=== PATIENT | female | born 1935 | race Caucasian/White ===

== ENCOUNTER → 2017-09-22 14:58 | Outpatient (CLI) | payer MEDICARE, SELFPAY | PROVIDERS: Family Provider Family Medicine; PCP Family Medicine; Visit Provider Family Medicine | DX: R82.90 Unspecified abnormal findings in urine (principal) | CPT/HCPCS: 87086; 87088; 87186 ==

== ENCOUNTER → 2017-10-29 14:46 | Outpatient (CLI) | payer MEDICARE, SELFPAY ==
--- NOTE | 2017-10-29 14:48 | RAD_ITS ---
STUDY: X-RAY - LEFT SHOULDER REASON FOR EXAM: Chronic pain, no specific injury. TECHNIQUE: 3 view(s) of the shoulder. COMPARISON: None. FINDINGS: Normal glenohumeral articulation. Normal acromioclavicular joint. Normal acromion. Normal humeral head and visualized proximal humerus. The soft tissue structures are unremarkable. Normal visualized pulmonary apex. RAD/Shoulder min 2 Views IMPRESSION: Unremarkable x-ray examination of the left shoulder. Electronically Signed: Gabe Gao MD at 15:30 EDT Tel , Service support ,
== END ==
PROVIDERS: Family Provider Family Medicine; PCP Family Medicine; Visit Provider Orthopaedic Surgery
DX: M25.512 Pain in left shoulder (principal)
CPT/HCPCS: 73030

== ENCOUNTER 2017-12-09 16:30 | Outpatient (RCR) | payer MEDICARE, SELFPAY ==
--- NOTE | 2017-11-04 14:04 | HP.PTEVAL_ITS ---
Patient's Visit Information NINA SANDOVAL is a 82 year old F referred to Physical Therapy by Natalia Rodriguez DO with a diagnosis of L shoulder pain. Date of Evaluation: 11/04/17 Physical Therapist: Olivia Linares - Visit Plan Frequency: 2x /Week Duration: 4 Weeks Plan: 2 visits to get HEP and trial of US and see if pt wants to continue with HEP at that points for postural exercises and RC/bicep strength - Subjective Subjective: Pt reports that she has had L shoulder pain for sometime. She had it on the R and has had a few shots and it is ok. She has had a few shots in the L shoulder and knew that it was not going to work. Dr Salguero gave her the shots. Dr Salguero sent her to Dr Pichardo and Dr Pichardo said to do therapy and check back in 6 weeks. Pt is seeing Dr Salguero next Thursday and hoping to get a shot in her back. Her L shoudler pain can be a 9/10. She has some fingers that feel funny on the L hand once in awhile.... She feels no weakness in her L shoulder. She has had 2 injection in L shoulder. First one was good and the second one was not so good. She can not sleep on her back but she sleeps on her sides....it is comfortable laying on the L side for awhile. - Pain L shoulder pain Pain Intensity (Out of 10): 4 Pain Intensity Range: 9 - Objective R handed: L shld flex and abd 110 degrees AROM, L1 IR,. R shld flex 130 degrees and shld abd 119 degrees AROM, T12 IR. L shld MMT flexion 4-/5, abd 4/5, ER 4-/5, IR 3+/5, bicep 3+/5. R shld MMT flexion 4.5, abd 4/5, ER 4/5, IR 4/5, bicep 4/5. Painful at end range PROM L shld flexion and abd. Posture: sits with rounded shoulders and protracted shoulders. Palpation: tender over L bicep and under anterior acromion. - Goals Goal 1:: I HEP Goal Time Frame: 2-4 Weeks Goal 2:: Decrease L shoulder pain to 2/10 with ADL's Goal Time Frame: 4-6 Weeks Goal 3:: Increase L shoulder strength by 1/2 muscle grade (At time of evalMMT flexion 4-/5, abd 4/5, ER 4-/5, IR 3+/5, bicep 3+/5). Goal Time Frame: 4-6 Weeks - Rehabilitation Potential Rehabilitation Potential: Good - Anticipated Interventions Patient/Client Instruction: Educate patient on: Condition For the Purpose of:: To decrease pain, To decrease swelling/inflammation, To increase ROM, To improve nutrient delivery to tissue, To improve muscle performance and motor function, To improve ability to perform ADL's Therapeutic Exercise to Include: Strength training, Flexibilty training, Passive ROM, Active ROM, Scapular Strength/Stabilization For the Purpose of:: To decrease pain, To decrease swelling/inflammation, To increase ROM, To improve nutrient delivery to tissue, To improve ability to perform ADL's, To increase tolerance to activity/condition/position, To improve performance and independence with ADL's Manual Therapy Techniques to Include: Mobilization, Passive ROM For the Purpose of:: To decrease pain, To decrease swelling/inflammation, To increase ROM, To improve nutrient delivery to tissue Cryotherapy (ice pack, ice massage): Yes Ultrasound (thermal/non thermal): Yes For the Purpose of:: To decrease pain, To decrease swelling/inflammation, To increase ROM, To improve nutrient delivery to tissue Thank you for the opportunity to evaluate your patient. For Medicare and Medicare HMO plans, please review the plan of care and approve it. It will need to be FAXED BACK to us at [phone] for Medicare purposes. Please let me know if there are questions or concerns regarding this plan of care. Physician Signature: Date:
--- NOTE | 2018-05-19 17:45 | HP.PT.NRP ---
HP - Discharge Summary (1) - Patient Information NINA SANDOVAL was seen in my office for initial evaluation on 11/04/17. The following Plan of Care was established for this patient: Initial Frequency: 2x /Week Initial Duration: 4 Weeks - Anticipated Interventions Patient/Client Instruction: Educate patient on: Condition For the Purpose of:: To decrease pain, To decrease swelling/inflammation, To increase ROM, To improve nutrient delivery to tissue, To improve muscle performance and motor function, To improve ability to perform ADL's Therapeutic Exercise to Include: Strength training, Flexibilty training, Passive ROM, Active ROM, Scapular Strength/Stabilization For the Purpose of:: To decrease pain, To decrease swelling/inflammation, To increase ROM, To improve nutrient delivery to tissue, To improve ability to perform ADL's, To increase tolerance to activity/condition/position, To improve performance and independence with ADL's Manual Therapy Techniques to Include: Mobilization, Passive ROM For the Purpose of:: To decrease pain, To decrease swelling/inflammation, To increase ROM, To improve nutrient delivery to tissue Cryotherapy (ice pack, ice massage): Yes Ultrasound (thermal/non thermal): Yes For the Purpose of:: To decrease pain, To decrease swelling/inflammation, To increase ROM, To improve nutrient delivery to tissue This patient was last seen in our office 12/09/17. Pertinent comments regarding their Physical therapy will appear below: Pt called and cancelled her last appointment due to being ill. She did not reschedule. She will be discharged from our care at this time. At this point I will be discontinuing this patient from physical therapy. I would be happy to see this patient again in the future if found appropriate by the physician. Thank you! Olivia Linares, MPT
== END 2017-12-09 19:00 | disposition home or self-care (01) ==
LOC: PT 16:30
PROVIDERS: Family Provider Family Medicine; PCP Family Medicine; Visit Provider Orthopaedic Surgery
DX: M25.512 Pain in left shoulder (principal)
CPT/HCPCS: 97035; 97110; 97140; 97161

== ENCOUNTER → 2018-02-18 16:57 | Outpatient (CLI) | payer MEDICARE, SELFPAY ==
--- NOTE | 2018-02-18 17:14 | MRI_ITS ---
STUDY: MRI LUMBAR SPINE WITHOUT CONTRAST REASON FOR EXAM: Female, 82 years old. Chronic severe back pain for many years. TECHNIQUE: Standardized fat and water weighted pulse sequences were obtained in the sagittal and axial planes. Several images are limited by patient motion. COMPARISON: Radiographs of the lumbar spine dated January 22, 2017. FINDINGS: T12-L1: Normal endplates. Normal disc height, signal and morphology. Normal bilateral facet joints. Normal central canal and bilateral lateral recesses. Normal bilateral intervertebral neural foramina. There is an exaggerated lumbar lordosis. There is grade 1 spondylolisthesis at L4-5 and L5-S1. There is no substantial scoliosis. Normal conus medullaris that terminates at the L1-2 level. L1-2: There is narrowing of the disc. There is mild annular disk bulge and osteophyte complex. There is mild degenerative arthropathy of the facet joints. Bilateral neuroforamina are narrowed without MR evidence for nerve impingement. There is no significant acquired central canal stenosis. L2-3: There is narrowing of the disc. There is mild annular disk bulge and osteophyte complex. There is moderately severe degenerative arthropathy of the facet joints. Bilateral neuroforamina are narrowed, right greater than left, with MR evidence for right-sided L2 nerve impingement. There is mild acquired central canal stenosis. L3-4: There is narrowing of this disc. There may be an extruded disc fragment on the right measuring approximately 8.8 mm in greatest dimension. There is moderate degenerative arthropathy of facet joints. The neural foramina are bilaterally narrowed, greater on the right than the left, with probable impingement of the right L3 nerve root at the neuroforamen. L4-5: There is uncovering of the disc related to the anterolisthesis. There is diffuse irregularity of the endplates possibly related to small Schmorl's nodes are previous discitis. Neural foramina or severely narrowed with probable impingement of bilateral L4 nerve roots of the neural foramina. There is questionable spondylolysis of L4. There is moderate acquired canal stenosis. There is severe degenerative arthropathy of facet joints. L5-S1: There is uncovering of the disc related to spondylolisthesis. There is narrowing of the disc. There is irregularity endplates possibly related to small Schmorl's nodes. There are severe degenerative arthropathy of facet joints. There is moderately severe acquired canal stenosis. Neural foramina are severely narrowed with probable impingement of the L5 nerve roots at the neural foramina. Normal visualized sacral ala. There is mild paraspinal muscular atrophy. There is a left-sided renal cyst measuring approximately 1.6 cm in greatest dimension. There is a moderate old compression fracture of T11. There are large Schmorl's nodes of the superior endplate of T11 and inferior endplate of T9. MRI/Spine Lumbar (Routine) IMPRESSION: 1. Grade 1 spondylolisthesis at L4-5 and L5-S1. 2. Severe multilevel degenerative disc disease and degenerative arthropathy of the lumbar spine with acquired canal stenosis, neural foraminal narrowing and potential nerve root impingement, as described. 3. 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 Electronically Signed: Modesta Ag MD at 5:32 EDT , Service support ,
== END ==
PROVIDERS: Family Provider Family Medicine; PCP Family Medicine; Referring Provider Anesthesiology Pain Medicine; Visit Provider Anesthesiology Pain Medicine
DX: M43.17 Spondylolisthesis, lumbosacral region (principal); M51.36 Other intervertebral disc degeneration, lumbar region; M48.061 Spinal stenosis, lumbar region without neurogenic claudication; M79.605 Pain in left leg
CPT/HCPCS: 72148

== ENCOUNTER → 2018-03-10 09:30 | Outpatient (CLI) | payer MEDICARE, SELFPAY ==
[2018-03-10 12:02] LABS: Absolute Lymphocyte Count 1.86 X10^3/ul (0.83-4.51); Absolute Neutrophil Count 6.2 X10^3/uL (2.0-7.7); Basophil# 0.01 X10^3/uL; Basophil% 0.1 % (0-1); Eosinophil# 0.11 X10^3/uL; Eosinophils% 1.2 % (0-5); Hematocrit 40.9 % (37-47); Hemoglobin 12.9 g/dl (12.0-15.0); Lymphocyte # 1.86 X10^3/ul (4.0); Lymphocyte % 20.6 % (19-41); Mean Corp Hgb Conc 31.5 g/gl (32-36); Mean Corpuscular Volume 98.3 fL (81-99); Mean Platelet Vol. 9.4 fl (6.2-12.0); Monocyte# 0.84 X10^3/uL; Monocyte% 9.3 % (0-10); Neutrophil % 68.7 % (47-70); Platelet Count 325 K/mm3 (150-450); RBC Distribution Width CV 13.5 % (11.6-14.6); RBC Distribution Width SD 48.4 fl (35.1-43.9); Red Blood Count 4.16 M/mm3 (4.2-5.4)
[2018-03-10 12:03] LABS: POSITIVE COUNT NO; POSITIVE DIFFERENTIAL NO; POSITIVE MORPHOLOGY NO
[2018-03-10 12:46] LABS: Vitamin D,25 Hydroxy 20.4 ng/mL (29.95-100.01)
[2018-03-10 12:52] LABS: ALB/GLOB Ratio 0.9 RATIO (0.9-2.4); AST(SGOT) 12 U/L (15-37); Alanine Aminotransfer ALT/SGPT 12 U/L (13-56); Albumin, Serum 3.3 g/dL (3.2-5.0); Alkaline Phosphatase 83 U/L (45-117); Anion Gap 11 (5-15); BUN 17 mg/dL (7-18); BUN/Creat Ratio 22.2 RATIO (10-20); Calcium,Total 8.9 mg/dL (8.5-10.1); Chloride 103 mmol/L (98-107); Cholesterol 175 mg/dL (200); Creatinine, Serum 0.76 mg/dL (0.55-1.02); EST Glomerular Filtration Rate 77 mL/min (>60); Est Glom Filt Rate - Afr Amer 93 mL/min (>60); Globulin 3.5 g/dL (2.2-4.2); Glucose 97 mg/dL (74-106); High Density Lipoprotein 48 mg/dL; Potassium 3.1 mmol/L (3.5-5.1); Protein, Total 6.8 g/dL (6.4-8.2); Sodium Level 143 mmol/L (136-145); Triglycerides 211 mg/dL
[2018-03-10 12:53] LABS: Ferritin 16 ng/mL (8-252); Iron 49 ug/dL (50-170); Thyroid Stim Hormone (TSH) 1.39 uIU/mL (0.358-3.74); Very Low Density Lipoprotein 42 mg/dL (5-40)
== END ==
PROVIDERS: Family Provider Family Medicine; PCP Family Medicine; Referring Provider Family Medicine; Visit Provider Family Medicine
DX: E78.00 Pure hypercholesterolemia, unspecified (principal); E03.9 Hypothyroidism, unspecified; E55.9 Vitamin D deficiency, unspecified; D50.9 Iron deficiency anemia, unspecified
CPT/HCPCS: 36415; 80053; 80061; 82306; 82728; 83540; 84443; 85025

== ENCOUNTER 2018-06-22 13:18 | Emergency (ER) | payer MEDICARE, SELFPAY ==
[2018-06-22 13:19] VITALS: BP 142/79; PULSE 70; RESP 18; TEMP 36.4; O2SAT 97; BMI 23.0
--- NOTE | 2018-06-22 13:57 | RAD_ITS ---
STUDY: X-RAY - LEFT KNEE REASON FOR EXAM: Female, 82 years old. Pain following a twisting injury. TECHNIQUE: 4 view(s) of the knee. COMPARISON: None. FINDINGS: Normal visualized distal femur. Normal visualized proximal tibia and fibula. Normal proximal tibiofibular articulation. Normal medial femorotibial compartment. Normal lateral femorotibial compartment. Normal patellofemoral articulation. The soft tissue structures are unremarkable. RAD/Knee 4 or More Views IMPRESSION: Normal x-ray examination of the knee. Electronically Signed: Caio Spangler MD at 14:36 EST , Service support ,
--- NOTE | 2018-06-22 15:21 | ED.DCSUM_ITS ---
- ER Visit Summary Date of Service: 06/22/18 Chief Complaint: Patient twisted her left knee about a week ago she has been ambulating on it her pain has not completely gone away most of her pain is lateral knee region. No other injury. No paresthesias. Physical Examination: Otherwise normal exam, no hip pain no pain with logrolling, no laxity on anterior posterior medial lateral stressors, she does have some lateral meniscal tenderness. She has normal extensor mechanism. Emergency Department Course and Treatment: X-rays unremarkable, she may have a meniscal injury, because of her age and the potential meniscal injury I will refer to orthopedics. Disposition: Discharge stable condition Impression: Left knee strain This note was generated with [employer] dictation software. It may contain incorrect words, spelling, and punctuation that were not noted in review of the chart prior to signing ED Disposition - Plan for ED Patient: Disposition: Home or Assisted Living Instructions: ED Sprain Knee Referrals: Dio Clemens DO [STAFF PHYSICIAN] - 3-5 Days
[2018-06-22 15:34] VITALS: BP 132/74; PULSE 71; RESP 16; O2SAT 99
== END 2018-06-22 15:35 | disposition home or self-care (01) ==
PROVIDERS: Emergency Provider Emergency Medicine; Family Provider Family Medicine; PCP Family Medicine
DX: S83.92XA Sprain of unspecified site of left knee, initial encounter (principal); X50.1XXA Overexertion from prolonged static or awkward postures, initial encounter; Y93.9 Activity, unspecified; Y92.9 Unspecified place or not applicable; Z79.899 Other long term (current) drug therapy
CPT/HCPCS: 73564; 99282

== ENCOUNTER → 2018-09-13 10:06 | Outpatient (CLI) | payer MEDICARE, SELFPAY ==
[2018-09-13 12:11] LABS: Absolute Lymphocyte Count 2.05 X10^3/ul (0.83-4.51); Absolute Neutrophil Count 6.4 X10^3/uL (2.0-7.7); Basophil# 0.01 X10^3/uL; Basophil% 0.1 % (0-1); Eosinophil# 0.03 X10^3/uL; Eosinophils% 0.3 % (0-5); Hematocrit 42.9 % (37-47); Hemoglobin 13.8 g/dl (12.0-15.0); Lymphocyte # 2.05 X10^3/ul (4.0); Lymphocyte % 21.9 % (19-41); Mean Corp Hgb Conc 32.2 g/gl (32-36); Mean Corpuscular Hgb 30.5 pg (27.0-32.0); Mean Corpuscular Volume 94.7 fL (81-99); Mean Platelet Vol. 10.3 fl (6.2-12.0); Monocyte# 0.78 X10^3/uL; Monocyte% 8.4 % (0-10); Neutrophil # 6.44 X10^3/uL (2.7-7.7); Platelet Count 275 K/mm3 (150-450); RBC Distribution Width CV 13.8 % (11.6-14.6); RBC Distribution Width SD 46.2 fl (35.1-43.9); Red Blood Count 4.53 M/mm3 (4.2-5.4); White Blood Count 9.3 K/mm3 (4.4-11.0)
[2018-09-13 12:14] LABS: POSITIVE COUNT NO; POSITIVE DIFFERENTIAL NO; POSITIVE MORPHOLOGY NO
[2018-09-13 12:22] LABS: ALB/GLOB Ratio 1.2 RATIO (0.9-2.4); AST(SGOT) 16 U/L (15-37); Alanine Aminotransfer ALT/SGPT 14 U/L (13-56); Albumin, Serum 3.8 g/dL (3.2-5.0); Alkaline Phosphatase 66 U/L (45-117); Anion Gap 8 (5-15); BUN 16 mg/dL (7-18); BUN/Creat Ratio 22.3 RATIO (10-20); Calcium,Total 8.8 mg/dL (8.5-10.1); Chloride 105 mmol/L (98-107); Cholesterol 203 mg/dL (200); Creatinine, Serum 0.72 mg/dL (0.55-1.02); EST Glomerular Filtration Rate 82 mL/min (>60); Est Glom Filt Rate - Afr Amer 100 mL/min (>60); Ferritin 15 ng/mL (8-252); Globulin 3.3 g/dL (2.2-4.2); Glucose 78 mg/dL (74-106); High Density Lipoprotein 54 mg/dL; Iron 57 ug/dL (50-170); Potassium 3.8 mmol/L (3.5-5.1); Protein, Total 7.1 g/dL (6.4-8.2); Sodium Level 141 mmol/L (136-145); Triglycerides 313 mg/dL; Very Low Density Lipoprotein 63 mg/dL (5-40)
[2018-09-13 12:25] LABS: Vitamin D,25 Hydroxy 13.4 ng/mL (29.95-100.01)
== END ==
PROVIDERS: Family Provider Family Medicine; PCP Family Medicine; Referring Provider Family Medicine; Visit Provider Family Medicine
DX: E55.9 Vitamin D deficiency, unspecified (principal); E78.00 Pure hypercholesterolemia, unspecified; D50.9 Iron deficiency anemia, unspecified; E87.6 Hypokalemia
CPT/HCPCS: 36415; 80053; 80061; 82306; 82728; 83540; 85025

== ENCOUNTER 2018-10-21 19:12 | Observation (INO) | payer MEDICARE, SELFPAY ==
[2018-10-21 19:13] VITALS: BP 135/63; PULSE 86; RESP 14; TEMP 36.5; O2SAT 97; BMI 22.1
[2018-10-21 19:17] VITALS: O2SAT 97
--- NOTE | 2018-10-21 19:22 | ED.RN ---
CONTUSION TO LEFT ANKLE NOTED.
--- NOTE | 2018-10-21 19:50 | RAD_ITS ---
STUDY: X-RAY - LEFT SHOULDER REASON FOR EXAM: Female, 83 years old. Fall TECHNIQUE: 2 view(s) of the shoulder. COMPARISON: 10/29/2017 FINDINGS: There is a comminuted fracture of the left humeral neck with anterior displacement of the major distal fragment. The remainder of the visualized osseous structures are intact. There are no radiodense foreign bodies. RAD/Shoulder min 2 Views IMPRESSION: Comminuted fracture of the left humeral neck with anterior displacement of the major distal fragment. Electronically Signed: Phoenix Broderick, at 20:11 EDT Tel , Service support ,
--- NOTE | 2018-10-21 20:12 | CT_ITS ---
STUDY: CT CERVICAL SPINE WITHOUT CONTRAST REASON FOR EXAM: Female, 83 years old. Fall RADIATION DOSAGE (If Supplied By Facility): CTDIvol = ( 19.60 ) mGy, DLP = ( 341.41 ) mGycm TECHNIQUE: High resolution transaxial imaging was performed without contrast material. Sagittal and coronal images were reconstructed. Individualized dose optimization techniques were used for this CT. COMPARISON: 04/11/2015 FINDINGS: There is no evidence of fracture or dislocation in the cervical spine. The dens is intact. Alignment is normal. The vertebral body heights are well-maintained. There are stable mild degenerative changes. The visualized paraspinal soft tissues are within normal limits. CT/Spine Cervical without Contras IMPRESSION: No fracture or dislocation in the cervical spine. Stable mild degenerative change. Electronically Signed: Phoenix Broderick, at 21:11 EDT Tel , Service support ,
--- NOTE | 2018-10-21 20:12 | CT_ITS ---
STUDY: CT BRAIN WITHOUT CONTRAST REASON FOR EXAM: Female, 83 years old. Fall. RADIATION DOSAGE (If Supplied By Facility): CTDIvol = ( 44.99 ) mGy, DLP = ( 796.11 ) mGycm TECHNIQUE: Transaxial CT imaging of the brain was performed without administration of intravenous contrast material. Individualized dose optimization techniques were used for this CT. COMPARISON: 04/11/2015 FINDINGS: There is no acute bleed or infarct. There are stable chronic ischemic and atrophic changes. The ventricles are normal in configuration. There is no hydrocephalus. The visualized paranasal sinuses are clear. The mastoid air cells are well aerated. There is no skull fracture. CT/Brain/Head without Contrast IMPRESSION: Stable chronic ischemic and atrophic changes. No acute intracranial abnormality. Electronically Signed: Phoenix Broderick, at 21:06 EDT Tel , Service support ,
[2018-10-21] MEDS: Ondansetron 4 MG/2 ML Vial IV (20:18)
[2018-10-21] MEDS: Morphine 4 MG/ML Syringe IV (20:18)
--- NOTE | 2018-10-21 20:37 | ED.DCSUM_ITS ---
- ER Visit Summary Date of Service: 10/21/18 Chief Complaint: Fall History of Present Illness: The patient is a 83 F presenting after fall. Patient states she was carrying laundry upstairs. She states she lost her footing and fell onto her left side. She did hit her head but did not lose consciousness. She is not on anticoagulants. EMS was called. They were able to help her up. She was able to ambulate when she stood up. She complains of left shoulder pain. Physical Examination: Vitals are stable. Patient is afebrile. Alert no acute distress. HEENT exam 2 cm laceration posterior scalp Neck is nontender Lungs are clear and equal bilaterally. Heart is regular rate and rhythm. Abdomen is soft nontender nondistended. Extremities left proximal humerus tenderness and swelling, normal distal pulse Skin is warm and dry. No focal neurologic deficit. Remainder of exam is unremarkable. Emergency Department Course and Treatment: Patient given morphine, Zofran IV. Left shoulder x-ray shows comminuted fracture of the left humeral neck with anterior displacement of the major distal fragment. Patient was given Adacel IM. CT head and neck show no acute process. Laceration was irrigated. Anesthetized with lidocaine. 4 jimi were placed. Family is not comfortable with discharge home because they do not feel she can care for herself and she lives alone. Discussed with the hospitalist and orthopedics. Disposition: Observation Impression: Left proximal humerus fracture, mechanical fall, scalp laceration, laceration repair This note was generated with [employer] dictation software. It may contain incorrect words, spelling, and punctuation that were not noted in review of the chart prior to signing ED Disposition - Plan for ED Patient: Referrals: Claudio Steele DO [Primary Care Provider] -
[2018-10-21 21:14] VITALS: RESP 16
[2018-10-21] MEDS: Diphth,Pertuss(Acell),Tet Vac 0.5 ML Vial IM (21:20)
--- NOTE | 2018-10-21 21:51 | HP.PCM_ITS ---
Problem List (1) Fall Status: Acute (2) Comminuted left humeral fracture Status: Acute (3) Scalp laceration Status: Acute History of Present Illness Date of Admission: 10/21/18 Chief Complaint: Fall The patient is a 83 year old F with a significant history of chronic back pain; and ulcerative colitis who presented to the emergency department because of a fall. Patient was carrying clothes on hangers and she slipped and fell landing on her left side. She denies any dizziness or seizure activities with the fall. She denies any nausea or vomiting associated with her fall. The emergency department patient was noted to have laceration of her parieto- occipital area for which jimi were placed.. Patient complains of pain in her left arm. She rated pain as 8 out of 10. The pain is sharp. The intensity of the pain improved with morphine that was given at the emergency department. X-ray of the shoulder showed left humeral neck fracture. Past Medical History Past Medical History (Chronic Problems): Chronic Problems History of peptic ulcer (Chronic) Ulcerative colitis (Chronic) Hyperlipidemia (Chronic) Hypothyroidism (Chronic) GERD (gastroesophageal reflux disease) (Chronic) HTN (hypertension) (Chronic) Allergies No Known Allergies Allergy (Verified 10/21/18 19:12) Home Medications: Ambulatory Orders Medication Instructions Recorded Duloxetine Hcl [Cymbalta] 60 mg PO DAILY 08/16/13 Oxycodone HCl/Acetaminophen 0.5 tablet PO Q6H PRN PRN 08/16/13 [Percocet 5-325] Pravastatin [Pravachol] 40 mg PO QHS 08/16/13 Furosemide [Lasix] 20 mg PO DAILY PRN 02/15/17 Budesonide [Entocort EC] 3 mg PO DAILY 10/21/18 Loperamide [Imodium] 2 mg PO Q2H PRN PRN 10/21/18 Omeprazole 40 mg PO DAILY 10/21/18 Potassium Chloride [K-Dur] 20 meq PO DAILY 10/21/18 Surgical History: noncontributory Psychiatric History: No pertinent psych hx 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 Denies: Chest Pain, Palpitations Respiratory: Denies: Cough, Shortness of breath at rest, Sputum production Gastrointestinal: Denies: Abdominal Pain, Nausea, Vomiting Genitourinary: Denies: Dysuria Musculoskeletal: Reports: Arm Pain. Denies: Joint Pain, Joint Tenderness Skin: Denies: Rash, Wounds Neurological: Denies: Numbness, Tingling, Focal weakness Psychiatric: Denies: Anxiety, Depression, Homicidal Ideations, Suicidal Ideations Hematologic/ Lymphatic: Denies: Easy Bruising, Easy Bleeding VTE Information - Inpt Only VTE Present on Admission: No VTE Mechan Device Prophylaxis: SCD's VTE Pharm Prophylaxis ordered?: No Patient Problems: Active and Suspected Problems Fall (Acute) Comminuted left humeral fracture (Acute) Scalp laceration (Acute) - Physical Exam General: Alert, Oriented x3, Cooperative HEENT: PERRLA, EOMI, Normocephalic, - - Well approximated parietal occipital laceration with scalp. Neck: Supple, No JVD, Negative Carotid Bruits Lungs: Clear to auscultation, Normal air movement Cardiovascular: Regular rate, No murmurs Abdomen: Bowel Sounds Present, Soft, Non Tender Extremities: Capillary Refill Less than 3 Seconds, Edema - Left worse than right., - - Left upper extremity in sling. Skin: No rashes, No breakdown Musculoskeletal: No Tenderness to Palpation of Joints or Extremities Neurological: Cranial nerves II-XII grossly intact Psych/Mental Status: Normal Affect, Appropriate Vital Signs Temp Pulse Resp BP Pulse Ox 97.7 F L 86 16 135/63 H 97 10/21/18 19:13 10/21/18 19:13 10/21/18 21:14 10/21/18 19:13 10/21/18 19:17 Oxygen Delivery Method Room Air Weight: 51.6 kg Body Mass Index (BMI) 22.1 Assessment/Plan All Active Problems Fall (Acute) Comminuted left humeral fracture (Acute) Scalp laceration (Acute) Anemia due to blood loss, acute (Acute) UGIB (upper gastrointestinal bleed) (Acute) The patient is a 83 year old F with a significant history of chronic back pain; and ulcerative colitis who presented to the emergency department because of a fall and found to have laceration of a parietal occipital area; and radiographic evidence of comminuted fracture of the left humeral neck with anterior displacement of the major distal fragment. Left humeral neck with anterior displacement of the major distal fragment. A sling was placed at the emergency department. Discussed emergency department doctor to discuss case with orthopedic doctor. Per emergency department doctor orthopedic will follow patient in a.m. Orthopedic consult. Morphine IV as needed We will continue home Percocet the patient is for chronic back pain. PRN Zofran ordered. Senokot as PRN ordered. Tdap administered at emergency department. CBC and PT/INR ordered. Laceration of scalp Staple placed in the emergency department. Fall Likely mechanical. No further intervention at this time. Bilateral lower extremity edema Her left leg looks very swollen. Her family thinks that it may be more swollen and thought that she might have injured it with her fall. X-ray of left was discussed with patient but she refused. She reports that occasionally it gets that much swollen. Lasix continued. DVT prophylaxis SCD. Code Visit OBSV E&M: 98567 Initial observation care L3
[2018-10-21 22:35] VITALS: O2SAT 90
[2018-10-21 22:40] VITALS: BP 101/54; PULSE 100; RESP 16; TEMP 36.9; O2SAT 96; BMI 23.4
[2018-10-21 23:03] VITALS: BMI 23.4
[2018-10-21 23:18] LABS: Hematocrit 36.9 % (37-47); Hemoglobin 11.9 g/dl (12.0-15.0); Mean Corp Hgb Conc 32.2 g/gl (32-36); Mean Corpuscular Hgb 30.9 pg (27.0-32.0); Mean Corpuscular Volume 95.8 fL (81-99); Mean Platelet Vol. 9.5 fl (6.2-12.0); Platelet Count 248 K/mm3 (150-450); RBC Distribution Width CV 13.7 % (11.6-14.6); RBC Distribution Width SD 47.8 fl (35.1-43.9); Red Blood Count 3.85 M/mm3 (4.2-5.4); White Blood Count 9.2 K/mm3 (4.4-11.0)
[2018-10-21 23:20] LABS: Scan Indicated on CBC? Y/N NO
[2018-10-21] MEDS: Morphine 2 MG/ML Syringe IV (23:20)
[2018-10-21] MEDS: MELATONIN 3 MG TABLET PO (23:21)
[2018-10-21 23:24] LABS: Prothrombin Time (Protime)PT. 12.6 SECONDS (11.7-14.9)
[2018-10-21 23:50] VITALS: PULSE 100; RESP 16; O2SAT 96
[2018-10-22] VITALS (8 sets, daily range): BP systolic 105–128; BP diastolic 39–55; PULSE 67–86; RESP 16; TEMP 36.4–36.9; O2SAT 91–100
[2018-10-22] MEDS: 0.9% NaCl Peripheral Flush Adult/Peds IV ×4 (01:47→17:06)
[2018-10-22 01:51] LABS: Bedside Glucose 124 mg/dL (70-110)
[2018-10-22] MEDS: Morphine 2 MG/ML Syringe IV ×4 (02:44→19:49)
[2018-10-22] MEDS: DULoxetine Hcl 60 MG Capsule PO (08:06)
[2018-10-22] MEDS: Pantoprazole Sodium 40 MG Tablet PO (08:06)
--- NOTE | 2018-10-22 09:36 | CON.PCM_ITS ---
Reason for Consult Date of Consultation: 10/22/18 Reason for Consultation: Left shoulder pain History of Present Illness: The patient is a 83 year old F []who lives at home alone without assistance. She fell suffering a significantly displaced left proximal; humerus fracture. She was admitted by the hospitalist and reports pain only about the left shoulder. She denies N/T or P. Past Medical History Past Medical History (Chronic Problems): Chronic Problems History of peptic ulcer (Chronic) Ulcerative colitis (Chronic) Hyperlipidemia (Chronic) Hypothyroidism (Chronic) GERD (gastroesophageal reflux disease) (Chronic) HTN (hypertension) (Chronic) Allergies No Known Allergies Allergy (Verified 10/21/18 19:12) Home Medications: Ambulatory Orders Medication Instructions Recorded Duloxetine Hcl [Cymbalta] 60 mg PO DAILY 08/16/13 Oxycodone HCl/Acetaminophen 0.5 tablet PO Q6H PRN PRN 08/16/13 [Percocet 5-325] Pravastatin [Pravachol] 40 mg PO QHS 08/16/13 Furosemide [Lasix] 20 mg PO DAILY PRN 02/15/17 Budesonide [Entocort EC] 3 mg PO DAILY 10/21/18 Loperamide [Imodium] 2 mg PO Q2H PRN PRN 10/21/18 Omeprazole 40 mg PO DAILY 10/21/18 Potassium Chloride [K-Dur] 20 meq PO DAILY 10/21/18 Surgical History: noncontributory Psychiatric History: No 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 - Physical Exam General: Alert, Oriented x3, Cooperative, No apparent distress Extremities: No clubbing, No cyanosis, No edema, Capillary Refill Less than 3 Seconds, Peripheral Pulses Normal, Tenderness - With ecchymosis about the left shoulder Skin: No breakdown Neurological: Neuro grossly intact Comment: X-ray reviewed: Comminuted, anteriorly displaced left prox humerus fx Vital Signs Temp Pulse Resp BP Pulse Ox 98.0 F 70 16 107/39 L 97 10/22/18 07:56 10/22/18 07:56 10/22/18 07:56 10/22/18 07:56 10/22/18 07:56 Oxygen Flow Rate (L/min) 2 Oxygen Delivery Method Room Air Weight: 119 lb 14.903 oz Body Mass Index (BMI) 23.4 Intake and Output for Last 24 Hours 10/20/18 10/21/18 10/22/18 23:59 23:59 23:59 Intake Total 320 / 320 Balance 320 / 320 Laboratory Tests Past 24 Hrs 10/21/18 10/21/18 22:55 22:55 WBC 9.2 RBC 3.85 L Hgb 11.9 L Hct 36.9 L MCV 95.8 MCH 30.9 MCHC 32.2 RDW 13.7 RDW Differential 47.8 H Plt Count 248 MPV 9.5 PT 12.6 INR 1.0 POC Glucose 10/22/18 01:43 POC Glucose 124 H Assessment/Plan All Active Problems Fall (Acute) Comminuted left humeral fracture (Acute) Scalp laceration (Acute) Anemia due to blood loss, acute (Acute) UGIB (upper gastrointestinal bleed) (Acute) Left proximal humerus fx I reviewed the xrays with my partner, Dr. Suarez. We will try to treat this fracture non-operatively. Depending upon follow up x-rays, she may need an ORIF in the future. Continue sling. Will ambulate with PT. No weight on left arm. Follow up in office next week for xrays and future planning.
--- NOTE | 2018-10-22 10:30 | CASEMGMT ---
DORITA OG Face to Face with patient for initial transition planning/care coordination assessment. DORITA OG introduced self and role at [facility]. Patient lying in bed, alert and oriented. Patient willing to participate in assessment and is able to answer all questions appropriately. Care providers, pharmacy, and demographics verified. Patient wishes to discharge home with possible HHC or may consider SNF depending on how she does with therapy. Patient states she has no further needs or concerns at this time. CM to follow for discharge planning needs that may arise. PCP: Cedric Specialists: wojciech Salguero Preferred Pharmacy: [facility] Insurance: [employer] Prescription Benefit: yes Living Will/HPOA: none LNOK: 2 sons and daughter Living Arrangements: Patient lives alone in tri-level house with level on ground floor for bed and bath. Patient was independent prior to admission. Transportation: self/family DME/HHC: Patient states she has raised toilet seat, denies further equipment. No previous HHC Therapy followed up with CM and WENDI regarding patient. Therapy recommending patient would benefit from SNF. DORITA OG in to discuss recommendations. Patient is agreeable to SNF with preference for [facility]. WENDI Friedman updated regarding request for SNF. Disposition Plan: [facility] pending precert. Majo HENDERSON, RN, CM
[2018-10-22] MEDS: Furosemide 20 MG Tablet PO (10:32)
[2018-10-22] MEDS: oxyCODONE 5 MG Tablet PO ×2 (10:32→22:26)
--- NOTE | 2018-10-22 13:02 | CASEMGMT ---
Addendum entered by Majo Friedman 10/22/18 13:30: WENDI received call from Fallon at [facility] stating W is able to accept pt and she submitted pre-cert. WENDI informed Fallon that this worker is leaving around 3:00pm today and if she receives to call [facility] main floor number. Fallon states understanding, states she has [facility] main number. WENDI updated pt on acceptance to [facility] pending pre-cert. WENDI informed pt that if pre-cert is not obtained today then pt will be at [facility] over the weekend. Pt states understanding. WENDI completed PAS/RR in [facility]. Original on pt's chart. WENDI placed green sheet on pt's chart in the event pre-cert is obtained. Plan: [facility] pending pre-cert SUSAN Corona Original Note: Social Work Note RN EARLE Rincon updated this worker that pt is agreeable to [facility]. WENDI placed a call to Fallon at [facility] and updated her on referral. WENDI faxed referral. WENDI informed Fallon that if [facility] is able to accept to submit for pre-cert. WENDI waiting for call back. Plan: [facility] pending acceptance and pre-cert SUSAN Corona
--- NOTE | 2018-10-22 16:09 | CHAPLAIN ---
Type of Pastoral Visit _x__ Initial Visit ___ Follow-up Visit ___ On-call Visit ___ General Patient Visit ___ Spiritual Assessment ___ Family Conference ___ Bereavement ___ Rapid Response ___ Code Blue ___ Other (describe below) Pastoral Care Referral From _x__ Patient ___ Family ___ Nurse ___ Physician ___ Textile Pin Worker ___ Telecommunications Field Engineer ___ Other (describe below) Sacrament/Intervention _x__ Active listening ___ Anointing ___ Jainism ___ Bereavement ___ Communion _x__ Lisa exploration ___ _x__ Life review _x__ Prayer ___ Reconciliation ___ Sacrament of Sick _x__ Supportive presence ___ Wedding ___ Other (describe below) Pastoral Comments patient expresses disappointment that she has to go to [facility] and not home or to be with her children; pt talks about her life and does repeat her stories somewhat
--- NOTE | 2018-10-22 18:31 | PCM.PROGNOTE ---
Patient Problems: Active and Suspected Problems Fall (Acute) Comminuted left humeral fracture (Acute) Scalp laceration (Acute) Subjective: Patient was seen and examined today, patient was unstable walking with physical therapy and it was recommended that the patient go for inpatient skilled therapy in an extended care facility. Patient has agreed to placement at this time. Orthopedic surgery does not feel the patient needs surgery on her left arm - Physical Exam General: Alert, Oriented x3, Cooperative, No apparent distress HEENT: Atraumatic, PERRLA, EOMI, Normocephalic Oral: Moist Mucosa Neck: Supple, No JVD, Trachea Midline, Thyroid Normal Size and Texture Lungs: Clear to auscultation, Normal air movement Cardiovascular: Regular rate, Regular Rhythm, Normal S1, Normal S2, No murmurs, No Ectopic Activity Abdomen: Bowel Sounds Present, Soft, Non Tender, Non-Distended, No hernias noted Extremities: No clubbing, No cyanosis, No edema, Capillary Refill Less than 3 Seconds, Tenderness - There is tenderness noted to be present over the patient's proximal humeral head on the left Skin: No rashes, Ulcer/ Wound - There is an approximately 2 cm laceration to the posterior scalp noted- approximated with jimi Musculoskeletal: No Tenderness to Palpation of Joints or Extremities Neurological: Cranial nerves II-XII grossly intact, Neuro grossly intact, Sensory exam intact to light touch and pain Psych/Mental Status: Normal Affect, Appropriate, Alert and oriented to time, place, person, mood and affect Vital Signs Temp Pulse Resp BP Pulse Ox 98.4 F 86 16 128/49 H 95 10/22/18 13:46 10/22/18 13:46 10/22/18 13:46 10/22/18 13:46 10/22/18 13:46 Oxygen Flow Rate (L/min) 2 Oxygen Delivery Method Room Air Weight: 54.4 kg Body Mass Index (BMI) 23.4 Intake and Output for Last 24 Hours 10/20/18 10/21/18 10/22/18 23:59 23:59 23:59 Intake Total 320 / 320 Balance 320 / 320 Laboratory Tests Past 24 Hrs 10/21/18 10/21/18 22:55 22:55 WBC 9.2 RBC 3.85 L Hgb 11.9 L Hct 36.9 L MCV 95.8 MCH 30.9 MCHC 32.2 RDW 13.7 RDW Differential 47.8 H Plt Count 248 MPV 9.5 PT 12.6 INR 1.0 POC Glucose 10/22/18 01:43 POC Glucose 124 H Medical Necessity - Tobacco Use Smoking Status: Never smoker Assessment/Plan All Active Problems Fall (Acute) Comminuted left humeral fracture (Acute) Scalp laceration (Acute) Anemia due to blood loss, acute (Acute) UGIB (upper gastrointestinal bleed) (Acute) #1 left humeral neck fracture-patient will continue with PT and OT, we will go forward with placement in a senior care facility, it is likely we will not get approval for this until early next week. #2 hyperlipidemia #3 hypothyroidism #4 hypertension-continue present medications #5 laceration to the left posterior scalp Code Visit OBSV E&M: 27564 Subsequent observation care L3
[2018-10-22 21:08] LABS: Anion Gap 2 (5-15); BUN 19 mg/dL (7-18); BUN/Creat Ratio 25.6 RATIO (10-20); Calcium,Total 8.5 mg/dL (8.5-10.1); Chloride 105 mmol/L (98-107); Creatinine, Serum 0.74 mg/dL (0.55-1.02); EST Glomerular Filtration Rate 79 mL/min (>60); Est Glom Filt Rate - Afr Amer 96 mL/min (>60); Estimated Creatinine Clearance 30.62 ml/min; Glucose 130 mg/dL (74-106); Potassium 4.4 mmol/L (3.5-5.1); Sodium Level 134 mmol/L (136-145)
[2018-10-22] MEDS: Acetaminophen 500 MG Tablet PO (22:22)
[2018-10-22] MEDS: Pravastatin 40 MG Tablet PO (22:22)
[2018-10-23 02:00] VITALS: BP 110/55; PULSE 67; RESP 16; TEMP 36.7; O2SAT 99
[2018-10-23] MEDS: Acetaminophen 500 MG Tablet PO ×4 (06:29→23:13)
[2018-10-23 06:48] VITALS: O2SAT 94
[2018-10-23 08:50] VITALS: BP 91/54; PULSE 63; RESP 16; TEMP 37.1; O2SAT 98
[2018-10-23 10:10] VITALS: PULSE 76
[2018-10-23] MEDS: DULoxetine Hcl 60 MG Capsule PO (10:17)
[2018-10-23] MEDS: Pantoprazole Sodium 40 MG Tablet PO (10:17)
[2018-10-23] MEDS: Furosemide 20 MG Tablet PO (10:17)
--- NOTE | 2018-10-23 13:33 | PCM.PROGNOTE ---
Patient Problems: Active and Suspected Problems Fall (Acute) Comminuted left humeral fracture (Acute) Scalp laceration (Acute) Subjective: Patient was seen and examined today, she continues to complain of left arm pain from her fracture, she does not complain of any shortness of breath or chest pain. - Physical Exam General: Alert, Oriented x3, Cooperative, No apparent distress, Well developed, Well nourished HEENT: Atraumatic, PERRLA, EOMI, Normocephalic Oral: Moist Mucosa Neck: Supple, No JVD, No Nuchal Rigidity, Trachea Midline, Thyroid Normal Size and Texture Lungs: Clear to auscultation, Normal air movement, No rhonchi, No wheeze, No rales Cardiovascular: Regular rate, Regular Rhythm, Normal S1, Normal S2, No murmurs, No Ectopic Activity, PMI Normal, No rub noted, No Gallop Abdomen: Bowel Sounds Present, Soft, Non Tender, Non-Distended, No hernias noted Extremities: No clubbing, No cyanosis, No edema, Capillary Refill Less than 3 Seconds, - - Left arm is in a sling at this time Skin: No rashes, No breakdown Musculoskeletal: No Tenderness to Palpation of Joints or Extremities Neurological: Cranial nerves II-XII grossly intact, Neuro grossly intact, Sensory exam intact to light touch and pain, Coordination normal Psych/Mental Status: Normal Affect, Appropriate, Alert and oriented to time, place, person, mood and affect Vital Signs Temp Pulse Resp BP Pulse Ox 98.7 F 76 16 91/54 L 98 10/23/18 08:50 10/23/18 10:10 10/23/18 08:50 10/23/18 08:50 10/23/18 08:50 Oxygen Flow Rate (L/min) 1 Oxygen Delivery Method Room Air Weight: 54.4 kg Body Mass Index (BMI) 23.4 Intake and Output for Last 24 Hours 10/21/18 10/22/18 10/23/18 23:59 23:59 23:59 Intake Total 320 / 320 320 / 320 Output Total 400 / 400 Balance 320 / 320 -80 / -80 Laboratory Tests Past 24 Hrs 10/22/18 20:50 Sodium 134 L Potassium 4.4 Chloride 105 Carbon Dioxide 27.0 Anion Gap 2 L BUN 19 H Creatinine 0.74 Estim Creat Clear Calc 30.62 Est GFR (MDRD) Af Amer 96 Est GFR (MDRD) Non-Af 79 BUN/Creatinine Ratio 25.6 H Glucose 130 H Calcium 8.5 Medical Necessity - Tobacco Use Smoking Status: Never smoker Assessment/Plan All Active Problems Fall (Acute) Comminuted left humeral fracture (Acute) Scalp laceration (Acute) Anemia due to blood loss, acute (Resolved) UGIB (upper gastrointestinal bleed) (Resolved) #1 left humeral neck fracture-patient will continue with PT and OT, we will go forward with placement in a assisted facility, it is likely we will not get approval for this until early next week. No change in care at this time, continue to use sling on left arm #2 hyperlipidemia #3 hypothyroidism #4 hypertension-continue present medications #5 laceration to the left posterior scalp Code Visit Inpatient E&M: 10628 Subs Hosp L2
[2018-10-23 15:02] VITALS: BP 115/60; PULSE 82; RESP 18; TEMP 36.6; O2SAT 97
[2018-10-23 21:34] VITALS: BP 108/54; PULSE 71; RESP 18; TEMP 36.6; O2SAT 94
[2018-10-23] MEDS: oxyCODONE 5 MG Tablet PO (21:44)
[2018-10-23] MEDS: Pravastatin 40 MG Tablet PO (21:44)
[2018-10-23] MEDS: Loperamide 2 MG Capsule PO (23:13)
[2018-10-23] MEDS: MELATONIN 3 MG TABLET PO (23:13)
[2018-10-24 03:38] VITALS: BP 110/51; PULSE 66; RESP 18; TEMP 36.4; O2SAT 94
[2018-10-24] MEDS: oxyCODONE 5 MG Tablet PO ×3 (03:45→22:23)
[2018-10-24] MEDS: Loperamide 2 MG Capsule PO ×2 (03:45→22:24)
[2018-10-24] MEDS: Acetaminophen 500 MG Tablet PO ×4 (05:58→23:55)
[2018-10-24 07:09] VITALS: O2SAT 94
[2018-10-24 08:16] VITALS: BP 106/43; PULSE 62; RESP 16; TEMP 36.4; O2SAT 94
[2018-10-24 08:20] VITALS: PULSE 64
[2018-10-24] MEDS: Furosemide 20 MG Tablet PO (10:30)
[2018-10-24] MEDS: DULoxetine Hcl 60 MG Capsule PO (10:30)
[2018-10-24] MEDS: Pantoprazole Sodium 40 MG Tablet PO (10:30)
[2018-10-24 14:34] VITALS: BP 110/51; PULSE 70; RESP 16; TEMP 36.2; O2SAT 94
--- NOTE | 2018-10-24 17:46 | PN_ITS ---
Patient Problems: Active and Suspected Problems Fall (Acute) Comminuted left humeral fracture (Acute) Scalp laceration (Acute) Subjective: Patient was seen and examined today, she is continued to experience some left arm pain from her fracture but otherwise has no specific complaints. She states is worse when she tries to move. - Physical Exam General: Alert, Oriented x3, Cooperative, No apparent distress, Well developed, Well nourished HEENT: Atraumatic, PERRLA, EOMI, Normocephalic Oral: Moist Mucosa Neck: Supple, Trachea Midline, Thyroid Normal Size and Texture Lungs: Clear to auscultation, Normal air movement, No rhonchi, No wheeze, No rales Cardiovascular: Regular rate, Regular Rhythm, Normal S1, Normal S2, No murmurs, No Ectopic Activity Abdomen: Bowel Sounds Present, Soft, Non Tender, Non-Distended, No hernias noted Extremities: No clubbing, No cyanosis, No edema, Capillary Refill Less than 3 Seconds Skin: No rashes, No breakdown Neurological: Cranial nerves II-XII grossly intact, Neuro grossly intact, Sensory exam intact to light touch and pain, Coordination normal Psych/Mental Status: Normal Affect, Appropriate, Alert and oriented to time, place, person, mood and affect Vital Signs Temp Pulse Resp BP Pulse Ox 97.1 F L 70 16 110/51 L 94 10/24/18 14:34 10/24/18 14:34 10/24/18 14:34 10/24/18 14:34 10/24/18 14:34 Oxygen Flow Rate (L/min) 1 Oxygen Delivery Method Room Air Weight: 54.4 kg Body Mass Index (BMI) 23.4 Intake and Output for Last 24 Hours 10/22/18 10/23/18 10/24/18 23:59 23:59 23:59 Intake Total 320 / 320 710 / 710 910 / 910 Output Total 400 / 400 1200 / 1200 Balance 320 / 320 310 / 310 -290 / -290 Medical Necessity - Tobacco Use Smoking Status: Never smoker Assessment/Plan All Active Problems Fall (Acute) Comminuted left humeral fracture (Acute) Scalp laceration (Acute) Anemia due to blood loss, acute (Resolved) UGIB (upper gastrointestinal bleed) (Resolved) #1 left humeral neck fracture-patient will continue with PT and OT, we will go forward with placement in a [place] [facility] facility, it is likely we will not get approval for this until early this week. No change in care at this time, continue to use sling on left arm #2 hyperlipidemia #3 hypothyroidism #4 hypertension-continue present medications #5 laceration to the left posterior scalp Code Visit OBSV E&M: 93916 Subsequent observation care L3
[2018-10-24 21:10] VITALS: BP 125/60; PULSE 68; RESP 16; TEMP 36.9; O2SAT 97
[2018-10-24] MEDS: Pravastatin 40 MG Tablet PO (21:14)
[2018-10-25 02:24] VITALS: BP 121/53; PULSE 76; RESP 14; TEMP 36.3; O2SAT 95
[2018-10-25] MEDS: Acetaminophen 500 MG Tablet PO ×2 (05:42→12:30)
[2018-10-25 06:45] VITALS: O2SAT 94
[2018-10-25] MEDS: oxyCODONE 5 MG Tablet PO (07:11)
[2018-10-25 07:33] VITALS: PULSE 80
[2018-10-25 07:47] VITALS: BP 129/65; PULSE 70; RESP 16; TEMP 36.4; O2SAT 95
[2018-10-25] MEDS: Furosemide 20 MG Tablet PO (08:40)
[2018-10-25] MEDS: Pantoprazole Sodium 40 MG Tablet PO (08:40)
[2018-10-25] MEDS: DULoxetine Hcl 60 MG Capsule PO (08:40)
--- NOTE | 2018-10-25 11:46 | PCM.TXEXTCAR ---
- Diet 10/22/18 00:38 Diet: Regular Diet Is pt able to select menu?: Yes - Routine Orders/Code Status Code Status: DNRCC - Wound(s) L posterior scalp Wound Type: Laceration R lateral calf Wound Type: Abrasion R lateral lower calf Wound Type: Laceration - Therapies Weight Bearing: Full weight bearing Physical Therapy: Eval and Treat Occupational Therapy: Eval and Treat - Problem/Diagnosis (1) Comminuted left humeral fracture Status: Acute Current Visit: Yes (2) Scalp laceration Status: Acute Current Visit: Yes (3) Ulcerative colitis Status: Chronic Current Visit: No (4) Hyperlipidemia Status: Chronic Current Visit: No (5) Hypothyroidism Status: Chronic Current Visit: No (6) HTN (hypertension) Status: Chronic Current Visit: No - Allergies/Procedures Done in Hospital Allergies/Adverse Reactions: Allergies No Known Allergies Allergy (Verified 10/21/18 19:12) Procedures: None - Type of Care/Length of Stay Estimated LOS: Convalescent Care Less Than 30 days Type of Care Needed: Skilled Rehab Potential: Good Prognosis: Good - Additional Orders/Day of Discharge Additional Orders: remove scalp jimi in 5 days. no weight on left arm, see Dr. Clemens in one week in his office-call for appointment H&P will serve as current which was dated: 10/21/18 Day of Discharge: 10/25/18 - Dietary and Speech Recommendations Dietitian Recommendations/Changes: Rec continue liberal Regular diet w/ ONS medpass - Follow Up Care Primary Care Physician: Claudio Steele DO [Primary Care Provider] -
--- NOTE | 2018-10-25 13:05 | CASEMGMT ---
Social Work Call received from [facility] and precert has been given by insurance. Physician notified and will d/c pt today. SW met with pt and pt agreeable to d/c. Transportation arranged with daughter in law Silvina to take to [facility]. SW notified pt dgt of d/c plans and she is agreeable. Orders and PassRR faxed to Fallon at [facility]. Nursing notified of d/c. SUSAN Rice
[2018-10-25 13:42] VITALS: BP 114/65; PULSE 96; RESP 18; TEMP 36.9; O2SAT 96
--- NOTE | 2018-10-25 14:00 | NURSING ---
Report called to Kizzy BLACKWOOD at [facility].
--- NOTE | 2018-10-25 19:13 | PCM.DC.SUM ---
Discharge Date and Diagnosis Date of Admission: 10/21/18 Date of Discharge: 10/25/18 - Primary Discharge Diagnosis #1 left humeral neck fracture secondary to mechanical fall #2 hyperlipidemia #3 hypothyroidism #4 hypertension #5 laceration to the left posterior scalp secondary to mechanical fall - Secondary Discharge Diagnosis Chronic Problems History of peptic ulcer (Chronic) Ulcerative colitis (Chronic) Hyperlipidemia (Chronic) Hypothyroidism (Chronic) GERD (gastroesophageal reflux disease) (Chronic) HTN (hypertension) (Chronic) Hospital Course and Treatment Operations: None Procedures: None Summary of Care Provided: The patient is a 83 year old F was seen in the emergency room at [facility] after sustaining a fall at home-patient stated that she tripped while carrying laundry and fell down approximately 4 stairs. Patient struck her left arm and complained of left arm pain. Work-up in the emergency room included x-rays of the left humerus which showed a left humeral neck fracture. Patient was placed in observation status on [facility] 3, she was seen by PT and OT and she was felt to be unsteady and ambulating and it was recommended that she go to a senior care facility for short-term inpatient rehab. Patient agreed. There were no significant complications during the patient's hospitalization. On 10/25/2018, patient was seen and examined: On examination she appeared in good health and spirits. Vital signs as documented. Skin warm and dry and without overt rashes. Neck without JVD. Lungs clear. Heart exam notable for regular rhythm, normal sounds and absence of murmurs, rubs or gallops. Abdomen unremarkable and without evidence of organomegaly, masses, or abdominal aortic enlargement. Extremities-left arm is in a sling. Neuro: Cranial nerves II through XII are grossly intact, no focal motor deficits were noted, sensation to light touch and pinprick is intact. Psych: Patient is alert and oriented x3, she does not appear anxious or depressed On 10/25/2018, patient was discharged to a senior care facility in stable condition. - Physical Exam Vital Signs Temp Pulse Resp BP Pulse Ox 98.5 F 96 18 114/65 96 10/25/18 13:42 10/25/18 13:42 10/25/18 13:42 10/25/18 13:42 10/25/18 13:42 Oxygen Flow Rate (L/min) 1 Oxygen Delivery Method Room Air Weight: 54.4 kg Body Mass Index (BMI) 23.4 Intake and Output for Last 24 Hours 10/23/18 10/24/18 10/25/18 23:59 23:59 23:59 Intake Total 710 / 710 1210 / 1210 200 / 200 Output Total 400 / 400 1200 / 1200 300 / 300 Balance 310 / 310 10 -100 / -100 Home Medications: Medications to take at Discharge Duloxetine Hcl [Cymbalta] 60 mg PO DAILY 08/16/13 Pravastatin [Pravachol] 40 mg PO QHS 08/16/13 Furosemide [Lasix] 20 mg PO DAILY PRN 02/15/17 Budesonide [Entocort EC] 3 mg PO DAILY 10/21/18 Loperamide [Imodium Liquid] 2 mg PO Q2H PRN PRN 10/21/18 Omeprazole 40 mg PO DAILY 10/21/18 Potassium Chloride [K-Dur] 20 meq PO DAILY 10/21/18 Ensure Enlive 120 ml PO 4X/DAY liquid 10/25/18 Oxycodone [Oxyir] 5 mg PO Q6H PRN PRN 7 Days #20 tab 10/25/18 Following Prescrptions Were Given to Patient: Oxycodone [Oxyir] 5 mg PO Q6H PRN PRN 7 Days #20 tab PRN Reason: Pain Primary Care Physician: Claudio Steele DO [Primary Care Provider] - Disposition: Group Home facility Minutes spent on discharge:: 30 Patient Condition:: Stable Medical Necessity - Tobacco Use Smoking Status: Never smoker Meaningful Use Info Meaningful Use Diagnoses (Choose all that apply): None applicable Code Visit OBSV E&M: 11219 Observation care discharge
--- NOTE | 2018-10-25 19:16 | DS.PCM_ITS ---
Discharge Date and Diagnosis Date of Admission: 10/21/18 Date of Discharge: 10/25/18 - Primary Discharge Diagnosis #1 left humeral neck fracture secondary to mechanical fall #2 hyperlipidemia #3 hypothyroidism #4 hypertension #5 laceration to the left posterior scalp secondary to mechanical fall - Secondary Discharge Diagnosis Chronic Problems History of peptic ulcer (Chronic) Ulcerative colitis (Chronic) Hyperlipidemia (Chronic) Hypothyroidism (Chronic) GERD (gastroesophageal reflux disease) (Chronic) HTN (hypertension) (Chronic) Hospital Course and Treatment Operations: None Procedures: None Summary of Care Provided: The patient is a 83 year old F was seen in the emergency room at [facility] after sustaining a fall at home-patient stated that she tripped while carrying laundry and fell down approximately 4 stairs. Patient struck her left arm and complained of left arm pain. Work-up in the emergency room included x-rays of the left humerus which showed a left humeral neck fracture. Patient was placed in observation status on [facility] 3, she was seen by PT and OT and she was felt to be unsteady and ambulating and it was recommended that she go to a [facility] facility for short-term inpatient rehab. Patient agreed. There were no significant complications during the patient's hospitalization. On 10/25/2018, patient was seen and examined: On examination she appeared in good health and spirits. Vital signs as documented. Skin warm and dry and without overt rashes. Neck without JVD. Lungs clear. Heart exam notable for regular rhythm, normal sounds and absence of murmurs, rubs or gallops. Abdomen unremarkable and without evidence of organomegaly, masses, or abdominal aortic enlargement. Extremities-left arm is in a sling. Neuro: Cranial nerves II through XII are grossly intact, no focal motor deficits were noted, sensation to light touch and pinprick is intact. Psych: Patient is alert and oriented x3, she does not appear anxious or depressed On 10/25/2018, patient was discharged to a [facility] facility in stable condition. - Physical Exam Vital Signs Temp Pulse Resp BP Pulse Ox 98.5 F 96 18 114/65 96 10/25/18 13:42 10/25/18 13:42 10/25/18 13:42 10/25/18 13:42 10/25/18 13:42 Oxygen Flow Rate (L/min) 1 Oxygen Delivery Method Room Air Weight: 54.4 kg Body Mass Index (BMI) 23.4 Intake and Output for Last 24 Hours 10/23/18 10/24/18 10/25/18 23:59 23:59 23:59 Intake Total 710 / 710 1210 / 1210 200 / 200 Output Total 400 / 400 1200 / 1200 300 / 300 Balance 310 / 310 10 -100 / -100 Home Medications: Medications to take at Discharge Duloxetine Hcl [Cymbalta] 60 mg PO DAILY 08/16/13 Pravastatin [Pravachol] 40 mg PO QHS 08/16/13 Furosemide [Lasix] 20 mg PO DAILY PRN 02/15/17 Budesonide [Entocort EC] 3 mg PO DAILY 10/21/18 Loperamide [Imodium Liquid] 2 mg PO Q2H PRN PRN 10/21/18 Omeprazole 40 mg PO DAILY 10/21/18 Potassium Chloride [K-Dur] 20 meq PO DAILY 10/21/18 Ensure Enlive 120 ml PO 4X/DAY liquid 10/25/18 Oxycodone [Oxyir] 5 mg PO Q6H PRN PRN 7 Days #20 tab 10/25/18 Following Prescrptions Were Given to Patient: Oxycodone [Oxyir] 5 mg PO Q6H PRN PRN 7 Days #20 tab PRN Reason: Pain Primary Care Physician: Clauido Steele DO [Primary Care Provider] - Disposition: Detention facility Minutes spent on discharge:: 30 Patient Condition:: Stable Medical Necessity - Tobacco Use Smoking Status: Never smoker Meaningful Use Info Meaningful Use Diagnoses (Choose all that apply): None applicable Code Visit OBSV E&M: 08627 Observation care discharge
== END 2018-10-25 14:00 | disposition skilled nursing facility (03) ==
LOC: ED 19:46 → MS3 22:31
PROVIDERS: Admitting Provider Hospitalist; Emergency Provider Emergency Medicine; Family Provider Family Medicine; PCP Family Medicine; Visit Provider Internal Medicine
DX: S42.292A Other displaced fracture of upper end of left humerus, initial encounter for closed fracture (principal); W01.0XXA Fall on same level from slipping, tripping and stumbling without subsequent striking against object, initial encounter; Y93.E2 Activity, laundry; Y92.9 Unspecified place or not applicable; S01.01XA Laceration without foreign body of scalp, initial encounter; E78.5 Hyperlipidemia, unspecified; E03.9 Hypothyroidism, unspecified; I10 Essential (primary) hypertension; Z79.899 Other long term (current) drug therapy; Z23 Encounter for immunization; G89.29 Other chronic pain; K51.90 Ulcerative colitis, unspecified, without complications; Z87.11 Personal history of peptic ulcer disease; K21.9 Gastro-esophageal reflux disease without esophagitis; D62 Acute posthemorrhagic anemia; R60.0 Localized edema
CPT/HCPCS: 12001; 36415; 70450; 72125; 73030; 80048; 82962; 85027; 85610; 90471; 90715; 96374; 96375; 96376; 97116; 97162; 97166; 97530; 97535; 97802; 99218; 99285; A4216; G0378; J2405

== ENCOUNTER → 2018-11-05 16:40 | Outpatient (CLI) | payer MEDICARE, SELFPAY ==
[2018-10-21 22:40] VITALS: BMI 23.4
--- NOTE | 2018-11-05 16:47 | CT_ITS ---
HISTORY:DIP. FX, SURG NECK LEFT HUMERUS DIP. FX, SURG NECK LEFT HUMERUS EXAMINATION: CT Upper Extremity W/O Contrast TECHNIQUE: Routine bone CT protocol was performed of the . Left shoulder... 2-D reformats were performed by the technologist. A radiation dose optimization technique was used for this scan. IV Contrast dosage and agent: None. COMPARISON: Radiographs of the left shoulder obtained on October 21, 2018 FINDINGS: BONES/JOINTS: There is a comminuted fracture involving the proximal left humeral diaphysis. The fracture line does extend through the greater tuberosity medially. This fragment is not displaced however. This is seen best on sagittal image 35 series 602 the distal fracture fragment of the humerus is displaced medially and anteriorly. There is also valgus angulation. Overlapping of the fracture fragments of approximately 3 cm The glenohumeral articulation is preserved There is a type II acromion. The acromiohumeral distance is at the lower limits of normal The acromioclavicular joint is not widened and the coracoclavicular joint is not widened SOFT TISSUES: There is a joint effusion. This probably represents a hemarthrosis Increased density is seen at the inferomedial aspect of the fracture site compatible with hematoma and hemorrhage. No radiopaque foreign bodies The axillary neurovascular bundle appears intact CT/Extremity Upper without Contra IMPRESSION: Comminuted proximal humeral fracture that involves the surgical neck but does extend to the anatomic neck. This also extends through the greater tuberosity however the fragment is not displaced. The largest fracture fragment is displaced anteriorly and medially with valgus angulation of the distal fracture fragment Minimal superior subluxation of the humerus in relation to the glenoid however the glenohumeral distance is preserved Probable hemarthrosis and hematoma as discussed Individualized dose optimization techniques were used for this CT. at 1900 Reported and signed by: Jovanna Conley DO Electronically Signed: Jovanna Conley DO at 18:58 EDT Tel , Service support ,
== END ==
PROVIDERS: Family Provider Family Medicine; PCP Family Medicine; Referring Provider Physician Assistant; Visit Provider Physician Assistant
DX: S42.212D Unspecified displaced fracture of surgical neck of left humerus, subsequent encounter for fracture with routine healing (principal)
CPT/HCPCS: 73200

== ENCOUNTER 2018-11-10 09:27 | Day surgery (SDC) | payer MEDICARE, SELFPAY ==
[2018-11-10] VITALS (10 sets, daily range): BP systolic 100–127; BP diastolic 37–60; PULSE 68–88; RESP 16–18; TEMP 36.1–36.9; O2SAT 94–100; BMI 23.8
--- NOTE | 2018-11-10 09:31 | EKG12_ITS ---
Test Reason : PRE OP Blood Pressure : / mmHG Vent. Rate : 076 BPM Atrial Rate : 076 BPM P-R Int : 126 ms QRS Dur : 078 ms QT Int : 374 ms P-R-T Axes : 065 -26 043 degrees QTc Int : 420 ms Normal sinus rhythm Normal ECG Confirmed by NADIA TSANG, GINNA ([id number]), film and video editor MICHELLE KATE ([id number]) on 11/15/2018 2:10:41 PM Referred By: Phoenix Suarez Confirmed By:GINNA ZUNIGA MD
[2018-11-10] MEDS: Cefazolin 2 GM in 0.9% Normal Saline 100 ML IV (10:59)
--- NOTE | 2018-11-10 11:15 | RAD_ITS ---
STUDY: X-RAY - LEFT HUMERUS REASON FOR EXAM: Female, 83 years old. Fracture. TECHNIQUE: 6 intraoperative view(s) of the humerus. COMPARISON: Left shoulder, October 21, 2018. CT of the left shoulder, November 05, 2018. FINDINGS: Evidence of a plate and screws along the lateral aspect of the proximal femur with multiple transfixing screws. There is slightly improved alignment of the humeral head and shaft when compared to the CT. The glenohumeral joint is preserved. There is a small fragment off the medial aspect of the shaft which extends towards the axilla is unchanged from prior exam. Please refer to the operative report for further details. RAD/Humerus min 2 Views IMPRESSION: Internal fixation of left humeral fracture in the OR. Electronically Signed: Héctor Rosales DO at 17:01 EDT Tel [phone], Service support ,
--- NOTE | 2018-11-10 13:27 | RAD_ITS ---
STUDY: X-RAY - LEFT SHOULDER REASON FOR EXAM: Female, 83 years old. Postop. TECHNIQUE: 1 view(s) of the shoulder. COMPARISON: Intraoperative images, November 10, 2018. CT of the left shoulder, November 05, 2018. FINDINGS: There is a metallic plate and screws along the lateral aspect of the humeral head and shaft. There is maintenance of the glenohumeral joint. Normal acromioclavicular joint. Normal acromion. The soft tissue structures are unremarkable. Normal visualized pulmonary apex. RAD/Shoulder One View IMPRESSION: Status post internal fixation of the left humeral neck fracture. Electronically Signed: Héctor Rosales DO at 17:01 EDT Tel [phone], Service support ,
--- NOTE | 2018-11-10 13:38 | PCM.OPRPT ---
Report of Operation Date of Procedure: 11/10/18 Pre-Operative Diagnosis: Left 2 part proximal humerus fracture comminuted anatomic neck Post-Operative Diagnosis: Left 2 part proximal humerus fracture comminuted anatomic neck Surgery/Procedure Performed:: open reduction internal fixation left proximal humerus fracture Description of Surgical Findings:: Stable reduction. At completion of case shoulder was taken through range of motion no crepitus was noted however 2 screws did look long. These were removed in place with appropriate length screws. anatomy and physiology instructor: Felipe Byrnes Type of Anesthesia:: General Anesthesiologist: Slim Braswell Special Medications: 2 g Ancef Estimated Blood Loss (mL): 150 Fluids Replaced: 1000 mL Description of Procedure: Patient was taken back to the operating room with her transfer the table in supine position. Anesthesia assumed control of the C-spine airway and remained controlled throughout the remainder of the procedure. All bony prominences were identified well-padded. Patient was brought to the left side of the table and properly secured the table with a left arm hanging over the edge. There was then placed in the beachchair position. Live x-ray was used to verify that we can get appropriate x-rays intraoperatively. Once were happy with our positioning left upper extremity was prepped in a sterile fashion. Surgeon scrubbed. Upon entering the room left upper extremity was draped in a standard orthopedic fashion incision was marked out and timeout was called. When agreed upon the side, the site, the procedure to be performed, patient identity And antibiotics given. Incision was taken down through skin just off the anterolateral border of the acromion. We are able to identify the raphae between the anterior and middle heads of the deltoid. This was split. We are careful not to go beyond 5 cm below the lateral edge of the acromion working with a 5 to 9 cm window. We are able to palpate the tissue were verified. A Valles was placed in the humeral shaft. Humerus was initially anteriorly. We used a Valles and a bone hook to reduce the fracture. Once the fracture was adequately reduced on the AP and lateral planes we allowed to shorten and affect impaling the humeral head onto the shaft fragment. Once this was done the 4-hole plate was slid laterally over the humerus. It was fixed proximally and distally provisionally. After we provisionally fixed we then used cortical screws to draw the distal humeral shaft to the plate. Once we are able to do this effectively and we are happy with the alignment overall in the AP and lateral planes additional locking screws were placed in the shaft. As well as locking screws replacing the previous cortical screws due to patient's osteopenic bone. We also placed locking screws proximally. 6 screws were used to fill up the proximal locking holes. Once we are adequately fixed the fracture we took the shoulder through range of motion under live fluoroscopy and noted the 2 screws were proud in the humeral head. The screws were removed and 2 appropriately length screws were placed. We also noticed that screws in the shaft were long probably due to the plate initially being proud from the bone. The screws were adequately removed and appropriate length screws were placed. Final x-rays were taken. Wound scope seated on normal saline. Wounds are closed using #1 Vicryl for the fascia. 2-0 Vicryl for subcuticular skin layer and final skin layer was done with nylon sutures. Sterile dressings were placed. Patient was placed in a sling and awakened by anesthesia. There was then transferred to the PACU in stable condition. Postop plan for this patient patient will be 6 weeks nonweightbearing at a minimum weightbearing we will proceed as x-rays indicate. We will start passive range of motion at the 2-week visit when we take x-rays begin active range of motion with progressive strengthening at 6 weeks if appropriate. During the course of the procedure the physician tutoring assistant played a vital role. His intimate knowledge of my steps in the procedure aided in safe and expedient completion of the procedure. The PA played a vital rolls in positioning particularly in obtaining the appropriate beach chair position and securing the patient's body and head to the table. The PA was also vital in the retraction of soft tissues during the exposure and helping to obtain and maintain the reduction throughout the procedure. He also played a vital role in closure with my direct supervision. The PA was also important during reduction and dislocation of the joint and trials intraoperatively. Grafts/Implants Used: Synthes 4 hole percutaneous lateral proximal humerus plate - Complications none - Admit VTE Documentation VTE Present on Admission: No VTE Mechan Device Prophylaxis: SCD's VTE Pharm Prophylaxis ordered?: No Reason prophylaxis not ordered:: Treatment Not Indicated
== END 2018-11-10 16:49 | disposition skilled nursing facility (03) ==
LOC: SDC 09:28 → AC 09:29
PROVIDERS: Family Provider Family Medicine; PCP Family Medicine; Referring Provider Specialist; Visit Provider Specialist
PROC: (CPT 23615; principal; 2018-11-10 10:55)
DX: S42.222A 2-part displaced fracture of surgical neck of left humerus, initial encounter for closed fracture (principal); W10.9XXA Fall (on) (from) unspecified stairs and steps, initial encounter; I10 Essential (primary) hypertension; M79.7 Fibromyalgia; E78.00 Pure hypercholesterolemia, unspecified; M19.90 Unspecified osteoarthritis, unspecified site; K21.9 Gastro-esophageal reflux disease without esophagitis; F32.9 Major depressive disorder, single episode, unspecified; F41.9 Anxiety disorder, unspecified; M48.00 Spinal stenosis, site unspecified; K52.9 Noninfective gastroenteritis and colitis, unspecified; Z79.899 Other long term (current) drug therapy
CPT/HCPCS: 23615; 64415; 73020; 73060; 76000; 93005; C1713; J7120; J2405

== ENCOUNTER 2019-03-23 10:39 | Observation (INO) | payer MEDICARE, SELFPAY ==
[2018-11-10 09:56] VITALS: BMI 23.8
[2019-03-23 10:40] VITALS: BP 175/75; PULSE 70; PULSE 72; RESP 16; RESP 18; TEMP 36.6; O2SAT 100; O2SAT 99; BMI 27.1
--- NOTE | 2019-03-23 11:10 | CT_ITS ---
STUDY: CT BRAIN WITHOUT CONTRAST REASON FOR EXAM: Female, 83 years old. History of fall. RADIATION DOSAGE (If Supplied By Facility): CTDIvol = ( 44.99 ) mGy, DLP = ( 796.11 ) mGycm TECHNIQUE: Transaxial CT imaging of the brain was performed without administration of intravenous contrast material. Individualized dose optimization techniques were used for this CT. COMPARISON: Comparison is made with prior study dated October 21, 2018. FINDINGS: Normal soft tissue structures. Normal calvarium. There is mild cerebral atrophy with widening of the extra-axial spaces and ventricular dilatation. There are areas of decreased attenuation within the white matter tracts of the supratentorial brain, consistent with microvascular disease changes. Normal basal ganglia and thalami. Normal brainstem. There is mild cerebellar atrophy. There is no intracranial hemorrhage. There are no findings of an acute ischemic infarction. Atherosclerotic calcification of the cavernous portions of the internal carotid arteries bilaterally. Normal visualized paranasal sinuses. CT/Brain/Head without Contrast IMPRESSION: Chronic involutional changes of the brain. Electronically Signed: Caio Spangler, at 12:34 EST , Service support ,
--- NOTE | 2019-03-23 11:10 | RAD_ITS ---
STUDY: X-RAY - RIGHT ELBOW REASON FOR EXAM: Female, 83 years old. Pain following a fall. TECHNIQUE: 3 view(s) of the elbow. COMPARISON: None. FINDINGS: There is an avulsion type fracture involving the olecranon process of the proximal ulna with a cephalic migration. Normal radiocapitellar and ulnotrochlear articulations. Joint effusion and diffuse soft tissue swelling. RAD/Elbow min 3 Views IMPRESSION: Superiorly displaced avulsion fracture of the olecranon process of the proximal ulna with the diffuse soft tissue swelling and joint effusion. Electronically Signed: Caio Spangler, at 12:37 EST , Service support ,
--- NOTE | 2019-03-23 11:12 | ED.DCSUM_ITS ---
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 Negative for: Parasthesias, Weakness, Loss of function, Loss of consciousness, Amnesia Narrative: Patient had no prodromal symptoms, just simply lost her footing and fell to her head, right knee, right elbow. No nausea or vomiting. She does have a mild headache. Takes no anticoagulants. Tetanus Immunization: <5 years - 10/2018 - Past Medical History (1) GERD (gastroesophageal reflux disease) Status: Chronic (2) HTN (hypertension) Status: Chronic (3) History of peptic ulcer Status: Chronic (4) Hyperlipidemia Status: Chronic (5) Hypothyroidism Status: Chronic (6) Ulcerative colitis Status: Chronic Past Medical History - Allergies and Home Meds Allergies/Adverse Reactions: Allergies No Known Allergies Allergy (Verified 03/23/19 10:40) Primary Care Physician: Claudio Steele DO [Primary Care Provider] - Surgical History: noncontributory Lives: Alone Smoking Status: Never smoker - Family History Maternal Family History: Family History (Last Updated 10/21/18 @ 23:34 by Galdino Kasper MD) Mother Temporal arteritis Other Arthritis Emphysema of lung Family History: Reports: No pertinent history Review of Systems General: Denies: Chills, Fever, Sweats Eyes: Denies: Visual changes - bilaterally, Diplopia ENT: Denies: Rhinorrhea, Sore throat Cardiovascular: Denies: Chest pain, Palpitations Respiratory: Denies: Dyspnea, Cough, Dyspnea on exertion Gastrointestinal: Denies: Abdominal pain, Nausea, Vomiting, Diarrhea, Melena, Hematochezia Genitourinary: Denies: Dysuria, Hematuria, Frequency Musculoskeletal: Reports: Back pain - chronic, no worse; actually better since steroid injections yesterday at pain management, Extremity Pain. Denies: Neck pain Skin: Reports: Abrasions, Wounds. Denies: Rash Neurological: Reports: Headache. Denies: Weakness, Numbness Physical Exam Vital Signs/Narrative: Vital Signs Temp Pulse Resp BP Pulse Ox 03/23/19 10:40 97.9 F 70 16 175/75 H 100 Inital Vital Signs reviewed: Yes General: Well nourished, Well developed Head: Normocephalic, Trauma - mid-frontal scalp superficial abrasion within hair line; no crepitance/depression Eyes: Perrl, EOMI ENT: TM's clear, No hemotympanum or drainage, No trauma - midface stable, nontender. Negative for: Otorrhea, Nasal trauma Neck: Nontender, Full ROM Cardiovascular: Regular rate, Regular rhythm, No murmurs Respiratory: No distress, CTA bilaterally, Chest nontender Abdomen: Soft, Nontender, Nondistended, Normal bowel sounds Back: Nontender Extremeties: Left lower and left upper extremity is atraumatic. Multiple superficial skin tears/abrasions anterior right knee, and overlying olecranon of right elbow. Right elbow is swollen with hematoma and tender more at the lateral epicondyles and radial head area but has painless full range of motion. No bony knee tenderness or effusion. Extensor mechanism intact. All ligaments intact and stable without any pain on stressing. Skin: Normal color, No rash Neurological: Alert, Oriented x3, Cranial nerves II-XII grossly intact, Normal Strength, Normal Sensation Psychological: Normal affect, Normal Mood Diagnostic/Tx/Re-eval Clinical Impression(s) from Imaging Studies Brain CT 03/23/19 11:10 IMPRESSION: Chronic involutional changes of the brain. Electronically Signed: Caio Spangler, at 12:34 EST , Service support , Elbow X-Ray 03/23/19 11:10 IMPRESSION: Superiorly displaced avulsion fracture of the olecranon process of the proximal ulna with the diffuse soft tissue swelling and joint effusion. Electronically Signed: Caio Spangler, at 12:37 EST , Service support , Laboratory Tests 03/23/19 03/23/19 Range/Units 13:25 13:25 WBC 10.4 (4.4-11.0) K/mm3 RBC 3.95 L (4.2-5.4) M/mm3 Hgb 11.5 L (12.0-15.0) g/dL Hct 36.7 L (37-47) % MCV 92.9 (81-99) fL MCH 29.1 (27.0-32.0) pg MCHC 31.3 L (32-36) g/dL RDW Std Deviation 55.1 H (35.1-43.9) fl RDW Coeff of Neisha 15.9 H (11.6-14.6) % Plt Count 257 (150-450) K/mm3 MPV 9.5 (6.2-12.0) fl Immature Gran % (Auto) 0.400 (0.0-0.9) % Neut % (Auto) 82.6 H (47-70) % Lymph % (Auto) 10.3 L (19-41) % Hitchcock % (Auto) 6.6 (0-10) % Eos % (Auto) 0.0 (0-5) % Baso % (Auto) 0.1 (0-1) % Absolute Neuts (auto) 8.6 H (2.0-7.7) X10^3/uL Absolute Lymphs (auto) 1.07 (0.83-4.51) X10^3/uL Nucleated RBC % 0 (0-5) % Differential Comment Not Reportable Sodium 141 (136-145) mmol/L Potassium 3.9 (3.5-5.1) mmol/L Chloride 106 (98-107) mmol/L Carbon Dioxide 27.0 (21.0-32.0) mmol/L Anion Gap 8 (5-15) BUN 13 (7-18) mg/dL Creatinine 0.64 (0.55-1.02) mg/dL Estim Creat Clear Calc 30.62 ml/min Est GFR (MDRD) Af Amer 113 (>60) mL/min Est GFR (MDRD) Non-Af 93 (>60) mL/min BUN/Creatinine Ratio 20.2 H (10-20) RATIO Glucose 108 H (74-106) mg/dL Calcium 8.6 (8.5-10.1) mg/dL - Medical Decision Making Patient medically is stable with no significant abnormalities on labs. Her CT of the head shows no acute abnormality, she had a lot of dried blood in her hair which were cleaned up and discovered a very small superficial abrasion in her scalp that was bleeding, there is no repair indicated and no deep lacerations. Her right elbow x-ray shows a displaced olecranon fracture that will need surgical repaired. I discussed with Dr. Rodriguez who evaluated the patient in the emergency department, and while she and clinical lab assistant were there, they debrided some of the superficial skin tears, and splintered her right upper extremity as well. Discussed with hospitalist for admission, surgical repair planned 2 days from now. ED Disposition - Plan for ED Patient: Disposition: Acute Care Hospital [facility] Diagnosis: Fall from slip, trip, or stumble, Closed fracture of right olecranon process, Scalp laceration, Closed head injury without loss of consciousness Referrals: Claudio Steele DO [Primary Care Provider] -
--- NOTE | 2019-03-23 11:58 | CM.ED ---
SOCIAL WORK INFORMANT: DR. SANTA REASON FOR REFERRAL: RESOURCES LIVING ARRANGEMENTS: PATIENT LIVES HOME ALONE IN A TRI LEVEL HOME. DME: WALKER, LIFE ALERT PRIOR LEVEL OF FUNCTIONING: INDEPENDENT, DID NOT USE ASSISTIVE DEVICE PCP: DR. CARLOS MENTAL HEALTH HISTORY/TREATMENT: PATIENT DENIES ANY MENTAL HEALTH HISTORY. SUBSTANCE ABUSE HISTORY: NONE PER PATIENT ASSESSMENT: MET WITH PATIENT AND [id number] IN ROOM. INTRODUCED ROLE AND REASON FOR REFERRAL. PATIENT AND [id number] DISCUSSED HOME SET UP AND CONCERNS WITH PATIENT WALKING STEEP DRIVEWAY TO GET MAIL AND NEWSPAPER ( PATIENT FELL TODAY WHILE GETTING NEWSPAPER). [employer]RA[employer]OR[employer] OTHER OPTIONS, FAMILY GETTING MAIL FOR PATIENT EVERY OTHER DAY AND PATIENT GETTING NEWSPAPER ONLINE. [id number] REPORTS FAMILY HAS DISCUSSED PATIENT MOVING TO A SINGLE STORY HOME. PATIENT STATING NOT READY FOR MOVE JUST YET, I ASKED THEM TO GIVE ME A YEAR. SUPPORT AND EDUCATION PROVIDED. PATIENT STATES WAS IN [facility] SUMMER D/T SHOULDER AND JUST FINISHED UP OUTPATIENT THERAPY. DR. SANTA COMPLETING WORK UP AT THIS TIME. RESOURCES PROVIDED TO PATIENT AND [id number]. DR. SANTA UPDATED ON THIS WORKER'S ASSESSMENT. PLAN: DEVORA MARTINS MSW, BACK HOE OPERATOR.
[2019-03-23 13:36] LABS: Absolute Lymphocyte Count 1.07 X10^3/uL (0.83-4.51); Absolute Neutrophil Count 8.6 X10^3/uL (2.0-7.7); Basophil# 0.01 X10^3/uL; Basophil% 0.1 % (0-1); Hematocrit 36.7 % (37-47); Hemoglobin 11.5 g/dL (12.0-15.0); Lymphocyte # 1.07 X10^3/ul (4.0); Lymphocyte % 10.3 % (19-41); Mean Corp Hgb Conc 31.3 g/dL (32-36); Mean Corpuscular Hgb 29.1 pg (27.0-32.0); Mean Corpuscular Volume 92.9 fL (81-99); Mean Platelet Vol. 9.5 fl (6.2-12.0); Monocyte# 0.68 X10^3/uL; Monocyte% 6.6 % (0-10); NRBC Flagged by Analyzer 0 % (0-5); Neutrophil # 8.56 X10^3/uL (2.7-7.7); Neutrophil % 82.6 % (47-70); Platelet Count 257 K/mm3 (150-450); RBC Distribution Width CV 15.9 % (11.6-14.6); RBC Distribution Width SD 55.1 fl (35.1-43.9); Red Blood Count 3.95 M/mm3 (4.2-5.4); White Blood Count 10.4 K/mm3 (4.4-11.0)
[2019-03-23 13:47] LABS: Anion Gap 8 (5-15); BUN 13 mg/dL (7-18); BUN/Creat Ratio 20.2 RATIO (10-20); Calcium,Total 8.6 mg/dL (8.5-10.1); Chloride 106 mmol/L (98-107); Creatinine, Serum 0.64 mg/dL (0.55-1.02); EST Glomerular Filtration Rate 93 mL/min (>60); Est Glom Filt Rate - Afr Amer 113 mL/min (>60); Estimated Creatinine Clearance 30.62 ml/min; Glucose 108 mg/dL (74-106); Potassium 3.9 mmol/L (3.5-5.1); Sodium Level 141 mmol/L (136-145)
[2019-03-23] MEDS: Morphine 4 MG/ML Syringe IV ×2 (13:52→20:30)
[2019-03-23 13:56] VITALS: BP 161/65
--- NOTE | 2019-03-23 14:11 | NURSING ---
MED SURG OBS JAYNA RT ELBOW FX, CLOSED HEAD INJURY
[2019-03-23 15:25] VITALS: BMI 24.9; BMI 27.1
--- NOTE | 2019-03-23 16:08 | PCM.HP.STD ---
Problem List (1) Fall from slip, trip, or stumble Status: Acute (2) Closed fracture of right olecranon process Status: Acute (3) Closed head injury without loss of consciousness Status: Acute (4) Comminuted left humeral fracture Status: Acute (5) Scalp laceration Status: Acute (6) History of peptic ulcer Status: Chronic (7) Ulcerative colitis Status: Chronic (8) Hyperlipidemia Status: Chronic (9) Hypothyroidism Status: Chronic (10) GERD (gastroesophageal reflux disease) Status: Chronic (11) HTN (hypertension) Status: Chronic (12) UGIB (upper gastrointestinal bleed) Status: Resolved History of Present Illness Date of Admission: 03/23/19 Chief Complaint: Fall with right elbow pain. The patient is a 83 year old F who presents to the emergency room due to mechanical fall while getting her mail earlier today. Patient reports she is not sure if she tripped over something or lost her footing. She fell forward onto her right side hitting the right side of her scalp and also scraping her right knee. Her neighbors found her very quickly after fall and assisted her to get medical attention. Patient denies syncope or loss of consciousness. Currently complaining of significant right elbow pain which is currently splintered. She has a past medical history of hypertension, hyperlipidemia, ulcerative colitis, history of peptic ulcer, GERD. Patient reports she had a left shoulder surgery with Dr. Suarez in November and completed therapy 2 weeks ago. Past Medical History Past Medical History (Chronic Problems): Chronic Problems History of peptic ulcer (Chronic) Ulcerative colitis (Chronic) Hyperlipidemia (Chronic) Hypothyroidism (Chronic) GERD (gastroesophageal reflux disease) (Chronic) HTN (hypertension) (Chronic) Allergies No Known Allergies Allergy (Verified 03/23/19 10:40) Home Medications: Ambulatory Orders Medication Instructions Recorded Duloxetine Hcl [Cymbalta] 60 mg PO DAILY 08/16/13 Pravastatin [Pravachol] 40 mg PO QHS 08/16/13 Furosemide [Lasix] 20 mg PO DAILY 02/15/17 Budesonide [Entocort EC] 3 mg PO DAILY 10/21/18 Loperamide [Imodium Liquid] 2 mg PO Q2H PRN PRN 10/21/18 Omeprazole 40 mg PO DAILY 10/21/18 Potassium Chloride [K-Dur] 20 meq PO DAILY 10/21/18 Ensure Enlive 120 ml PO 4X/DAY liquid 10/25/18 Acetaminophen [Tylenol Extra 1,000 mg PO Q8H PRN PRN 11/10/18 Strength] Oxycodone HCl/Acetaminophen 1 tab PO Q4H PRN PRN 11/10/18 [Oxycodone-Acetaminophen 5-325] Surgical History: appendectomy, cholecystectomy, hysterectomy, - - Left shoulder surgery Psychiatric History: No pertinent psych hx 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 Review of Systems Constitutional: Denies: Chills, Fever, Weight Change HEENT: Denies: Head Aches, Sinus Congestion, Sinus Drainage Cardiovascular: Denies: Chest Pain, Palpitations Respiratory: Denies: Cough, Shortness of breath at rest, Sputum production Gastrointestinal: Denies: Abdominal Pain, Nausea, Vomiting Genitourinary: Denies: Dysuria Musculoskeletal: Reports: - - Right elbow pain. Skin: Reports: - - Right sided frontal scalp laceration, right knee abrasion.. Denies: Rash, Wounds Neurological: Denies: Numbness, Tingling, Focal weakness Psychiatric: Denies: Anxiety, Depression, Homicidal Ideations, Suicidal Ideations Hematologic/ Lymphatic: Denies: Easy Bruising, Easy Bleeding VTE Information - Inpt Only VTE Present on Admission: No VTE Mechan Device Prophylaxis: None VTE Pharm Prophylaxis ordered?: Yes Patient Problems: Active and Suspected Problems Fall from slip, trip, or stumble (Acute) Closed fracture of right olecranon process (Acute) Closed head injury without loss of consciousness (Acute) Scalp laceration (Acute) - Physical Exam Vitals/I&O's: Vital Signs Temp Pulse Resp BP Pulse Ox 97.9 F 72 18 161/65 H 100 03/23/19 10:40 03/23/19 10:40 03/23/19 10:40 03/23/19 13:56 03/23/19 10:40 Oxygen Delivery Method Room Air Weight: 138 lb 14.259 oz Body Mass Index (BMI) 27.1 General: Alert, Oriented x3, Cooperative HEENT: Atraumatic, PERRLA, EOMI, Normocephalic Neck: Supple, No JVD, Negative Carotid Bruits Lungs: Clear to auscultation, Normal air movement Cardiovascular: Regular rate, Regular Rhythm, Normal S1, Normal S2, No murmurs Abdomen: Bowel Sounds Present, Soft, Non Tender, Non-Distended Extremities: No clubbing, No cyanosis, No edema, Capillary Refill Less than 3 Seconds Skin: - - Right knee abrasion, covered with dressing. Right scalp laceration. Musculoskeletal: Tenderness - Right elbow Neurological: Cranial nerves II-XII grossly intact, Neuro grossly intact Psych/Mental Status: Normal Affect, Appropriate Laboratory Results 03/23/19 13:25: WBC 10.4, RBC 3.95 L, Hgb 11.5 L, Hct 36.7 L, MCV 92.9, MCH 29.1, MCHC 31.3 L, RDW Std Deviation 55.1 H, RDW Coeff of Neisha 15.9 H, Plt Count 257, MPV 9.5, Immature Gran % (Auto) 0.400, Neut % (Auto) 82.6 H, Lymph % (Auto) 10.3 L, [place] % (Auto) 6.6, Eos % (Auto) 0.0, Baso % (Auto) 0.1, Absolute Neuts (auto) 8.6 H, Absolute Lymphs (auto) 1.07, Nucleated RBC % 0, Differential Comment Not Reportable 03/23/19 13:25: Sodium 141, Potassium 3.9, Chloride 106, Carbon Dioxide 27.0, Anion Gap 8, BUN 13, Creatinine 0.64, Estim Creat Clear Calc 30.62, Est GFR (MDRD) Af Amer 113, Est GFR (MDRD) Non-Af 93, BUN/Creatinine Ratio 20.2 H, Glucose 108 H, Calcium 8.6 Current Medications Enoxaparin Sodium (Lovenox) 40 mg SC DAILY@1000 MACRINA Morphine Sulfate () 2 - 4 mg IV Q3H PRN PRN PRN Reason: Pain Score 6-10/10 Ondansetron HCl (Zofran) 4 mg IV Q8H PRN PRN PRN Reason: NAUSEA/VOMITING Oxycodone HCl (Oxyir) 10 mg PO Q4H PRN PRN PRN Reason: Pain Score 6-10/10 Assessment/Plan All Active Problems Fall from slip, trip, or stumble (Acute) Closed fracture of right olecranon process (Acute) Closed head injury without loss of consciousness (Acute) Comminuted left humeral fracture (Acute) Scalp laceration (Acute) UGIB (upper gastrointestinal bleed) (Resolved) 1. Mechanical fall prior to admission resulting in comminuted left humeral fracture, scalp laceration and right knee abrasion- ortho consulted from ER. Plan for OR for right elbow Thursday. PT/OT. PRN pain regimen. Keep right knee abrasion covered with dry dressing. Right frontal scalp laceration intact, did not require sutures. 2. Hypertension-stable, continue home Lasix regimen. 3. Hyperlipidemia-continue statin. 4. History of ulcerative colitis-on budesonide. 5. GERD-continue omeprazole regimen. 6. Hypothyroidism-not on regimen. 7. Chronic normocytic anemia-stable, trend CBC. DVT prophylaxis- Lovenox This patient was seen by CHARLIE Parks under the supervision of Dr. Molina.
[2019-03-23] MEDS: oxyCODONE 5 MG Tablet 10 MG PO ×2 (17:20→21:58)
[2019-03-23 20:19] VITALS: BP 148/85; PULSE 68; RESP 16; TEMP 36.8; O2SAT 99
[2019-03-23] MEDS: 0.9% Saline Lock 10 ML Syringe IV ×2 (20:29→21:58)
[2019-03-23] MEDS: Ondansetron 4 MG/2 ML Vial IV (21:58)
[2019-03-24] MEDS: Acetaminophen 325 MG Tablet 650 MG PO ×3 (01:19→20:25)
[2019-03-24 01:32] VITALS: BP 110/45; PULSE 74; RESP 18; TEMP 36.7; O2SAT 95
[2019-03-24 07:36] VITALS: BP 143/65; PULSE 66; RESP 18; TEMP 36.5; O2SAT 97
[2019-03-24 08:45] VITALS: PULSE 68
--- NOTE | 2019-03-24 09:40 | PCM.PN.HOSP ---
Patient Problems: Active and Suspected Problems Fall from slip, trip, or stumble (Acute) Closed fracture of right olecranon process (Acute) Closed head injury without loss of consciousness (Acute) Scalp laceration (Acute) Subjective: Presents after mechanical fall with left elbow pain. Found to have a left elbow fracture. Plan for OR tomorrow. Doing well, no issues overnight. Vitals/I&O's: Vital Signs Temp Pulse Resp BP Pulse Ox 97.7 F L 66 18 143/65 H 97 03/24/19 07:36 03/24/19 07:36 03/24/19 07:36 03/24/19 07:36 03/24/19 07:36 Oxygen Delivery Method Room Air Weight: 127 lb 10.362 oz Body Mass Index (BMI) 24.9 General: Alert, Oriented x3, Cooperative, No apparent distress HEENT: PERRLA, EOMI, Normocephalic, - - Healed laceration over her forehead Oral: Moist Mucosa Neck: Supple, No JVD Lungs: Clear to auscultation, Normal air movement, No rhonchi, No wheeze, No rales Cardiovascular: Regular rate, Regular Rhythm, Normal S1, Normal S2, No murmurs Abdomen: Soft, Non Tender, Non-Distended, No Hepato-splenomegaly Extremities: No edema, Capillary Refill Less than 3 Seconds Skin: No breakdown, - - Right knee abrasion, elbow was wrapped Neurological: Neuro grossly intact, Sensory exam intact to light touch and pain Psych/Mental Status: Normal Affect, Appropriate Laboratory Results 03/23/19 13:25: WBC 10.4, RBC 3.95 L, Hgb 11.5 L, Hct 36.7 L, MCV 92.9, MCH 29.1, MCHC 31.3 L, RDW Std Deviation 55.1 H, RDW Coeff of Neisha 15.9 H, Plt Count 257, MPV 9.5, Immature Gran % (Auto) 0.400, Neut % (Auto) 82.6 H, Lymph % (Auto) 10.3 L, [place] % (Auto) 6.6, Eos % (Auto) 0.0, Baso % (Auto) 0.1, Absolute Neuts (auto) 8.6 H, Absolute Lymphs (auto) 1.07, Nucleated RBC % 0, Differential Comment Not Reportable 03/23/19 13:25: Sodium 141, Potassium 3.9, Chloride 106, Carbon Dioxide 27.0, Anion Gap 8, BUN 13, Creatinine 0.64, Estim Creat Clear Calc 30.62, Est GFR (MDRD) Af Amer 113, Est GFR (MDRD) Non-Af 93, BUN/Creatinine Ratio 20.2 H, Glucose 108 H, Calcium 8.6 Current Medications Acetaminophen (Tylenol) 650 mg PO Q4H PRN PRN PRN Reason: HEADACHE () Last Admin: 03/24/19 07:35 Dose: 650 mg Documented by: Enoxaparin Sodium (Lovenox) 40 mg SC DAILY@1000 MACRINA Sodium Chloride () 250 mls @ 15 mls/hr IV .[id number] PRN PRN Reason: Saline Flush Morphine Sulfate () 2 - 4 mg IV Q3H PRN PRN PRN Reason: Pain Score 6-02/17 Last Admin: 03/23/19 20:30 Dose: 2 mg Documented by: Ondansetron HCl (Zofran) 4 mg IV Q8H PRN PRN PRN Reason: NAUSEA/VOMITING Last Admin: 03/23/19 21:58 Dose: 4 mg Documented by: Oxycodone HCl (Oxyir) 10 mg PO Q4H PRN PRN PRN Reason: Pain Score 6-02/17 Last Admin: 03/23/19 21:58 Dose: 10 mg Documented by: Sodium Chloride () 10 - 40 ml IV UD PRN PRN Reason: SALINE FLUSH Last Admin: 03/23/19 21:58 Dose: 10 ml Documented by: STROKE Vital Signs/Narrative: Vital Signs Temp Pulse Resp BP Pulse Ox 03/24/19 07:36 97.7 F L 66 18 143/65 H 97 Medical Necessity - Tobacco Use Smoking Status: Never smoker Assessment/Plan All Active Problems Fall from slip, trip, or stumble (Acute) Closed fracture of right olecranon process (Acute) Closed head injury without loss of consciousness (Acute) Comminuted left humeral fracture (Acute) Scalp laceration (Acute) UGIB (upper gastrointestinal bleed) (Resolved) 1. Right elbow fracture status post mechanical fall -Fracture is currently stabilized, plan for OR tomorrow -PT/OT -Pain meds as needed 2. HTN/HLD -Blood pressures have been stable -Continue with home medications 3. GERD/history of ulcerative colitis -Stable -Continue with PPI and budesonide DVT: Lovenox Code Visit OBSV E&M: 31509 Subsequent observation care L2
[2019-03-24] MEDS: Enoxaparin 40 MG/0.4 ML Syringe SC (10:25)
--- NOTE | 2019-03-24 10:58 | CASEMGMT ---
Addendum entered by Majo Friedman 03/24/19 11:02: SW did provide pt with list of SNF that accept pt's insurances. Original Note: Social Work Note SW met with pt to discuss SNF options as pt is wanting to go to [facility] at discharge. SW met with pt and introduced self and role at [facility]. Pt is alert and orientated x3. Pt confirms that she wishes to go to [facility] at discharge. SW informed pt that going to SNF depends on how pt's surgery goes and pt is functioning after surgery. Pt states that she was previously independent at home, ambulating without a device. SW informed pt that if after her surgery pt does well with PT/OT and PT/OT state pt can go home then pt will get denied to go to SNF. Pt states understanding. SW informed pt that this worker professional tutor CM will follow up with pt after surgery to determine discharge plans. Pt states understanding. Plan: TBD. SNF vs. Home Majo Friedman HYDROMETER TESTER, CHANNEL PROGRAM MANAGER
--- NOTE | 2019-03-24 10:59 | CASEMGMT ---
DORITA OG MOTOR AND CONTROLS TESTER CM to room to meet with patient for initial transition planning/care coordination assessment. DORITA OG introduced self and role at [facility]. Pt voices understanding and consents to assessment at this time. Pt resting in bed in no distress at this time. Pt is A/O at this time and answers all questions appropriately. Care providers, pharmacy, and demographics verified/updated at this time. PCP: Cedric Specialists: [place]--for colitis, Basali--pain mgmt Preferred Pharmacy: [facility] Insurance: Effective Measure Prescription Benefit: Yes Living Will/HPOA: does not have LW or HCPOA . Interested in more information but does not want to talk with SW at this time to complete paperwork. Provided information on advanced directives and given Social Service rac card with number to call if chooses in the future to utilize [facility] social work for advanced directive completion. LNOK: 2 sons (Isaias and Gabe) 1 daughter (Lupe) Living Arrangements: Live alone in [facility]. was independent with all ADL's and home mgmt tasks prior to fall/fx. Grandson did yardwork/mowing. Transportation: Pt drove prior to fall/fx. Has family members that can drive. Denies transportation concerns. DME: has the following DME: shower chair, rails/grab bars, hand held shower, medical alert button. Also has a walker available but does not use. Pt states no need for further DME at this time. HHC/SNF: Hx [facility] in November 2018 after left shoulder surgery. Also had [facility] after returning home but does not remember name of agency. She states she also went for OP therapy @ [facility] and just completed therapy about 3 weeks ago for her left shoulder. Pt states she prefers to go to [facility] SNF @ discharge. Discussed other options, in case insurance does not approve pt to go to SNF. Pt states she may be able to stay with her son and DIL or possibly her daughter's home. Encouraged pt to discuss options with her family and she stated she would do this. Pt stated if she does go home with family, that she would be interested in doing OP therapy @ [facility] again. Majo ADAME, made aware pt wishes to go to SNF @ discharge. WENDI/EARLE to follow for further discharge planning/needs. Pt voices no further concerns/needs at this time. Advised pt to ask for SW/CM if any further questions/concerns/needs arise. Voices understanding. Pt goal: SNF. 1st choice is [facility]. Plan: SNF vs Home w/family and OP therapy, if insurance does not approve SNF Hansel HENDERSON RN CM
--- NOTE | 2019-03-24 11:38 | CASEMGMT ---
RN CM NOTE: Reveiwed SMITH form with pt. Denies having any questions at this time. SMITH form signed by pt, copy made and placed on chart, and original given to pt. Pt instructed to ask for CM if questions arise. Pt voices understanding. Hansel ARRINGTONN RN CM
--- NOTE | 2019-03-24 12:05 | PCM.CONS.GEN ---
Reason for Consult Date of Consultation: 03/23/19 History of Present Illness: The patient is a 83 year old F who lost footing and fell while getting mail. hit her head and right elbow/knee with abrasions to all three. denies loc, headache, n/v or other constitutional symptoms. seen in er with DIL at bedside. had recent injury to left shoulder operated on by dr sesay in november. denies pain in other jts, painful right elbow with swelling/superficial abrasions to right elbow/right knee. [] Past Medical History Past Medical History (Chronic Problems): Chronic Problems History of peptic ulcer (Chronic) Ulcerative colitis (Chronic) Hyperlipidemia (Chronic) Hypothyroidism (Chronic) GERD (gastroesophageal reflux disease) (Chronic) HTN (hypertension) (Chronic) Allergies No Known Allergies Allergy (Verified 03/23/19 10:40) Home Medications: Ambulatory Orders Medication Instructions Recorded Duloxetine Hcl [Cymbalta] 60 mg PO DAILY 08/16/13 Pravastatin [Pravachol] 40 mg PO QHS 08/16/13 Furosemide [Lasix] 20 mg PO DAILY 02/15/17 Budesonide [Entocort EC] 3 mg PO DAILY 10/21/18 Loperamide [Imodium Liquid] 2 mg PO Q2H PRN PRN 10/21/18 Omeprazole 40 mg PO DAILY 10/21/18 Potassium Chloride [K-Dur] 20 meq PO DAILY 10/21/18 Ensure Enlive 120 ml PO 4X/DAY liquid 10/25/18 Acetaminophen [Tylenol Extra 1,000 mg PO Q8H PRN PRN 11/10/18 Strength] Oxycodone HCl/Acetaminophen 1 tab PO Q4H PRN PRN 11/10/18 [Oxycodone-Acetaminophen 5-325] Surgical History: appendectomy, cholecystectomy, hysterectomy, - - Left shoulder surgery Psychiatric History: 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 Review of Systems Constitutional: Denies: Chills, Fever, Weight Change HEENT: Denies: Head Aches, Sinus Congestion, Sinus Drainage Cardiovascular: Denies: Chest Pain, Palpitations Respiratory: Denies: Cough, Shortness of breath at rest, Sputum production Gastrointestinal: Denies: Abdominal Pain, Nausea, Vomiting Genitourinary: Denies: Dysuria Musculoskeletal: Reports: Joint Pain, Joint Tenderness Skin: Denies: Rash, Wounds Neurological: Denies: Numbness, Tingling, Focal weakness Psychiatric: Denies: Anxiety, Depression, Homicidal Ideations, Suicidal Ideations Hematologic/ Lymphatic: Denies: Easy Bruising, Easy Bleeding Patient Problems: Active and Suspected Problems Fall from slip, trip, or stumble (Acute) Closed fracture of right olecranon process (Acute) Closed head injury without loss of consciousness (Acute) Scalp laceration (Acute) - Physical Exam Vitals/I&O's: Vital Signs Temp Pulse Resp BP Pulse Ox 97.7 F L 68 18 143/65 H 97 03/24/19 07:36 03/24/19 08:45 03/24/19 07:36 03/24/19 07:36 03/24/19 07:36 Oxygen Delivery Method Room Air Weight: 127 lb 10.362 oz Body Mass Index (BMI) 24.9 General: Alert, Oriented x3, Cooperative HEENT: Atraumatic, PERRLA, EOMI, Normocephalic Neck: Supple, No JVD, Negative Carotid Bruits Lungs: Clear to auscultation, Normal air movement Cardiovascular: Regular rate, No murmurs Abdomen: Bowel Sounds Present, Soft, Non Tender Extremities: No edema, Capillary Refill Less than 3 Seconds Skin: No rashes, No breakdown Musculoskeletal: Tenderness - right elbow, arom/rpom intact with pain and crepitus, abrasion over elbow- no signs of infection; right knee abrasion- no crepitus or pain with rom of knee intraarticular, ankle prom/arom intact, secondary survey negative other than abrasion to scalp Neurological: Cranial nerves II-XII grossly intact Psych/Mental Status: Normal Affect, Appropriate Laboratory Results 03/23/19 13:25: WBC 10.4, RBC 3.95 L, Hgb 11.5 L, Hct 36.7 L, MCV 92.9, MCH 29.1, MCHC 31.3 L, RDW Std Deviation 55.1 H, RDW Coeff of Neisha 15.9 H, Plt Count 257, MPV 9.5, Immature Gran % (Auto) 0.400, Neut % (Auto) 82.6 H, Lymph % (Auto) 10.3 L, [place] % (Auto) 6.6, Eos % (Auto) 0.0, Baso % (Auto) 0.1, Absolute Neuts (auto) 8.6 H, Absolute Lymphs (auto) 1.07, Nucleated RBC % 0, Differential Comment Not Reportable 03/23/19 13:25: Sodium 141, Potassium 3.9, Chloride 106, Carbon Dioxide 27.0, Anion Gap 8, BUN 13, Creatinine 0.64, Estim Creat Clear Calc 30.62, Est GFR (MDRD) Af Amer 113, Est GFR (MDRD) Non-Af 93, BUN/Creatinine Ratio 20.2 H, Glucose 108 H, Calcium 8.6 Current Medications Acetaminophen (Tylenol) 650 mg PO Q4H PRN PRN PRN Reason: HEADACHE (-02/17) Last Admin: 03/24/19 07:35 Dose: 650 mg Documented by: Enoxaparin Sodium (Lovenox) 40 mg SC DAILY@1000 MACRINA Last Admin: 03/24/19 10:25 Dose: 40 mg Documented by: Sodium Chloride () 250 mls @ 15 mls/hr IV .[id number] PRN PRN Reason: Saline Flush Morphine Sulfate () 2 - 4 mg IV Q3H PRN PRN PRN Reason: Pain Score 6-1010 Last Admin: 03/23/19 20:30 Dose: 2 mg Documented by: Ondansetron HCl (Zofran) 4 mg IV Q8H PRN PRN PRN Reason: NAUSEA/VOMITING Last Admin: 03/23/19 21:58 Dose: 4 mg Documented by: Oxycodone HCl (Oxyir) 10 mg PO Q4H PRN PRN PRN Reason: Pain Score 6-10/10 Last Admin: 03/23/19 21:58 Dose: 10 mg Documented by: Sodium Chloride () 10 - 40 ml IV UD PRN PRN Reason: SALINE FLUSH Last Admin: 03/23/19 21:58 Dose: 10 ml Documented by: Assessment/Plan All Active Problems Fall from slip, trip, or stumble (Acute) Closed fracture of right olecranon process (Acute) Closed head injury without loss of consciousness (Acute) Comminuted left humeral fracture (Acute) Scalp laceration (Acute) UGIB (upper gastrointestinal bleed) (Resolved) xrays- displaced right olecranon fracture ct brain negative to OR thursday am med clearance ancef 2g octor splint placed on right upper extremity right knee abrasion cleaned/ rebandaged- after verbal consent at bedside, right elbow and right knee were irrigated/debrided with right elbow splint and right knee nonadherent antibiotic dressing placed, Location and characteristic of lesion- elbow two 2x3 cm superficial abrasions, right knee 3 2x3 superficial abrasion nonviable tissue removed with scalpel, patient given morphine to assist pain during procedure, nonadherent dressing with antibiotic ointment placed on wounds.Patient tolerated procedure well. Reviewed the pre-operative plans with the patient. Risks and benefits of the procedure were fully explained, including but not limited to infection, neurovascular injury, continued pain, arthritis, stiffness, need for further surgery, re-injury, DVT, PE, general risks of anesthesia, stiffness, and loss of limb or life. The patient understands all the risks and does wish to proceed with written consent.
[2019-03-24 14:05] VITALS: BP 128/55; PULSE 72; RESP 16; TEMP 36.2; O2SAT 98
[2019-03-24] MEDS: oxyCODONE 5 MG Tablet 10 MG PO ×2 (14:10→20:25)
[2019-03-24] MEDS: 0.9% Saline Lock 10 ML Syringe IV (17:26)
[2019-03-24] MEDS: Ondansetron 4 MG/2 ML Vial IV (17:26)
[2019-03-24 20:05] VITALS: BP 145/55; PULSE 78; RESP 16; TEMP 36.8; O2SAT 99
[2019-03-24] MEDS: Budesonide 3 MG CAPSULE.EC PO (22:06)
[2019-03-24] MEDS: Pravastatin 40 MG Tablet PO (22:06)
[2019-03-25 01:15] VITALS: RESP 16
[2019-03-25 02:15] VITALS: BP 115/41; PULSE 80; RESP 16; TEMP 37; O2SAT 97
[2019-03-25 02:40] VITALS: BP 123/61; PULSE 81; RESP 16; TEMP 36.9; O2SAT 94
--- NOTE | 2019-03-25 06:00 | EKG12_ITS ---
Test Reason : PRE-OP Blood Pressure : / mmHG Vent. Rate : 074 BPM Atrial Rate : 074 BPM P-R Int : 138 ms QRS Dur : 074 ms QT Int : 384 ms P-R-T Axes : 055 -27 056 degrees QTc Int : 426 ms Normal sinus rhythm Normal ECG Confirmed by NADIA TSANG, GINNA ([id number]), supervising film or videotape editor MARLENE BYNUM ([id number] on 03/29/2019 1:52:32 PM Referred By: Claudio Molina Confirmed By:GINNA ZUNIGA MD
[2019-03-25 07:30] VITALS: BMI 24.9
[2019-03-25 07:40] VITALS: BP 145/59; PULSE 71; RESP 16; TEMP 36.8; O2SAT 90
[2019-03-25] MEDS: Lactated Ringers 1,000 ML 100 ML IV (08:25)
[2019-03-25] MEDS: 0.9% Saline Lock 10 ML Syringe IV (08:32)
[2019-03-25] MEDS: Acetaminophen 325 MG Tablet 650 MG PO (10:19)
[2019-03-25] MEDS: Enoxaparin 40 MG/0.4 ML Syringe SC (10:20)
[2019-03-25] MEDS: DULoxetine Hcl 60 MG Capsule PO (10:20)
[2019-03-25] MEDS: Budesonide 3 MG CAPSULE.EC PO (10:20)
--- NOTE | 2019-03-25 12:00 | CASEMGMT ---
DORITA OG and WENDI in to discuss discharge needs with patient and family. Therapy notes reviewed and patient ambulating 200ft SBA, 1 assist with dressing, bathing, and food prep. Family concerned with patient discharging home. Patient adament she wants to go home. Family agreeable to assisting patient at home and inquired regarding HHC and aide services. Preferred HHC is [facility] whom she has had in the past. Patient and family both agreeable to discharge home with HHC for SN and aide. Patient concerned with pain medication and patient taking more than prescribed. Patient admits to taking extra half pill of oxycodone when she has extra pain. DORITA OG educated patient on inportance of not taking more medication that prescribed and encourage patient and family to discuss with Dr. Salguero, pain specialist. SW to give information regarding Directions home for additional support in the home. DIL returned to nurses stating and cancelled request for HHC, they have and retired RN friend that will assist with patient at home. Disposition Plan: Patient to discharge home with family support and follow-up plans in place.
--- NOTE | 2019-03-25 12:00 | CASEMGMT ---
Social Work Note WENDI reviewed notes, pt walked 200ft stand by. PT/OT states pt did find on stairs and is ambulating well to return home but pt will need assistance with dressing, bathing, and food prep. WENDI and DORITA OG met with pt and pt's family. Pt's son BRITANY Esparza and daughter Lupe present in room. WENDI and DORITA OG introduced self and roles at [facility]. SW asked for family to elaborate on their concerns with pt returning home at this time. Pt's family states pt has stairs at home and is unsteady when walking and pt has falling twice in the last 5 months. Family also states pt is prescribed oxycodone but will take too many pills and run out of her prescription. WENDI updated pt and pt's family that at this time pt would get denied for SNF and updated pt's family on what pt will need assistance with per PT/OT and that PT/OT did work with pt on stairs and pt did well enough to return home. WENDI and DORITA OG discussed returning home at this time and asked if family would be able to assist in the home. Pt states that she prefers to return home and doesn't want to go to her family members home yet. Pt states that she has been thinking about selling her home and getting a smaller one, one that is one story, but hasn't decided to do so. Pt also does admit that she will sometimes take a half a pill more of her Oxycodone when she is in pain. Pt educated on the importance of not taking more that prescribed medications. Pt and pt's family educated on HHC, private duty aides, [facility] and paying privately for SNF. Pt's family asked if pt will qualify for SNF after pt's surgery and this worker informed pt's family that it just depends on how pt does with surgery and how she is functioning after. Pt states that she would like to return home at this time and is open to HHC or private duty aides. WENDI informed pt and pt's family that this worker can also make [facility] referral. WENDI then updated by pt's BRITANY that they have a friend who is retired RN who will go to pt's home in the morning and then family will check on pt in the afternoon/evening. Pt's DIL states that at this time they don't need HHC or Private Duty aides. BRITANY still agreeable to SW making [facility] Referral. RN CM updated. SW faxed referral to [facility]. Physician updated. Plan: Home with family support Majo Friedman MSW, [employer]
--- NOTE | 2019-03-25 12:48 | DCINST_ITS ---
- Discharge Diagnoses Current Active Problems: Current Active and Chronic Problems Fall from slip, trip, or stumble (Acute) Closed fracture of right olecranon process (Acute) Closed head injury without loss of consciousness (Acute) Scalp laceration (Acute) You will use the following diet at home:: Regular Your food should be the consistency of: Regular Your liquids should be the consistency of: Regular/Thin Discharge Activity: May not drive while taking narcotic pain medications. Call your doctor if you observe: Fever of 101 or Higher, Shortness of breath, Dizziness, Fainting spells, Swelling in the ankles, Chest pain, Increased palpitations (irregular heartbeat) Allergies/Adverse Reactions: Allergies No Known Allergies Allergy (Verified 03/23/19 10:40) Medications to take at Discharge Duloxetine Hcl [Cymbalta] 60 mg PO DAILY 08/16/13 Pravastatin [Pravachol] 40 mg PO QHS 08/16/13 Furosemide [Lasix] 20 mg PO DAILY 02/15/17 Budesonide [Entocort EC] 3 mg PO BID 10/21/18 Loperamide [Imodium Liquid] 2 mg PO Q2H PRN PRN 10/21/18 Omeprazole 40 mg PO DAILY 10/21/18 Potassium Chloride [K-Dur] 20 meq PO DAILY 10/21/18 Ensure Enlive 120 ml PO 4X/DAY liquid 10/25/18 Acetaminophen [Tylenol Extra Strength] 1,000 mg PO Q8H PRN PRN 11/10/18 Oxycodone HCl/Acetaminophen [Oxycodone-Acetaminophen 5-325] 1 tab PO Q4H PRN PRN 11/10/18 Primary Care Physician: Claudio Steele DO [Primary Care Provider] - Please follow up with your Primary Care Physician in: 3-5 days Test Results: Test results from this visit will be discussed in further detail at your follow- up appointment, if applicable. Please Follow Up With: Natalia Rodriguez DO When: 03/30/2019 For right elbow repair
--- NOTE | 2019-03-25 12:53 | PCM.DC.SUM ---
Discharge Date and Diagnosis - Problem List Patient Problems: Active and Suspected Problems Fall from slip, trip, or stumble (Acute) Closed fracture of right olecranon process (Acute) Closed head injury without loss of consciousness (Acute) Scalp laceration (Acute) Date of Admission: 03/23/19 Date of Discharge: 03/25/19 - Primary Discharge Diagnosis Active and Suspected Problems Fall from slip, trip, or stumble (Acute) Closed fracture of right olecranon process (Acute) Closed head injury without loss of consciousness (Acute) Scalp laceration (Acute) - Secondary Discharge Diagnosis Chronic Problems History of peptic ulcer (Chronic) Ulcerative colitis (Chronic) Hyperlipidemia (Chronic) Hypothyroidism (Chronic) GERD (gastroesophageal reflux disease) (Chronic) HTN (hypertension) (Chronic) Hospital Course and Treatment Imaging Results: CT Brain: IMPRESSION: Chronic involutional changes of the brain. XR R elbow: IMPRESSION: Superiorly displaced avulsion fracture of the olecranon process of the proximal ulna with the diffuse soft tissue swelling and joint effusion. Consults: Ortho Operations: None Procedures: None Summary of Care Provided: Per HPI: The patient is a 83 year old F who presents to the emergency room due to mechanical fall while getting her mail earlier today. Patient reports she is not sure if she tripped over something or lost her footing. She fell forward onto her right side hitting the right side of her scalp and also scraping her right knee. Her neighbors found her very quickly after fall and assisted her to get medical attention. Patient denies syncope or loss of consciousness. Currently complaining of significant right elbow pain which is currently splintered. She has a past medical history of hypertension, hyperlipidemia, ulcerative colitis, history of peptic ulcer, GERD. Patient reports she had a left shoulder surgery with Dr. Suarez in November and completed therapy 2 weeks ago. Hospital Course: 1. Right elbow fracture status post mechanical [id number] female who fell while trying to get her mail. She went in her right side and broke her right elbow. She is in a soft cast and she was to go for surgery today however she ate crackers this morning and therefore surgery was canceled. Unfortunately the next hours time slot is on Thursday. She had 2 visits by PT today and both times they felt that she was stable to go home, she walked 200 feet with standby assist. She only needed to help with getting dressed and potentially eating. Therefore the plan is for her to go home with family supervision. She will need to follow-up with orthopedic surgery next Thursday for outpatient repair of her right elbow. I discussed the plan with her and she is ready to go home, family is a little bit hesitant but unfortunately unless they want to be self-pay is going to be very difficult getting her if impossible to go to a [place] [facility] facility based on her physical therapy needs. 2. Her other medical diagnoses were evaluated and her home medications were continued where appropriate Patient Problems: Active and Suspected Problems Fall from slip, trip, or stumble (Acute) Closed fracture of right olecranon process (Acute) Closed head injury without loss of consciousness (Acute) Scalp laceration (Acute) - Physical Exam Vitals/I&O's: Vital Signs Temp Pulse Resp BP Pulse Ox 98.2 F 71 16 145/59 H 90 03/25/19 07:40 03/25/19 07:40 03/25/19 07:40 03/25/19 07:40 03/25/19 07:40 Oxygen Delivery Method Room Air Weight: 127 lb 10.362 oz Body Mass Index (BMI) 24.9 Intake and Output for Last 24 Hours 03/23/19 03/24/19 03/25/19 23:59 23:59 23:59 Intake Total 830 / 830 503.33 / 503.33 Output Total 400 / 400 200 / 200 Balance 430 / 430 303.33 / 303.33 General: Alert, Oriented x3, Cooperative, No apparent distress HEENT: PERRLA, EOMI, Normocephalic, - - Healed laceration over her forehead Oral: Moist Mucosa Neck: Supple, No JVD Lungs: Clear to auscultation, Normal air movement, No rhonchi, No wheeze, No rales Cardiovascular: Regular rate, Regular Rhythm, Normal S1, Normal S2, No murmurs Abdomen: Soft, Non Tender, Non-Distended, No Hepato-splenomegaly Extremities: No edema, Capillary Refill Less than 3 Seconds Skin: No breakdown, - - Right knee abrasion, elbow was wrapped Neurological: Neuro grossly intact, Sensory exam intact to light touch and pain Psych/Mental Status: Normal Affect, Appropriate Current Medications Acetaminophen (Tylenol) 650 mg PO Q4H PRN PRN PRN Reason: HEADACHE (-02/17) Last Admin: 03/25/19 10:19 Dose: 650 mg Documented by: Budesonide (Budesonide Ec) 3 mg PO BID [facility] Last Admin: 03/25/19 10:20 Dose: 3 mg Documented by: Duloxetine HCl (Cymbalta) 60 mg PO DAILY [facility] Last Admin: 03/25/19 10:20 Dose: 60 mg Documented by: Enoxaparin Sodium (Lovenox) 40 mg SC DAILY@1000 [facility] Last Admin: 03/25/19 10:20 Dose: 40 mg Documented by: Sodium Chloride () 250 mls @ 15 mls/hr IV .[id number] PRN PRN Reason: Saline Flush Morphine Sulfate () 2 - 4 mg IV Q3H PRN PRN PRN Reason: Pain Score 6-02/17 Last Admin: 03/23/19 20:30 Dose: 2 mg Documented by: Nutritional Formula (Lactose Free) (Ensure Enlive) 120 ml PO 4X/DAY [facility] Last Admin: 03/25/19 10:19 Dose: 120 ml Documented by: Ondansetron HCl (Zofran) 4 mg IV Q8H PRN PRN PRN Reason: NAUSEA/VOMITING Last Admin: 03/24/19 17:26 Dose: 4 mg Documented by: Oxycodone HCl (Oxyir) 10 mg PO Q4H PRN PRN PRN Reason: Pain Score 6-1010 Last Admin: 03/24/19 20:25 Dose: 10 mg Documented by: Pravastatin Sodium (Pravachol) 40 mg PO QHS [facility] Last Admin: 03/24/19 22:06 Dose: 40 mg Documented by: Sodium Chloride () 10 - 40 ml IV UD PRN PRN Reason: SALINE FLUSH Last Admin: 03/25/19 08:32 Dose: 10 ml Documented by: Discharge Activity: May not drive while taking narcotic pain medications. Call your doctor if you observe: Fever of 101 or Higher, Shortness of breath, Dizziness, Fainting spells, Swelling in the ankles, Chest pain, Increased palpitations (irregular heartbeat) Home Medications: Medications to take at Discharge Duloxetine Hcl [Cymbalta] 60 mg PO DAILY 08/16/13 Pravastatin [Pravachol] 40 mg PO QHS 08/16/13 Furosemide [Lasix] 20 mg PO DAILY 10/08/17 Budesonide [Entocort EC] 3 mg PO BID 10/21/18 Loperamide [Imodium Liquid] 2 mg PO Q2H PRN PRN 10/21/18 Omeprazole 40 mg PO DAILY 10/21/18 Potassium Chloride [K-Dur] 20 meq PO DAILY 10/21/18 Ensure Enlive 120 ml PO 4X/DAY liquid 10/25/18 Acetaminophen [Tylenol Extra Strength] 1,000 mg PO Q8H PRN PRN 11/10/18 Oxycodone HCl/Acetaminophen [Oxycodone-Acetaminophen 5-325] 1 tab PO Q4H PRN PRN 11/10/18 Primary Care Physician: Claudio Steele DO [Primary Care Provider] - Please follow up with your Primary Care Physician in: 3-5 days Please Follow Up With: Natalia Rodriguez DO When: 03/30/2019 For right elbow repair Disposition: Home Minutes spent on discharge:: 35 Patient Condition:: Stable Medical Necessity - Tobacco Use Smoking Status: Never smoker Meaningful Use Info Meaningful Use Diagnoses (Choose all that apply): None applicable Code Visit OBSV E&M: 31803 Observation care discharge
[2019-03-25 15:06] VITALS: O2SAT 97
--- NOTE | 2019-03-25 15:08 | CHAPLAIN ---
Type of Pastoral Visit _x__ Initial Visit ___ Follow-up Visit ___ On-call Visit ___ General Patient Visit ___ Spiritual Assessment ___ Family Conference ___ Bereavement ___ Rapid Response ___ Code Blue ___ Other (describe below) Pastoral Care Referral From _x__ Patient ___ Family ___ Nurse ___ Physician ___ [employer] ___ Patient Manager ___ Other (describe below) Sacrament/Intervention _x__ Active listening ___ Anointing ___ Caodaism ___ Bereavement ___ Communion ___ Lisa exploration ___ ___ Life review _x__ Prayer ___ Reconciliation ___ Sacrament of Sick _x__ Supportive presence ___ Wedding ___ Other (describe below) Pastoral Comments
== END 2019-03-25 17:15 | disposition home or self-care (01) ==
LOC: ED 13:53 → MS3 15:20
PROVIDERS: Admitting Provider Internal Medicine; Emergency Provider Emergency Medicine; Family Provider Family Medicine; PCP Family Medicine; Referring Provider Internal Medicine; Visit Provider Family Medicine
DX: S52.021A Displaced fracture of olecranon process without intraarticular extension of right ulna, initial encounter for closed fracture (principal); S01.01XA Laceration without foreign body of scalp, initial encounter; S80.211A Abrasion, right knee, initial encounter; W01.0XXA Fall on same level from slipping, tripping and stumbling without subsequent striking against object, initial encounter; Y93.89 Activity, other specified; Y92.488 Other paved roadways as the place of occurrence of the external cause; J21.9 Acute bronchiolitis, unspecified; I10 Essential (primary) hypertension; D64.9 Anemia, unspecified; K21.9 Gastro-esophageal reflux disease without esophagitis; K51.90 Ulcerative colitis, unspecified, without complications; E78.5 Hyperlipidemia, unspecified; E03.9 Hypothyroidism, unspecified; Z79.899 Other long term (current) drug therapy; Z87.11 Personal history of peptic ulcer disease
CPT/HCPCS: 29105; 70450; 73080; 80048; 85025; 93005; 96361; 96372; 96374; 96375; 96376; 97116; 97161; 97166; 97530; 97535; 99218; 99285; J7120; A4216; G0378; J2405

== ENCOUNTER 2019-03-30 19:14 | Inpatient (IN) | payer MEDICARE, SELFPAY ==
[2019-03-29 10:53] VITALS: BMI 23.4
--- NOTE | 2019-03-29 12:36 | HP_ITS ---
I have re-examined the patient. There are no clinical changes since date of exam. Intake Vital Signs 03/29/19 Height 5 ft 03/29/19 Weight: 120 lb 03/29/19 Body Mass Index (BMI) 23.4 Intake Visit Reasons: Elbow pain Chief Complaint: fall Accompanied by: Daughter Is patient in pain?: Yes Pain scale (1-10): 7 Allergies No Known Allergies Allergy (Verified 03/23/19 10:40) Medications Duloxetine Hcl [Cymbalta] 60 mg PO DAILY 08/16/13 [History Confirmed 03/29/19] Pravastatin [Pravachol] 40 mg PO QHS 08/16/13 [History Confirmed 03/29/19] Furosemide [Lasix] 20 mg PO DAILY 02/15/17 [History Confirmed 03/29/19] Budesonide [Entocort EC] 3 mg PO BID 10/21/18 [History Confirmed 03/29/19] Loperamide [Imodium Liquid] 2 mg PO Q2H PRN PRN 10/21/18 [History Confirmed 03/29/19] Omeprazole 40 mg PO DAILY 10/21/18 [History Confirmed 03/29/19] Potassium Chloride [K-Dur] 20 meq PO DAILY 10/21/18 [History Confirmed 03/29/19] Acetaminophen [Tylenol Extra Strength] 1,000 mg PO Q8H PRN PRN 11/10/18 [History Confirmed 03/29/19] Oxycodone HCl/Acetaminophen [Oxycodone-Acetaminophen 5-325] 1 tab PO Q4H PRN PRN 11/10/18 [History Confirmed 03/29/19] PFSH Medical History (Updated 03/29/19 @ 11:31 by Margret Alvarez) H/O ht shoulder arthroscopy (Acute) Family History (Updated 10/21/18 @ 23:34 by Galdino Kasper MD) Mother Temporal arteritis Other Arthritis Emphysema of lung Social History (Updated 03/29/19 @ 12:36 by Natalia Rodriguez DO) Smoking Status: Never smoker HPI Elbow pain: Surgical H&P: Yes Details: Parts of this documentation were recorded by a scribe, this documentation accurately reflects the service provided and the decisions made by , Natalia Rodriguez DO 03/29/19 1052. NINA SANDOVAL is a 83 year old F NEW patient here today for F/U from the ER. Patient had a fall while she was getting the mail on 03/23/19. Patient was seen in the ER for a consult and was scheduled for surgery last thursday but the patient ate some crackers and had to be rescheduled. Splint taken down today and her wound was checked. Patient has 2 abrasions to her elbow. Patients pain in under control. Denies numbness, tingling or other associated symptoms. Patient arm from about 2 inches above the elbow down is purplish in color d/t bruising. Is able to move all fingers. ROS Musc Reports joint pain, Reports joint swelling, Denies numbness, Reports radiating pain into limb, Reports stiffness, Denies tingling Skin/Breast Denies redness, Denies lesions, Denies itching, Denies rash, Denies skin swelling Neuro No numbness, No tingling Ortho Exam Right Elbow Skin/Wound: Yes eccymosis, Yes erythema ROM: Yes TTP Fracture Site ELBOW: able to move hand No rales rhonchi wheezing, no abdominal pain, no audible bruits, Assessment & Plan 1. Right elbow pain M25.521 Plan Spoke with the patient about the surgery procedure and recovery. She will be in a splint for 2 weeks and then put into a hinged elbow brace. Spoke with her about post op pain management. Reviewed the pre-operative plans with the patient. Risks and benefits of the procedure were fully explained, including but not limited to infection, neurovascular injury, continued pain, arthritis, stiffness, need for further surgery, re-injury, DVT, PE, general risks of anesthesia, and loss of limb or life. The patient understands all the risks and does wish to proceed with written consent. Follow up in 2 week post op or sooner if pain, swelling, numbness or associated symptoms, or concerns develop. All questions answered. Patient in agreement of plan. 2. Closed fracture of right olecranon process, initial encounter S52.021A Coding Level of Care Code Off vis,est,level 4 Diagnoses Right elbow pain M25.521 ??Laterality: right Closed fracture of right olecranon process, initial encounter S52.021A ??Encounter type: initial encounter 03/29/19 1237 <Electronically signed by Ellie Ch icorelli DO> Date _ Natalia Rodriguez DO
[2019-03-30] VITALS (17 sets, daily range): BP systolic 93–146; BP diastolic 39–63; PULSE 52–98; RESP 16–20; TEMP 36.6–37; O2SAT 87–100; BMI 24.1; BMI 25.0
[2019-03-30] MEDS: Lactated Ringers 1,000 ML 100 ML IV ×2 (10:55→15:15)
--- NOTE | 2019-03-30 12:02 | DCINST_ITS ---
Discharge Diet: No Restrictions - leave splint intact, follow up in 2 weeks for splint removal/xrays, call with concerns Discharge Activity: May Not Drive May shower in (days): 1 Ice area for (Minutes): 20 - Every hour while awake. Weight Bearing Status: Weight bearing as tolerated Keep extremity elevated above heart level: Operative Extremity Call your doctor if your incision/area has: Continuous Slow Oozing, Sudden Increased Bleeding, Increased Pain/ Swelling, Increased Redness, Foul Smelling Discharge Call your doctor if you observe: Fever of 101 or Higher, Coldness, Increased Pain, Numbness or Tingling, Change in Color, Calf discomfort Allergies/Adverse Reactions: Allergies No Known Allergies Allergy (Verified 03/30/19 10:08) Medications to take at Discharge Duloxetine Hcl [Cymbalta] 60 mg PO DAILY 08/16/13 Pravastatin [Pravachol] 40 mg PO QHS 08/16/13 Furosemide [Lasix] 20 mg PO DAILY 02/15/17 Budesonide [Entocort EC] 3 mg PO BID 10/21/18 Loperamide [Imodium Liquid] 2 mg PO Q2H PRN PRN 10/21/18 Omeprazole 40 mg PO DAILY 10/21/18 Potassium Chloride [K-Dur] 20 meq PO DAILY 10/21/18 Acetaminophen [Tylenol Extra Strength] 1,000 mg PO Q8H PRN PRN 11/10/18 Oxycodone HCl/Acetaminophen [Oxycodone-Acetaminophen 5-325] 1 tab PO Q4H PRN PRN 11/10/18 Oxycodone HCl/Acetaminophen [Percocet 5/325] 1 - 2 tablet PO Q6H PRN PRN 5 Days #28 tablet 03/30/19 The following prescriptions were given: Oxycodone HCl/Acetaminophen [Percocet 5/325] 1 - 2 tablet PO Q6H PRN PRN 5 Days #28 tablet PRN Reason: Pain Transmission Status: Sent to [facility] Primary Care Physician: Claudio Steele DO [Primary Care Provider] - Test Results: Test results from this visit will be discussed in further detail at your follow- up appointment, if applicable. Please Follow Up With: Natalia Rodriguez DO - [phone]
--- NOTE | 2019-03-30 12:03 | OP.PCM_ITS ---
Report of Operation Date of Procedure: 03/30/19 Pre-Operative Diagnosis: Displaced and comminuted right olecranon fracture Post-Operative Diagnosis: same Surgery/Procedure Performed:: orif right olecranon with synthes prox olecranon plate civil engineer land development: Yan Le Type of Anesthesia:: General Anesthesiologist: Mickey Brown Estimated Blood Loss (mL): min Fluids Replaced: 1000ml lr Description of Procedure: Preop note Patient is an 83-year-old female fell at home off of a curb was seen in the emergency room initially admitted CT of brain negative x-ray of right elbow shows a displaced olecranon fracture secondary survey was negative patient was supposed be done last Thursday however she ate and so she was discharged home and was done as an outpatient. Risk benefits and alternatives surgery discussed with patient. Risks including but not limited limited to blood loss, blood clot, infection, neurovascular injury, failure procedure, loss of life and loss of limb. Patient is aware would like proceed with right olecranon open reduction internal fixation. Operative note Next Patient seen and examined in preop holding area. Right arm was marked. Patient brought to the operating room and placed supine on the operating table. Signed, anesthesia, antibiotics were oracle soa consultant. Patient was placed on her left side with an axilla axillary roll under her left axilla and difficulty placing her left arm to get the fact that she had a surgery on the left arm was on her left humerus quite some time ago and she is quite stiff. We then prepped and draped the right arm in usual sterile technique. Timeout was performed. We then marked out our incision right on top of the olecranon going lateral over the ole cranon tip. The arm was elevated exsanguinated and tourniquet was raised to pressure of 250 torr. Timeout was performed. We then use a 15 blade to cut through the skin dissect down with tenotomies the level of the olecranon the olecranon was then though periosteally elevator to remove some of the soft tissue attachments in order to place our plate. We then were able to debride the fracture site at the olecranon. She had a quite comminution at the fracture site and was quite osteoporotic bone. We irrigated the fracture site with copious amounts of sterile saline. We used a Synthes proximal olecranon plate and placed it over top as a time we did attempt to use a point of reduction forceps or K wires her bone quality was poor and was difficult to maintain reduction without possibility of worsening her comminution. After placing her plate we did place K wires and were able to reduce the fracture through the plate using K wires in multiple planes. We then place appropriately measured and initially 2 cortical screws with one proximal and one distal and noted to seat the plate down to bone. We then placed locking screws and one distally and 2 proximally and one with a rafting technique at the olecranon articular surface. We placed two 3.5 cortical screws distally and 2.7 locking screw proximally as as well we ranged the elbow in flexion extension pronation to supination to ensure that we had no impingement of any screws that were too long which we did not have we took multiple images and fluoroscopy in multiple planes to ensure this is what there was no an intra-articular component and that the long screws not long and impeding on the radius which there was not as well and that the fracture did not displace with ROM of elbow which it did not. The incision was irrigated with copious muscle sterile saline. We did close the soft soft tissue over top of the plate periosteum. We closed the skin with 3-0 Vicryl and jimi sterile dressings were applied the splint was posterior splint was applied to the right upper extremity. Patient tied procedure well no comp occasions [facility] recovery room in stable condition. Postoperative note Pharmacy has prescriptions Call with increased pain numbness tingling or issues arise next Follow-up in 2 weeks x-rays and removal of splint initiation of physical therapy and a hinged brace Discussed at length the risk of stiffness due to the fact of the the intra- articular comminution Family aware Patient family told to call if there is increased pain numbness tingling or further issues arise Dragon disclaimer this note was generated with Quick2LAUNCH dictation software. It may contain incorrect words, spelling, and punctuation that were not noted in checking the note before signing.
[2019-03-30] MEDS: Cefazolin 2 GM in 0.9% Normal Saline 100 ML IV (12:38)
--- NOTE | 2019-03-30 13:25 | RAD_ITS ---
STUDY: X-RAY - RIGHT ELBOW REASON FOR EXAM: Female, 83 years old. ORIF RIGHT ELBOW TECHNIQUE: 8 fluoroscopic intraoperative view(s) of the elbow. COMPARISON: Right elbow x-ray dated March 23, 2019 FINDINGS: The provided images shows a newly placed posterior cortical plate-screw construct through the olecranon process fracture fragment reduced into the [place] bone with anatomic alignment. RAD/Elbow min 3 Views IMPRESSION: Intraoperative visualization of the right elbow Electronically Signed: Franki Aiken MD at 15:38 EST , Service support ,
[2019-03-30] MEDS: HYDROcodone Bitartrate/Apap 5/325 Tablet PO (17:10)
--- NOTE | 2019-03-30 17:10 | SUR.PHASEII ---
MEDICATED PATIENT WITH 2 TABS NORCO FOR SEVERE PAIN. SON AND DAUGHTER ASKING IF PATIENT CAN STAY THE NIGHT SINCE SHE LIVES ALONE, REPEATEDLY INDICATING SOMEONE MIGHT NOT BE ABLE TO STAY THE NIGHT. PATIENT CONTINUES TO C/O SEVERE PAIN DESPITE JUST MEDICATING, COMFORT AND REASSURANCE OFFERED. WILL NOTIFY DR MILES OF FAMILY CONCERNS.
--- NOTE | 2019-03-30 17:59 | SUR.PHASEII ---
PATIENT CONTINUES TO C/O VERY SEVERE RIGHT ARM PAIN 45 MINUTES AFTER NORCO ADMIN, STATES NO IMPROVEMENT. DR BEARD, ANESTHESIA, NOTIFIED, ORDERS TO RETURN PATIENT TO PACU FOR MONITORING AND FENTANYL ADMINISTRATION. SEE PACU MEDICATION ORDER SHEET. PATIENT AND FAMILY UPDATED.
--- NOTE | 2019-03-30 18:13 | SUR.PHASEI ---
PT BROUGHT BACK TO PACU FOR OXYGEN MONITORING FOR IV FENTANYL TO BE GIVEN. UPON RETURN TO PACU, PT O2 87% ON ROOM AIR. 3L NC PLACED AND PAIN MEDICATION GIVEN. RATING PAIN 9/10.
--- NOTE | 2019-03-30 18:40 | SUR.PHASEI ---
DR RILEY AND CHRISTIE MATHEW, LEAF TINNER, ADMINISTERING RIGHT SUPRACLAVICULAR NERVE BLOCK TO PATIENT IN PACU PATIENT STATES HER PAIN IS STILL 8-9/10.
[2019-03-30] MEDS: 0.9% Normal Saline 1,000 ML 15 ML IV (22:07)
[2019-03-30] MEDS: Ondansetron 4 MG/2 ML Vial IV (22:07)
[2019-03-30] MEDS: Budesonide 3 MG CAPSULE.EC PO (22:21)
[2019-03-30] MEDS: Pravastatin 40 MG Tablet PO (22:21)
[2019-03-30] MEDS: oxyCODONE 5 MG Tablet PO (22:33)
[2019-03-31 02:07] VITALS: BP 125/49; PULSE 72; RESP 18; TEMP 36.7; O2SAT 92
[2019-03-31] MEDS: oxyCODONE 5 MG Tablet PO ×3 (02:15→18:01)
[2019-03-31] MEDS: Acetaminophen 325 MG Tablet PO ×2 (04:48→21:50)
[2019-03-31] MEDS: Ondansetron 4 MG/2 ML Vial IV ×2 (09:05→18:59)
[2019-03-31] MEDS: Budesonide 3 MG CAPSULE.EC PO ×2 (09:07→21:50)
[2019-03-31] MEDS: DULoxetine Hcl 60 MG Capsule PO (09:08)
[2019-03-31 09:26] VITALS: BP 138/69; PULSE 82; RESP 18; TEMP 36.9; O2SAT 94
--- NOTE | 2019-03-31 10:51 | CASEMGMT ---
Addendum entered by Hayes Perales 03/31/19 12:54: DORITA OG met with Physical Therapy, Occupational Therapy, pt's daughter and patient. Recommendation is for pt to have short term skilled stay prior to dc as pt lives alone in tri-level home and will have very limited assistance on discharge. SW consult placed re: possible fdc placement on discharge. Nuzhat AGUILAR Original Note: DORITA OG Assessment Presentation: ORIF R olecranon Intro role of CM and purpose of RN CM assessment to patient in room. Pt is awake, alert and able to participate in assessment. Demographics, PCP and Pharmacy verified. Pt has been managing independently at home since fall and elbow fx. Family was bringing meals to her to microwave. DORITA OG discussed PT/OT to see pt and recommendation that pt have more assist at home as likely will have more pain in arm and more limited ROM initially after surgery. Pt states family can assist, and she has a woman who will come in and help me when I get home. PCP: Dr. Claudio Steele Specialists: Dr. Rodriguez Preferred Pharmacy: [facility] Retail Insurance: [employer] Prescription Benefit: yes LNOK: son and daughter Living Arrangements: Lives in tri level home. Pt has family room, bathroom on main area where she stays, and just goes upstairs to Bedroom. Pt was not using ambulatory DME, had sling on arm. States she was able to dress, bathe and microwave meals independently. DORITA OG discussed that now, post surgery- pt will likely need more assistance initially. Transportation: family will assist. DME: walker, cane, sling for arm HHC: declines need for HHC. Patient DC goals: home with assistance from family and friend DC PLAN: anticipate home. PT/OT evaluations are pending.Nuzhat AGUILAR
[2019-03-31 12:45] VITALS: O2SAT 90
[2019-03-31] MEDS: HYDROcodone Bitartrate/Apap 5/325 Tablet PO (13:00)
--- NOTE | 2019-03-31 13:01 | CASEMGMT ---
As per PT/OT, pt would benefit from care home facility placement. Daughter here and also in agreement with this, as is pt. They informed CM they would like a referral sent to [facility]. SW called [facility], message left, initial referral faxed. PT/OT evaluations pending in system. SW left a message for Dr. Rodriguez in the office that we are working on chcf placement for pt. SNF papers on chart if needed. SW spoke w/pt and daughter in room, let them know initial referral was sent and will see what [facility] says, and if they can take pt then we will need a precert from insurance. Pt and daughter state understanding. Pt's insurance did approve her in the summer to go to SNF after a shoulder injury, so pt and daughter hopeful they will approve her this time as well. SW will continue to follow, will fax PT/OT once completed. FABIANA Bobby
--- NOTE | 2019-03-31 13:48 | CASEMGMT ---
SW spoke w/Fallon at [facility], they can take pt, SW explained PT/OT just entered, SW faxed PT/OT evaluations and Fallon will start the precert. SW let pt and daughter know that Fallon at [facility] said they can take pt as long as they get a precert. Pt and daughter state understanding. Daughter states can take pt to [facility] once pt is discharged. SW will continue to follow, plan is for [facility] pending precert. FABIANA Bobby
[2019-03-31 14:56] VITALS: BP 143/50; PULSE 79; RESP 18; TEMP 37; O2SAT 94
--- NOTE | 2019-03-31 15:47 | CHAPLAIN ---
Type of Pastoral Visit _x__ Initial Visit ___ Follow-up Visit ___ On-call Visit ___ General Patient Visit ___ Spiritual Assessment ___ Family Conference ___ Bereavement ___ Rapid Response ___ Code Blue ___ Other (describe below) Pastoral Care Referral From _x__ Patient ___ Family ___ Nurse ___ Physician ___ Rate Reviewer ___ Molder Operator ___ Other (describe below) Sacrament/Intervention _x__ Active listening ___ Anointing ___ Hinduism ___ Bereavement ___ Communion _x__ Lsia exploration ___ ___ Life review _x__ Prayer ___ Reconciliation ___ Sacrament of Sick _x__ Supportive presence ___ Wedding ___ Other (describe below) Pastoral Comments
--- NOTE | 2019-03-31 18:18 | NURSING ---
isabella wraps removed and batting pulled back to approx 2 inches proximal to wrist. strong radial pulses noted. cap refill >3. hand and fingers remain cold but blood refill and edema appear to be improving. edema is not tight but like fluid filled. will continue to monitor. medicated for pain, and arm remains elevated on several pillows.
[2019-03-31] MEDS: 0.9% Saline Lock 10 ML Syringe IV (18:59)
[2019-03-31 19:36] VITALS: BP 151/48; PULSE 76; RESP 18; TEMP 37; O2SAT 92
[2019-03-31] MEDS: Pravastatin 40 MG Tablet PO (21:50)
[2019-04-01 02:20] VITALS: O2SAT 82
[2019-04-01 02:23] VITALS: BP 126/44; PULSE 76; RESP 18; TEMP 37; O2SAT 95
[2019-04-01] MEDS: 0.9% Saline Lock 10 ML Syringe IV (06:24)
[2019-04-01] MEDS: Acetaminophen 325 MG Tablet PO (06:24)
[2019-04-01 08:47] VITALS: BP 136/48; PULSE 65; RESP 14; TEMP 37.1; O2SAT 98
--- NOTE | 2019-04-01 09:36 | CASEMGMT ---
Addendum entered by Nettie Wilks 04/01/19 14:04: All discharge instructions completed. SW faxed these along w/hospital exemption form completed in [place] over to [facility]. Daughter is going to take pt over. Also, daughter had picked up pt's pain meds already as they had been prescribed to the retail pharmacy when the plan was initially for pt to go home. WENDI let Fallon at [facility] know that daughter will be bringing pt over and that she has pt's pain medication due to the above reason. Fallon is not certain if they can use the pain meds or not, if they cannot they will figure out another solution since the doctor is not going to do a new script for the chcf. SW let daughter know to bring over the pain meds for pt she picked up at the retail pharmacy but they may or may not be able to use them, and that the chcf will figure out another solution if they cannot use the meds. Daughter states understanding. No further needs, pt to [facility] today. FABIANA Bobby Addendum entered by Nettie Wilks 04/01/19 11:19: SW spoke w/daughter in room, let her know pt was approved and will likely be able to go W today. Daughter is still able to take pt as pt is off of O2 now. SW will continue to follow for discharge to [facility] once order and paperwork is completed. FABIANA Bobby Original Note: Pt has been approved to go to [facility] today by insurance. WENDI let pt know, pt agreeable. SW will continue to follow. Pt is on oxygen, if this is needed we may need to send pt via transportation rather than by daughter as pt is not normally on oxygen at home. FABIANA Bobby
[2019-04-01] MEDS: DULoxetine Hcl 60 MG Capsule PO (10:19)
[2019-04-01] MEDS: Furosemide 20 MG Tablet PO (10:19)
[2019-04-01] MEDS: Budesonide 3 MG CAPSULE.EC PO (10:19)
[2019-04-01] MEDS: oxyCODONE 5 MG Tablet PO (10:23)
[2019-04-01 10:33] VITALS: O2SAT 90
[2019-04-01 10:34] VITALS: O2SAT 94
--- NOTE | 2019-04-01 11:04 | PCM.DC.SUM ---
Discharge Date and Diagnosis Date of Admission: 03/23/19 - Secondary Discharge Diagnosis Chronic Problems (Last Updated 03/29/19 @ 11:16 by Lillie Hoang) History of peptic ulcer (Chronic) Ulcerative colitis (Chronic) Hyperlipidemia (Chronic) Hypothyroidism (Chronic) GERD (gastroesophageal reflux disease) (Chronic) HTN (hypertension) (Chronic) Hospital Course and Treatment Operations: None Summary of Care Provided: The patient is a 83 year old F [] - Physical Exam Vitals/I&O's: Vital Signs Temp Pulse Resp BP Pulse Ox 98.7 F 65 14 136/48 H 94 04/01/19 08:47 04/01/19 08:47 04/01/19 08:47 04/01/19 08:47 04/01/19 10:34 Oxygen Flow Rate (L/min) 2 Oxygen Delivery Method Room Air Weight: 128 lb 4.944 oz Body Mass Index (BMI) 25.0 Intake and Output for Last 24 Hours 03/30/19 03/31/19 04/01/19 23:59 23:59 23:59 Intake Total 2009 1302 / 1302 150 / 150 Output Total 190 / 1900 300 / 300 Balance 2009 -598 / -598 -150 / -150 Current Medications Acetaminophen (Tylenol) 325 - 650 mg PO Q6H PRN PRN PRN Reason: Pain Score 1-02/17 Last Admin: 04/01/19 06:24 Dose: 650 mg Documented by: Hydrocodone Bitart/Acetaminophen (Dennison 5mg-325mg) 1 - 2 tablet PO Q6H PRN PRN PRN Reason: Pain Score 1-5/10 Last Admin: 03/31/19 13:00 Dose: 2 tablet Documented by: Budesonide (Budesonide Ec) 3 mg PO BID [facility] Last Admin: 04/01/19 10:19 Dose: 3 mg Documented by: Duloxetine HCl (Cymbalta) 60 mg PO DAILY [facility] Last Admin: 04/01/19 10:19 Dose: 60 mg Documented by: Furosemide (Lasix) 20 mg PO DAILY [facility] Last Admin: 04/01/19 10:19 Dose: 20 mg Documented by: Sodium Chloride () 1,000 mls @ 15 mls/hr IV .Q48H [facility] Last Infusion: 04/01/19 10:12 Dose: Infused Documented by: Loperamide HCl (Imodium) 2 mg PO Q2H PRN PRN Reason: DIARRHEA/LOOSE STOOLS Ondansetron HCl (Zofran) 4 mg IV Q8H PRN PRN PRN Reason: Nausea Last Admin: 03/31/19 18:59 Dose: 4 mg Documented by: Oxycodone HCl (Oxyir) 5 - 10 mg PO Q6H PRN PRN PRN Reason: Pain Score 6-10/10 Last Admin: 04/01/19 10:23 Dose: 5 mg Documented by: [facility] Last Admin: 04/01/19 10:20 Dose: 20 meq Documented by: Pravastatin Sodium (Pravachol) 40 mg PO QHS [facility] Last Admin: 03/31/19 21:50 Dose: 40 mg Documented by: Sodium Chloride () 10 - 40 ml IV UD PRN PRN Reason: SALINE FLUSH Last Admin: 04/01/19 06:24 Dose: 10 ml Documented by: Discharge Diet: No Restrictions - leave splint intact, follow up in 2 weeks for splint removal/xrays, call with concerns Discharge Activity: May Not Drive May shower in (days): 1 Ice area for (Minutes): 20 - Every hour while awake. Weight Bearing Status: Weight bearing as tolerated Keep extremity elevated above heart level: Operative Extremity Call your doctor if your incision/area has: Continuous Slow Oozing, Sudden Increased Bleeding, Increased Pain/ Swelling, Increased Redness, Foul Smelling Discharge Call your doctor if you observe: Fever of 101 or Higher, Coldness, Increased Pain, Numbness or Tingling, Change in Color, Calf discomfort Home Medications: Medications to take at Discharge Duloxetine Hcl [Cymbalta] 60 mg PO DAILY 08/16/13 Pravastatin [Pravachol] 40 mg PO QHS 08/16/13 Furosemide [Lasix] 20 mg PO DAILY 02/15/17 Budesonide [Entocort EC] 3 mg PO BID 10/21/18 Loperamide [Imodium Liquid] 2 mg PO Q2H PRN PRN 10/21/18 Omeprazole 40 mg PO DAILY 10/21/18 Potassium Chloride [K-Dur] 20 meq PO DAILY 10/21/18 Acetaminophen [Tylenol Extra Strength] 1,000 mg PO Q8H PRN PRN 11/10/18 Oxycodone HCl/Acetaminophen [Oxycodone-Acetaminophen 5-325] 1 tab PO Q4H PRN PRN 11/10/18 Oxycodone HCl/Acetaminophen [Percocet 5/325] 1 - 2 tab PO Q6H PRN PRN 5 Days #28 tab 03/30/19 Following Prescrptions Were Given to Patient: Oxycodone HCl/Acetaminophen [Percocet 5/325] 1 - 2 tab PO Q6H PRN PRN 5 Days #28 tab PRN Reason: Pain Transmission Status: Received by [facility] Primary Care Physician: Claudio Steele DO [Primary Care Provider] - Please Follow Up With: Natalia Rodriguez DO - [phone] Medical Necessity - Tobacco Use Smoking Status: Never smoker Tobacco Use: Non-smoker
--- NOTE | 2019-04-01 11:12 | NURSING ---
spoke w/dr ramirez who was unaware pt had not been dc'd home on 03/31 until this am when she spoke to judy montano because she had a missed call from the [facility]. updated her on pt status and she will be over to reevaluate pt and dc to [facility].
--- NOTE | 2019-04-01 12:55 | DS.PCM_ITS ---
Discharge Date and Diagnosis Date of Admission: 03/23/19 Date of Discharge: 04/01/19 - Secondary Discharge Diagnosis Chronic Problems (Last Updated 03/29/19 @ 11:16 by Lillie Hoang) History of peptic ulcer (Chronic) Ulcerative colitis (Chronic) Hyperlipidemia (Chronic) Hypothyroidism (Chronic) GERD (gastroesophageal reflux disease) (Chronic) HTN (hypertension) (Chronic) Hospital Course and Treatment Summary of Care Provided: The patient is a 83 year old F Who presented to the emergency dept following a fall resulting in a fracture of her right elbow as well as some minor wounds and lacerations. Ortho was consulted regarding fracture. Patient was placed in a splint with intent to proceed with surgery two days later Monday March 25, 2019. On the day of surgery patient had eaten some crackers and therefore surgery was cancelled and rescheduled for Saturday March 30, 2019. Patient underwent open reduction internal fixation of an olecranon fracture (olecranon plate and screws) on that same date. Patients surgery was completed without any complications or problems. Patient had some moderate pain post-operatively and family members did not feel comfortable taking her home that day and thus patient was kept for 24 hour observation. Patient was alert and awake during her time on the floor. Her pains were much better controlled while on the floor (not completely resolved but improved). Patient and family at that time decided that patient would be better served to be in a transitional care / assisted living facility to help her in her recovery. Patient to be discharged today to that facility. - Physical Exam Vitals/I&O's: Vital Signs Temp Pulse Resp BP Pulse Ox 98.7 F 65 14 136/48 H 94 04/01/19 08:47 04/01/19 08:47 04/01/19 08:47 04/01/19 08:47 04/01/19 10:34 Oxygen Flow Rate (L/min) 2 Oxygen Delivery Method Room Air Weight: 128 lb 4.944 oz Body Mass Index (BMI) 25.0 Intake and Output for Last 24 Hours 03/30/19 03/31/19 04/01/19 23:59 23:59 23:59 Intake Total 2009 1302 / 1302 150 / 150 Output Total 190 / 1900 300 / 300 Balance 2009 -598 / -598 -150 / -150 General: Alert, Oriented x3, Cooperative Extremities: No clubbing, Edema, Peripheral Pulses Normal, Tenderness Skin: No rashes, No breakdown Current Medications Acetaminophen (Tylenol) 325 - 650 mg PO Q6H PRN PRN PRN Reason: Pain Score 1-10/10 Last Admin: 04/01/19 06:24 Dose: 650 mg Documented by: Hydrocodone Bitart/Acetaminophen (Mccleary 5mg-325mg) 1 - 2 tablet PO Q6H PRN PRN PRN Reason: Pain Score 1-5/10 Last Admin: 03/31/19 13:00 Dose: 2 tablet Documented by: Budesonide (Budesonide Ec) 3 mg PO BID [facility] Last Admin: 04/01/19 10:19 Dose: 3 mg Documented by: Duloxetine HCl (Cymbalta) 60 mg PO DAILY [facility] Last Admin: 04/01/19 10:19 Dose: 60 mg Documented by: Furosemide (Lasix) 20 mg PO DAILY [facility] Last Admin: 04/01/19 10:19 Dose: 20 mg Documented by: Sodium Chloride () 1,000 mls @ 15 mls/hr IV .Q48H [facility] Last Infusion: 04/01/19 10:12 Dose: Infused Documented by: Loperamide HCl (Imodium) 2 mg PO Q2H PRN PRN Reason: DIARRHEA/LOOSE STOOLS Ondansetron HCl (Zofran) 4 mg IV Q8H PRN PRN PRN Reason: Nausea Last Admin: 03/31/19 18:59 Dose: 4 mg Documented by: Oxycodone HCl (Oxyir) 5 - 10 mg PO Q6H PRN PRN PRN Reason: Pain Score 6-10/10 Last Admin: 04/01/19 10:23 Dose: 5 mg Documented by: [facility] Ch[facility] ([facility]) [facility] Last Admin: 04/01/19 10:20 Dose: 20 meq Documented by: Pravastatin Sodium (Pravachol) 40 mg PO QHS [facility] Last Admin: 03/31/19 21:50 Dose: 40 mg Documented by: Sodium Chloride () 10 - 40 ml IV UD PRN PRN Reason: SALINE FLUSH Last Admin: 04/01/19 06:24 Dose: 10 ml Documented by: Discharge Diet: No Restrictions - leave splint intact, follow up in 2 weeks for splint removal/xrays, call with concerns Discharge Activity: May Not Drive May shower in (days): 1 Ice area for (Minutes): 20 - Every hour while awake. Weight Bearing Status: Weight bearing as tolerated Keep extremity elevated above heart level: Operative Extremity Call your doctor if your incision/area has: Continuous Slow Oozing, Sudden Increased Bleeding, Increased Pain/ Swelling, Increased Redness, Foul Smelling Discharge Call your doctor if you observe: Fever of 101 or Higher, Coldness, Increased Pain, Numbness or Tingling, Change in Color, Calf discomfort Remove Dressing in (days):: 3 Cleanse incision/area with: Soap & Water Additional Dressing/Incision Instructions:: Remove dressing on day 3 and can cleanse gently with soap and water. Can then can change dressing daily. Use non- adherent dressing prior to wrapping back up. Should then re-apply splint appropriately as well Home Medications: Medications to take at Discharge Duloxetine Hcl [Cymbalta] 60 mg PO DAILY 08/16/13 Pravastatin [Pravachol] 40 mg PO QHS 08/16/13 Furosemide [Lasix] 20 mg PO DAILY 02/15/17 Budesonide [Entocort EC] 3 mg PO BID 10/21/18 Loperamide [Imodium Liquid] 2 mg PO Q2H PRN PRN 10/21/18 Omeprazole 40 mg PO DAILY 10/21/18 Potassium Chloride [K-Dur] 20 meq PO DAILY 10/21/18 Primary Care Physician: Claudio Steele DO [Primary Care Provider] - Please Follow Up With: Natalia Rodriguez DO - [phone] Disposition: Executive Marketing Assistant Acute Care Patient Condition:: Good Medical Necessity - Tobacco Use Smoking Status: Never smoker Tobacco Use: Non-smoker Meaningful Use Info Meaningful Use Diagnoses (Choose all that apply): None applicable
[2019-04-01 13:26] VITALS: BP 135/50; PULSE 67; RESP 14; TEMP 36.9; O2SAT 91
--- NOTE | 2019-04-01 14:00 | NURSING ---
report called to angelito at [facility]. pt being transported by her daughter. daughter is aware that she will need to take the pain meds that were prescribed into [facility].
--- NOTE | 2019-04-01 14:02 | NURSING ---
isabella wrap applied from fingers to wrist
== END 2019-04-01 13:45 | disposition skilled nursing facility (03) | DRG 511 ==
LOC: MS2 19:37 → SDC 03-31 00:04 → MS2 03-31 00:17
PROVIDERS: Admitting Provider Orthopaedic Surgery; Family Provider Family Medicine; PCP Family Medicine; Referring Provider Orthopaedic Surgery; Visit Provider Orthopaedic Surgery
DX: S52.021A Displaced fracture of olecranon process without intraarticular extension of right ulna, initial encounter for closed fracture (principal); K51.90 Ulcerative colitis, unspecified, without complications; W19.XXXA Unspecified fall, initial encounter; Y92.9 Unspecified place or not applicable; K21.9 Gastro-esophageal reflux disease without esophagitis; I10 Essential (primary) hypertension; E78.5 Hyperlipidemia, unspecified; E03.9 Hypothyroidism, unspecified; Z87.11 Personal history of peptic ulcer disease
CPT/HCPCS: 73080; 76000; 97162; 97166; 97530; C1713; J7030; J7040; J7120; A4216; J2405

== ENCOUNTER → 2019-04-15 12:38 | Outpatient (CLI) | payer MEDICARE, SELFPAY ==
[2019-04-15 12:36] VITALS: BMI 25.0
--- NOTE | 2019-04-15 12:40 | RAD_ITS ---
STUDY: X-RAY - RIGHT ELBOW REASON FOR EXAM: Female, 83 years old. Fracture TECHNIQUE: Frontal, lateral, and oblique view(s) of the elbow. COMPARISON: March 23, 2019. FINDINGS: There is demineralization of the visualized humerus, radius and ulna. There is proximal ulna fracture of the olecranon status post ORIF with fixation plate and screws. There is diastases of 0.4 cm. Normal radiocapitellar and ulnotrochlear articulations. The soft tissue structures are unremarkable. RAD/Elbow min 3 Views IMPRESSION: Status post ORIF proximal ulna fracture. Electronically Signed: Cody Gastelum MD at 20:59 EST , Service support ,
== END ==
PROVIDERS: Family Provider Family Medicine; PCP Family Medicine; Referring Provider Orthopaedic Surgery; Visit Provider Orthopaedic Surgery
DX: Z47.89 Encounter for other orthopedic aftercare (principal)
CPT/HCPCS: 73080

== ENCOUNTER 2019-04-20 15:00 | Observation (INO) | payer MEDICARE, SELFPAY ==
--- NOTE | 2019-03-29 12:36 | HP_ITS ---
I have re-examined the patient. There are no clinical changes since date of exam. Intake Vital Signs 03/29/19 Height 5 ft 03/29/19 Weight: 120 lb 03/29/19 Body Mass Index (BMI) 23.4 Intake Visit Reasons: Elbow pain Chief Complaint: fall Accompanied by: Daughter Is patient in pain?: Yes Pain scale (1-10): 7 Allergies No Known Allergies Allergy (Verified 03/23/19 10:40) Medications Duloxetine Hcl [Cymbalta] 60 mg PO DAILY 08/16/13 [History Confirmed 03/29/19] Pravastatin [Pravachol] 40 mg PO QHS 08/16/13 [History Confirmed 03/29/19] Furosemide [Lasix] 20 mg PO DAILY 02/15/17 [History Confirmed 03/29/19] Budesonide [Entocort EC] 3 mg PO BID 10/21/18 [History Confirmed 03/29/19] Loperamide [Imodium Liquid] 2 mg PO Q2H PRN PRN 10/21/18 [History Confirmed 03/29/19] Omeprazole 40 mg PO DAILY 10/21/18 [History Confirmed 03/29/19] Potassium Chloride [K-Dur] 20 meq PO DAILY 10/21/18 [History Confirmed 03/29/19] Acetaminophen [Tylenol Extra Strength] 1,000 mg PO Q8H PRN PRN 11/10/18 [History Confirmed 03/29/19] Oxycodone HCl/Acetaminophen [Oxycodone-Acetaminophen 5-325] 1 tab PO Q4H PRN PRN 11/10/18 [History Confirmed 03/29/19] PFSH Medical History (Updated 03/29/19 @ 11:31 by Margret Alvarez) H/O ht shoulder arthroscopy (Acute) Family History (Updated 10/21/18 @ 23:34 by Galdino Kasper MD) Mother Temporal arteritis Other Arthritis Emphysema of lung Social History (Updated 03/29/19 @ 12:36 by Natalia Rodriguez DO) Smoking Status: Never smoker HPI Elbow pain: Surgical H&P: Yes Details: Parts of this documentation were recorded by a scribe, this documentation accurately reflects the service provided and the decisions made by , Natalia Rodriguez DO 03/29/19 1052. NINA SANDOVAL is a 83 year old F NEW patient here today for F/U from the ER. Patient had a fall while she was getting the mail on 03/23/19. Patient was seen in the ER for a consult and was scheduled for surgery last thursday but the patient ate some crackers and had to be rescheduled. Splint taken down today and her wound was checked. Patient has 2 abrasions to her elbow. Patients pain in under control. Denies numbness, tingling or other associated symptoms. Patient arm from about 2 inches above the elbow down is purplish in color d/t bruising. Is able to move all fingers. ROS Musc Reports joint pain, Reports joint swelling, Denies numbness, Reports radiating pain into limb, Reports stiffness, Denies tingling Skin/Breast Denies redness, Denies lesions, Denies itching, Denies rash, Denies skin swelling Neuro No numbness, No tingling Ortho Exam Right Elbow Skin/Wound: Yes eccymosis, Yes erythema ROM: Yes TTP Fracture Site ELBOW: able to move hand Assessment & Plan 1. Right elbow pain M25.521 Plan Spoke with the patient about the surgery procedure and recovery. She will be in a splint for 2 weeks and then put into a hinged elbow brace. Spoke with her about post op pain management. Reviewed the pre-operative plans with the patient. Risks and benefits of the procedure were fully explained, including but not limited to infection, neurovascular injury, continued pain, arthritis, stiffness, need for further surgery, re-injury, DVT, PE, general risks of anesthesia, and loss of limb or life. The patient understands all the risks and does wish to proceed with written consent. Follow up in 2 week post op or sooner if pain, swelling, numbness or associated symptoms, or concerns develop. All questions answered. Patient in agreement of plan. 2. Closed fracture of right olecranon process, initial encounter S52.021A Coding Level of Care Code Off vis,est,level 4 Diagnoses Right elbow pain M25.521 ??Laterality: right Closed fracture of right olecranon process, initial encounter S52.021A ??Encounter type: initial encounter 03/29/19 1237 <Electronically signed by Natalia parker DO> Date _ Natalia Rodriguez DO
--- NOTE | 2019-04-15 01:55 | HP_ITS ---
I have re-examined the patient. There are no clinical changes since date of exam. Intake Vital Signs 04/15/19 Body Mass Index (BMI) 25.0 Intake Visit Reasons: right elbow Chief Complaint: fall Allergies No Known Allergies Allergy (Verified 04/12/19 13:49) Medications Duloxetine Hcl [Cymbalta] 60 mg PO DAILY 08/16/13 [History Confirmed 04/15/19] Pravastatin [Pravachol] 40 mg PO QHS 08/16/13 [History Confirmed 04/15/19] Furosemide [Lasix] 20 mg PO DAILY 02/15/17 [History Confirmed 04/15/19] Budesonide [Entocort EC] 3 mg PO BID 10/21/18 [History Confirmed 04/15/19] Loperamide [Imodium Liquid] 2 mg PO Q2H PRN PRN 10/21/18 [History Confirmed 04/15/19] Omeprazole 40 mg PO DAILY 10/21/18 [History Confirmed 04/15/19] Potassium Chloride [K-Dur] 20 meq PO DAILY 10/21/18 [History Confirmed 04/15/19] PFSH Medical History (Updated 03/30/19 @ 12:03 by Natalia Rodriguez DO) H/O ht shoulder arthroscopy (Acute) Family History (Updated 10/21/18 @ 23:34 by Galdino Kasper MD) Mother Temporal arteritis Other Arthritis Emphysema of lung Social History (Updated 04/15/19 @ 13:55 by Natalia Rodriguez DO) Smoking Status: Never smoker HPI right elbow: Surgical H&P: Yes Details: Parts of this documentation were recorded by a scribe, this documentation accurately reflects the service provided and the decisions made by me, Natalia Rodriguez DO 04/15/19 1232. NINA SANDOVAL is a 83 year old F here today for 2 week and 2 day post op check of sutures. Patients sutures were not ready to be removed at her 2 week post op. X-rays taken today. per daughter, patient has been noncompliant, moving arm and has history of noncompliance and sees dr garcia for pain management which the family is concerned about patient's reliance on pain medications as well. ROS Musc Reports joint pain, Reports joint swelling, Denies numbness, Reports radiating pain into limb, Reports stiffness, Denies tingling Skin/Breast Denies redness, Denies lesions, Denies itching, Denies rash, Denies skin swelling Neuro No numbness, No tingling No rales rhonchi wheezing no abdominal pain, no audible bruits Median radial ulnar nerves intact limited flexion extension of the elbow Assessment & Plan Problems 1. Orthopedic aftercare Z47.89 2. Displaced fracture of left ulna S52. Plan Explained that she has displaced the fracture, will need revision surgery martin to prevent stiffness and provide for healing. Reviewed the risk of decreased rom and function if she does not have the revision. Reviewed the pre-operative plans with the patient. Risks and benefits of the procedure were fully explained, including but not limited to infection, neurovascular injury, continued pain, arthritis, stiffness, need for further surgery, re-injury, DVT, PE, general risks of anesthesia, and loss of limb or life. The patient understands all the risks and does wish to proceed with written consent. Follow up a week post op or sooner if pain, swelling, numbness or associated symptoms, or concerns develop. All questions answered. Patient in agreement of plan. Orders Orders: Elbow min 3 Views Today Z47.89 Coding Level of Care Code Global Post Op Diagnoses Orthopedic aftercare Z47.89 Displaced fracture of left ulna S52.A ??Encounter type: subsequent encounter ??Fracture healing: with routine healing ??Fracture type: closed 04/15/19 1355 <Electronically signed by Natalia parker DO> Date _ Natalia Rodriguez DO
[2019-04-15 12:36] VITALS: BMI 25.0
--- NOTE | 2019-04-18 14:04 | NURSING ---
DR MILES OFFICE NOTIFIED OF HGB 10.1 FROM 04/06. DR BURTON NOTIFIED OF ABOVE WELL. PER DR BURTON, NO REPEAT NEEDED.
[2019-04-20] VITALS (12 sets, daily range): BP systolic 92–159; BP diastolic 46–72; PULSE 71–83; RESP 14–18; TEMP 36.5–37.1; O2SAT 91–100; BMI 23.5
[2019-04-20] MEDS: Lactated Ringers 1,000 ML 100 ML IV ×2 (09:03→16:52)
[2019-04-20] MEDS: Cefazolin 2 GM in 0.9% Normal Saline 100 ML IV (12:20)
--- NOTE | 2019-04-20 12:35 | RAD_ITS ---
STUDY: X-RAY - RIGHT ELBOW REASON FOR EXAM: Female, 83 years old. Intraoperative digital documentation images. TECHNIQUE: A single lateral digital documentation view(s) of the elbow. COMPARISON: April 15, 2019 FINDINGS: A single lateral digital view of the elbow shows plate and screw fixation of the olecranon. The soft tissue structures are unremarkable. RAD/Elbow min 3 Views IMPRESSION: Single lateral documentation view showing plate and screw fixation of the olecranon in anatomic alignment with no complications noted on the single view. Electronically Signed: Parish Li MD at 17:04 EST , Service support ,
[2019-04-20] MEDS: Mupirocin Ointment 22gm Tube 1 APPLIC (14:31)
--- NOTE | 2019-04-20 15:07 | DCINST_ITS ---
Discharge Diet: No Restrictions - follow up in one week with repeat xrays and initiation of OT/PT, call with concerns Discharge Activity: May Not Drive May shower in (days): 1 Ice area for (Minutes): 20 - Every hour while awake. Weight Bearing Status: Weight bearing as tolerated Keep extremity elevated above heart level: Operative Extremity Call your doctor if your incision/area has: Continuous Slow Oozing, Sudden Increased Bleeding, Increased Pain/ Swelling, Increased Redness, Foul Smelling Discharge Call your doctor if you observe: Fever of 101 or Higher, Coldness, Increased Leon n, Numbness or Tingling, Change in Color, Calf discomfort Allergies/Adverse Reactions: Allergies No Known Allergies Allergy (Verified 04/12/19 13:49) Medications to take at Discharge Duloxetine Hcl [Cymbalta] 60 mg PO DAILY 08/16/13 Pravastatin [Pravachol] 40 mg PO QHS 08/16/13 Furosemide [Lasix] 20 mg PO DAILY 02/15/17 Budesonide [Entocort EC] 3 mg PO BID 10/21/18 Loperamide [Imodium Liquid] 2 mg PO Q2H PRN PRN 10/21/18 Omeprazole 40 mg PO DAILY 10/21/18 Potassium Chloride [K-Dur] 20 meq PO DAILY 10/21/18 Oxycodone HCl/Acetaminophen [Percocet 5/325] 1 - 2 tablet PO Q6H PRN PRN 5 Days #28 tablet 04/20/19 The following prescriptions were given: Oxycodone HCl/Acetaminophen [Percocet 5/325] 1 - 2 tablet PO Q6H PRN PRN 5 Days #28 tablet PRN Reason: Pain Transmission Status: Sent to [facility] Primary Care Physician: Claudio Steele DO [Primary Care Provider] - Test Results: Test results from this visit will be discussed in further detail at your follow- up appointment, if applicable. Please Follow Up With: Natalia Rodriguez DO - [phone]
--- NOTE | 2019-04-20 15:07 | PCM.OPRPT ---
Report of Operation Date of Procedure: 04/20/19 Pre-Operative Diagnosis: right displaced orif olecranon Post-Operative Diagnosis: same Surgery/Procedure Performed:: revision orif right olecranon veterans' counselor: Leobardo Thompson Type of Anesthesia:: General Anesthesiologist: Slim Braswell Specimen's removed: swab culture x2 Estimated Blood Loss (mL): min Fluids Replaced: 500cc Description of Procedure: Preop note Is an 83-year-old female well-known to me. Patient ORIF approximately 3 weeks ago of her right olecranon. Patient came to the office for HER-2 week postop and noted that it had displaced more than I would like at the articular surface discussed treatment options. Risk benefits and alternatives surgery discussed with patient and family. Risk including but not limited to blood loss, blood clot, infection, neurovascular, failure procedure, loss of life and loss of limb. Family is aware and like to proceed with ORIF of the right olecranon revision as tolerated as indicated. Operative note Patient seen and examined preoperative holding area. Right arm was marked. Patient brought to the operating placed supine on the operating table. Sign, anesthesia, antibiotics were administered. Right arm was prepped and draped in usual sterile fashion with a tourniquet around her upper arm. Patient is placed on the lateral aspect on the on her lateral side with an axillary roll all bony problems well-padded SCDs placed on her chronic bilateral lower extremities. We then prepped and draped the the right arm in usual standard technique. We marked out our previous incision. The right arm was then elevated segmented and tourniquet was raised to a pressure of 250 torr. We then use we then performed a timeout. Then use a 15 blade to cut through the previous incision dissect down tenotomies the level of the plate. We dissected the plate and the screws were all fixed there were no backing out of any screws per se however 1 of the screws was loose 1 of the shaft raft screws was loose and there appeared to be a split that was on the medial aspect next to the plate as well as laterally that was new and did not have any callus around it appeared to be an even either a new injury or to the fact of motion at the fracture site.We remove the plate and did take cultures. We debrided back any callus with accommodation of a rongeur and rasp and [place]. We then reapproximated the fracture site. We placed our proximal olecranon Synthes plate and first fixated with a oblong hole distally and then reduced our fracture site and then placed locking screws in different configurations in order to get the best fixation of the fracture site. We then ranged the elbow flexion extension pronation supination there was no crepitus there and it did not appear that any of the screws were intra-articular we had no displacement of the fracture with any of these maneuvers. We then irrigated the knee the elbow with copious amounts of sterile saline. Please see chart for exact screw lengths. 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 Again the incision was irrigated with copious muscle sterile saline. The skin was closed that we closed the periosteum over the soft tissue over the plate skin was closed with 3-0 Vicryl and the skin was closed with jimi sterile dressings and a posterior splint was applied to the right upper extremity. Trach was applied for total working time of 90 minutes. Patient taught procedure well no complication transferred recovery room stable condition Postoperative Nonweightbearing right upper extremity Follow-up in 1 week for repeat x-rays May use hand and wrist as tolerated Patient had difficulty with maintaining her sats last time so she will be 23-hour observation admit with she will get antibiotics have social work does make sure she is safe to go home and be seen by physical therapy occupational therapy Patient is a full admit discussed with family to make sure that I am notified Dragon disclaimer this note was generated with [employer] dictation software. It may contain incorrect words, spelling, and punctuation that were not noted in checking the note before signing.
--- NOTE | 2019-04-20 15:51 | SUR.PHASEI ---
PATIENT STATES RIGHT ARM/ELBOW PAIN IS IMPROVING AND TOLERABLE, SLEEPING UNTIL AWAKENED, NO S/S DISTRESS. WHEN ASKED TO RATE PAIN ON 0-10 SCALE, THEN STATES PAIN IS 7/10. EDUCATION PROVIDED. PATIENT STATES BP IS WIDELY VARIABLE AT HOME. DR RILEY STATES OKAY TO TRANSFER PATIENT TO MED-SURG FLOOR.
[2019-04-20] MEDS: Aspirin 81 MG TAB.CHEW PO (16:52)
[2019-04-20] MEDS: HYDROcodone Bitartrate/Apap 5/325 Tablet PO (18:41)
[2019-04-20] MEDS: Cefazolin 1 GM/50 ML BAG IV (20:51)
[2019-04-20] MEDS: Pravastatin 40 MG Tablet PO (21:04)
[2019-04-20] MEDS: Pantoprazole Sodium 40 MG Tablet PO (21:04)
[2019-04-20] MEDS: Ondansetron 4 MG/2 ML Vial IV (21:16)
[2019-04-21 03:31] VITALS: BP 103/46; PULSE 63; RESP 18; TEMP 37.2; O2SAT 96
[2019-04-21] MEDS: HYDROcodone Bitartrate/Apap 5/325 Tablet PO ×2 (03:36→09:39)
[2019-04-21] MEDS: Cefazolin 1 GM/50 ML BAG IV (03:38)
[2019-04-21] MEDS: 0.9% Saline Lock 10 ML Syringe IV ×2 (04:46→08:23)
[2019-04-21 07:51] VITALS: BP 142/57; PULSE 74; RESP 16; TEMP 36.4; O2SAT 96
[2019-04-21 08:10] VITALS: PULSE 68
[2019-04-21] MEDS: Aspirin 81 MG TAB.CHEW PO (08:24)
[2019-04-21] MEDS: Ondansetron 4 MG/2 ML Vial IV (08:24)
[2019-04-21] MEDS: Pantoprazole Sodium 40 MG Tablet PO (09:39)
[2019-04-21] MEDS: Furosemide 20 MG Tablet PO (09:39)
--- NOTE | 2019-04-21 12:01 | CASEMGMT ---
RN CM Note: Intro role of CM to patient and her daughter in law Shyann Miller. Pt was living independently at home with family coming in to assist, and home health through [facility]. Physician documented to f/u in one week with repeat xrays and initiation of PT/OT. Call to [facility] to put home health on hold until pt sees surgeon and therapy is ordered. Daughter in law states family will assist with this, and prefer home therapy as pt has difficult time getting in and out of car and is home bound. Pt has cane, sling for her arm. Offered information for Meals on Wheels to assist with meals. Daughter in law states they do grocery shopping and assist with meals, but pt does not generally eat much. Pt states she microwaves meals at home and is not concerned re: nutrition. -DIL and patient updated that Home Health including aide will currently be on hold until pt sees Dr. Rodriguez for f/u. Pt may need assist with bathing during this time. DC PLAN: Home with family support. Nuzhat HENDERSON RN ACM
[2019-04-21 13:36] VITALS: BP 132/53; PULSE 87; RESP 16; TEMP 36.9; O2SAT 97
== END 2019-04-21 14:29 | disposition home or self-care (01) ==
LOC: SDC 17:24 → MS3 04-21 09:02
PROVIDERS: Admitting Provider Orthopaedic Surgery; Family Provider Family Medicine; PCP Family Medicine; Referring Provider Orthopaedic Surgery; Visit Provider Orthopaedic Surgery
PROC: (CPT 24685; principal; 2019-04-20 09:30)
DX: S52.021A Displaced fracture of olecranon process without intraarticular extension of right ulna, initial encounter for closed fracture (principal); W19.XXXA Unspecified fall, initial encounter; Y93.89 Activity, other specified; Y92.89 Other specified places as the place of occurrence of the external cause; Z79.899 Other long term (current) drug therapy; S50.319A Abrasion of unspecified elbow, initial encounter; Z86.718 Personal history of other venous thrombosis and embolism; E78.00 Pure hypercholesterolemia, unspecified; K21.9 Gastro-esophageal reflux disease without esophagitis; K52.9 Noninfective gastroenteritis and colitis, unspecified; I10 Essential (primary) hypertension
CPT/HCPCS: 24685; 73080; 76000; 87070; 87075; 87077; 87186; 87205; 96361; 96365; 96366; 96375; 96376; 97162; 97166; 99218; 99251; C1713; J7120; A4216; G0378; G0379; G0463; J2405

== ENCOUNTER → 2019-04-26 12:39 | Outpatient (CLI) | payer MEDICARE, SELFPAY ==
[2019-04-20 08:39] VITALS: BMI 23.5
--- NOTE | 2019-04-26 12:39 | RAD_ITS ---
STUDY: X-RAY - RIGHT ELBOW REASON FOR EXAM: Female, 83 years old. ORIF of elbow fracture. TECHNIQUE: 3 view(s) of the elbow through casting material. COMPARISON: April 20, 2019 and April 15, 2019 FINDINGS: Plate and screw fixation of the olecranon. Olecranon fragment proximally now displaced and is posterior to the distal humerus. Normal radiocapitellar and ulnotrochlear articulations. The soft tissue structures are unremarkable. RAD/Elbow min 3 Views IMPRESSION: Plate and screw fixation with proximal olecranon fragment displaced proximally, as outlined above. Electronically Signed: Parish Li MD at 10:35 EST , Service support ,
== END ==
PROVIDERS: Family Provider Family Medicine; PCP Family Medicine; Referring Provider Orthopaedic Surgery; Visit Provider Orthopaedic Surgery
DX: S52.202A Unspecified fracture of shaft of left ulna, initial encounter for closed fracture (principal); Z47.89 Encounter for other orthopedic aftercare
CPT/HCPCS: 73080

== ENCOUNTER → 2019-05-13 14:06 | Outpatient (CLI) | payer MEDICARE, SELFPAY ==
[2019-04-26 12:42] VITALS: BMI 23.5
[2019-05-16 14:36] LABS: H.Pylori Breath Test Negative (Negative)
== END ==
PROVIDERS: Family Provider Family Medicine; PCP Family Medicine; Visit Provider Family Medicine
DX: K27.9 Peptic ulcer, site unspecified, unspecified as acute or chronic, without hemorrhage or perforation (principal)
CPT/HCPCS: 83013

== ENCOUNTER → 2019-07-28 08:53 | Outpatient (CLI) | payer MEDICARE, SELFPAY ==
[2019-04-26 12:42] VITALS: BMI 23.5
--- NOTE | 2019-07-28 08:56 | VDLE_ITS ---
Reason For Study: edema RIGHT LEFT CFV is compressible, spontaneous, phasic, CFV is compressible, spontaneous, phasic, competent and demonstrates normal competent, and demonstrates normal augmentation. augmentation. Procedure FV is compressible, spontaneous, phasic, Exam performed in department. competent and demonstrates normal The exam was diagnostic. augmentation. A preliminary report was called and/or faxed POP V is compressible, spontaneous, phasic, to Dr. Steele. competent and demonstrates normal augmentation. T/P Trunk is compressible. PTV is compressible. LT PerV is compressible. Hypoechoic area behind the knee measuring 2.06 x 1.44 x 4.08 cm. Area appears to be nonvascular. SFJ is competent and measures .16 x .24 cm. GSV proximal thigh measures .1 x .15 cm. GSV at knee measures .1 x .11 cm. GSV is competent throughout. SSV proximal calf is competent and measures .18 x .22 cm. Interpretation Summary Deep veins of the left lower extremity are patent and compressible segmentally. There is no evidence of left lower extremity deep vein thrombosis. Valvular competence appears intact within the proximal deep venous system on the left . The left great saphenous vein appears patent and compressible segmentally. The left sapheno-femoral junction is competent . The left great saphenous vein appears segmentally competent. The left small saphenous vein is patent and competent. A non-vascular, hypoechoic structure is noted in the left popliteal space, measuring 2.06 cm x 1.44 cm x 4.08 cm. This probably represents a popliteal cyst. Clinical correlation is advised. Ordering Physician: Claudio Steele Performed By: Raghav Phillips RVT
== END ==
PROVIDERS: PCP Family Medicine; Referring Provider Family Medicine; Visit Provider Family Medicine
DX: I87.2 Venous insufficiency (chronic) (peripheral) (principal); M79.605 Pain in left leg
CPT/HCPCS: 93971

== ENCOUNTER 2019-11-22 11:43 | Observation (INO) | payer MEDICARE, SELFPAY ==
[2019-04-26 12:42] VITALS: BMI 23.5
[2019-11-22] VITALS (10 sets, daily range): BP systolic 108–161; BP diastolic 42–68; PULSE 71–82; RESP 16–18; TEMP 36.5–36.9; O2SAT 98–99; BMI 22.7; BMI 22.5
--- NOTE | 2019-11-22 13:10 | CT_ITS ---
STUDY: CT BRAIN WITHOUT CONTRAST REASON FOR EXAM: Female, 84 years old. MULTIPLE FALLS, FELL OUT OF BED THIS AM RADIATION DOSAGE (If Supplied By Facility): CTDIvol = ( 44.99 ) mGy, DLP = ( 779.24 ) mGycm TECHNIQUE: Transaxial CT imaging of the brain was performed without administration of intravenous contrast material. Individualized dose optimization techniques were used for this CT. COMPARISON: Comparison is made with prior examination dated March 23, 2019. FINDINGS: Normal soft tissue structures. Normal calvarium. There is mild cerebral atrophy with widening of the extra-axial spaces and ventricular dilatation. There are areas of decreased attenuation within the white matter tracts of the supratentorial brain, consistent with microvascular disease changes. Normal basal ganglia and thalami. Normal brainstem. There is mild cerebellar atrophy. There is no intracranial hemorrhage. There are no findings of an acute ischemic infarction. Atherosclerotic calcification of the cavernous portions of the internal carotid arteries bilaterally. Normal visualized paranasal sinuses. CT/Brain/Head without Contrast IMPRESSION: Chronic involutional changes of the brain. Electronically Signed: Caio Spangler, at 13:45 EDT , Service support ,
--- NOTE | 2019-11-22 13:10 | EKG12_ITS ---
Test Reason : FALL Blood Pressure : / mmHG Vent. Rate : 065 BPM Atrial Rate : 065 BPM P-R Int : 142 ms QRS Dur : 078 ms QT Int : 444 ms P-R-T Axes : 055 -29 075 degrees QTc Int : 461 ms Normal sinus rhythm ST & T wave abnormality, consider lateral ischemia Abnormal ECG Confirmed by SUNDEEP TSANG, LISE ([id number]), medical editor MICHELLE KATE ([id number]) on 11/24/2019 9:39:38 AM Referred By: DC Confirmed By:LISE URBANO MD
--- NOTE | 2019-11-22 13:11 | CT_ITS ---
STUDY: CT CERVICAL SPINE WITHOUT CONTRAST REASON FOR EXAM: Female, 84 years old. MULTIPLE FALLS, FELL OUT OF BED THIS AM RADIATION DOSAGE (If Supplied By Facility): CTDIvol = ( 14.48 ) mGy, DLP = ( 268.48 ) mGycm TECHNIQUE: High resolution transaxial imaging was performed without contrast material. Sagittal and coronal images were reconstructed. Individualized dose optimization techniques were used for this CT. COMPARISON: Comparison is made with prior study dated October 21, 2018. FINDINGS: Normal craniovertebral junction. There are degenerative changes of the anterior atlantoaxial articulation. Normal odontoid process. Normal cervical lordosis. Normal vertebral bodies and posterior osseous elements. C2-3: Normal endplates. Normal disc height and morphology. Normal central canal and intervertebral neuroforamina. C3-4: Facet joint osteoarthritis and hypertrophy on the right side. No significant stenosis is seen. C4-5: Mild degree of disc space narrowing. Mild degree of facet joint osteoarthritis and hypertrophy. C5-6: Marked degree of disc space narrowing. Minimal anterior listhesis of C5 on C6 most likely secondary to the facet joint osteoarthritis and hypertrophy. C6-7: Minimal anterior listhesis of C6 on C7 due to facet joint osteoarthritis and hypertrophy. C7-T1: Normal endplates. Normal disc height and morphology. Normal central canal and intervertebral neuroforamina. Normal visualized soft tissue structures. CT/Spine Cervical without Contras IMPRESSION: Multilevel degenerative changes, as described above. Electronically Signed: Caio Spangler, at 13:52 EDT , Service support ,
--- NOTE | 2019-11-22 13:13 | ED.VIS.GEN ---
History of Present Illness Chief Complaint: Fall Informant: Patient, Family Narrative: Patient is an 84-year-old female with a past medical history of hypertension, hyperlipidemia, ulcerative colitis who presents to the emerge department after a fall last night. She states that she started to have diarrhea. She felt like she was having an acute flareup of her UC. Whenever she got up she became very weak in her legs bilaterally. She ended up falling to the ground. She denies hitting her head or losing consciousness. She tried to get herself up but fell again. She has multiple skin tears to her bilateral upper extremities. She has some right wrist pain. This occurred around 2:30 AM last night. She ended up just falling asleep on the floor. In the morning she pushed her life alert button and EMS came to get her. She was not able to ambulate for them. She denies any chest pain, shortness of breath or palpitations through any of this. She denies any headache or vision changes. No abdominal pain. She did have one episode of vomiting here in the emergency department. Denying any nausea. She had multiple episodes of black diarrhea. She denies being on anticoagulation. She denies any other extremity, back pain or neck pain. Past Medical History - Allergies and Home Meds Allergies/Adverse Reactions: Allergies No Known Allergies Allergy (Verified 11/22/19 12:07) Prior records reviewed: Yes Past Medical History: - - Ulcerative colitis, hypertension, hyperlipidemia Surgical History: appendectomy, cholecystectomy, hysterectomy, - - Left shoulder surgery Lives: Alone Smoking Status: Never smoker Alcohol: None Drugs: None - Family History Maternal Family History: Family History (Last Updated 10/21/18 @ 23:[address] Galdino Kasper MD) Mother Temporal arteritis Other Arthritis Emphysema of lung Family History: Reports: Heart Disease Paternal Family History: Family History (Last Updated 10/21/18 @ 23:[address] Galdino Kasper MD) Mother Temporal arteritis Other Arthritis Emphysema of lung Family History: Reports: Heart Disease, - - from heart attack in his late 70s. Review of Systems All systems negative except as indicated General: Denies: Chills, Fever, Sweats Eyes: Denies: Visual changes - bilaterally, Diplopia ENT: Denies: Rhinorrhea, Sore throat Cardiovascular: Denies: Chest pain, Palpitations Respiratory: Denies: Dyspnea, Cough, Dyspnea on exertion Gastrointestinal: Reports: Vomiting, Diarrhea, Melena. Denies: Abdominal pain, Nausea, Hematochezia Genitourinary: Denies: Dysuria, Hematuria, Frequency Musculoskeletal: Reports: Extremity Pain - Right wrist. Denies: Back pain Skin: Denies: Rash, Wounds Neurological: Reports: Weakness - Generalized. Denies: Headache, Numbness Hematologic: Reports: Easy bruising Physical Exam Vital Signs/Narrative: Vital Signs Temp Pulse Resp BP Pulse Ox 11/22/19 13:07 75 17 11/22/19 12:03 97.7 F L 76 18 161/68 H 99 Inital Vital Signs reviewed: Yes General: Well nourished, Well developed, No Acute Distress Head: Normocephalic, Atraumatic Eyes: Perrl, EOMI ENT: Moist mucous membranes, No rhinorrhea Neck: Supple, Nontender Cardiovascular: Regular rate, Regular rhythm, No murmurs Respiratory: No distress, CTA bilaterally, Chest nontender Abdomen: Soft, Nontender, Nondistended, Normal bowel sounds Back: Nontender, Normal Inspection. Negative for: CVA tenderness, Spinal tenderness Extremities: No edema, Tenderness - Right wrist. Negative for: Edema, Calf Tenderness Skin: Normal color, No rash, Trauma - Multiple skin tears over upper extremities. No active bleeding present. Neurological: Alert, Oriented x3, Cranial nerves II-XII grossly intact, Normal Strength, Normal Sensation Psychological: Normal affect, Normal Mood Diagnostic/Tx/Re-eval - Medical Decision Making Patient presents to the emergency department after a fall due to generalized weakness last night. He has multiple skin tears. Complaining of right wrist pain. Will do a cardiac work-up due to her generalized weakness. Able to ambulate at all for the EMS crew. She states she had some black bowel movements as well. Patient CT imaging did not show any acute fracture. There was some chronic changes present. X-ray of the wrist did show a distal radial fracture that is nondisplaced. This is placed in Ortho-Glass and splinted. Patient's skin abrasions were dressed with antibiotic ointment and covered with nonadherent gauze and wrapped with Kerlix. Chest x-ray negative for evidence of pneumonia. Her white blood cell count was very elevated. She denies any recent antibiotics and has never had a C. difficile infection before. The stool was tested for blood and was positive. She is not anemic. She does have some electrolyte abnormalities with low sodium, potassium, chloride. The potassium was replaced orally and by IV. Magnesium within normal limits. Urine is currently pending. Hospitalist following up on results. CK level within normal limits. Troponin normal. Otherwise patient stable throughout ED stay. Is agreeable to staying in the hospital at this time given her weakness, ultra abnormalities and wrist fracture. Procedures - Upper Extremity Splints Upper Extremity Splint: Orthoglass - Patient placed in sugar tong splint. She is neurovascular intact prior and post splint placement. Tolerated procedure well without any complication. Splint Fabrication: Fabricated Location: Right ED Disposition - Plan for ED Patient: Disposition: Acute Care Hospital [facility] Diagnosis: Generalized weakness, Distal radius fracture, Hypokalemia, Urinary tract infection, Skin tear
--- NOTE | 2019-11-22 13:16 | RAD_ITS ---
STUDY: X-RAY - RIGHT WRIST REASON FOR EXAM: Female, 84 years old. PATIENT FELL TODAY. PAIN IN RIGHT WRIST WITH SWELLING AND DISCOLORATION. TECHNIQUE: 3 view(s) of the wrist were obtained. COMPARISON: None. FINDINGS: Nondisplaced transverse fracture of the distal radial metaphysis. Normal radiocarpal articulation. Normal distal radioulnar articulation. Normal carpal bones. Normal carpal articulations. Normal carpometacarpal articulation of the thumb. Normal second through fifth carpometacarpal articulations. Normal visualized metacarpal bones. Soft tissue swelling. RAD/Wrist min 3 Views IMPRESSION: Nondisplaced transverse fracture of the distal radial metaphysis. Overlying soft tissue swelling. Electronically Signed: Caio Spangler, at 14:01 EDT , Service support ,
[2019-11-22 13:32] LABS: Absolute Lymphocyte Count 1.18 X10^3/uL (0.83-4.51); Absolute Neutrophil Count 18.4 X10^3/uL (2.0-7.7); Basophil# 0.03 X10^3/uL; Basophil% 0.1 % (0-1); Hematocrit 44.1 % (37-47); Lymphocyte # 1.18 X10^3/ul (4.0); Lymphocyte % 5.5 % (19-41); Mean Corp Hgb Conc 31.7 g/dL (32-36); Mean Corpuscular Hgb 28.7 pg (27.0-32.0); Mean Corpuscular Volume 90.4 fL (81-99); Monocyte# 1.55 X10^3/uL; Monocyte% 7.3 % (0-10); NRBC Flagged by Analyzer 0 % (0-5); Neutrophil # 18.44 X10^3/uL (2.7-7.7); Neutrophil % 86.4 % (47-70); POSITIVE DIFFERENTIAL YES; Platelet Count 427 K/mm3 (150-450); RBC Distribution Width CV 13.7 % (11.6-14.6); RBC Distribution Width SD 45.5 fl (35.1-43.9); Red Blood Count 4.88 M/mm3 (4.2-5.4); White Blood Count 21.4 K/mm3 (4.4-11.0)
[2019-11-22 13:33] LABS: Differential Indicated SCAN CRITERIA MET
--- NOTE | 2019-11-22 13:33 | RAD_ITS ---
STUDY: X-RAY CHEST REASON FOR EXAM: Female, 84 years old. PATIENT FELL TODAY. WEAKNESS TECHNIQUE: Single AP portable view of the chest. COMPARISON: Comparison is made with prior study dated February 15, 2017. FINDINGS: EKG electrodes are seen. The lungs are clear and expanded. There is no demonstrated pleural abnormality. There is mild cardiac enlargement. Normal mediastinum and sacha. Normal visualized pulmonary arteries. There is atherosclerotic calcification of the aortic arch with tortuosity. Normal visualized thoracic spine. ORIF of the proximal left humerus. Surgical clips are seen in the right upper quadrant. RAD/Chest 1 View (Portable) IMPRESSION: Borderline cardiomegaly. The lungs are clear. Electronically Signed: Caio Spangler, at 14:03 EDT , Service support ,
[2019-11-22 13:46] LABS: ALB/GLOB Ratio 1.1 RATIO (0.9-2.4); AST(SGOT) 16 U/L (15-37); Alanine Aminotransfer ALT/SGPT 24 U/L (13-56); Albumin, Serum 4.2 g/dL (3.2-5.0); Alkaline Phosphatase 114 U/L (45-117); Anion Gap 10 (5-15); BUN 33 mg/dL (7-18); BUN/Creat Ratio 33.2 RATIO (10-20); CPK Total, Creatine Kinase 69 U/L (26-192); Calcium,Total 9.6 mg/dL (8.5-10.1); Chloride 92 mmol/L (98-107); EST Glomerular Filtration Rate 56 mL/min (>60); Est Glom Filt Rate - Afr Amer 68 mL/min (>60); Estimated Creatinine Clearance 30.08 ml/min; Globulin 3.8 g/dL (2.2-4.2); Glucose 129 mg/dL (74-106); Magnesium 2.4 mg/dL (1.6-2.6); Potassium 2.9 mmol/L (3.5-5.1); Sodium Level 135 mmol/L (136-145)
[2019-11-22 13:55] LABS: Differential Comment SCANNED
--- NOTE | 2019-11-22 15:03 | HP.PCM_ITS ---
History of Present Illness Date of Admission: 11/22/19 Chief Complaint: mechanical fall, diarrhea The patient is a 84 year old F with a past medical history as outlined which includes ulcerative colitis. She was admitted through the ED on 11/22/2019 with a complaint of mechanical fall. Patient states that she was recently put on metolazone and furosemide by her primary care doctor because of swelling in her left lower extremity. This was after she had a duplex of the left lower extremity which was negative for DVT. Swelling has subsequently resolved though she is still been taking the Lasix and metolazone. Patient states she noticed that she was getting weaker and yesterday she got up to go the bathroom during the night and as she was trying to get up, she fell. She does not think she passed out but does admit to feeling dizzy and lightheaded before falling. She was unable to get up on her own and says she was found on the floor this morning. She had also had a bowel movement whilst on the floor. She says she is had 2 episodes of diarrhea since yesterday and thinks she may have also had diarrhea while she was on the floor as she was found to be in a big mess. She denied any abdominal pain no any fever or chills and denied any headache or blurred vision. She does not think she passed out while she was on the floor. Patient states this is her third fall over the last 13 months. She lives alone. She also thinks she broke her wrist when she fell this time she is having wrist pain. In the ED, vitals show temperature of 97.7 Fahrenheit with blood pressure of 131/46, pulse rate of 71 and respiratory rate of 18. She was saturating at 98% on room air. Chemistry showed sodium of 135 with potassium of 2.9 and bicarb of 33. Creatinine was 1. Initial troponin was negative. CBC showed WBC of 21.4 with hemoglobin of 14 and platelets of 427. CT of the brain showed only chronic involutional changes, CT of the cervical spine showed multilevel degenerative changes and x-ray of the right wrist showed nondisplaced transverse fracture of the distal radial metaphysis with overlying soft tissue swelling. This x-ray showed borderline cardiomegaly with no acute cardiopulmonary process. He has been admitted to be managed for hypokalemia, dehydration and mechanical fall likely due to dehydration from overdiuresis. Past Medical History Past Medical History (Chronic Problems): Chronic Problems (Last Updated 03/29/19 @ 11:16 by Lillie Hoang) History of peptic ulcer (Chronic) Ulcerative colitis (Chronic) Hyperlipidemia (Chronic) Hypothyroidism (Chronic) GERD (gastroesophageal reflux disease) (Chronic) HTN (hypertension) (Chronic) Medical History: Medical History (Last Updated 03/29/19 @ 11:16 by Lillie Hoang) H/O ht shoulder arthroscopy Allergies No Known Allergies Allergy (Verified 11/22/19 12:07) Home Medications: Ambulatory Orders Medication Instructions Recorded Duloxetine Hcl [Cymbalta] 60 mg PO DAILY 08/16/13 Pravastatin [Pravachol] 40 mg PO QHS 08/16/13 Furosemide [Lasix] 20 mg PO DAILY 02/15/17 Budesonide [Entocort EC] 3 mg PO BID 10/21/18 Omeprazole 40 mg PO DAILY 10/21/18 Potassium Chloride [K-Dur] 20 meq PO DAILY 10/21/18 Furosemide [Lasix] 40 mg PO DAILY 11/22/19 Loperamide HCl [Anti-Diarrheal] 1 mg PO DAILY PRN PRN 11/22/19 Metolazone 2.5 mg PO DAILY 11/22/19 Surgical History: appendectomy, cholecystectomy, hysterectomy, - - Left shoulder surgery Psychiatric History: 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 Galdino Kasper MD) Mother Temporal arteritis Other Arthritis Emphysema of lung History Items: Heart Disease Paternal Family History: Family History (Last Updated 10/21/18 @ 23:[address] Galdino Kasper MD) Mother Temporal arteritis Other Arthritis Emphysema of lung History Items: Heart Disease, - - from heart attack in his late 70s. Review of Systems Constitutional: Reports: Malaise, Weakness, Fatigue. Denies: Chills, Fever, Weight Change Eyes: Denies: Blurred vision HEENT: Denies: Head Aches, Sinus Congestion, Sinus Drainage Cardiovascular: Reports: Light Headedness. Denies: Chest Pain, Chest Pressure, Edema, Orthopnea, Palpitations, Paroxysmal Noc. Dyspnea, Syncope Respiratory: Denies: Cough, Shortness of Breath, Shortness of breath at rest, Shortness of breath upon exertion, Sputum production Gastrointestinal: Reports: Diarrhea. Denies: Abdominal Pain, Nausea, Vomiting Genitourinary: Denies: Dysuria Musculoskeletal: Reports: Joint Pain - right wrist pain. Denies: Joint Tenderness Skin: Denies: Rash, Wounds Neurological: Denies: Numbness, Tingling, Focal weakness Psychiatric: Denies: Anxiety, Depression, Homicidal Ideations, Suicidal Ideations Hematologic/ Lymphatic: Denies: Easy Bruising, Easy Bleeding VTE Information - Inpt Only VTE Present on Admission: No VTE Pharm Prophylaxis ordered?: Yes Patient Problems: Active and Suspected Problems (Last Updated 03/29/19 @ 11:16 by Lillie Hoang) Generalized weakness (Acute) Distal radius fracture (Acute) Hypokalemia (Acute) Urinary tract infection (Acute) Skin tear (Acute) - Physical Exam Vitals/I&O's: Vital Signs Temp Pulse Resp BP Pulse Ox 97.7 F L 75 17 161/68 H 99 11/22/19 12:03 11/22/19 13:07 11/22/19 13:07 11/22/19 12:03 11/22/19 12:03 Oxygen Delivery Method Room Air Weight: 116 lb 9.992 oz Body Mass Index (BMI) 22.7 General: Alert, Oriented x3, Cooperative, No apparent distress HEENT: Atraumatic, PERRLA, EOMI, Normocephalic Oral: Dry Mucosa Neck: Supple, No JVD, Negative Carotid Bruits Lungs: Clear to auscultation, Normal air movement, No rhonchi, No wheeze, No rales Cardiovascular: Regular rate, Regular Rhythm, Normal S1, Normal S2, No murmurs Abdomen: Bowel Sounds Present, Soft, Non Tender, Non-Distended, No Hepato- splenomegaly Extremities: No clubbing, No cyanosis, No edema, Capillary Refill Less than 3 Seconds Skin: No rashes, No breakdown Musculoskeletal: - - right arm in brace, due to right wrist fracture Lymphatic: No Cervical, Supraclavicular, or Inguinal Adenopathy Neurological: Cranial nerves II-XII grossly intact, Neuro grossly intact Psych/Mental Status: Normal Affect, Appropriate, Alert and oriented to time, place, person, mood and affect Laboratory Results 11/22/19 12:50: WBC 21.4 H, RBC 4.88, Hgb 14.0, Hct 44.1, MCV 90.4, MCH 28.7, MCHC 31.7 L, RDW Std Deviation 45.5 H, RDW Coeff of Neisha 13.7, Plt Count 427, MPV 10.0, Immature Gran % (Auto) 0.700, Neut % (Auto) 86.4 H, Lymph % (Auto) 5.5 L, [place] % (Auto) 7.3, Eos % (Auto) 0.0, Baso % (Auto) 0.1, Absolute Neuts (auto) 18.4 H, Absolute Lymphs (auto) 1.18, Nucleated RBC % 0, Differential Comment SCANNED, Diff Path Review September11/22/19 12:50: Sodium 135 L, Potassium 2.9 L, Chloride 92 L, Carbon Dioxide 33.0 H, Anion Gap 10, BUN 33 H, Creatinine 1.00, Estim Creat Clear Calc 30.08, Est GFR (MDRD) Af Amer 68, Est GFR (MDRD) Non-Af 56 L, BUN/Creatinine Ratio 33.2 H, Glucose 129 H, Calcium 9.6, Magnesium 2.4, Total Bilirubin 0.70, AST 16, ALT 24, Alkaline Phosphatase 114, Total Creatine Kinase 69, Troponin I < 0.015, Total Protein 8.0, Albumin 4.2, Globulin 3.8, Albumin/Globulin Ratio 1.[address] 11/22/19 13:10 IMPRESSION: Chronic involutional changes of the brain. Electronically Signed: Caio Spangler, at 13:45 EDT , Service support , Cervical Spine CT 11/22/19 13:11 IMPRESSION: Multilevel degenerative changes, as described above. Electronically Signed: Caio Spangler, at 13:52 EDT , Service support , Wrist X-Ray 11/22/19 13:16 IMPRESSION: Nondisplaced transverse fracture of the distal radial metaphysis. Overlying soft tissue swelling. Electronically Signed: Caio Spangler, at 14:01 EDT , Service support , Chest X-Ray 11/22/19 13:33 IMPRESSION: Borderline cardiomegaly. The lungs are clear. Electronically Signed: Caio Spangler, at 14:03 EDT , Service support , Current Medications Potassium Chloride () 10 meq in 100 mls @ 100 mls/hr IV BOLUS Q1H MACRINA Stop: 11/22/19 15:29 Assessment/Plan All Active Problems (Last Updated 03/29/19 @ 11:16 by Lillie Hoang) Generalized weakness (Acute) Distal radius fracture (Acute) Hypokalemia (Acute) Urinary tract infection (Acute) Skin tear (Acute) Fall from slip, trip, or stumble (Acute) Closed fracture of right olecranon process (Acute) Closed head injury without loss of consciousness (Acute) Comminuted left humeral fracture (Acute) Scalp laceration (Acute) UGIB (upper gastrointestinal bleed) (Resolved) 84 y/o admitted with a complaint of mecahnical fall 1. Mechanical fall due to dehydration and diarrhea * patient had been taking metolazone and lasix for LE edema, and this likely led to her being dehydrated * admit to PCU with telemetry * hydarte gently with iVF NS * fall precautions * PT/OT consult * counseled she wld likely need placement o/a of her history of mechanical falls, as well as debility due to right wrist fracture. * check orthostatics * 2. Debility due to mechanical fall: As under 1 3. Hypokalemia: potassium is 2.9; likely due to overdiuresis. Will hold lasix and metolazone as edema has resolved. Replace potassium per protocol and trend 4. Right wrist fracture due to mechanical fall * Right wrist x-ray showed nondisplaced transverse fracture of the distal radial metaphysis with normal radiocarpal articulation and overlying soft tissue swelling. * Right wrist placed in a brace in the ED. * PT OT consulted. Consult orthopedic surgery. * fall precautions * tylenol adn oxycodone prn for pain * 5. UTI: UA indicative of UTI. also has elevated wbc. Will start on IV ceftriaxone. urine cultures pending. 6. Ulcerative colitis * Patient did have a couple of episodes of diarrhea but she has no abdominal pain whatsoever. I do not therefore think that this is an acute flareup of her ulcerative colitis. * Will continue hydration with normal saline and continue budesonide. If diarrhea worsens, will consider IV steroids to treat for flareup of ulcerative colitis. * 7. GERD: On omeprazole 8. Hype Per lipidemia: On pravastatin. DVT prophylaxis: Lovenox CODE STATUS: Full code * Patient and daughter in law counseled extensively about different types of CODE STATUS including full code, DNR CCA and DNR CCA. Patient elects to be full code. * Total [id number] time 16 minutes. Inpatient E&M: 61305 Init Hosp L3 Procedures: 49798 Advncd Care Plan 30 Min
[2019-11-22] MEDS: Potassium Chloride 10mEq/100mL 10 MEQ/100 ML IV.SOLN. 100 MEQ IV BOLUS ×3 (15:22→23:26)
--- NOTE | 2019-11-22 15:49 | NURSING ---
PCU HYPOKALEMIA, DIARRHEA, WEAKNESS KORAM
[2019-11-22 16:02] LABS: Mucous, Urine 0 SEEN /hpf (<or=2+); Red Blood Cells-Urine 0 SEEN /hpf (0-5)
[2019-11-22 16:18] LABS: Color, Urine Yellow (Yellow); Glucose, Dipstick Normal (Normal); Ketone-Dipstick 5 mg/dl (Negative); Leukocyte Esterase-Dipstick 25 /ul (Negative); Nitrite-Dipstick Positive (Negative); Occult Blood-Urine 25 /ul (Negative); Protein-Dipstick 15 mg/dl (Negative); Urine Bilirubin Dipstick Negative (Negative); Urine Clarity Sl. Cloudy (Clear); Urine Urobilinogen Normal (Normal)
[2019-11-22 16:25] LABS: Bacteria 2+ /hpf (None Seen)
[2019-11-22 16:26] LABS: Squamous Epithelial Cells - UA 0-5 SEEN /hpf (5-10); White Blood Cells 0-5 SEEN /hpf (0-5)
--- NOTE | 2019-11-22 17:19 | PCM.CONS.GEN ---
Reason for Consult Date of Consultation: 11/22/19 History of Present Illness: The patient is a 84 year old pleasant [id number] female, who has had unsteadiness as of lately with multiple falls she has had a right elbow fracture that required 3 surgeries this past March. She denies any infections from the surgeries and states she has fair elbow range of motion. At this point she denies any shoulder or elbow complaints no numbness or tingling pain is controlled at the wrist Past Medical History Past Medical History (Chronic Problems): Chronic Problems (Last Updated 03/29/19 @ 11:16 by Lillie Hoang) History of peptic ulcer (Chronic) Ulcerative colitis (Chronic) Hyperlipidemia (Chronic) Hypothyroidism (Chronic) GERD (gastroesophageal reflux disease) (Chronic) HTN (hypertension) (Chronic) Medical History: Medical History (Last Updated 03/29/19 @ 11:16 by Lillie Hoang) H/O ht shoulder arthroscopy Allergies No Known Allergies Allergy (Verified 11/22/19 12:07) Home Medications: Ambulatory Orders Medication Instructions Recorded Duloxetine Hcl [Cymbalta] 60 mg PO DAILY 08/16/13 Pravastatin [Pravachol] 40 mg PO QHS 08/16/13 Furosemide [Lasix] 20 mg PO DAILY 02/15/17 Budesonide [Entocort EC] 3 mg PO BID 10/21/18 Omeprazole 40 mg PO DAILY 10/21/18 Potassium Chloride [K-Dur] 20 meq PO DAILY 10/21/18 Furosemide [Lasix] 40 mg PO DAILY 11/22/19 Loperamide HCl [Anti-Diarrheal] 1 mg PO DAILY PRN PRN 11/22/19 Metolazone 2.5 mg PO DAILY 11/22/19 Surgical History: appendectomy, cholecystectomy, hysterectomy, - - Left shoulder surgery Psychiatric History: 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 Galdino Kasper MD) Mother Temporal arteritis Other Arthritis Emphysema of lung History Items: Heart Disease Paternal Family History: Family History (Last Updated 10/21/18 @ 23:[address] Galdino Kasper MD) Mother Temporal arteritis Other Arthritis Emphysema of lung History Items: Heart Disease, - - from heart attack in his late 70s. Patient Problems: Active and Suspected Problems (Last Updated 03/29/19 @ 11:16 by Lillie Hoang) Generalized weakness (Acute) Distal radius fracture (Acute) Hypokalemia (Acute) Urinary tract infection (Acute) Skin tear (Acute) - Physical Exam Vitals/I&O's: Vital Signs Temp Pulse Resp BP Pulse Ox 97.7 F L 72 16 133/68 H 99 11/22/19 17:01 11/22/19 17:01 11/22/19 17:01 11/22/19 17:01 11/22/19 17:01 Oxygen Delivery Method Room Air Weight: 115 lb 4.828 oz Body Mass Index (BMI) 22.5 General: Alert, Oriented x3, Cooperative, No apparent distress Extremities: - - Mild swelling intact sensation to light touch throughout all digits brisk capillary refill nontender over shoulder, able to AB and adductor digits Microbiology Past 72 Hours 11/22/19 15:40 Stool Stool Occult Blood (GAVIN) - Final Occult Blood Positive Laboratory Results 11/22/19 12:50: WBC 21.4 H, RBC 4.88, Hgb 14.0, Hct 44.1, MCV 90.4, MCH 28.7, MCHC 31.7 L, RDW Std Deviation 45.5 H, RDW Coeff of Neisha 13.7, Plt Count 427, MPV 10.0, Immature Gran % (Auto) 0.700, Neut % (Auto) 86.4 H, Lymph % (Auto) 5.5 L, [place] % (Auto) 7.3, Eos % (Auto) 0.0, Baso % (Auto) 0.1, Absolute Neuts (auto) 18.4 H, Absolute Lymphs (auto) 1.18, Nucleated RBC % 0, Differential Comment SCANNED, Diff Path Review September11/22/19 12:50: Sodium 135 L, Potassium 2.9 L, Chloride 92 L, Carbon Dioxide 33.0 H, Anion Gap 10, BUN 33 H, Creatinine 1.00, Estim Creat Clear Calc 30.08, Est GFR (MDRD) Af Amer 68, Est GFR (MDRD) Non-Af 56 L, BUN/Creatinine Ratio 33.2 H, Glucose 129 H, Calcium 9.6, Magnesium 2.4, Total Bilirubin 0.70, AST 16, ALT 24, Alkaline Phosphatase 114, Total Creatine Kinase 69, Troponin I < 0.015, Total Protein 8.0, Albumin 4.2, Globulin 3.8, Albumin/Globulin Ratio 1.1 11/22/19 15:40: Urine Color Yellow, Urine Clarity Sl. Cloudy, Urine pH 5.0, Ur Specific [place] 1.020, Urine Protein 15 H, Urine Glucose (UA) Normal, Urine Ketones 5 H, Urine Occult Blood 25 H, Urine Nitrite Positive H, Urine Bilirubin Negative, Urine Urobilinogen Normal, Ur Leukocyte Esterase 25 H, Urine RBC 0 SEEN, Urine WBC 0-5 SEEN, Ur Squamous Epith Cells 0-5 SEEN, Urine Bacteria 2+, Urine Mucus 0 SEEN Current Medications Acetaminophen (Tylenol) 650 mg PO Q6H PRN PRN PRN Reason: Pain Score 1-10/Temp > 100.7 F Budesonide (Budesonide Ec) 3 mg PO BID [facility] Dextrose (D50w Syringe) 0 gm IV X1 PRN; Protocol PRN Reason: Hypoglycemia Duloxetine HCl (Cymbalta) 60 mg PO DAILY [facility] Enoxaparin Sodium (Lovenox) 40 mg SC DAILY [facility] Glucagon () 1 mg IM .X1 PRN PRN Reason: Hypoglycemia Sodium Chloride () 1,000 mls @ 125 mls/hr IV .Q8H [facility] Stop: 11/23/19 08:19 Sodium Chloride () 250 mls @ 15 mls/hr IV .[id number] PRN PRN Reason: Saline Flush Sodium Chloride () 250 mls @ 15 mls/hr IV .[id number] PRN PRN Reason: Additional IVPB Infusion Morphine Sulfate () 2 mg IV Q3H PRN PRN PRN Reason: Pain Score 6-10/10 Non-Formulary Medication (Loperamide Hcl [Anti-Diarrheal]) 1 mg PO DAILY PRN PRN PRN Reason: COLITIS Ondansetron HCl (Zofran) 4 mg IV Q8H PRN PRN PRN Reason: NAUSEA/VOMITING Oxycodone HCl (Oxyir) 5 mg PO Q4H PRN PRN PRN Reason: Pain Score 4-5/10 Pantoprazole Sodium (Protonix) 40 mg PO DAILY [facility] Potassium Chloride (K-Dur) 20 meq PO DAILY MACRINA Pravastatin Sodium (Pravachol) 40 mg PO QHS MACRINA Sodium Chloride () 10 - 40 ml IV UD PRN PRN Reason: SALINE FLUSH Assessment/Plan All Active Problems (Last Updated 03/29/19 @ 11:16 by Lillie Hoang) Generalized weakness (Acute) Distal radius fracture (Acute) Hypokalemia (Acute) Urinary tract infection (Acute) Skin tear (Acute) Fall from slip, trip, or stumble (Acute) Closed fracture of right olecranon process (Acute) Closed head injury without loss of consciousness (Acute) Comminuted left humeral fracture (Acute) Scalp laceration (Acute) UGIB (upper gastrointestinal bleed) (Resolved) Right distal radius fracture nondisplaced Patient has been splinted from the emergency room department Discussed fracture pattern and expected course Patient will need to follow-up with me next Thursday for repeat x-rays and if fracture were to angulate or displaced this would necessitate surgical discussion however if it remains nondisplaced we will continue with immobilization all the patient's questions were answered she may remove the sling as she pleases ice and elevation to the right upper extremity encourage finger range of motion no weightbearing to right wrist hand. If any further questions please feel free to contact me.
[2019-11-22] MEDS: 0.9% Normal Saline 1,000 ML 125 ML IV (17:26)
[2019-11-22 17:50] LABS: Magnesium 2.2 mg/dL (1.6-2.6)
[2019-11-22] MEDS: MELATONIN 3 MG TABLET PO (21:40)
[2019-11-22] MEDS: Budesonide 3 MG CAPSULE.EC PO (21:40)
[2019-11-22] MEDS: Pravastatin 40 MG Tablet PO (21:41)
[2019-11-22] MEDS: Ceftriaxone 1 GM/50 ML BAG IV (22:27)
[2019-11-23] VITALS (9 sets, daily range): BP systolic 120–136; BP diastolic 37–69; PULSE 60–101; RESP 16–18; TEMP 36.7–37; O2SAT 90–98
[2019-11-23] MEDS: Potassium Chloride 10mEq/100mL 10 MEQ/100 ML IV.SOLN. 100 MEQ IV BOLUS ×2 (00:28→01:38)
[2019-11-23] MEDS: 0.9% Normal Saline 1,000 ML 125 ML IV (01:21)
[2019-11-23] MEDS: 0.9% Saline Lock 10 ML Syringe IV (01:38)
[2019-11-23 06:18] LABS: Absolute Lymphocyte Count 1.29 X10^3/uL (0.83-4.51); Absolute Neutrophil Count 11.8 X10^3/uL (2.0-7.7); Basophil# 0.01 X10^3/uL; Basophil% 0.1 % (0-1); Eosinophil# 0.03 X10^3/uL; Eosinophils% 0.2 % (0-5); Hematocrit 36.1 % (37-47); Hemoglobin 11.3 g/dL (12.0-15.0); Lymphocyte # 1.29 X10^3/ul (4.0); Lymphocyte % 8.9 % (19-41); Mean Corp Hgb Conc 31.3 g/dL (32-36); Mean Corpuscular Hgb 28.8 pg (27.0-32.0); Mean Corpuscular Volume 92.1 fL (81-99); Mean Platelet Vol. 9.8 fl (6.2-12.0); Monocyte# 1.26 X10^3/uL; Monocyte% 8.7 % (0-10); NRBC Flagged by Analyzer 0 % (0-5); Neutrophil # 11.83 X10^3/uL (2.7-7.7); Neutrophil % 81.4 % (47-70); Platelet Count 262 K/mm3 (150-450); RBC Distribution Width CV 14.2 % (11.6-14.6); RBC Distribution Width SD 47.8 fl (35.1-43.9); Red Blood Count 3.92 M/mm3 (4.2-5.4); White Blood Count 14.5 K/mm3 (4.4-11.0)
[2019-11-23 07:08] LABS: Anion Gap 5 (5-15); BUN 24 mg/dL (7-18); BUN/Creat Ratio 36.3 RATIO (10-20); Calcium,Total 8.3 mg/dL (8.5-10.1); Chloride 104 mmol/L (98-107); Creatinine, Serum 0.66 mg/dL (0.55-1.02); EST Glomerular Filtration Rate 90 mL/min (>60); Est Glom Filt Rate - Afr Amer 109 mL/min (>60); Estimated Creatinine Clearance 30.08 ml/min; Glucose 99 mg/dL (74-106); Potassium 4.5 mmol/L (3.5-5.1); Sodium Level 137 mmol/L (136-145)
[2019-11-23] MEDS: Budesonide 3 MG CAPSULE.EC PO (10:36)
[2019-11-23] MEDS: Pantoprazole Sodium 40 MG Tablet PO (10:37)
[2019-11-23] MEDS: DULoxetine Hcl 60 MG Capsule PO (10:37)
[2019-11-23] MEDS: Acetaminophen 325 MG Tablet 650 MG PO (10:47)
--- NOTE | 2019-11-23 11:49 | PCM.DC ---
- Discharge Diagnoses Current Active Problems: Current Active and Chronic Problems (Last Updated 03/29/19 @ 11:16 by Lillie Hoang) Generalized weakness (Acute) Distal radius fracture (Acute) Hypokalemia (Acute) Urinary tract infection (Acute) Skin tear (Acute) You will use the following diet at home:: Cardiac Your food should be the consistency of: Regular Your liquids should be the consistency of: Regular/Thin Discharge Activity: Return to Normal Activity Allergies/Adverse Reactions: Allergies No Known Allergies Allergy (Verified 11/22/19 12:07) Medications to take at Discharge Duloxetine Hcl [Cymbalta] 60 mg PO DAILY 08/16/13 Pravastatin [Pravachol] 40 mg PO QHS 08/16/13 Budesonide [Entocort EC] 3 mg PO BID 10/21/18 Omeprazole 40 mg PO DAILY 10/21/18 Potassium Chloride [K-Dur] 20 meq PO DAILY 10/21/18 Furosemide [Lasix] 40 mg PO DAILY 11/22/19 Loperamide HCl [Anti-Diarrheal] 1 mg PO DAILY PRN PRN 11/22/19 Ciprofloxacin [Cipro] 500 mg PO BID #8 tab 11/23/19 Oxycodone [Oxyir] 5 mg PO Q4H PRN PRN 3 Days #18 tablet 11/23/19 The following prescriptions were given: Ciprofloxacin [Cipro] 500 mg PO BID #8 tab Transmission Status: Pending to [facility] Oxycodone [Oxyir] 5 mg PO Q4H PRN PRN 3 Days #18 tablet PRN Reason: Pain Score 6-10/10 Transmission Status: Sent to [facility] Primary Care Physician: Claudio Steele DO [Primary Care Provider] - Please follow up with your Primary Care Physician in: 1 week Test Results: Test results from this visit will be discussed in further detail at your follow-up appointment, if applicable. Please Follow Up With: Galdino Rey DO When: 11/28/19 Proposed Discharge Date: 11/23/19
--- NOTE | 2019-11-23 12:07 | CASEMGMT ---
This RN CM to room at this time to discuss discharge plan and pt is A/Ox4 at this time. Pt states no concerns with going home at time of discharge. Pt declines any therapy(HHC or OP) at this time and states 'There are people who need that more than me.' Pt voices no further questions/concerns/needs at this time. Advised pt if she feels the need for therapy once home, then she should let ortho know at her f/u, voices understanding. Pt does c/o some wrist pain at this time and pt's nurse notified. SStaten DORITA OG
[2019-11-23] MEDS: oxyCODONE 5 MG Tablet PO (12:08)
--- NOTE | 2019-11-23 12:55 | PHA.DC.MC ---
Pharmacy Service has performed discharge medication reconciliation and counseling for this patient. 1. CIPROFLOXACIN 500MG PO BID 2. OXYCODONE 5MG PO Q4H PRN PAIN 6-02/17 The patient's discharge medication list was reviewed for discrepancies and discrepancies were resolved. Home Medications Duloxetine Hcl [Cymbalta] 60 mg PO DAILY 08/16/13 Pravastatin [Pravachol] 40 mg PO QHS 08/16/13 Budesonide [Entocort EC] 3 mg PO BID 10/21/18 Omeprazole 40 mg PO DAILY 10/21/18 Potassium Chloride [K-Dur] 20 meq PO DAILY 10/21/18 Furosemide [Lasix] 40 mg PO DAILY 11/22/19 Loperamide HCl [Anti-Diarrheal] 1 mg PO DAILY PRN PRN 11/22/19 Ciprofloxacin [Cipro] 500 mg PO BID #8 tab 11/23/19 Oxycodone [Oxyir] 5 mg PO Q4H PRN PRN 3 Days #18 tab 11/23/19 The patient was counseled on the following discharge medications and changes in medications for homegoing were reviewed. The Reason for Use, instructions for use, and potential side effects were reviewed for all new medications. The patient's questions regarding all of their medications were answered. The patient was able to verbally demonstrate an understanding of their discharge medications. Patient counseled by pharmacy coordinator, Joao
[2019-11-23 14:03] LABS: Pathologist Review Reviewed
--- NOTE | 2019-11-23 14:16 | DS.PCM_ITS ---
<Suraj Pelaez - Last Filed: 11/23/19 14:16> Discharge Date and Diagnosis - Problem List Patient Problems: Active and Suspected Problems (Last Updated 03/29/19 @ 11:16 by Lillie Hoang) Generalized weakness (Acute) Distal radius fracture (Acute) Hypokalemia (Acute) Urinary tract infection (Acute) Skin tear (Acute) Date of Admission: 11/22/19 Date of Discharge: 11/23/19 - Primary Discharge Diagnosis Acute Problems: Active Problems (Last Updated 03/29/19 @ 11:16 by Lillie Hoang) Syncope 2/2 diuretics, dehydration, diarrhea Acute cystitis Acute distal radial fracture due to fall - Secondary Discharge Diagnosis Chronic Problems: Chronic Problems (Last Updated 03/29/19 @ 11:16 by Lillie Hoang) History of peptic ulcer (Chronic) Ulcerative colitis (Chronic) Hyperlipidemia (Chronic) Hypothyroidism (Chronic) GERD (gastroesophageal reflux disease) (Chronic) HTN (hypertension) (Chronic) Hospital Course and Treatment Imaging Results: CT/Brain/Head without Contrast IMPRESSION: Chronic involutional changes of the brain. CT/Spine Cervical without Contras IMPRESSION: Multilevel degenerative changes, as described above. RAD/Wrist min 3 Views IMPRESSION: Nondisplaced transverse fracture of the distal radial metaphysis. Overlying soft tissue swelling. RAD/Chest 1 View (Portable) IMPRESSION: Borderline cardiomegaly. The lungs are clear. Consults: [facility] - ortho Operations: None Procedures: None Summary of Care Provided: Hospital course: The patient is a 84 year old F with pmhx of chronic diarrhea due to UC, recently placed on an increased dose of lasix and xaroxalyn for LE edema with negative duplex, who presented to the ER with syncope. The patient had been having diarrhea and increased urination. Her LE edema had resolved. She stood up, became LH, and passed out. She struck her right arm fracturing the distal radius. In the ER she appeared dehydration with elevated BUN. She had a high WBC count and a UA suggestive of UTI. Her arm was placed in a brace. She was admitted to the PCU and diuretics stopped. She was given rocephin for UTI. She was seen by ortho who recommended outpatient follow up. She was asymptomatic the following day. She was discharged home in stable condition. Lasix was reduced and xaroxalyn stopped. 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 Follow up with PCP in 1 week and ortho as directed. This patient was seen by Suraj Pelaez PA-C under the supervision of Doctor Melissa. [] Patient Problems: Active and Suspected Problems (Last Updated 03/29/19 @ 11:16 by Lillie Hoang) Generalized weakness (Acute) Distal radius fracture (Acute) Hypokalemia (Acute) Urinary tract infection (Acute) Skin tear (Acute) - Physical Exam Vitals/I&O's: Vital Signs Temp Pulse Resp BP Pulse Ox 98.6 F 73 16 123/41 H 98 11/23/19 13:55 11/23/19 13:55 11/23/19 13:55 11/23/19 13:55 11/23/19 13:55 Oxygen Delivery Method Room Air Weight: 115 lb 4.828 oz Body Mass Index (BMI) 22.5 Orthostatic Vital Signs Start: 11/22/19 19:30 Freq: q24h Status: Active Protocol: Activity Type Activity Date Activity User E-Sign Co-Sign Detail Recorded Client Recorded Date Recorded By Document 11/23/19 06:00 [facility] [id number] 11/23/19 06:05 [facility] 11/23/19 06:00 Orthostatic Vitals Standing -Blood Pressure (90/60-120/80) 131/69 H -Extremity Use Left Arm -Pulse Rate (60-100) 101 H Sitting -Blood Pressure (90/60-120/80) 123/50 H -Extremity Use Left Arm -Pulse Rate (60-100) 67 Lying -Blood Pressure (90/60-120/80) 120/37 L -Extremity Use Left Arm -Pulse Rate (60-100) 60 Intake and Output for Last 24 Hours 11/21/19 11/22/19 11/23/19 23:59 23:59 23:59 Intake Total 1235.41 / 1235.41 2079 Balance 1235.41 / 1235.41 2079 General: Alert, Oriented x3, Cooperative HEENT: Atraumatic, PERRLA, EOMI, Normocephalic Neck: Supple, No JVD, Negative Carotid Bruits Lungs: Clear to auscultation, Normal air movement Cardiovascular: Regular rate, No murmurs Abdomen: Bowel Sounds Present, Soft, Non Tender Extremities: No edema, Capillary Refill Less than 3 Seconds Skin: No rashes, No breakdown Musculoskeletal: No Tenderness to Palpation of Joints or Extremities Neurological: Cranial nerves II-XII grossly intact Psych/Mental Status: Normal Affect, Appropriate, Alert and oriented to time, place, person, mood and affect Microbiology Past 72 Hours 11/22/19 15:40 Urine, Clean Catch Urine Culture - 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 Cloudy, Urine pH 5.0, Ur Specific Sheldon 1.020, Urine Protein 15 H, Urine Glucose (UA) Normal, Urine Ketones 5 H, Urine Occult Blood 25 H, Urine Nitrite Positive H, Urine Bilirubin Negative, Urine Urobilinogen Normal, Ur Leukocyte Esterase 25 H, Urine RBC 0 SEEN, Urine WBC 0-5 SEEN, Ur Squamous Epith Cells 0-5 SEEN, Urine Bacteria 2+, Urine Mucus 0 SEEN 11/22/19 17:22: Magnesium 2.2 11/22/19 17:22: Troponin I < 0.015 11/22/19 19:40: Troponin I < 0.015 11/23/19 05:50: WBC 14.5 H, RBC 3.92 L, Hgb 11.3 L, Hct 36.1 L, MCV 92.1, MCH 28.8, MCHC 31.3 L, RDW Std Deviation 47.8 H, RDW Coeff of Neisha 14.2, Plt Count 262, MPV 9.8, Immature Gran % (Auto) 0.700, Neut % (Auto) 81.4 H, Lymph % (Auto) 8.9 L, [place] % (Auto) 8.7, Eos % (Auto) 0.2, Baso % (Auto) 0.1, Absolute Neuts (auto) 11.8 H, Absolute Lymphs (auto) 1.29, Nucleated RBC % 0 11/23/19 05:50: Sodium 137, Potassium 4.5, Chloride 104, Carbon Dioxide 28.0, Anion Gap 5, BUN 24 H, Creatinine 0.66, Estim Creat Clear Calc 30.08, Est GFR (MDRD) Af Amer 109, Est GFR (MDRD) Non-Af 90, BUN/Creatinine Ratio 36.3 H, Glucose 99, Calcium 8.3 L, Magnesium 2.0 Current Medications Acetaminophen (Tylenol) 650 mg PO Q6H PRN PRN PRN Reason: Pain Score 1-10/Temp > 100.7 F Last Admin: 11/23/19 10:47 Dose: 650 mg Documented by: Budesonide (Budesonide Ec) 3 mg PO BID [facility] Last Admin: 11/23/19 10:36 Dose: 3 mg Documented by: Dextrose (D50w Syringe) 0 gm IV X1 PRN; Protocol PRN Reason: Hypoglycemia Duloxetine HCl (Cymbalta) 60 mg PO DAILY [facility] Last Admin: 11/23/19 10:37 Dose: 60 mg Documented by: Enoxaparin Sodium (Lovenox) 40 mg SC DAILY [facility] Last Admin: 11/23/19 10:37 Dose: Not Given Documented by: Glucagon () 1 mg IM .X1 PRN PRN Reason: Hypoglycemia Sodium Chloride () 250 mls @ 15 mls/hr IV .[id number] PRN PRN Reason: Saline Flush Sodium Chloride () 250 mls @ 15 mls/hr IV .[id number] PRN PRN Reason: Additional IVPB Infusion Ceftriaxone Sodium (Rocephin) 1 gm in 50 mls @ 100 mls/hr IV Q24@2200 [facility] Last Infusion: 11/22/19 22:57 Dose: Infused Documented by: Loperamide HCl (Imodium Liquid) 1 mg PO DAILY PRN PRN PRN Reason: COLITIS Melatonin (Melatonin) 3 mg PO QHS [facility] Last Admin: 11/22/19 21:40 Dose: 3 mg Documented by: Morphine Sulfate () 2 mg IV Q3H PRN PRN PRN Reason: Pain Score 6-10/10 Nutritional Formula (Lactose Free) (Ensure Enlive) 120 ml PO 4X/DAY [facility] Last Admin: 11/23/19 10:37 Dose: 120 ml Documented by: Ondansetron HCl (Zofran) 4 mg IV Q8H PRN PRN PRN Reason: NAUSEA/VOMITING Oxycodone HCl (Oxyir) 5 mg PO Q4H PRN PRN PRN Reason: Pain Score 4-5/10 Last Admin: 11/23/19 12:08 Dose: 5 mg Documented by: Pantoprazole Sodium (Protonix) 40 mg PO DAILY [facility] Last Admin: 11/23/19 10:37 Dose: 40 mg Documented by: Potassium Chloride (K-Dur) 20 meq PO DAILY [facility] Last Admin: 11/23/19 10:37 Dose: 20 meq Documented by: Pravastatin Sodium (Pravachol) 40 mg PO QHS [facility] Last Admin: 11/22/19 21:41 Dose: 40 mg Documented by: Sodium Chloride () 10 - 40 ml IV UD PRN PRN Reason: SALINE FLUSH Last Admin: 11/23/19 01:38 Dose: 10 ml Documented by: Discharge Diet: Low fat/ Low Cholesterol, 2000 mg Sodium Diet Discharge Activity: Return to Normal Activity Home Medications: Medications to take at Discharge Duloxetine Hcl [Cymbalta] 60 mg PO DAILY 08/16/13 Pravastatin [Pravachol] 40 mg PO QHS 08/16/13 Budesonide [Entocort EC] 3 mg PO BID 10/21/18 Omeprazole 40 mg PO DAILY 10/21/18 Potassium Chloride [K-Dur] 20 meq PO DAILY 10/21/18 Furosemide [Lasix] 40 mg PO DAILY 11/22/19 Loperamide HCl [Anti-Diarrheal] 1 mg PO DAILY PRN PRN 11/22/19 Ciprofloxacin [Cipro] 500 mg PO BID #8 tab 11/23/19 Oxycodone [Oxyir] 5 mg PO Q4H PRN PRN 3 Days #18 tab 11/23/19 Following Prescrptions Were Given to Patient: Ciprofloxacin [Cipro] 500 mg PO BID #8 tab Transmission Status: Received by [facility] Oxycodone [Oxyir] 5 mg PO Q4H PRN PRN 3 Days #18 tab PRN Reason: Pain Score 6-10/10 Transmission Status: Received by [facility] Primary Care Physician: Claudio Steele DO [Primary Care Provider] - Please follow up with your Primary Care Physician in: 1 week Please Follow Up With: Galdino Rey DO When: 11/28/19 Please Follow Up With: Claudio Steele DO Disposition: Home Minutes spent on discharge:: 35 Medical Necessity - Tobacco Use Smoking Status: Never smoker Meaningful Use Info Meaningful Use Diagnoses (Choose all that apply): None applicable <Huber Torres - Last Filed: 11/23/19 14:42> Discharge Date and Diagnosis - Primary Discharge Diagnosis Acute Problems: Active Problems (Last Updated 03/29/19 @ 11:16 by Lillie Hoang) Generalized weakness (Acute) Distal radius fracture (Acute) Hypokalemia (Acute) Urinary tract infection (Acute) Skin tear (Acute) - Secondary Discharge Diagnosis Chronic Problems: Chronic Problems (Last Updated 03/29/19 @ 11:16 by Lillie Hoang) History of peptic ulcer (Chronic) Ulcerative colitis (Chronic) Hyperlipidemia (Chronic) Hypothyroidism (Chronic) GERD (gastroesophageal reflux disease) (Chronic) HTN (hypertension) (Chronic) Hospital Course and Treatment Summary of Care Provided: This patient was seen in conjunction with Suraj Pelaez PA-C . I have independently interviewed and examined the patient and reviewed pertinent historical, laboratory, and other data. Please refer to Suraj Pelaez PA-C note for details of this patient's presentation, findings, and recommendations. I have reviewed Suraj Pelaez PA-C note and concur with documented findings. In brief, patient is an 84-year-old female who presented with diarrhea and acute mechanical fall with hypokalemia. Imaging studies obtained on admission demonstrated x-ray of the right wrist showed nondisplaced transverse fracture of the distal radial metaphysis with overlying soft tissue swelling. Admitted to monitored bed with consultation placed to orthopedic surgery Hospital course: As documented above - Physical Exam Vitals/I&O's: Vital Signs Temp Pulse Resp BP Pulse Ox 98.6 F 73 16 123/41 H 98 11/23/19 13:55 11/23/19 13:55 11/23/19 13:55 11/23/19 13:55 11/23/19 13:55 Oxygen Delivery Method Room Air Weight: 52.3 kg Body Mass Index (BMI) 22.5 Orthostatic Vital Signs Start: 11/22/19 19:30 Freq: q24h Status: Active Protocol: Activity Type Activity Date Activity User E-Sign Co-Sign Detail Recorded Client Recorded Date Recorded By Document 11/23/19 06:00 [facility] [id number] 11/23/19 06:05 MEP 11/23/19 06:00 Orthostatic Vitals Standing -Blood Pressure (90/60-120/80) 131/69 H -Extremity Use Left Arm -Pulse Rate (60-100) 101 H Sitting -Blood Pressure (90/60-120/80) 123/50 H -Extremity Use Left Arm -Pulse Rate (60-100) 67 Lying -Blood Pressure (90/60-120/80) 120/37 L -Extremity Use Left Arm -Pulse Rate (60-100) 60 Intake and Output for Last 24 Hours 11/21/19 11/22/19 11/23/19 23:59 23:59 23:59 Intake Total 1235.41 / 1235.41 2079 Balance 1235.41 / 1235.41 2079 Microbiology Past 72 Hours 11/22/19 15:40 Urine, Clean Catch Urine Culture - 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 Cloudy, Urine pH 5.0, Ur S pecific Sheldon 1.020, Urine Protein 15 H, Urine Glucose (UA) Normal, Urine Ketones 5 H, Urine Occult Blood 25 H, Urine Nitrite Positive H, Urine Bilirubin Negative, Urine Urobilinogen Normal, Ur Leukocyte Esterase 25 H, Urine RBC 0 SEEN, Urine WBC 0-5 SEEN, Ur Squamous Epith Cells 0-5 SEEN, Urine Bacteria 2+, Urine Mucus 0 SEEN 11/22/19 17:22: Magnesium 2.2 11/22/19 17:22: Troponin I < 0.015 11/22/19 19:40: Troponin I < 0.015 11/23/19 05:50: WBC 14.5 H, RBC 3.92 L, Hgb 11.3 L, Hct 36.1 L, MCV 92.1, MCH 28.8, MCHC 31.3 L, RDW Std Deviation 47.8 H, RDW Coeff of Neisha 14.2, Plt Count 262, MPV 9.8, Immature Gran % (Auto) 0.700, Neut % (Auto) 81.4 H, Lymph % (Auto) 8.9 L, [place] % (Auto) 8.7, Eos % (Auto) 0.2, Baso % (Auto) 0.1, Absolute Neuts (auto) 11.8 H, Absolute Lymphs (auto) 1.29, Nucleated RBC % 0 11/23/19 05:50: Sodium 137, Potassium 4.5, Chloride 104, Carbon Dioxide 28.0, Anion Gap 5, BUN 24 H, Creatinine 0.66, Estim Creat Clear Calc 30.08, Est GFR (MDRD) Af Amer 109, Est GFR (MDRD) Non-Af 90, BUN/Creatinine Ratio 36.3 H, Glucose 99, Calcium 8.3 L, Magnesium 2.0 Current Medications Acetaminophen (Tylenol) 650 mg PO Q6H PRN PRN PRN Reason: Pain Score 1-10/Temp > 100.7 F Last Admin: 11/23/19 10:47 Dose: 650 mg Documented by: Budesonide (Budesonide Ec) 3 mg PO BID [facility] Last Admin: 11/23/19 10:36 Dose: 3 mg Documented by: Dextrose (D50w Syringe) 0 gm IV X1 PRN; Protocol PRN Reason: Hypoglycemia Duloxetine HCl (Cymbalta) 60 mg PO DAILY [facility] Last Admin: 11/23/19 10:37 Dose: 60 mg Documented by: Enoxaparin Sodium (Lovenox) 40 mg SC DAILY [facility] Last Admin: 11/23/19 10:37 Dose: Not Given Documented by: Glucagon () 1 mg IM .X1 PRN PRN Reason: Hypoglycemia Sodium Chloride () 250 mls @ 15 mls/hr IV .[id number] PRN PRN Reason: Saline Flush Sodium Chloride () 250 mls @ 15 mls/hr IV .[id number] PRN PRN Reason: Additional IVPB Infusion Ceftriaxone Sodium (Rocephin) 1 gm in 50 mls @ 100 mls/hr IV Q24@2200 [facility] Last Infusion: 11/22/19 22:57 Dose: Infused Documented by: Loperamide HCl (Imodium Liquid) 1 mg PO DAILY PRN PRN PRN Reason: COLITIS Melatonin (Melatonin) 3 mg PO QHS [facility] Last Admin: 11/22/19 21:40 Dose: 3 mg Documented by: Morphine Sulfate () 2 mg IV Q3H PRN PRN PRN Reason: Pain Score 6-10/10 Nutritional Formula (Lactose Free) (Ensure Enlive) 120 ml PO 4X/DAY [facility] Last Admin: 11/23/19 10:37 Dose: 120 ml Documented by: Ondansetron HCl (Zofran) 4 mg IV Q8H PRN PRN PRN Reason: NAUSEA/VOMITING Oxycodone HCl (Oxyir) 5 mg PO Q4H PRN PRN PRN Reason: Pain Score 4-5/10 Last Admin: 11/23/19 12:08 Dose: 5 mg Documented by: Pantoprazole Sodium (Protonix) 40 mg PO DAILY [facility] Last Admin: 11/23/19 10:37 Dose: 40 mg Documented by: Potassium Chloride (K-Dur) 20 meq PO DAILY [facility] Last Admin: 11/23/19 10:37 Dose: 20 meq Documented by: Pravastatin Sodium (Pravachol) 40 mg PO QHS [facility] Last Admin: 11/22/19 21:41 Dose: 40 mg Documented by: Sodium Chloride () 10 - 40 ml IV UD PRN PRN Reason: SALINE FLUSH Last Admin: 11/23/19 01:38 Dose: 10 ml Documented by: Inpatient E&M: [id number] Disch Hosp
== END 2019-11-23 11:50 | disposition home or self-care (01) ==
LOC: ED 13:20 → PCU 15:53
PROVIDERS: Admitting Provider Student in an Organized Health Care Education/Training Program; Emergency Provider Emergency Medicine; PCP Family Medicine; Visit Provider Internal Medicine
DX: R55 Syncope and collapse (principal); S52.591A Other fractures of lower end of right radius, initial encounter for closed fracture; N30.00 Acute cystitis without hematuria; S41.112A Laceration without foreign body of left upper arm, initial encounter; S41.111A Laceration without foreign body of right upper arm, initial encounter; W01.0XXA Fall on same level from slipping, tripping and stumbling without subsequent striking against object, initial encounter; Y93.9 Activity, unspecified; Y92.9 Unspecified place or not applicable; I10 Essential (primary) hypertension; K51.90 Ulcerative colitis, unspecified, without complications; E78.5 Hyperlipidemia, unspecified; E86.0 Dehydration; E87.6 Hypokalemia; K21.9 Gastro-esophageal reflux disease without esophagitis; Z79.899 Other long term (current) drug therapy
CPT/HCPCS: 29125; 36415; 70450; 71045; 72125; 73110; 80048; 80053; 81001; 82274; 82550; 83735; 84484; 85025; 87077; 87086; 87088; 87186; 93005; 96361; 96365; 97162; 97166; 97802; 99218; 99285; J7030; J7040; A4216; G0378

== ENCOUNTER 2019-11-28 13:54 | Emergency (ER) | payer MEDICARE, SELFPAY ==
[2019-11-22 16:28] VITALS: BMI 22.5
[2019-11-28 13:56] VITALS: BP 143/77; PULSE 98; RESP 19; TEMP 36.8; O2SAT 99; BMI 25.5
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
[2019-11-28] MEDS: HYDROcodone Bitartrate/Apap 5/325 Tablet PO (14:15)
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
[2019-11-28 16:32] VITALS: BP 162/79; PULSE 82; RESP 19; O2SAT 98
== END 2019-11-28 16:58 | disposition home or self-care (01) ==
PROVIDERS: Emergency Provider Emergency Medicine; PCP Family Medicine
DX: S20.219A Contusion of unspecified front wall of thorax, initial encounter (principal); S62.512A Displaced fracture of proximal phalanx of left thumb, initial encounter for closed fracture; S13.9XXA Sprain of joints and ligaments of unspecified parts of neck, initial encounter; V49.50XA Passenger injured in collision with unspecified motor vehicles in traffic accident, initial encounter
CPT/HCPCS: 29125; 70450; 71045; 71120; 72125; 73130; 99284

== ENCOUNTER → 2019-12-05 12:09 | Outpatient (CLI) | payer MEDICARE, SELFPAY ==
[2019-12-05 11:59] VITALS: BMI 25.5
--- NOTE | 2019-12-05 12:09 | RAD_ITS ---
STUDY: X-RAY - LEFT HAND, ATTENTION FIRST FINGER REASON FOR EXAM: Female, 84 years old. Fracture FOLLOW UP. XRAY #1 DONE IN SPLINT TECHNIQUE: 3 view(s) of the finger were obtained. COMPARISON: Radiographs of earlier the same day. FINDINGS: Splint obscures bone detail. Stable appearance of nondisplaced angulated fracture of the first proximal phalanx and continued displaced fracture of the dorsal corner of the distal phalanx. Electronically Signed: Manoj Fabian MD at 20:39 EDT , Service support , RAD/Finger(s) Min 2 Views
--- NOTE | 2019-12-05 12:09 | RAD_ITS ---
STUDY: X-RAY - RIGHT WRIST REASON FOR EXAM: Female, 84 years old. FX FOLLOW UP TECHNIQUE: 3 view(s) of the wrist were obtained. COMPARISON: 11-22-19. FINDINGS: Cast obscures bone detail. The patient''s known fracture through the distal radial metaphysis shows no definite interval healing. No displacement or distraction. Mild impaction. Stable lateral angulation of the articular surface. Diffuse demineralization and no other definite abnormalities. RAD/Wrist min 3 Views IMPRESSION: Stable appearance of previously seen fractures. No definite interval healing seen. Electronically Signed: Manoj Fabian MD at 16:09 EDT , Service support ,
--- NOTE | 2019-12-05 12:37 | RAD_ITS ---
STUDY: X-RAY - LEFT HAND, ATTENTION FIRST FINGER REASON FOR EXAM: Female, 84 years old. X-RAYS'' #2. REPEATED OUT OF SPLINT. TECHNIQUE: 3 view(s) of the finger were obtained. COMPARISON: 11-28-19. FINDINGS: Mildly angulated nondisplaced fracture through the mid body of the first proximal phalanx is seen. Distracted corner fracture of the dorsal corner of the distal phalanx. The proximal fracture fragment distracted approximately 6 mm cephalad. Mild subluxation of the metacarpophalangeal joint. Diffuse demineralization. RAD/Finger(s) Min 2 Views IMPRESSION: Fractures of the mid body of the first proximal phalanx. Distracted corner fracture of the dorsal base of the distal phalanx. Electronically Signed: Manoj Fabian MD at 15:57 EDT , Service support ,
== END ==
PROVIDERS: PCP Family Medicine; Referring Provider Orthopaedic Surgery; Visit Provider Orthopaedic Surgery
DX: M79.645 Pain in left finger(s) (principal); M25.531 Pain in right wrist; S69.92XA Unspecified injury of left wrist, hand and finger(s), initial encounter
CPT/HCPCS: 73110; 73140

== ENCOUNTER 2019-12-08 10:48 | Observation (INO) | payer MEDICARE, SELFPAY ==
[2019-12-05 11:59] VITALS: BMI 25.5
[2019-12-06 19:51] LABS: Probe Check PASS; Specimen Processing Control PASS
[2019-12-08] VITALS (13 sets, daily range): BP systolic 134–190; BP diastolic 45–85; PULSE 61–90; RESP 15–18; TEMP 36.2–37.1; O2SAT 92–100; BMI 23.6
[2019-12-08] MEDS: Lactated Ringers 1,000 ML 100 ML IV ×3 (07:34→23:51)
[2019-12-08] MEDS: Famotidine 20 MG Tablet 40 MG PO (08:11)
--- NOTE | 2019-12-08 08:30 | RAD_ITS ---
STUDY: X-RAY - RIGHT WRIST REASON FOR EXAM: Female, 84 years old. ORIF WRIST TECHNIQUE: 3 view(s) of the wrist were obtained. COMPARISON: Comparison is made with prior examination dated 12/05/2019. FINDINGS: Intraoperative imaging was provided for ORIF of the distal radial fracture. RAD/Wrist min 3 Views IMPRESSION: Intraoperative imaging provided for ORIF of the distal radial fracture. Electronically Signed: Caio Spangler, at 15:11 EDT , Service support ,
--- NOTE | 2019-12-08 08:30 | RAD_ITS ---
STUDY: X-RAY - LEFT HAND, ATTENTION left thumb. REASON FOR EXAM: Female, 84 years old. TENDON REPAIR TECHNIQUE: 3 view(s) of the finger were obtained. COMPARISON: None. FINDINGS: 3 intraoperative views were obtained. There is evidence of pinning of the fracture at the midportion of the proximal phalanx of the thumb. RAD/Finger(s) Min 2 Views IMPRESSION: Intraoperative imaging provided for fixation of the fracture in the body of the proximal phalanx of the thumb. Electronically Signed: Caio Spangler, at 15:11 EDT , Service support ,
[2019-12-08] MEDS: Cefazolin 2 GM in 0.9% Normal Saline 100 ML IV (08:34)
[2019-12-08] MEDS: Bupiv/Epi 0.5% Mpf 30 ML Vial (09:55)
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
[2019-12-08] MEDS: Ondansetron 4 MG/2 ML Vial IV (12:51)
[2019-12-08] MEDS: HYDROcodone Bitartrate/Apap 5/325 Tablet PO ×3 (12:51→19:57)
--- NOTE | 2019-12-08 14:41 | CASEMGMT ---
Addendum entered by Majo Friedman 12/08/19 15:52: PT/OT evaluations are completed. SW in to speak with pt. SW introduced self and role at [facility]. Pt is alert and orientated x3, confirms her plan is to discharge to [facility]. SW explained referral process and that pre-cert will need to be obtained. Pt states understanding. WENDI placed a call to Kandi at [facility] and updated her on referral. SW faxed referral. SW wrote on fax coversheet to submit for pre-cert if able to accept. Transfer to extended care facility on pt's chart. Plan: [facility] pending acceptance and pre-cert Original Note: Social Work Note Physician updated this worker that pt needs SNF at discharge and that family prefers [facility]. SW updated by RN that pt's daughter called in and also requests [facility] at discharge and that pt's son will be transporting pt at discharge. WENDI placed a call to [facility] and left message for admissions regarding referral. WENDI placed a call to physician's office and asked if PT/OT can be ordered, PT/OT can be ordered. SW ordered PT/OT. WENDI then placed a call to PT/OT asked for pt to be evaluated today. SW to fax referral once PT/OT evaluates pt. Majo Friedman COLOR CARD MAKER, SECRETARY OF POLICE
--- NOTE | 2019-12-08 16:34 | PCA ---
[facility] CALLED TO CHECK ON STATUS OF NINA AND TO PUT HER HOME CARE ON HOLD
[2019-12-08] MEDS: Cefazolin 1 GM/50 ML BAG IV ×2 (16:38→23:51)
[2019-12-08] MEDS: Pravastatin 40 MG Tablet PO (21:12)
[2019-12-08] MEDS: Budesonide 3 MG CAPSULE.EC PO (21:12)
[2019-12-09] MEDS: HYDROcodone Bitartrate/Apap 5/325 Tablet PO ×2 (04:03→12:56)
[2019-12-09 04:13] VITALS: BP 125/80; PULSE 75; RESP 18; TEMP 36.1; O2SAT 94
[2019-12-09 08:25] VITALS: BP 118/37; PULSE 75; RESP 16; TEMP 36.6; O2SAT 97
[2019-12-09] MEDS: Budesonide 3 MG CAPSULE.EC PO (09:09)
[2019-12-09] MEDS: Pantoprazole Sodium 40 MG Tablet PO (09:09)
[2019-12-09] MEDS: DULoxetine Hcl 60 MG Capsule PO (09:09)
--- NOTE | 2019-12-09 11:55 | CASEMGMT ---
Social Work Social Work spoke with Kandi at [facility] and they are able to accept pt. Precert has been started with insurance and are awaiting determination. PASSRR completed in [employer] system and Covid screen completed. [facility] does not allow family to transport pt to facility from hospital and pt will need Van transport. SW met with pt and informed of the above. With pt permission phone call to son and VM left with above information. If insurance auth does not come by end of business today, pt will need to stay over the weekend. Plan: [facility], pending insurance SUSAN Wheeler
--- NOTE | 2019-12-09 12:33 | PN.ORTHO_ITS ---
Subjective: doing ok. pain contrlled. We will denied fevers chills shortness of breath chest pain nausea. - Physical Exam Vitals/I&O's: Vital Signs Temp Pulse Resp BP Pulse Ox 97.8 F 75 16 118/37 L 97 12/09/19 08:25 12/09/19 08:25 12/09/19 08:25 12/09/19 08:25 12/09/19 08:25 Oxygen Flow Rate (L/min) 2 Oxygen Delivery Method Room Air Weight: 117 lb 1.047 oz Body Mass Index (BMI) 23.6 Intake and Output for Last 24 Hours 12/07/19 12/08/19 12/09/19 23:59 23:59 23:59 Intake Total 2293.33 / 2293.33 943.33 / 943.33 Output Total 200 / 200 200 / 200 Balance 2093.33 / 2093.33 743.33 / 743.33 General: Alert, Oriented x3, Cooperative, No apparent distress Extremities: - - Patient has significant swelling beyond splints bilateral hands into fingers intact sensation to light touch brisk capillary refill moving fingers without significant pain. Current Medications Hydrocodone Bitart/Acetaminophen ([place] 5mg-325mg) 1 - 2 tablet PO Q6H PRN PRN PRN Reason: Pain Score 1-5/10 Last Admin: 12/09/19 04:03 Dose: 2 tablet Documented by: Budesonide (Budesonide Ec) 3 mg PO BID [facility] Last Admin: 12/09/19 09:09 Dose: 3 mg Documented by: Duloxetine HCl (Cymbalta) 60 mg PO DAILY [facility] Last Admin: 12/09/19 09:09 Dose: 60 mg Documented by: Sodium Chloride () 250 mls @ 15 mls/hr IV .[id number] PRN PRN Reason: Saline Flush Sodium Chloride () 250 mls @ 15 mls/hr IV .[id number] PRN PRN Reason: Additional IVPB Infusion Nutritional Formula (Lactose Free) (Ensure Enlive) 120 ml PO 4X/DAY [facility] Last Admin: 12/09/19 09:09 Dose: 120 ml Documented by: Ondansetron HCl (Zofran) 4 mg IV Q8H PRN PRN PRN Reason: Nausea Last Admin: 12/08/19 12:51 Dose: 4 mg Documented by: Pantoprazole Sodium (Protonix) 40 mg PO DAILY [facility] Last Admin: 12/09/19 09:09 Dose: 40 mg Documented by: Pravastatin Sodium (Pravachol) 40 mg PO QHS [facility] Last Admin: 12/08/19 21:12 Dose: 40 mg Documented by: Sodium Chloride () 10 - 40 ml IV UD PRN PRN Reason: SALINE FLUSH Medical Necessity - Tobacco Use Smoking Status: Never smoker Tobacco Use: Non-smoker Assessment/Plan All Active Problems (Last Updated 03/29/19 @ 11:16 by Lillie Hoang) Generalized weakness (Acute) Distal radius fracture (Acute) Hypokalemia (Acute) Urinary tract infection (Acute) Skin tear (Acute) Fall from slip, trip, or stumble (Acute) Closed fracture of right olecranon process (Acute) Closed head injury without loss of consciousness (Acute) Comminuted left humeral fracture (Acute) Scalp laceration (Acute) UGIB (upper gastrointestinal bleed) (Resolved) To have strict elevation of bilateral upper extremities above the heart encourage finger range of motion keep cool and ice fresh. She is to be nonweightbearing through bilateral upper extremities. To nursing facility [facility] when bed available. Follow-up 2 weeks. keep dressing and splints on clean and dry.
--- NOTE | 2019-12-09 12:36 | DCINST_ITS ---
Discharge Diet: No Restrictions Additional Instructions: keep bilatera upper extremities with strict elevatin and ice until swelling in figers has resolved. encourage finger range of motion. keep splints clean and dry, do not remove. do not put any weight through bilateral upper extremities at the level of hand or wrist. follow up in 2 weeks in my office. Allergies/Adverse Reactions: Allergies No Known Allergies Allergy (Verified 12/08/19 07:09) Medications to take at Discharge Duloxetine Hcl [Cymbalta] 60 mg PO DAILY 08/16/13 Pravastatin [Pravachol] 40 mg PO DAILY 08/16/13 Budesonide [Entocort EC] 3 mg PO BID 10/21/18 Omeprazole 40 mg PO DAILY 10/21/18 Primary Care Physician: Claudio Steele DO [Primary Care Provider] - Test Results: Test results from this visit will be discussed in further detail at your follow- up appointment, if applicable. Please Follow Up With: Galdino Rey DO - 2week post op
[2019-12-09 13:09] VITALS: BP 145/43; PULSE 74; RESP 16; TEMP 36.6; O2SAT 94
--- NOTE | 2019-12-09 13:40 | CASEMGMT ---
RN CM in to explain SMITH form to patient. SMITH for explained and patient voiced understanding. Patient is unable to sign paper as she has had surgery on both wrist. Charge nurse witness verbal consent. Original form filed in chart and copy provided to patient. Patient had no further questions or concerns at this time.
--- NOTE | 2019-12-09 15:37 | CASEMGMT ---
Social Work Received call from [facility] that insurance precert has been obtained. Pt ready for discharge today. Transportation arranged with [facility] for 5:00 vegetable picker by wheelchair van. Orders faxed to [facility]. Pt, pt son and dgt and RN notified of time of d/c. SUSAN Rice
--- NOTE | 2019-12-09 15:49 | NURSING ---
called report to koby
== END 2019-12-09 17:35 | disposition skilled nursing facility (03) ==
LOC: SDC 11:17 → MS3 13:35
PROVIDERS: Anesthesiology; Admitting Provider Orthopaedic Surgery; PCP Family Medicine; Referring Provider Orthopaedic Surgery; Visit Provider Orthopaedic Surgery
PROC: (CPT 25607; principal; 2019-12-08 08:15)
PROC: (CPT 25607; 2019-12-08 08:15)
DX: S52.551A Other extraarticular fracture of lower end of right radius, initial encounter for closed fracture (principal); S62.512A Displaced fracture of proximal phalanx of left thumb, initial encounter for closed fracture; W06.XXXA Fall from bed, initial encounter; Y93.9 Activity, unspecified; Y92.9 Unspecified place or not applicable; Z11.59 Encounter for screening for other viral diseases; S66.292A Other specified injury of extensor muscle, fascia and tendon of left thumb at wrist and hand level, initial encounter; M20.012 Mallet finger of left finger(s); Z86.718 Personal history of other venous thrombosis and embolism; E78.00 Pure hypercholesterolemia, unspecified; K21.9 Gastro-esophageal reflux disease without esophagitis; F41.9 Anxiety disorder, unspecified; F32.9 Major depressive disorder, single episode, unspecified; Z79.899 Other long term (current) drug therapy
CPT/HCPCS: 25607; 26410; 26725; 73110; 73140; 76000; 87635; 96361; 96365; 96366; 96375; 97110; 97162; 97166; 97802; 99218; 99251; C1713; J7120; G0378; G0379; G0463; J2405; U0003

== ENCOUNTER → 2019-12-23 10:14 | Outpatient (CLI) | payer MEDICARE, SELFPAY ==
[2019-12-23 07:47] VITALS: BMI 23.6
--- NOTE | 2019-12-23 10:15 | RAD_ITS ---
STUDY: X-RAY - LEFT HAND, ATTENTION FIRST FINGER REASON FOR EXAM: Female, 84 years old. Split removal. TECHNIQUE: 2 view(s) of the finger were obtained. COMPARISON: 12/05/2019. FINDINGS: Generalized osteopenia Normal metacarpal head. 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 Again seen is a fracture through the base of the proximal phalanx. There appears to be slightly increased angulation when compared to prior study. There is no evidence of marked callus formation suggest healing although minimal calcification is seen along the palmar aspect. There is a suture anchor at the base of the distal phalanx were able as fracture is noted in the prior study. This is thought to be re-insertion of the tendon. Normal interphalangeal joint. There is soft tissue swelling about the base of the thumb. RAD/Finger(s) Min 2 Views IMPRESSION: 1. Fracture off the proximal phalanx with slightly increased angulation. There is no evidence of callus formation. 2. Suture anchor in the dorsal base of the distal phalanx thought to be secondary to reinsertion of the tendon. 3. Soft tissue swelling about the base of the thumb. Electronically Signed: Héctor Rosales DO at 17:06 EDT Tel [phone], Service support ,
--- NOTE | 2019-12-23 10:15 | RAD_ITS ---
STUDY: X-RAY - RIGHT WRIST REASON FOR EXAM: Female, 84 years old. Splint removal. TECHNIQUE: 2 view(s) of the wrist were obtained. COMPARISON: 12/05/2019. FINDINGS: There is generalized osteopenia visualized bony structures. There is a metallic plate and screws along the polar aspect of the distal radius. The distal radius in normal alignment. There is evidence of interval healing of the distal radial fracture.. The ulna is unchanged. There is degenerative arthrosis of the radiocarpal articulation. Normal distal radioulnar articulation. Normal carpal bones. There is degenerative arthrosis of the carpal articulations. There is degenerative arthrosis of the carpometacarpal articulation of the thumb. Normal second through fifth carpometacarpal articulations. Normal visualized metacarpal bones. The soft tissue structures are unremarkable. RAD/Wrist 2 Views IMPRESSION: 1. Healing/healed fracture of the distal radius with evidence of internal fixation. 2. Generalized osteopenia. 3. Stable degenerative changes of the wrist and hand. Electronically Signed: Héctor Rosales DO at 17:35 EDT Tel [phone], Service support ,
== END ==
PROVIDERS: PCP Family Medicine; Referring Provider Orthopaedic Surgery; Visit Provider Orthopaedic Surgery
DX: M20.012 Mallet finger of left finger(s) (principal); S62.513A Displaced fracture of proximal phalanx of unspecified thumb, initial encounter for closed fracture; S52.501A Unspecified fracture of the lower end of right radius, initial encounter for closed fracture
CPT/HCPCS: 73100; 73140

== ENCOUNTER → 2020-02-21 14:30 | Outpatient (CLI) | payer MEDICARE, SELFPAY ==
[2020-02-20 07:58] VITALS: BMI 23.6
[2020-02-21 17:28] LABS: Anion Gap 7 (5-15); BUN 13 mg/dL (7-18); Calcium,Total 9.3 mg/dL (8.5-10.1); Chloride 101 mmol/L (98-107); Creatinine, Serum 0.65 mg/dL (0.55-1.02); EST Glomerular Filtration Rate 92 mL/min (>60); Est Glom Filt Rate - Afr Amer 112 mL/min (>60); Glucose 95 mg/dL (74-106); Potassium 3.7 mmol/L (3.5-5.1); Sodium Level 138 mmol/L (136-145)
== END ==
PROVIDERS: PCP Family Medicine; Visit Provider Family Medicine
DX: Z51.81 Encounter for therapeutic drug level monitoring (principal)
CPT/HCPCS: 36415; 80048

== ENCOUNTER 2020-11-26 11:25 | Emergency (ER) | payer MEDICARE, SELFPAY ==
[2020-02-20 07:58] VITALS: BMI 23.6
[2020-11-26 11:27] VITALS: BP 152/74; PULSE 83; RESP 14; TEMP 36.3; O2SAT 97; BMI 21.5
--- NOTE | 2020-11-26 11:51 | EDS_ITS ---
HPI History of Present Illness Chief Complaint: Lower Extremity Injury Narrative Narrative: Patient presenting for evaluation for wound check of the right leg. Patient states that about a week and a half ago she struck her leg on a surface causing a wound. Patient has been doing normal wound care and dressing changes at home she did not seek care for suture repair for this. Patient was concerned because she developed a slightly larger hematoma in that area and some modestly increased pain. She denies that there was any sort of constitutional symptoms such as fever associated with this. Patient is not on anticoagulation, but does report very easy bruising and bleeding. She also reports that she has rather thin skin. [facility] Medical History H/O ht shoulder arthroscopy Home Medications duloxetine 60 mg PO DAILY 08/16/13 [History Last Taken 11/28/19] pravastatin 40 mg PO DAILY 08/16/13 [History Last Taken 11/27/19] budesonide 3 mg PO BID 10/21/18 [History Last Taken 11/28/19] omeprazole 40 mg PO DAILY 10/21/18 [History Last Taken 11/28/19] cephalexin 500 mg PO Q6 #40 capsule 11/26/20 [Rx Last Taken Unknown] Allergy/AdvReac Type Severity Reaction Status Date / Time No Known Allergies Allergy Verified 11/26/20 11:27 Family History Mother Temporal arteritis Other Arthritis Emphysema of lung Social History Smoking Status: Never smoker ROS ROS ED Constitutional Constitutional ED: Denies fever(s) Respiratory/Chest Respiratory/Chest: Denies cough or dyspnea Gastrointestinal Gastrointestinal: Denies nausea or vomiting Musculoskeletal Musculoskeletal: Denies myalgias Integumentary Reports other Details: Wounds of the lower extremities Hematologic/Lymphatic Hematologic/Lymphatic: Reports easy bleeding and easy bruising EXAM Physical Exam Const Vital Signs: 11/26/20 11:27 11/26/20 12:21 Temperature 97.3 F L Temperature Source Temporal Pulse Rate 83 Respiratory Rate 14 15 Blood Pressure 152/74 H Blood Pressure Mean 100 Pulse Ox 97 Oxygen Delivery Method Room Air Positive well nourished and well developed General Appearance ED: well developed HEENT normocephalic and atraumatic Neck full ROM Resp normal respiratory effort and clear to auscultation bilaterally Cardio regular rate and regular rhythm Cardio Narrative: 2 out of 6 systolic murmur GI non-tender Palpation: soft Extremity Extremity Narrative: Examination of the patient's extremities show multiple areas of bruising, and multiple healing wounds. Right lower extremity in particular shows the healing wound in question. There is a semicircular healing wound measuring about 3 cm in total length with an associated hematoma, but the patient has a small hematoma just medial to that which she states is new. There is very mild surrounding erythema there is tenderness palpation no lymphangitic streaking noted. MDM MDM MDM Narrative Medical decision making narrative: Patient presented secondary to a wound check. Patient has a very slight hematoma and potential early cellulitis. No constitutional signs or symptoms no indication for work-up patient will be placed on a course of Keflex she was recommended on dressing changes. Discharge Plan Triage Chief Complaint: Lower Extremity Injury ED Provider: Dio Anders Dx/Rx/DC Orders Clinical Impression: Injury of right swanson, Hematoma of ankle Instructions: ED Wound Care Prescriptions: New cephalexin 500 mg capsule 500 mg PO Q6 Qty: 40 RF: 0 No Action pravastatin 40 MG tablet 40 mg PO DAILY RF: 0 duloxetine 60 MG capsule 60 mg PO DAILY RF: 0 budesonide 3 MG capsule,delayed,extend.release 3 mg PO BID RF: 0 omeprazole 40 MG capsule,delayed release(DR/EC) 40 mg PO DAILY RF: 0 Primary Care Provider: Claudio Steele Referrals: Claudio Steele DO [Primary Care Provider] - 3-5 Days Disposition Disposition: Home, Self Care Discharge Date/Time: 11/26/20 12:23
[2020-11-26 12:21] VITALS: RESP 15
== END 2020-11-26 12:23 | disposition home or self-care (01) ==
LOC: ED 12:03
PROVIDERS: Emergency Provider Emergency Medicine; PCP Family Medicine
DX: S89.91XA Unspecified injury of right lower leg, initial encounter (principal); X58.XXXA Exposure to other specified factors, initial encounter
CPT/HCPCS: 99283

== ENCOUNTER → 2020-12-04 11:58 | Outpatient (CLI) | payer MEDICARE, SELFPAY ==
[2020-11-26 11:27] VITALS: BMI 21.5
[2020-12-04 15:07] LABS: Absolute Lymphocyte Count 1.94 X10^3/uL (0.83-4.51); Absolute Neutrophil Count 5.1 X10^3/uL (2.0-7.7); Basophil# 0.01 X10^3/uL; Basophil% 0.1 % (0-1); Eosinophil# 0.02 X10^3/uL; Eosinophils% 0.3 % (0-5); Hematocrit 38.4 % (37-47); Hemoglobin 11.9 g/dL (12.0-15.0); Lymphocyte # 1.94 X10^3/ul (0.83-4.51); Lymphocyte % 24.7 % (19-41); Mean Corpuscular Volume 93.4 fL (81-99); Mean Platelet Vol. 9.9 fl (6.2-12.0); Monocyte# 0.72 X10^3/uL; Monocyte% 9.2 % (0-10); NRBC Flagged by Analyzer 0 % (0-5); Neutrophil # 5.14 X10^3/uL (2.7-7.7); Neutrophil % 65.4 % (47-70); Platelet Count 279 K/mm3 (150-450); RBC Distribution Width CV 14.9 % (11.6-14.6); RBC Distribution Width SD 51.4 fl (35.1-43.9); Red Blood Count 4.11 M/mm3 (4.2-5.4); White Blood Count 7.9 K/mm3 (4.4-11.0)
[2020-12-04 15:33] LABS: Anion Gap 7 (5-15); BUN 15 mg/dL (7-18); BUN/Creat Ratio 21.3 RATIO (10-20); Calcium,Total 8.9 mg/dL (8.5-10.1); Chloride 105 mmol/L (98-107); EST Glomerular Filtration Rate 84 mL/min (>60); Est Glom Filt Rate - Afr Amer 101 mL/min (>60); Ferritin 18 ng/mL (8-252); Glucose 83 mg/dL (74-106); Iron 93 ug/dL (50-170); Potassium 3.1 mmol/L (3.5-5.1); Sodium Level 141 mmol/L (136-145)
== END ==
PROVIDERS: PCP Family Medicine; Referring Provider Family Medicine; Visit Provider Family Medicine
DX: D50.9 Iron deficiency anemia, unspecified (principal); Z51.81 Encounter for therapeutic drug level monitoring
CPT/HCPCS: 36415; 80048; 82728; 83540; 85025

== ENCOUNTER → 2021-02-15 10:08 | Outpatient (CLI) | payer MEDICARE, SELFPAY ==
--- NOTE | 2021-02-15 10:11 | VDLE_ITS ---
Reason For Study: Edema RIGHT LEFT CFV is compressible, spontaneous, phasic, CFV is compressible, spontaneous, phasic, competent and demonstrates normal competent, and demonstrates normal augmentation. augmentation. Procedure FV is compressible, spontaneous, phasic, This is a venous duplex using B-mode, color competent and demonstrates normal flow and spectral Doppler. augmentation. Exam performed in department. POP V is compressible, spontaneous, phasic, A preliminary report was called and/or faxed competent and demonstrates normal to [place]. augmentation. T/P Trunk is compressible. PTV is compressible. LT PerV is compressible. SFJ is competent and measures 0.40 x 0.41 cm. GSV proximal thigh measures 0.27 x 0.27 cm. GSV at knee measures 0.17 x 0.17 cm. GSV is competent throughout. SSV at junction is competent and measures 0.47 x 0.49 cm. Acute deep vein thrombosis is noted in the left soleus vein. VL/Venous Duplex US, Unilateral Interpretation Summary Acute deep vein thrombosis is noted in the left soleus vein. The remainder of t he left lower extremity deep venous system is patent and compressible. Valvular competence ap pears intact within the proximal deep venous system on the left . The left great saphenous vein sha ears patent and compressible segmentally. The left sapheno-femoral junction is competent . The left great saphenous vein appears segmentally competent. The left small saphenous vein is patent and competent. Ordering Physician: Claudio Steele Referring Physician: Claudio Steele Performed By: Majo Crisostomo RVT
== END ==
PROVIDERS: PCP Family Medicine; Referring Provider Family Medicine; Visit Provider Family Medicine
DX: R60.0 Localized edema (principal)
CPT/HCPCS: 93971

== ENCOUNTER 2021-05-07 15:08 | Emergency (ER) | payer MEDICARE, SELFPAY ==
[2021-05-07 15:09] VITALS: BP 158/78; PULSE 94; RESP 18; TEMP 35.8; O2SAT 98; BMI 21.4
[2021-05-07 16:10] LABS: Absolute Lymphocyte Count 1.54 X10^3/uL (0.83-4.51); Absolute Neutrophil Count 6.9 X10^3/uL (2.0-7.7); Basophil# 0.03 X10^3/uL; Basophil% 0.3 % (0-1); Eosinophil# 0.01 X10^3/uL; Eosinophils% 0.1 % (0-5); Hematocrit 44.9 % (37-47); Hemoglobin 14.5 g/dL (12.0-15.0); Lymphocyte # 1.54 X10^3/ul (0.83-4.51); Lymphocyte % 16.8 % (19-41); Mean Corp Hgb Conc 32.3 g/dL (32-36); Mean Corpuscular Hgb 31.2 pg (27.0-32.0); Mean Corpuscular Volume 96.6 fL (81-99); Mean Platelet Vol. 9.6 fl (6.2-12.0); Monocyte# 0.66 X10^3/uL; Monocyte% 7.2 % (0-10); NRBC Flagged by Analyzer 0 % (0-5); Neutrophil # 6.89 X10^3/uL (2.7-7.7); Neutrophil % 75.3 % (47-70); Platelet Count 310 K/mm3 (150-450); RBC Distribution Width CV 13.8 % (11.6-14.6); Red Blood Count 4.65 M/mm3 (4.2-5.4); White Blood Count 9.2 K/mm3 (4.4-11.0)
--- NOTE | 2021-05-07 16:19 | EKG12_ITS ---
Test Reason : DIAHRIA Blood Pressure : / mmHG Vent. Rate : 122 BPM Atrial Rate : 129 BPM P-R Int : 160 ms QRS Dur : 074 ms QT Int : 332 ms P-R-T Axes : 063 -38 064 degrees QTc Int : 473 ms Sinus tachycardia Left axis deviation Abnormal ECG Confirmed by SUNDEEP TSANG, LISE ([id number]), tape editor ZULEMA CHRISTIANSEN ([id number]) on 05/09/2021 8:49:04 AM Referred By: DOROTHY Confirmed By:LISE URBANO MD
--- NOTE | 2021-05-07 16:21 | ED.VIS.GI ---
HPI HPI - GI History of Present Illness Chief Complaint: Abd Pain Detail of Chief Complaint: Not feeling well and diarrhea and weak Informant: patient and family Narrative Narrative: Patient presents to the emergency department complaint of not feeling well for the last 2-3 weeks. Patient complains of nausea and increase in diarrhea over the last week. She is having about 2-3 watery to loose stools per day. She does have history of colitis and takes budesonide. Patient also currently being treated for a DVT and is on Xarelto. She denies any fever or cough. She denies urinary symptoms. She denies significant abdominal pain. Patient sounds concerned about the DVT and concern about possible cancer because patient's brother had a DVT and then was later found to have cancer of the colon. Patient has had her Covid vaccine. Prior similar symptoms: No PFSH PFSH Medical History H/O ht shoulder arthroscopy Home Medications duloxetine 60 mg PO DAILY 08/16/13 [History Last Taken 11/28/19] pravastatin 40 mg PO DAILY 08/16/13 [History Last Taken 11/27/19] budesonide 3 mg PO BID 10/21/18 [History Last Taken 11/28/19] omeprazole 40 mg PO DAILY 10/21/18 [History Last Taken 11/28/19] apixaban [Eliquis] 5 mg BID 05/07/21 [History Last Taken Unknown] furosemide 40 mg DAILY 05/07/21 [History Last Taken Unknown] ondansetron 4 mg PO Q8H PRN PRN #10 tab 05/07/21 [Rx Last Taken Unknown] Allergy/AdvReac Type Severity Reaction Status Date / Time No Known Allergies Allergy Verified 05/07/21 15:11 Family History Mother Temporal arteritis Other Arthritis Emphysema of lung Social History Smoking Status: Never smoker ROS ROS ED Constitutional Constitutional ED: Reports systems reviewed and no addt'l complaints, except as documented; Denies body ache(s), change in weight or chills Eyes Eyes: Denies acute decrease in peripheral vision, change in vision, double vision or loss of vision ENT ENT ED: Reports none; Denies ear pain, lip swelling, loss taste/smell, neck pain, otalgia or sore throat Cardiovascular Cardiovascular: Reports none; Denies abdominal pain, chest pain with activity, leg edema, lightheadedness, palpitations, rapid heart rate or syncope Respiratory/Chest Respiratory/Chest: Reports none; Denies change in mental status, dry cough, dyspnea, hemoptysis, shortness of breath at rest or shortness of breath with exertion Gastrointestinal Gastrointestinal: Reports none, diarrhea and nausea; Denies abdominal pain, change in stool character, hematemesis, hematochezia, melena, rectal bleeding or vomiting Genitourinary Genitourinary ED: Reports none; Denies abdominal discomfort, anuria, dysuria, genital pain or polyuria Musculoskeletal Musculoskeletal: Reports none; Denies arthralgias, back pain, difficulty walking, extremity pain, muscle weakness or myalgias Integumentary Reports none; Denies abscess or rash Neurologic Neurologic: Reports none and weakness; Denies abnormal gait, confusion, focal weakness, frequent falls, headache(s), loss of vision, numbness, paresthesias, radicular pain or vertigo Psychiatric Psychiatric: Reports systems reviewed and no addt'l complaints, except as documented and none; Denies behavioral changes, confusion, difficulty concentrating, hallucinations, suicidal ideation, tactile hallucinations or visual hallucinations Endocrine Endocrinology: Denies none, cold intolerance, excessive sweating, fatigue or heat intolerance Hematologic/Lymphatic Hematologic/Lymphatic: Reports none; Denies anemia, easy bleeding or easy bruising Allergic/Immunologic Allergic/Immunologic ED: Denies as per HPI, none, lip swelling, mouth swelling, throat swelling, tongue swelling or hives EXAM Physical Exam Const Vital Signs: 05/07/21 15:09 05/07/21 17:08 05/07/21 18:00 Temperature 96.5 F L Temperature Source Temporal Pulse Rate 94 79 85 Respiratory Rate 18 18 18 Blood Pressure 158/78 H 139/60 H 186/66 H Blood Pressure Mean 104 86 106 Pulse Ox 98 95 95 Oxygen Delivery Method Room Air Room Air Room Air 05/07/21 19:20 05/07/21 20:21 Temperature 97.6 F L Temperature Source Oral Pulse Rate 65 Respiratory Rate 17 18 Blood Pressure 166/82 H Blood Pressure Mean 110 Pulse Ox 93 Oxygen Delivery Method Room Air Positive well nourished and well developed General Appearance ED: well developed and NAD HEENT Reports TM's clear and moist mucous membranes normocephalic and atraumatic; Negative for trauma or tenderness Tympanic Membrane ED: Yes TM's clear Eyes PERRL and EOMs intact bilaterally General Eye ED: Negative for pale conjunctiva or scleral icterus Neck no lymphadenopathy, supple and no JVD General: Negative for tenderness Chest Wall inspection of chest normal and palpation of chest normal Chest: Negative for tenderness Resp normal respiratory effort and clear to auscultation bilaterally Effort and Inspection: Negative for respiratory distress or pain with movement Auscultation: Negative for rhonchi, wheezes or diminished lung sounds Cardio regular rhythm, S1 normal heart sound, S2 normal heart sound and no murmurs Cardio Narrative: Irregularly irregular with no murmurs auscultated Peripheral Pulses: pulses 2+ throughout GI normal to inspection, nondistended, normoactive bowel sounds, soft to palpation, non-tender, non-distended and no masses Back/Spine no CVA tenderness and no thoracic nor lumbar tenderness Extremity normal to inspection Extremity Narrative: Patient noted to have edema of the left lower extremity. Normal pulses. Normal range of motion and strength noted. General Extremety ED: Yes edema General Extremity: edema Neuro oriented x3, CN's II-XII intact bilaterally, no sensory deficits noted and gait normal Sensorium / Orientation: awake, alert, oriented to person, oriented to place and oriented to time Motor Exam: strength 5/5 throughout and strength abnormal Psych mental status grossly normal Skin no rashes or lesions noted and no wounds MDM MDM MDM Narrative Medical decision making narrative: IV line established on arrival. Patient given Zofran 4 mg IV. Lab work-up essentially unremarkable. CT scan of the abdomen pelvis showed no significant abnormalities other than a hyperdensity in her left kidney for which they recommended possible further imaging with ultrasound. Patient has a urologist that she see and she will follow up with them regarding the finding. Patient had a urine culture sent as the urine was positive for nitrites but minimal WBCs and she did have +2 bacteria and she is asymptomatic. After further discussion with patient she is wondering if symptoms that she is experiencing might not be related to stress and anxiety as she states she has had 5 people that are been close to her diet within the last week. Lab Data Attestation: I reviewed the patient's lab results. Labs: Laboratory Results - last 24 hr 05/07/21 05/07/21 05/07/21 15:55 15:55 15:55 WBC 9.2 RBC 4.65 Hgb 14.5 Hct 44.9 MCV 96.6 MCH 31.2 MCHC 32.3 RDW Std Deviation 49.0 H RDW Coeff of Neisha 13.8 Plt Count 310 MPV 9.6 Immature Gran % (Auto) 0.300 Neut % (Auto) 75.3 H Lymph % (Auto) 16.8 L [place] % (Auto) 7.2 Eos % (Auto) 0.1 Baso % (Auto) 0.3 Absolute Neuts (auto) 6.9 Absolute Lymphs (auto) 1.54 Nucleated RBC % 0 Sodium Cancelled 140 Potassium Cancelled 3.4 L Chloride Cancelled 101 Carbon Dioxide Cancelled 27.0 Anion Gap Cancelled 12 BUN Cancelled 12 Creatinine Cancelled 0.80 Estim Creat Clear Calc Cancelled 36.93 Est GFR (MDRD) Af Amer Cancelled 87 Est GFR (MDRD) Non-Af Cancelled 72 BUN/Creatinine Ratio Cancelled 15.0 Glucose Cancelled 119 H Calcium Cancelled 9.0 Total Bilirubin 0.30 AST 20 ALT 16 Alkaline Phosphatase 69 Troponin I High Sens 40 Total Protein 7.5 Albumin 3.8 Globulin 3.7 Albumin/Globulin Ratio 1.0 Lipase 71 L Urine Color Urine Clarity Urine pH Ur Specific [place] Urine Protein Urine Glucose (UA) Urine Ketones Urine Occult Blood Urine Nitrite Urine Bilirubin Urine Urobilinogen Ur Leukocyte Esterase Urine RBC Urine WBC Ur Squamous Epith Cells Urine Bacteria Hyaline Casts Urine Mucus 05/07/21 20:10 WBC RBC Hgb Hct MCV MCH MCHC RDW Std Deviation RDW Coeff of Neisha Plt Count MPV Immature Gran % (Auto) Neut % (Auto) Lymph % (Auto) [place] % (Auto) Eos % (Auto) Baso % (Auto) Absolute Neuts (auto) Absolute Lymphs (auto) Nucleated RBC % Sodium Potassium Chloride Carbon Dioxide Anion Gap BUN Creatinine Estim Creat Clear Calc Est GFR (MDRD) Af Amer Est GFR (MDRD) Non-Af BUN/Creatinine Ratio Glucose Calcium Total Bilirubin AST ALT Alkaline Phosphatase Troponin I High Sens Total Protein Albumin Globulin Albumin/Globulin Ratio Lipase Urine Color Yellow Urine Clarity Sl. Cloudy Urine pH 5.0 Ur Specific [place] 1.025 Urine Protein 100 H Urine Glucose (UA) Normal Urine Ketones 50 H Urine Occult Blood 50 H Urine Nitrite Positive H Urine Bilirubin Negative Urine Urobilinogen Normal Ur Leukocyte Esterase Negative Urine RBC 0-5 SEEN Urine WBC 0-5 SEEN Ur Squamous Epith Cells 0 SEEN Urine Bacteria 2+ Hyaline Casts 10-25 SEEN Urine Mucus 0 SEEN Radiography Diagnostic Testing: Clinical Impression(s) from Imaging Studies Abdomen/Pelvis CT 05/07/21 17:13 EKG Initial EKG: Attestation: I personally reviewed and interpreted this EKG as follows: Comments: Sinus rhythm with a ventricular rate of 122 bpm with no acute ST segment changes Discharge Plan Triage Chief Complaint: Abd Pain ED Provider: Dimas Jorge Dx/Rx/DC Orders Clinical Impression: Fatigue, Diarrhea Instructions: ED Abdominal Pain Unkn Cause Fem, ED Weakness (Uncertain Cause) Prescriptions: New ondansetron [ondansetron] 4 MG tablet 4 mg PO Q8H PRN PRN (Reason: Nausea) Qty: 10 RF: 0 No Action pravastatin 40 MG tablet 40 mg PO DAILY RF: 0 duloxetine 60 MG capsule 60 mg PO DAILY RF: 0 budesonide 3 MG capsule,delayed,extend.release 3 mg PO BID RF: 0 omeprazole 40 MG capsule,delayed release(DR/EC) 40 mg PO DAILY RF: 0 furosemide 20 mg tablet 40 mg DAILY RF: 0 Eliquis 5 mg tablet 5 mg BID RF: 0 Primary Care Provider: Claudio Steele Referrals: Claudio Steele DO [Primary Care Provider] - 3-5 Days Activity Restrictions/Additional Instructions: Follow-up with your urologist your family physician regarding the findings on the CAT scan of your kidney. Disposition Disposition: Home, Self Care
[2021-05-07] MEDS: 0.9% Normal Saline 1,000 ML 125 ML IV (16:31)
[2021-05-07] MEDS: Ondansetron 4 MG/2 ML Vial IV (16:31)
[2021-05-07 16:46] LABS: AST(SGOT) 20 U/L (15-37); Alanine Aminotransfer ALT/SGPT 16 U/L (13-56); Albumin, Serum 3.8 g/dL (3.2-5.0); Alkaline Phosphatase 69 U/L (45-117); Anion Gap 12 (5-15); BUN 12 mg/dL (7-18); Chloride 101 mmol/L (98-107); EST Glomerular Filtration Rate 72 mL/min (>60); Est Glom Filt Rate - Afr Amer 87 mL/min (>60); Estimated Creatinine Clearance 36.93 ml/min; Globulin 3.7 g/dL (2.2-4.2); Glucose 119 mg/dL (74-106); Lipase 71 U/L (73-393); Potassium 3.4 mmol/L (3.5-5.1); Protein, Total 7.5 g/dL (6.4-8.2); Sodium Level 140 mmol/L (136-145); Troponin-I HS 40 pg/mL (3.0-54.0)
[2021-05-07 17:08] VITALS: BP 139/60; PULSE 79; RESP 18; O2SAT 95
--- NOTE | 2021-05-07 17:13 | CT_ITS ---
STUDY: CT Abdomen And Pelvis W/O Contrast Injection 05/07/2021 5:41 PM REASON FOR EXAM: Female, 85 years old. DIARRHEA X2 WEEKS SURG-APPY,GB,HYST abdominal pain Individualized dose optimization techniques were used for this CT. COMPARISON: None. TECHNIQUE: CT Abdomen And Pelvis W/O Contrast Injection FINDINGS: There are atherosclerotic calcifications of visualized coronary arteries. The visualized portions of the heart are within normal limits. There is intrahepatic ductal dilation. There is dilation of the common bile duct. A common bile duct stone is not seen. The CBD diameter is 9 mm. There are surgical clips in the gallbladder fossa consistent with a prior cholecystectomy. Normal spleen. Normal pancreas. There are hypodensities of the liver. These are consistent for cysts. No follow up required. Normal bilateral adrenal glands. No acute findings of the right kidney. There are hypodensities in the left kidney. These are consistent for cysts. No follow up required. There is a 13 mm hyperdensity in the left kidney. Ultrasound can better evaluate. There is a small hiatal hernia. Normal small intestine. There are multiple colonic diverticula consistent with diverticulosis. There is non-visualization of the appendix. There are calcifications of the abdominal aorta. This is consistent for atherosclerotic disease. There is no abdominal aortic aneurysm. Normal inferior vena cava. Subcentimeter mesenteric lymph nodes. Normal urinary bladder. There is absence of the uterus consistent with a prior hysterectomy. There is an umbilical hernia containing fat. There are diffuse degenerative changes of the visualized lumbar spine. There are bilateral pars articularis defects at L5-S1. There is a Grade 1 anterolisthesis of L5 on S1. Vacuum disc phenomenon. Grade 1 anterolisthesis of L4 on L5. There is bilateral neural foraminal stenosis at L4-5 and L5-S1. There is scoliosis of the lumbar spine. Acquired degenerative spinal stenosis. IMPRESSION: (NOT LISTED IN ORDER OF SIGNIFICANCE) There is a 13 mm hyperdensity in the left kidney. Ultrasound can better evaluate. There is dilation of the common bile duct. A common bile duct stone is not seen. The CBD diameter is 9 mm. There are multiple colonic diverticula consistent with diverticulosis. Acquired degenerative spinal stenosis. Other findings as above. Electronically Signed: Moreno Osman MD at 18:02 EST , Service support , CT/Abdomen/Pelvis without Cont
[2021-05-07 18:00] VITALS: BP 186/66; PULSE 85; RESP 18; O2SAT 95
[2021-05-07 19:20] VITALS: BP 166/82; PULSE 65; RESP 17; TEMP 36.4; O2SAT 93
[2021-05-07 20:15] LABS: Mucous, Urine 0 SEEN /hpf (<or=2+); Squamous Epithelial Cells - UA 0 SEEN /hpf (5-10)
[2021-05-07 20:21] VITALS: RESP 18
[2021-05-07 20:23] LABS: Color, Urine Yellow (Yellow); Glucose, Dipstick Normal (Normal); Ketone-Dipstick 50 mg/dl (Negative); Leukocyte Esterase-Dipstick Negative /ul (Negative); Nitrite-Dipstick Positive (Negative); Occult Blood-Urine 50 /ul (Negative); Protein-Dipstick 100 mg/dl (Negative); Specific Gravity, Urine 1.025 (1.002-1.030); Urine Bilirubin Dipstick Negative (Negative); Urine Clarity Sl. Cloudy (Clear); Urine Urobilinogen Normal (Normal)
[2021-05-07 20:27] LABS: Hyaline Cast 10-25 SEEN /lpf (0-5)
[2021-05-07 20:28] LABS: White Blood Cells 0-5 SEEN /hpf (0-5)
[2021-05-07 20:29] LABS: Bacteria 2+ /hpf (None Seen); Red Blood Cells-Urine 0-5 SEEN /hpf (0-5)
== END 2021-05-07 20:54 | disposition home or self-care (01) ==
PROVIDERS: Emergency Provider Emergency Medicine; PCP Family Medicine
DX: R19.7 Diarrhea, unspecified (principal); R53.83 Other fatigue; R10.9 Unspecified abdominal pain; K57.30 Diverticulosis of large intestine without perforation or abscess without bleeding; Z79.01 Long term (current) use of anticoagulants; Z79.899 Other long term (current) drug therapy; I82.409 Acute embolism and thrombosis of unspecified deep veins of unspecified lower extremity; M31.6 Other giant cell arteritis; J43.9 Emphysema, unspecified; M19.90 Unspecified osteoarthritis, unspecified site
CPT/HCPCS: 74176; 80053; 81001; 83690; 84484; 85025; 87077; 87086; 87088; 87186; 87426; 93005; 96374; 99283; A4216; J2405

== ENCOUNTER 2021-07-13 19:35 | Emergency (ER) | payer MEDICARE, SELFPAY ==
[2021-07-13 19:37] VITALS: BP 114/52; PULSE 82; RESP 14; TEMP 36.6; O2SAT 96; BMI 22.6
--- NOTE | 2021-07-13 19:38 | EKG12_ITS ---
Test Reason : SYNCOPE Blood Pressure : / mmHG Vent. Rate : 098 BPM Atrial Rate : 098 BPM P-R Int : 138 ms QRS Dur : 068 ms QT Int : 324 ms P-R-T Axes : 060 -31 056 degrees QTc Int : 413 ms Sinus rhythm with frequent Premature ventricular complexes and Premature atrial complexes Left axis deviation Abnormal ECG Confirmed by SUNDEEP TSANG, LISE ([id number]), assignment editor MICHELLE KATE ([id number]) on 07/15/2021 10:48:12 AM Referred By: MICHELE Confirmed By:LISE URBANO MD
[2021-07-13 19:45] VITALS: O2SAT 100
--- NOTE | 2021-07-13 19:55 | RAD_ITS ---
STUDY: X-RAY CHEST REASON FOR EXAM: Female, 85 years old. Chest pain TECHNIQUE: Single AP portable view of the chest. COMPARISON: Upright AP chest x-ray 11/28/2019 FINDINGS: The lungs are more fully expanded today. There is stable stranding in the medial right base that may be chronic scarring. No acute consolidation There is no demonstrated pleural abnormality. Normal size heart. Mildly irregular 1 cm calcification projecting in the aorticopulmonary window may be a calcified lymph node or overlapping calcific density related to the left margin of the spine. Normal sacha. Normal visualized pulmonary arteries. Normal visualized aortic arch and descending thoracic aorta. There are stable degenerative changes of the visualized thoracic spine. There is stable to increased loss of height of T7 vertebra. A 15 degree dextroscoliosis centered at T7 is more conspicuous today, and there may be some compensatory levoscoliosis in the upper lumbar spine. Old healed ORIF of a proximal left humeral fracture with a metal sideplate and screws again noted. Surgical clips of prior cholecystectomy again seen in the right upper quadrant of the abdomen. RAD/Chest 1 View (Portable) IMPRESSION: Chronic scarring in the medial right lung base. No acute cardiopulmonary disease. Electronically Signed: Jourdan Whitten MD at 20:19 EST ,
--- NOTE | 2021-07-13 20:02 | EDS_ITS ---
HPI History of Present Illness Chief Complaint: Syncope Detail of Chief Complaint: Near syncope not syncope. No LOC. 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 Today she was at a family get together. She was leaving walked up some steps to leave and when she went to get in the car she felt lightheaded. She felt like she might pass out but never actually lost consciousness. Prior to the event she said she had no chest pain. No shortness of breath. She may have had mild diaphoresis. She denies being ill recently. No vomiting or diarrhea. No fever. No recent chest pain or shortness of breath. No melena. No dysuria. Currently she feels a lot better. Prior similar symptoms: No Recent Illness/Hospitalization: No PFSH PFSH Medical History H/O ht shoulder arthroscopy Home Medications duloxetine 60 mg PO DAILY 08/16/13 [History Last Taken 11/28/19] pravastatin 40 mg PO DAILY 08/16/13 [History Last Taken 11/27/19] budesonide 3 mg PO BID 10/21/18 [History Last Taken 11/28/19] omeprazole 40 mg PO DAILY 10/21/18 [History Last Taken 11/28/19] apixaban [Eliquis] 5 mg BID 05/07/21 [History Last Taken Unknown] furosemide 40 mg DAILY 05/07/21 [History Last Taken Unknown] ondansetron 4 mg PO Q8H PRN PRN #10 tab 05/07/21 [Rx Last Taken Unknown] Allergy/AdvReac Type Severity Reaction Status Date / Time No Known Allergies Allergy Verified 05/07/21 15:11 Family History Mother Temporal arteritis Other Arthritis Emphysema of lung Social History Smoking Status: Never smoker ROS ROS ED ROS Narrative No recent illness. Review of Systems ROS Unobtainable: Denies due to encephalopathy Constitutional Constitutional ED: Denies fever(s) Eyes Eyes: Denies change in vision ENT ENT ED: Denies ear pain Cardiovascular Cardiovascular: Denies chest pain Respiratory/Chest Respiratory/Chest: Denies cough or dyspnea Gastrointestinal Gastrointestinal: Denies abdominal pain, diarrhea, nausea or vomiting Genitourinary Genitourinary ED: Denies dysuria Musculoskeletal Musculoskeletal: Denies myalgias Integumentary Denies rash Neurologic Neurologic: Denies headache(s) Psychiatric Psychiatric: Denies depression Endocrine Endocrinology: Denies polyuria Allergic/Immunologic Allergic/Immunologic ED: Denies urticaria EXAM Physical Exam Narrative Exam Narrative: 85-year-old female no acute distress. Vital signs stable afebrile. Does not look septic or toxic. Pulse ox 96% on room air no signs of hypoxia. H EENT exam unremarkable. Neck nontender no lymphadenopathy. Lungs clear to auscultation bilaterally. Heart regular rhythm rate about 80 no obvious murmur at this time. Abdomen soft nontender normal bowel sounds no peritoneal signs. Moving all 4 extremities. She has chronic swelling in her left lower leg from a DVT that she is currently on a blood thinner for. 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 Dorsi plantar flexion intact. Neurologically she is awake and alert. She knows day, month and year. She knows where she is at. She has no focal motor deficits. Back nontender. Exam benign. Const Vital Signs: 07/13/21 19:37 07/13/21 19:40 07/13/21 19:45 Temperature 97.8 F Temperature Source Temporal Pulse Rate 82 Respiratory Rate 14 Respiratory Effort Normal Non-Labored Respiratory Pattern Normal Blood Pressure 114/52 L Blood Pressure Mean 72 Pulse Ox 96 100 Oxygen Delivery Method Room Air Nasal Cannula Positive well nourished and well developed; Negative for obese, cachectic, contractures or unkempt General Appearance ED: well developed and NAD; Negative for unkempt, cachectic, contractures, cyanotic or diaphoretic Nutritional Appearance: Negative for cachectic or obese HEENT Reports moist mucous membranes Negative for trauma or tenderness Eyes PERRL and EOMs intact bilaterally General Eye ED: Negative for pale conjunctiva or scleral icterus Neck no lymphadenopathy, supple and no JVD General: Negative for tenderness Chest Wall inspection of chest normal and palpation of chest normal Resp normal respiratory effort and clear to auscultation bilaterally Effort and Inspection: Negative for pain with movement Auscultation: Negative for rales, rhonchi or wheezes Cardio regular rate, regular rhythm, S1 normal heart sound, S2 normal heart sound and no murmurs GI normal to inspection, nondistended, normoactive bowel sounds, non-tender, non- distended and no masses Inspection: Negative for abdominal distention Auscultation: normoactive bowel sounds Palpation: soft; Negative for tender, guarding or rebound tenderness present Back/Spine no CVA tenderness General Back: Negative for CVA tenderness Cervical Spine: Negative for cervical spine tenderness Thoracic Spine / Upper Back: Negative for thoracic spinal tenderness or paraspinal muscle tenderness Lumbar Spine / Lower Back: Negative for lumbar spinal tenderness Extremity normal to inspection Extremity Narrative: Chronic edema left lower leg with a known DVT. General Extremety ED: Yes edema; Negative for tenderness General Extremity: edema Neuro oriented x3 Sensorium / Orientation: alert; Negative for orientation impaired, lethargic or stuporous Motor Exam: strength 5/5 throughout Psych mental status grossly normal Appearance: Negative for unkempt Attitude: No agitated Mood & Affect: Negative for depressed, anxious or tearful Skin no rashes or lesions noted and no wounds MDM MDM MDM Narrative Medical decision making narrative: 85-year-old female with near syncope tonight. Exam benign. Will undergo a cardiac work-up. Repeat exam the patient is doing well at 10:05 PM. She is comfortable being discharged home. Lab Data Attestation: I reviewed the patient's lab results. Lab results narrative: CBC normal. White count 9. H&H of 13.5 and 42. Electrolytes unremarkable gap and 9. BUN of 20 creatinine 1.2. Glucose 162. Troponin 9 chest x-ray unremarkable. Labs: Laboratory Results - last 24 hr 07/13/21 07/13/21 19:49 19:49 WBC 9.0 RBC 4.41 Hgb 13.5 Hct 42.5 MCV 96.4 MCH 30.6 MCHC 31.8 L RDW Std Deviation 49.7 H RDW Coeff of Neisha 14.1 Plt Count 301 MPV 9.9 Immature Gran % (Auto) 0.300 Neut % (Auto) 65.1 Lymph % (Auto) 25.8 Person % (Auto) 8.6 Eos % (Auto) 0.1 Baso % (Auto) 0.1 Absolute Neuts (auto) 5.9 Absolute Lymphs (auto) 2.32 Nucleated RBC % 0 Sodium 140 Potassium 3.7 Chloride 106 Carbon Dioxide 25.0 Anion Gap 9 BUN 20 H Creatinine 1.20 H Estim Creat Clear Calc 24.62 Est GFR (MDRD) Af Amer 55 L Est GFR (MDRD) Non-Af 45 L BUN/Creatinine Ratio 16.7 Glucose 162 H Calcium 9.6 Troponin I High Sens 9 Radiography Chest X-Ray - ED: 1 View, Read by ED Physician, Heart, Lungs, Mediastinum, Bony Structures, No Acute Disease and Chronic Changes Diagnostic Testing: Clinical Impression(s) from Imaging Studies Chest X-Ray 07/13/21 19:55 IMPRESSION: Chronic scarring in the medial right lung base. No acute cardiopulmonary disease. Electronically Signed: Jourdan Whitten MD at 20:19 EST , Chest x-ray, portable, single view interpreted myself and radiologist shows chronic changes no acute process. Rhythm Strip Rhythm Strip: Sinus Rhythm Rate: 98 Ectopy: PVC(s) and PAC(s) EKG Initial EKG: Attestation: I personally reviewed and interpreted this EKG as follows: Interpretation: Sinus Rhythm and No Acute Injury Pattern Comments: Normal sinus rhythm rate of 98. No acute signs of SD nor ischemia. PVCs and PACs. Discharge Plan Triage Chief Complaint: Syncope ED Provider: Leobardo Campos Dx/Rx/DC Orders Clinical Impression: Near syncope Instructions: ED Near-Fainting, Uncertain Cause Prescriptions: No Action pravastatin 40 MG tablet 40 mg PO DAILY RF: 0 duloxetine 60 MG capsule 60 mg PO DAILY RF: 0 budesonide 3 MG capsule,delayed,extend.release 3 mg PO BID RF: 0 omeprazole 40 MG capsule,delayed release(DR/EC) 40 mg PO DAILY RF: 0 furosemide 20 mg tablet 40 mg DAILY RF: 0 Eliquis 5 mg tablet 5 mg BID RF: 0 ondansetron [ondansetron] 4 MG tablet 4 mg PO Q8H PRN PRN (Reason: Nausea) Qty: 10 RF: 0 Primary Care Provider: Claudio Steele Referrals: Claudio Steele, [Primary Care Provider] - As Needed Activity Restrictions/Additional Instructions: Plenty of fluids and rest. Return if feeling worse. Follow-up with your primary care physician as needed. Disposition Disposition: Home, Self Care
[2021-07-13 20:11] LABS: Absolute Lymphocyte Count 2.32 X10^3/uL (0.83-4.51); Absolute Neutrophil Count 5.9 X10^3/uL (2.0-7.7); Basophil# 0.01 X10^3/uL; Basophil% 0.1 % (0-1); Eosinophil# 0.01 X10^3/uL; Eosinophils% 0.1 % (0-5); Hematocrit 42.5 % (37-47); Hemoglobin 13.5 g/dL (12.0-15.0); Lymphocyte # 2.32 X10^3/ul (0.83-4.51); Lymphocyte % 25.8 % (19-41); Mean Corp Hgb Conc 31.8 g/dL (32-36); Mean Corpuscular Hgb 30.6 pg (27.0-32.0); Mean Corpuscular Volume 96.4 fL (81-99); Mean Platelet Vol. 9.9 fl (6.2-12.0); Monocyte# 0.77 X10^3/uL; Monocyte% 8.6 % (0-10); NRBC Flagged by Analyzer 0 % (0-5); Neutrophil # 5.85 X10^3/uL (2.7-7.7); Neutrophil % 65.1 % (47-70); Platelet Count 301 K/mm3 (150-450); RBC Distribution Width CV 14.1 % (11.6-14.6); RBC Distribution Width SD 49.7 fl (35.1-43.9); Red Blood Count 4.41 M/mm3 (4.2-5.4)
[2021-07-13 20:39] LABS: Anion Gap 9 (5-15); BUN 20 mg/dL (7-18); BUN/Creat Ratio 16.7 RATIO (10-20); Calcium,Total 9.6 mg/dL (8.5-10.1); Chloride 106 mmol/L (98-107); EST Glomerular Filtration Rate 45 mL/min (>60); Est Glom Filt Rate - Afr Amer 55 mL/min (>60); Estimated Creatinine Clearance 24.62 ml/min; Glucose 162 mg/dL (74-106); Potassium 3.7 mmol/L (3.5-5.1); Sodium Level 140 mmol/L (136-145); Troponin-I HS 9 pg/mL (3.0-54.0)
[2021-07-13 22:09] VITALS: BP 112/75; PULSE 80; RESP 15; O2SAT 97
[2021-07-13 22:25] LABS: Troponin-I HS 12 pg/mL (3.0-54.0)
== END 2021-07-13 22:19 | disposition home or self-care (01) ==
PROVIDERS: Emergency Provider Emergency Medicine; PCP Family Medicine; Visit Provider Emergency Medicine
DX: R55 Syncope and collapse (principal); Z79.01 Long term (current) use of anticoagulants; Z86.718 Personal history of other venous thrombosis and embolism
CPT/HCPCS: 71045; 80048; 84484; 85025; 93005; 99285; A4216

== ENCOUNTER 2021-07-19 09:01 | Outpatient (CLI) | payer MEDICARE, SELFPAY ==
--- NOTE | 2021-07-19 09:08 | VDLE_ITS ---
Reason For Study: LLE SWELLING RIGHT LEFT CFV is compressible, spontaneous, phasic, GSV is normal. competent and demonstrates normal CFV is compressible, spontaneous, phasic, augmentation. competent, and demonstrates normal Procedure augmentation. This is a venous duplex using B-mode, color FV is compressible, spontaneous, phasic, flow and spectral Doppler. competent and demonstrates normal Exam performed in department. augmentation. A preliminary report was called and/or faxed POP V is compressible, spontaneous, phasic, to Dr. Steele @ [phone] @ 9:30 am. competent and demonstrates normal Image #9 is the left PTV. augmentation. T/P Trunk is compressible. PTV is compressible. LT PerV is compressible. VL/Venous Duplex US, Unilateral Interpretation Summary Deep veins of the left lower extremity are patent and compressible segmentally. There is no evidence of left lower extremity deep vein thrombosis. Valvular competence appears intac t within the proximal deep venous system on the left . The left great saphenous vein appears patent a nd compressible segmentally. Ordering Physician: Claudio Steele Referring Physician: Claudio Steele Performed By: Jazmine Muller, THEA, RVT
== END 2021-07-19 23:59 | disposition home or self-care (01) ==
LOC: CVS 09:03
PROVIDERS: PCP Family Medicine; Referring Provider Family Medicine; Visit Provider Family Medicine
DX: M79.89 Other specified soft tissue disorders (principal); I82.402 Acute embolism and thrombosis of unspecified deep veins of left lower extremity; I87.2 Venous insufficiency (chronic) (peripheral)
CPT/HCPCS: 93971

== ENCOUNTER 2021-08-05 11:07 | Emergency (ER) | payer MEDICARE, SELFPAY ==
[2021-08-05 11:09] VITALS: BP 167/90; PULSE 77; RESP 14; TEMP 36.5; O2SAT 94; BMI 21.4
--- NOTE | 2021-08-05 11:25 | EDS_ITS ---
HPI History of Present Illness HPI Narrative: Injury of the left lower leg about a week ago. Chief Complaint: Edema Informant: patient and family Occured/Mechanism Mechanism/Context: Yes injury and Yes blunt trauma Onset/Context/Timing Onset: Days Context: Sudden Onset Timing: Continuous Quality of Pain: Dull and Aching Current Severity: Mild Maximum Severity: Mild Associated Symptoms Associated Symptoms: Negative for Parasthesia and Loss of Funtion Narrative Narrative: 86-year-old female prior left lower extremity DVT that is since resolved. She is currently on Eliquis finishing the last few days of the prescription. 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 She said she had pain and swelling in the leg since that time. No other complaints. Denies any bleeding. Prior similar symptoms: No Recent Illness/Hospitalization: No PFSH PFS Medical History H/O ht shoulder arthroscopy Home Medications duloxetine 60 mg PO DAILY 08/16/13 [History Last Taken 11/28/19] pravastatin 40 mg PO DAILY 08/16/13 [History Last Taken 11/27/19] budesonide 3 mg PO BID 10/21/18 [History Last Taken 11/28/19] omeprazole 40 mg PO DAILY 10/21/18 [History Last Taken 11/28/19] apixaban [Eliquis] 5 mg BID 05/07/21 [History Last Taken Unknown] furosemide 40 mg DAILY 05/07/21 [History Last Taken Unknown] ondansetron 4 mg PO Q8H PRN PRN #10 tab 05/07/21 [Rx Last Taken Unknown] Allergy/AdvReac Type Severity Reaction Status Date / Time No Known Allergies Allergy Verified 08/05/21 11:09 Family History Mother Temporal arteritis Other Arthritis Emphysema of lung Social History Smoking Status: Never smoker ROS ROS ED ROS Narrative Denies. Review of Systems ROS Unobtainable: Denies due to encephalopathy Constitutional Constitutional ED: Denies fever(s) Eyes Eyes: Denies change in vision ENT ENT ED: Denies ear pain Cardiovascular Cardiovascular: Denies chest pain Respiratory/Chest Respiratory/Chest: Denies dyspnea Gastrointestinal Gastrointestinal: Denies abdominal pain Genitourinary Genitourinary ED: Denies dysuria Musculoskeletal Musculoskeletal: Denies myalgias Integumentary Denies rash Neurologic Neurologic: Denies headache(s) Psychiatric Psychiatric: Denies depression Endocrine Endocrinology: Denies polyuria Hematologic/Lymphatic Hematologic/Lymphatic: Denies easy bruising Allergic/Immunologic Allergic/Immunologic ED: Denies urticaria EXAM Physical Exam Narrative Exam Narrative: 86-year-old female no acute distress. Vital signs are stable. She is afebrile. H EENT exam unremarkable atraumatic. Neck nontender. Lungs clear to auscultation. Heart regular rate and rhythm no murmur. Chest wall nontender. Abdomen soft nontender. Pelvic girdle intact. Moving all 4 extremities. 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 Normal dorsi plantar flexion. Her left lower leg below the knee into the foot there is bruising and swelling. She had a prior DVT there. There is a blood blister on the anterior swanson. There is no bony deformity. There is mild tenderness. She is able to do dorsi and plantar flexion with both feet. Normal touch sensation. There are no lacerations. No bony deformities. Normal range of motion. Const Vital Signs: 08/05/21 11:09 Temperature 97.7 F L Temperature Source Temporal Pulse Rate 77 Respiratory Rate 14 Blood Pressure 167/90 H Blood Pressure Mean 115 Pulse Ox 94 Oxygen Delivery Method Room Air Positive well nourished and well developed; Negative for obese, cachectic, contractures or unkempt General Appearance ED: well developed and NAD; Negative for unkempt, cachectic or contractures Nutritional Appearance: Negative for cachectic or obese HEENT Reports moist mucous membranes normocephalic and atraumatic; Negative for trauma or tenderness Eyes PERRL Neck full ROM and supple Thyroid: Negative for tender Chest Wall inspection of chest normal and palpation of chest normal Resp normal respiratory effort, no retractions and clear to auscultation bilaterally Auscultation: Negative for rales, rhonchi or wheezes Cardio regular rate, regular rhythm, S1 normal heart sound, S2 normal heart sound and no murmurs GI non-tender, non-distended and no masses Auscultation: normoactive bowel sounds Palpation: soft; Negative for tender or guarding Back/Spine no CVA tenderness General Back: Negative for CVA tenderness Cervical Spine: Negative for cervical spine tenderness Thoracic Spine / Upper Back: Negative for thoracic spinal tenderness Lumbar Spine / Lower Back: Negative for lumbar spinal tenderness Extremity normal to inspection and full ROM Extremity Narrative: Extremities are unremarkable except left lower leg there is bruising and swelling. Moderate sized blood blister anterior swanson. Neurovascularly intact with touch sensation. Dorsi plantar flexion. No bony deformity. General Extremety ED: Yes edema; Negative for cyanosis General Extremity: edema; Negative for cyanosis Neuro oriented x3 Sensorium / Orientation: alert, oriented to person, oriented to place and oriented to time Motor Exam: strength 5/5 throughout Psych mental status grossly normal Appearance: Negative for unkempt Skin No no wounds Skin Narrative: Bruising and blood blister left lower swanson. Lesions: no lesions Rashes: no rashes MDM MDM MDM Narrative Medical decision making narrative: 86-year-old female had blunt trauma to her left lower leg a week ago. She is able to ambulate on it. She denies bruising, swelling and a blood blister. Patient is on the blood thinner Eliquis. She is on her last few days. That will be stopped. She has had a repeat ultrasound showing that her DVT in that leg is resolved. Ice and elevate. She and I discussed the mechanisms of injury is highly unlikely to be a knee fracture. She and I discussed the monogamy do x-rays. Discharge Plan Triage Chief Complaint: Edema ED Provider: Leobardo Campos Dx/Rx/DC Orders Clinical Impression: Contusion of left leg, History of deep vein thrombosis, Chronic anticoagulation Instructions: ED Contusion, Lower Extremity Prescriptions: No Action pravastatin 40 MG tablet 40 mg PO DAILY RF: 0 duloxetine 60 MG capsule 60 mg PO DAILY RF: 0 budesonide 3 MG capsule,delayed,extend.release 3 mg PO BID RF: 0 omeprazole 40 MG capsule,delayed release(DR/EC) 40 mg PO DAILY RF: 0 furosemide 20 mg tablet 40 mg DAILY RF: 0 Eliquis 5 mg tablet 5 mg BID RF: 0 ondansetron [ondansetron] 4 MG tablet 4 mg PO Q8H PRN PRN (Reason: Nausea) Qty: 10 RF: 0 Primary Care Provider: Claudio Steele Referrals: Claudio Steele DO [Primary Care Provider] - Activity Restrictions/Additional Instructions: Ice and elevate your leg to decrease pain and swelling. I would stop your blood thinner medication. Stop the Eliquis. This should progressively get better your left leg may be prominently a little bit more swollen than the right due to the prior blood clot. The bruising will take several weeks to resolve. Follow-up with your doctor if you are still having significant pain or return we can always get an x-ray but I do not think that is necessary today. Disposition Disposition: Home, Self Care
== END 2021-08-05 11:43 | disposition home or self-care (01) ==
LOC: ED 11:31
PROVIDERS: Emergency Provider Emergency Medicine; PCP Family Medicine; Visit Provider Emergency Medicine
DX: S80.12XA Contusion of left lower leg, initial encounter (principal); Z86.718 Personal history of other venous thrombosis and embolism; X58.XXXA Exposure to other specified factors, initial encounter; Z79.01 Long term (current) use of anticoagulants
CPT/HCPCS: 99282

== ENCOUNTER 2021-10-08 09:45 | Outpatient (RCR) | payer MEDICARE, SELFPAY ==
[2021-09-17 09:59] VITALS: BP 180/61; PULSE 82; TEMP 35.7; BMI 22.4
[2021-09-17 11:37] LABS: Absolute Lymphocyte Count 1.81 X10^3/uL (0.83-4.51); Absolute Neutrophil Count 5.2 X10^3/uL (2.0-7.7); Basophil# 0.02 X10^3/uL; Basophil% 0.3 % (0-1); Eosinophil# 0.01 X10^3/uL; Eosinophils% 0.1 % (0-5); Hematocrit 38.9 % (37-47); Lymphocyte # 1.81 X10^3/ul (0.83-4.51); Lymphocyte % 23.4 % (19-41); Mean Corp Hgb Conc 30.8 g/dL (32-36); Mean Corpuscular Hgb 29.6 pg (27.0-32.0); Mean Corpuscular Volume 95.8 fL (81-99); Mean Platelet Vol. 9.2 fl (6.2-12.0); Monocyte# 0.64 X10^3/uL; Monocyte% 8.3 % (0-10); NRBC Flagged by Analyzer 0 % (0-5); Neutrophil # 5.22 X10^3/uL (2.7-7.7); Neutrophil % 67.5 % (47-70); Platelet Count 260 K/mm3 (150-450); RBC Distribution Width CV 14.6 % (11.6-14.6); RBC Distribution Width SD 51.4 fl (35.1-43.9); Red Blood Count 4.06 M/mm3 (4.2-5.4); White Blood Count 7.7 K/mm3 (4.4-11.0)
--- NOTE | 2021-09-17 11:52 | PCM.WC.HP ---
History of Present Illness Date of Service: 09/17/21 Chief Complaint: Traumatic wound - left pretibial area History of Wound: This is an 86-year-old female who presented accompanied by her [id number]. The patient relates a long history of swelling in her left leg. The swelling is typically worse at the end of the day. She claims to sleep on a flat mattress at night, but sits idly a great deal during each day. She is minimally active. 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 Patient has been evaluated in the [facility] Emergency Department on August 05, 2021. Patient has a history of left lower extremity deep vein thrombosis in the remote past, and again recently. She was on systemic anticoagulation therapy until her recent visit to the Emergency Department. She presented for evaluation and management relative to the traumatic wound on her left lower extremity. [facility] Medical History (Updated 09/17/21 @ 12:[address] Zaheer Campa MD) Choudhary esophagus Chronic kidney disease, stage III (moderate) Dementia H/O ht shoulder arthroscopy History of CVA (cerebrovascular accident) History of deep vein thrombosis (DVT) of lower extremity Left leg swelling Leg edema, left Lumbar disc disease Postphlebitic syndrome with inflammation Risk for falls Traumatic open wound of left lower leg Home Medications duloxetine 60 mg PO DAILY 08/16/13 [History Last Taken 11/28/19] pravastatin 40 mg PO DAILY 08/16/13 [History Last Taken 11/27/19] budesonide 3 mg PO BID 10/21/18 [History Last Taken 11/28/19] omeprazole 40 mg PO DAILY 10/21/18 [History Last Taken 11/28/19] apixaban [Eliquis] 5 mg BID 05/07/21 [History Last Taken Unknown] furosemide 40 mg DAILY 05/07/21 [History Last Taken Unknown] ondansetron 4 mg PO Q8H PRN PRN #10 tab 05/07/21 [Rx Last Taken Unknown] Allergy/AdvReac Type Severity Reaction Status Date / Time No Known Allergies Allergy Verified 08/05/21 11:09 Family History Mother Temporal arteritis Other Arthritis Emphysema of lung Surgical History no surgical history no surgical history (Patient has a history of tubal ligation, cholecystectomy, spinal fusion, appendectomy, right total knee replacement, and tonsillectomy. She is a G3, P3 Ab0.) Social History Smoking Status: Never smoker Vital Signs Vital Signs Vital Signs: 09/17/21 09:59 Temperature 96.2 F L Temperature Source Temporal Pulse Rate 82 Blood Pressure 180/61 H Blood Pressure Mean 100 Blood Pressure Source Monitor Weight Weight: 115 lb Body Mass Index (BMI) 22.4 Physical Exam Const alert, oriented x3, no apparent distress, average body habitus and well nourished General Appearance: cooperative, comfortable, well kempt and well developed Orientation / Consciousness: awake, oriented to person, oriented to place and oriented to time HEENT normocephalic and head/scalp atraumatic Head and Scalp: normal to inspection, normocephalic and atraumatic External Ear: external ears normal Eyes PERRL and EOMs intact bilaterally General Eye: normal appearance of both eyes Resp normal respiratory effort, normal air movement, no retractions and no use of accessory muscles Effort and Inspection: able to speak in complete sentences Extremity no calf tenderness General Extremity: Negative for clubbing or cyanosis Skin Wound Narrative: Mild swelling is noted in the right lower extremity. Moderate swelling is noted in the patient's left lower extremity. A large traumatic open wound is noted on the left pretibial surface. Dimensions are documented elsewhere. There is no sign of infection or cellulitis. Neuro oriented x3, CN's II-XII intact bilaterally and moves all extremities Sensorium / Orientation: awake, alert, oriented to person, oriented to place and oriented to time Psych Appearance: grossly normal and appropriate Attitude: calm Activity / Motor Behavior: appropriate eye contact Speech: normal speech Mood & Affect: euthymic mood Thought Process: normal thought process Thought Content: normal thought content Attention / Concentration: attention grossly intact Debridement Note Debridement Note Wound debrided: Left pretibial traumatic wound Laterality: Left Type of Debridement: Excisional debridement Anesthesia Used: 5% Lidocaine Gel Depth: Down to and including healthy tissue and in the subcutaneous layer Percentage of wound debrided: 100 Instrument Used: 5mm curette Tissue Removed: Nonviable and necrotic tissue, old hematoma, bioburden Severity: Fat Layer Exposed Bleeding Controlled with: Compression and gauze Patient tolerated procedure: Patient tolerated procedure well Debridement Free Text: A large dry eschar was noted overlying the traumatic wound in the left pretibial area. Using a sterile 5 mm curette, the dry eschar was removed, revealing a cavity of old hematoma beneath. Most of the hematoma was evacuated. The remaining wound was of some depth, and dimensions are documented elsewhere. There is no sign of infection or cellulitis. Post-Debridement Measurements and Additional Note: Post-Debridement Measurements/Treatment WC - Nurse 1 - General Ulcer Assessment Start: 09/17/21 09:59 Freq: Status: Active Protocol: ESTEFANI Activity Type Activity Date Activity User E-Sign Co-Sign Detail Recorded Client Recorded Date Recorded By Document 09/17/21 09:59 JOSE [id number] 09/17/21 10:11 JOSE 09/17/21 09:59 WC - Today's Visit Information Type of service Initial Visit Arrival Mode Ambulatory Patient Identification Verified (Name & Yes ) Patient Requires Transmission-Based No Precautions Safety Precautions Fall Prevention Height and Weight Height 5 ft Weight 115 lb Weight in Pounds 115.0 lbs Body Mass Index (BMI) 22.4 BMI Classification Normal BSA - Cassy 1.48 Vital Signs Temperature (97.8 F-99.1 F) 96.2 F L Temperature Source Temporal Pulse Rate (60-100) 82 Pulse Location Monitor Blood Pressure (90/60-120/80) 180/61 H Blood Pressure Mean 100 Source Monitor History Since Last Visit- (Skip if this is Patient's initial visit) Have you changed medications since your No last visit? Any new allergies or adverse reactions No Had a fall/change in ADL's that may No increase risk of falls Signs or symptoms of abuse and/or No neglect since last visit Have you been in the hospital since your No last visit? Has dressing in place as prescribed Yes Has compression in place as prescribed N/A Has offloadiing in place as prescribed N/A Experienced any changes in pain level or No management Left Footwear Regular Shoe Right Footwear Regular Shoe Pain Scale: 0-10 Numeric Is Patient Pain Free? Yes - Nurse 1 - General Ulcer Measurement Start: 09/17/21 09:59 Freq: Status: Active Protocol: Activity Type Activity Date Activity User E-Sign Co-Sign Detail Recorded Client Recorded Date Recorded By Document 09/17/21 09:[address] [id number] 09/17/21 10:11 AK 09/17/21 09:59 Wound Center Nurse 1 #1 L LE -Combined with other wound No -Current Size (cm) - Length 2 -Current Size (cm) - Width 3.5 -Current Size (cm) - Depth 0.1 -Total Square Cm 7.0 -Date of Last Picture (Recall this 09/17/21 field) -Photo Taken Yes -Epithelialization None Present -Tunneling No -Undermining/Tunneling No -Circular Undermining No -Change in Wound Grade/Stage No -Exudate Amt None Present -Wound Margin Thickened -Granulation Quality N/A -Slough/Fibrin No -Necrosis Amt Large (67-100%) -Necrotic Tissue Type Eschar -Structure Exposed N/A -Texture (Ana-wound Skin Appearance) Assessed, Scarring -Moisture (Ana-wound Skin Appearance) No Abnormality, Assessed -Color (Ana-wound Skin Appearance) Assessed, Hemosiderin Staining -Temperature (Ana-wound Skin No Abnormality Appearance) (Pt Warm) -Tenderness on Palpation (Ana-wound No Skin Appearance) -Ulcer Cleansing Rinsed/ Irrigated with Saline -Foul Odor after Cleansing No -Anesthetic Used 4% Lidocaine Solution Lower Limb Edema Present No Right Calf (cm) 29 Right Ankle (cm) 34 Left Calf (cm) 34 Left Ankle (cm) 27 WC - Nurse 2 - General Ulcer CM Notes Start: 09/17/21 09:59 Freq: Status: Active Protocol: Activity Type Activity Date Activity User E-Sign Co-Sign Detail Recorded Client Recorded Date Recorded By Document 09/17/21 11:11 PL [id number] 09/17/21 11:13 PL 09/17/21 11:11 Wound Center Nurse 2 #1 L LE -Time 10:26 -Correct Patient Yes -Correct Side, Site, Position Yes -Correct Procedure Yes -Procedure Performed Yes -Type of Procedure Debridement -Clinical Debridement Subcutaneous -Tissue Removed Subcutaneous -Post Debridement (cm) - Length 2.0 -Post Debridement (cm) - Width 3.5 -Post Debridement (cm) - Depth 0.3 -Total Square (Post) (cm) 7.00 -Area of Debridement (cm) - Length 2.0 -Area of Debridement (cm) - Width 3.5 -Total Square (Area) (cm) 7.00 -Tunneling No -Undermining/Tunneling No -Circular Undermining No -Wound/Ulcer Outcome Not Healed -Ulcer Cleansing Rinsed/ Irrigated with Saline -Foul Odor after Cleansing No -Bioengineered Tissue No -Bleeding Controlled with Pressure -Treatment Response Procedure Tolerated Well -Debridement - Subq, 1st 20sq cm Yes Pain Scale: 0-10 Numeric Is Patient Pain Free? Yes - Nurse 3 - General Ulcer D/C NN Start: 09/17/21 09:59 Freq: Status: Active Protocol: Activity Type Activity Date Activity User E-Sign Co-Sign Detail Recorded Client Recorded Date Recorded By Document 09/17/21 10:47 JOSE [id number] 09/17/21 10:48 JOSE 09/17/21 10:47 Wound Care Nurse 3 #1 L LE -Ulcer Cleansing Rinsed/ Irrigated with Saline -Foul Odor after Cleansing No -Negative Pressure Wound Therapy N/A -Primary Dressing Covered/Secured with Dry Gauze & Roll Gauze, Secured with Tape Left -Lotion applied to leg before No compression wrap -Tubular Bandage Double Layer -Size of Tubigrip Used Size E -Size E ($) 2 Pain Scale: 0-10 Numeric Is Patient Pain Free? Yes - Visit Discharge Discharge Condition Stable Ambulatory Status Ambulatory Transportation Private Auto Medication Reconcilliation completed & Yes provided to patient/care provider Clinical Summary of Care Provided Yes Lab / Micro Data Result Diagrams: 09/17/21 11:08 09/17/21 11:08 Labs: Laboratory Results - last 24 hr 09/17/21 11:08: WBC 7.7, RBC 4.06 L, Hgb 12.0, Hct 38.9, MCV 95.8, MCH 29.6, MCHC 30.8 L, RDW Std Deviation 51.4 H, RDW Coeff of Neisha 14.6, Plt Count 260, MPV 9.2, Immature Gran % (Auto) 0.400, Neut % (Auto) 67.5, Lymph % (Auto) 23.4, [place] % (Auto) 8.3, Eos % (Auto) 0.1, Baso % (Auto) 0.3, Absolute Neuts (auto) 5.2, Absolute Lymphs (auto) 1.81, Nucleated RBC % 0 Assessment/Plan Assessment/Plan (1) Traumatic open wound of left lower leg: CODE(S): S81.802A - Unspecified open wound, left lower leg, initial encounter (2) Left leg swelling: CODE(S): M79.89 - Other specified soft tissue disorders (3) Leg edema, left: CODE(S): R60.0 - Localized edema (4) History of deep vein thrombosis (DVT) of lower extremity: CODE(S): Z86.718 - Personal history of other venous thrombosis and embolism (5) Postphlebitic syndrome with inflammation: CODE(S): I87.029 - Postthrombotic syndrome with inflammation of unspecified lower extremity (6) Generalized weakness: CODE(S): R53.1 - Weakness (7) History of peptic ulcer: CODE(S): Z87.11 - Personal history of peptic ulcer disease (8) Ulcerative colitis: CODE(S): K51.90 - Ulcerative colitis, unspecified, without complications (9) Hyperlipidemia: CODE(S): E78.5 - Hyperlipidemia, unspecified (10) Hypothyroidism: CODE(S): E03.9 - Hypothyroidism, unspecified (11) GERD (gastroesophageal reflux disease): CODE(S): K21.9 - Gastro-esophageal reflux disease without esophagitis (12) HTN (hypertension): CODE(S): I10 - Essential (primary) hypertension (13) Chronic kidney disease, stage III (moderate): CODE(S): N18.30 - Chronic kidney disease, stage 3 unspecified (14) History of CVA (cerebrovascular accident): CODE(S): Z86.73 - Personal history of transient ischemic attack (TIA), and cerebral infarction without residual deficits (15) Choudhary esophagus: CODE(S): K22.70 - Choudhary's esophagus without dysplasia (16) Risk for falls: CODE(S): Z91.81 - History of falling (17) Dementia: CODE(S): F03.90 - Unspecified dementia without behavioral disturbance (18) Lumbar disc disease: CODE(S): M51.9 - Unspecified thoracic, thoracolumbar and lumbosacral intervertebral disc disorder PLAN: This is an 86-year-old female who presents with a traumatic wound on the left pretibial surface. She also has a long history of left lower extremity swelling, and prior episodes of left lower extremity deep vein thrombosis. We have discussed the implementation of conservative treatment measures, including leg elevation, avoidance of vital standing and sitting, lower extremity compression, avoidance of prolonged idle, the benefits of activity, and the use of [id number] analgesics as necessary. As discussed, elevation is to be to heart level, or higher. Prolonged idle sitting has been discouraged. Activity has been encouraged, though the patient is somewhat limited due to her advanced age and debility. We are to implement compression to the left lower extremity by means of a double Tubigrip. We are to implement local wound care by means of saline moistened gauze, which will be changed daily. The patient and her [id number] have been instructed in the appropriate means of packing. It is anticipated that this measure will rid the patient's wound of the remaining small amount of old adherent thrombus and nonviable tissue. Serial wound debridements are anticipated. We are to obtain a venous duplex ultrasound study, which may provide information as to the possible presence of venous outflow obstruction in the left lower extremity. Routine laboratory studies will also be obtained, including a CBC, comprehensive metabolic profile, and a serum prealbumin. Patient is to return in 1 week for reassessment. Total time: 29 minutes
[2021-09-17 14:13] LABS: ALB/GLOB Ratio 1.2 RATIO (0.9-2.4); AST(SGOT) 15 U/L (15-37); Alanine Aminotransfer ALT/SGPT 16 U/L (13-56); Albumin, Serum 3.7 g/dL (3.2-5.0); Alkaline Phosphatase 62 U/L (45-117); Anion Gap 8 (5-15); BUN 19 mg/dL (7-18); BUN/Creat Ratio 24.7 RATIO (10-20); Chloride 106 mmol/L (98-107); Creatinine, Serum 0.77 mg/dL (0.55-1.02); EST Glomerular Filtration Rate 76 mL/min (>60); Est Glom Filt Rate - Afr Amer 91 mL/min (>60); Estimated Creatinine Clearance 29.01 ml/min; Globulin 3.1 g/dL (2.2-4.2); Glucose 111 mg/dL (74-106); Potassium 3.6 mmol/L (3.5-5.1); Prealbumin 35.5 mg/dL (20.0-40.0); Protein, Total 6.8 g/dL (6.4-8.2); Sodium Level 140 mmol/L (136-145)
[2021-09-24 09:37] VITALS: BP 150/87; PULSE 85; TEMP 35.6; BMI 22.4
--- NOTE | 2021-09-24 14:48 | PCM.WC.HP ---
History of Present Illness Date of Service: 09/24/21 Chief Complaint: Traumatic wound - left pretibial area History of Wound: This is an 86-year-old female who presented accompanied by her [id number]. The patient relates a long history of swelling in her left leg. The swelling is typically worse at the end of the day. She claims to sleep on a flat mattress at night, but sits idly a great deal during each day. She is minimally active. Patient presents with an open wound on the left pretibial area, which had been present for approximately 1 month, and resulting from trauma as result of impacting her left pretibial area with the motion picture set grip door. Patient has been evaluated in the [facility] Emergency Department on August 05, 2021. Patient has a history of left lower extremity deep vein thrombosis in the remote past, and again recently. She was on systemic anticoagulation therapy until her recent visit to the Emergency Department. She presented for evaluation and management relative to the traumatic wound on her left lower extremity. [facility] Medical History Choudhary esophagus Chronic kidney disease, stage III (moderate) Dementia H/O ht shoulder arthroscopy History of CVA (cerebrovascular accident) History of deep vein thrombosis (DVT) of lower extremity Left leg swelling Leg edema, left Lumbar disc disease Postphlebitic syndrome with inflammation Risk for falls Traumatic open wound of left lower leg Home Medications duloxetine 60 mg PO DAILY 08/16/13 [History Last Taken 11/28/19] pravastatin 40 mg PO DAILY 08/16/13 [History Last Taken 11/27/19] budesonide 3 mg PO BID 10/21/18 [History Last Taken 11/28/19] omeprazole 40 mg PO DAILY 10/21/18 [History Last Taken 11/28/19] apixaban [Eliquis] 5 mg BID 05/07/21 [History Last Taken Unknown] furosemide 40 mg DAILY 05/07/21 [History Last Taken Unknown] ondansetron 4 mg PO Q8H PRN PRN #10 tab 05/07/21 [Rx Last Taken Unknown] Allergy/AdvReac Type Severity Reaction Status Date / Time No Known Allergies Allergy Verified 08/05/21 11:09 Family History Mother Temporal arteritis Other Arthritis Emphysema of lung Surgical History no surgical history Social History Smoking Status: Never smoker Vital Signs Vital Signs Vital Signs: 09/24/21 09:37 Temperature 96.1 F L Temperature Source Temporal Pulse Rate 85 Blood Pressure 150/87 H Blood Pressure Mean 108 Blood Pressure Source Monitor Weight Weight: 115 lb Body Mass Index (BMI) 22.4 Physical Exam Const alert, oriented x3, no apparent distress, average body habitus and well nourished General Appearance: cooperative, comfortable, well kempt and well developed Orientation / Consciousness: awake, oriented to person, oriented to place and oriented to time HEENT normocephalic and head/scalp atraumatic Head and Scalp: normal to inspection, normocephalic and atraumatic External Ear: external ears normal Eyes PERRL and EOMs intact bilaterally General Eye: normal appearance of both eyes Resp normal respiratory effort, normal air movement, no retractions and no use of accessory muscles Effort and Inspection: able to speak in complete sentences Extremity no calf tenderness General Extremity: Negative for clubbing or cyanosis Skin Wound Narrative: Mild swelling and edema persist in the patient's lower extremities bilaterally. It is particularly noted on the dorsum of each foot. The traumatic wound on the left pretibial area persists. It is much healthier in appearance. As compared to prior weeks, the preponderance of the dry eschar is absent. There is a small amount of nonviable eschar, and a moderate amount of bioburden. However, the base of the wound is largely pink and healthy in appearance. Dimensions are documented elsewhere. There is no sign of infection or cellulitis. Neuro oriented x3, CN's II-XII intact bilaterally and moves all extremities Sensorium / Orientation: awake, alert, oriented to person, oriented to place and oriented to time Psych Appearance: grossly normal and appropriate Attitude: calm Activity / Motor Behavior: appropriate eye contact Speech: normal speech Mood & Affect: euthymic mood Thought Process: normal thought process Thought Content: normal thought content Attention / Concentration: attention grossly intact Debridement Note Debridement Note Wound debrided: Left pretibial wound Laterality: Left Type of Debridement: Excisional debridement Anesthesia Used: 5% Lidocaine Gel Depth: Down to and including healthy tissue and in the subcutaneous layer Percentage of wound debrided: 100 Instrument Used: 5mm curette Tissue Removed: Bioburden, eschar, and nonviable tissue Severity: Fat Layer Exposed Amount of bleeding with debridement: Mild Bleeding Controlled with: Compression and gauze Patient tolerated procedure: Patient tolerated procedure well Post-Debridement Measurements and Additional Note: Post-Debridement Measurements/Treatment WC - Nurse 1 - General Ulcer Assessment Start: 09/17/21 09:59 Freq: Status: Active Protocol: ESTEFANI Activity Type Activity Date Activity User E-Sign Co-Sign Detail Recorded Client Recorded Date Recorded By Document 09/17/21 09:59 CO [id number] 09/17/21 10:11 AK Document 09/24/21 09:37 CO [id number] 09/24/21 09:46 AK 09/17/21 09/24/21 09:59 09:37 - Today's Visit Information Type of service Initial Visit Follow-up Visit (Physician/[employer] ) Arrival Mode Ambulatory Ambulatory Patient Identification Verified (Name & Yes Yes ) Patient Requires Transmission-Based No No Precautions Safety Precautions Fall Prevention NA Height and Weight Height 5 ft Weight 115 lb Weight in Pounds 115.0 lbs Body Mass Index (BMI) 22.4 22.4 BMI Classification Normal Normal BSA - Cassy 1.48 Vital Signs Temperature (97.8 F-99.1 F) 96.2 F L 96.1 F L Temperature Source Temporal Temporal Pulse Rate (60-100) 82 85 Pulse Location Monitor Monitor Blood Pressure (90/60-120/80) 180/61 H 150/87 H Blood Pressure Mean 100 108 Source Monitor Monitor History Since Last Visit- (Skip if this is Patient's initial visit) Have you changed medications since your No No last visit? Any new allergies or adverse reactions No No Had a fall/change in ADL's that may No No increase risk of falls Signs or symptoms of abuse and/or No No neglect since last visit Have you been in the hospital since your No No last visit? Has dressing in place as prescribed Yes Yes Has compression in place as prescribed N/A Yes Has offloadiing in place as prescribed N/A N/A Experienced any changes in pain level or No No management Left Footwear Regular Shoe Regular Shoe Right Footwear Regular Shoe Regular Shoe Pain Scale: 0-10 Numeric Is Patient Pain Free? Yes No WC - Nurse 1 - General Ulcer Measurement Start: 09/17/21 09:59 Freq: Status: Active Protocol: Activity Type Activity Date Activity User E-Sign Co-Sign Detail Recorded Client Recorded Date Recorded By Document 09/17/21 09:59 CO [id number] 09/17/21 10:11 AK Document 09/24/21 09:37 CO [id number] 09/24/21 09:46 AK 09/17/21 09/24/21 09:59 09:37 Wound Center Nurse 1 #1 L LE -Combined with other wound No No -Current Size (cm) - Length 2 2 -Current Size (cm) - Width 3.5 2.5 -Current Size (cm) - Depth 0.1 0.2 -Total Square Cm 7.0 5.0 -Date of Last Picture (Recall this 09/17/21 field) -Photo Taken Yes Yes -Epithelialization None Present -Tunneling No -Undermining/Tunneling No -Circular Undermining No -Change in Wound Grade/Stage No -Exudate Amt None Present Medium -Exudate Type Serosanguineous -Wound Margin Thickened Distinct, Outline Attached -Granulation Amt Large (67-100%) -Granulation Quality N/A -Slough/Fibrin No -Necrosis Amt Large (67-100%) Medium (34-66%) -Necrotic Tissue Type Eschar Adherent Slough -Structure Exposed N/A N/A -Texture (Ana-wound Skin Appearance) Assessed, Scarring Scarring -Moisture (Ana-wound Skin Appearance) No Abnormality, Dry/Scaly Assessed -Color (Ana-wound Skin Appearance) Assessed, Hemosiderin Hemosiderin Staining Staining -Temperature (Ana-wound Skin No Abnormality No Abnormality Appearance) (Pt Warm) (Pt Warm) -Tenderness on Palpation (Ana-wound No No Skin Appearance) -Ulcer Cleansing Rinsed/ Soap and Water Irrigated with Saline -Foul Odor after Cleansing No No -Anesthetic Used 4% Lidocaine 5% Lidocaine Solution Gel Lower Limb Edema Present No Right Calf (cm) 29 Right Ankle (cm) 34 Left Calf (cm) 34 28 Left Ankle (cm) 27 26 WC - Nurse 2 - General Ulcer CM Notes Start: 09/17/21 09:59 Freq: Status: Active Protocol: Activity Type Activity Date Activity User E-Sign Co-Sign Detail Recorded Client Recorded Date Recorded By Document 09/17/21 11:11 PL [id number] 09/17/21 11:13 PL Document 09/24/21 13:07 PL [id number] 09/24/21 13:08 PL 09/17/21 09/24/21 11:11 13:07 Wound Center Nurse 2 #1 L LE -Time 10:26 10:10 -Correct Patient Yes Yes -Correct Side, Site, Position Yes Yes -Correct Procedure Yes Yes -Procedure Performed Yes Yes -Type of Procedure Debridement Debridement -Clinical Debridement Subcutaneous Subcutaneous -Tissue Removed Subcutaneous Subcutaneous -Post Debridement (cm) - Length 2.0 2.0 -Post Debridement (cm) - Width 3.5 2.5 -Post Debridement (cm) - Depth 0.3 0.2 -Total Square (Post) (cm) 7.00 5.00 -Area of Debridement (cm) - Length 2.0 2.0 -Area of Debridement (cm) - Width 3.5 2.5 -Total Square (Area) (cm) 7.00 5.00 -Tunneling No No -Undermining/Tunneling No No -Circular Undermining No No -Wound/Ulcer Outcome Not Healed Not Healed -Ulcer Cleansing Rinsed/ Rinsed/ Irrigated with Irrigated with Saline Saline -Foul Odor after Cleansing No No -Bioengineered Tissue No No -Bleeding Controlled with Pressure Pressure -Treatment Response Procedure Procedure Tolerated Well Tolerated Well -Debridement - Subq, 1st 20sq cm Yes Yes Pain Scale: 0-10 Numeric Is Patient Pain Free? Yes Yes WC - Nurse 3 - General Ulcer D/C NN Start: 09/17/21 09:59 Freq: Status: Active Protocol: Activity Type Activity Date Activity User E-Sign Co-Sign Detail Recorded Client Recorded Date Recorded By Document 09/17/21 10:47 AK [id number] 09/17/21 10:48 AK Document 09/24/21 11:52 AK [id number] 09/24/21 11:53 AK 09/17/21 09/24/21 10:47 11:52 Wound Care Nurse 3 #1 L LE -Ulcer Cleansing Rinsed/ Rinsed/ Irrigated with Irrigated with Saline Saline -Foul Odor after Cleansing No No -Negative Pressure Wound Therapy N/A N/A -Other Dressing wet to dry -Primary Dressing Covered/Secured with Dry Gauze & Dry Gauze & Roll Gauze, Roll Gauze, Secured with Secured with Tape Tape Left -Lotion applied to leg before No compression wrap -Tubular Bandage Double Layer Double Layer -Size of Tubigrip Used Size E Size D -Size D ($) 2 -Size E ($) 2 Pain Scale: 0-10 Numeric Is Patient Pain Free? Yes Yes WC - Visit Discharge Discharge Condition Stable Stable Ambulatory Status Ambulatory Ambulatory Transportation Private Auto Private Auto Medication Reconcilliation completed & Yes Yes provided to patient/care provider Clinical Summary of Care Provided Yes Yes Lab / Micro Data Result Diagrams: 09/17/21 11:08 09/17/21 11:08 Assessment/Plan Assessment/Plan (1) Traumatic open wound of left lower leg: CODE(S): S81.802A - Unspecified open wound, left lower leg, initial encounter (2) Leg edema, left: CODE(S): R60.0 - Localized edema (3) Left leg swelling: CODE(S): M79.89 - Other specified soft tissue disorders (4) Postphlebitic syndrome with inflammation: CODE(S): I87.029 - Postthrombotic syndrome with inflammation of unspecified lower extremity (5) History of deep vein thrombosis (DVT) of lower extremity: CODE(S): Z86.718 - Personal history of other venous thrombosis and embolism (6) Lumbar disc disease: CODE(S): M51.9 - Unspecified thoracic, thoracolumbar and lumbosacral intervertebral disc disorder (7) Dementia: CODE(S): F03.90 - Unspecified dementia without behavioral disturbance (8) Risk for falls: CODE(S): Z91.81 - History of falling (9) Choudhary esophagus: CODE(S): K22.70 - Choudhary's esophagus without dysplasia (10) History of CVA (cerebrovascular accident): CODE(S): Z86.73 - Personal history of transient ischemic attack (TIA), and cerebral infarction without residual deficits (11) Chronic kidney disease, stage III (moderate): CODE(S): N18.30 - Chronic kidney disease, stage 3 unspecified (12) Generalized weakness: CODE(S): R53.1 - Weakness (13) History of peptic ulcer: CODE(S): Z87.11 - Personal history of peptic ulcer disease (14) Ulcerative colitis: CODE(S): K51.90 - Ulcerative colitis, unspecified, without complications (15) Hyperlipidemia: CODE(S): E78.5 - Hyperlipidemia, unspecified (16) Hypothyroidism: CODE(S): E03.9 - Hypothyroidism, unspecified (17) GERD (gastroesophageal reflux disease): CODE(S): K21.9 - Gastro-esophageal reflux disease without esophagitis (18) HTN (hypertension): CODE(S): I10 - Essential (primary) hypertension PLAN: This is an 86-year-old female who presented with a traumatic wound on the left pretibial surface. She also has a long history of left lower extremity swelling, and prior episodes of left lower extremity deep vein thrombosis. We have discussed the implementation of conservative treatment measures, including leg elevation, avoidance of idle standing and sitting, lower extremity compression, the benefits of activity, and the use of [id number] analgesics as necessary. As discussed, elevation is to be to heart level, or higher. Prolonged idle sitting has been discouraged. Activity has been encouraged, though the patient is somewhat limited due to her advanced age and debility. We are to implement compression to the left lower extremity by means of a double Tubigrip. We are to continue local wound care by means of saline moistened gauze, which will be changed daily. The patient and her [id number] have been instructed in the appropriate means of packing. It is anticipated that this measure will rid the patient's wound of the remaining small amount of old adherent thrombus and nonviable tissue. Serial wound debridements are anticipated. We are to obtain a venous duplex ultrasound study, which may provide information as to the possible presence of venous outflow obstruction in the left lower extremity. Routine laboratory studies have been performed, with results as follows: Glucose 111, BUN 19, creatinine 0.77, total protein 6.8, albumin 3.7, calcium 9.0, AST 15, alkaline phosphatase 62, ALT 16, total bilirubin 0.30, sodium 140, potassium 3.6, chloride 106, serum prealbumin 35.5, white blood count 7.7, hemoglobin 12.0, hematocrit 38.9, platelets 260,000. Patient is to return in 1 week for reassessment. Total time: 28 minutes
[2021-10-01 09:42] VITALS: BP 153/81; PULSE 73; TEMP 36.4; BMI 22.4
--- NOTE | 2021-10-01 10:22 | PCM.WC.HP ---
History of Present Illness Date of Service: 10/01/21 Chief Complaint: Traumatic wound - left pretibial area History of Wound: This is an 86-year-old female who presented accompanied by her [id number]. The patient relates a long history of swelling in her left leg. The swelling is typically worse at the end of the day. She claims to sleep on a flat mattress at night, but sits idly a great deal during each day. She is minimally active. 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 Patient has been evaluated in the [facility] Emergency Department on August 05, 2021. Patient has a history of left lower extremity deep vein thrombosis in the remote past, and again recently. She was on systemic anticoagulation therapy until her recent visit to the Emergency Department. She presented for evaluation and management relative to the traumatic wound on her left lower extremity. [facility] Medical History Choudhary esophagus Chronic kidney disease, stage III (moderate) Dementia H/O ht shoulder arthroscopy History of CVA (cerebrovascular accident) History of deep vein thrombosis (DVT) of lower extremity Left leg swelling Leg edema, left Lumbar disc disease Postphlebitic syndrome with inflammation Risk for falls Traumatic open wound of left lower leg Home Medications duloxetine 60 mg PO DAILY 08/16/13 [History Last Taken 11/28/19] pravastatin 40 mg PO DAILY 08/16/13 [History Last Taken 11/27/19] budesonide 3 mg PO BID 10/21/18 [History Last Taken 11/28/19] omeprazole 40 mg PO DAILY 10/21/18 [History Last Taken 11/28/19] apixaban [Eliquis] 5 mg BID 05/07/21 [History Last Taken Unknown] furosemide 40 mg DAILY 05/07/21 [History Last Taken Unknown] ondansetron 4 mg PO Q8H PRN PRN #10 tab 05/07/21 [Rx Last Taken Unknown] Allergy/AdvReac Type Severity Reaction Status Date / Time No Known Allergies Allergy Verified 08/05/21 11:09 Family History Mother Temporal arteritis Other Arthritis Emphysema of lung Surgical History no surgical history Social History Smoking Status: Never smoker Vital Signs Vital Signs Vital Signs: 10/01/21 09:42 Temperature 97.5 F L Temperature Source Temporal Pulse Rate 73 Blood Pressure 153/81 H Blood Pressure Mean 105 Blood Pressure Source Monitor Blood Pressure Position Sitting Blood Pressure Location Right Arm Weight Weight: 115 lb Body Mass Index (BMI) 22.4 Physical Exam Const alert, oriented x3, no apparent distress, average body habitus and well nourished General Appearance: cooperative, comfortable, well kempt and well developed Orientation / Consciousness: awake, oriented to person, oriented to place and oriented to time HEENT normocephalic and head/scalp atraumatic Head and Scalp: normal to inspection, normocephalic and atraumatic External Ear: external ears normal Eyes PERRL and EOMs intact bilaterally General Eye: normal appearance of both eyes Resp normal respiratory effort, normal air movement, no retractions and no use of accessory muscles Effort and Inspection: able to speak in complete sentences Extremity no calf tenderness General Extremity: Negative for clubbing or cyanosis Skin Wound Narrative: Slight swelling is noted in the patient's distal left lower extremity. The wound on the left pretibial area persists, but is much smaller in size. The depth of the wound has also diminished. Dimensions are documented elsewhere. The nonviable and necrotic tissue which had been previously present is now largely eliminated. There is no sign of infection or cellulitis. There is a moderate amount of bioburden. Neuro oriented x3, CN's II-XII intact bilaterally and moves all extremities Sensorium / Orientation: awake, alert, oriented to person, oriented to place and oriented to time Psych Appearance: grossly normal and appropriate Attitude: calm Activity / Motor Behavior: appropriate eye contact Speech: normal speech Mood & Affect: euthymic mood Thought Process: normal thought process Thought Content: normal thought content Attention / Concentration: attention grossly intact Debridement Note Debridement Note Wound debrided: Left pretibial wound Laterality: Left Type of Debridement: Excisional debridement Anesthesia Used: 5% Lidocaine Gel Depth: Down to and including healthy tissue and in the subcutaneous layer Percentage of wound debrided: 100 Instrument Used: 5mm curette Tissue Removed: Bioburden Severity: Fat Layer Exposed Amount of bleeding with debridement: Mild Bleeding Controlled with: Compression and gauze Patient tolerated procedure: Patient tolerated procedure well Post-Debridement Measurements and Additional Note: Post-Debridement Measurements/Treatment WC - Nurse 1 - General Ulcer Assessment Start: 09/17/21 09:59 Freq: Status: Active Protocol: [id number] Activity Type Activity Date Activity User E-Sign Co-Sign Detail Recorded Client Recorded Date Recorded By Document 09/17/21 09:59 AK [id number] 09/17/21 10:11 AK Document 09/24/21 09:37 AK [id number] 09/24/21 09:46 AK Document 10/01/21 09:42 KR [id number] 10/01/21 09:50 KR 09/17/21 09/24/21 10/01/21 09:59 09:37 09:42 - Today's Visit Information Type of service Initial Visit Follow-up Visit Follow-up Visit (Physician/FINANCIAL SECRETARY (Physician/FINANCIAL SECRETARY ) ) Arrival Mode Ambulatory Ambulatory Ambulatory Patient Identification Verified (Name & Yes Yes Yes ) Patient Requires Transmission-Based No No Precautions Safety Precautions Fall Prevention NA Height and Weight Height 5 ft Weight 115 lb Weight in Pounds 115.0 lbs Body Mass Index (BMI) 22.4 22.4 22.4 BMI Classification Normal Normal Normal BSA - Cassy 1.48 Vital Signs Temperature (97.8 F-99.1 F) 96.2 F L 96.1 F L 97.5 F L Temperature Source Temporal Temporal Temporal Pulse Rate (60-100) 82 85 73 Pulse Location Monitor Monitor Monitor Blood Pressure (90/60-120/80) 180/61 H 150/87 H 153/81 H Blood Pressure Mean 100 108 105 Source Monitor Monitor Monitor Position Sitting Blood Pressure Location Right Arm History Since Last Visit- (Skip if this is Patient's initial visit) Have you changed medications since your No No No last visit? Any new allergies or adverse reactions No No No Had a fall/change in ADL's that may No No No increase risk of falls Signs or symptoms of abuse and/or No No No neglect since last visit Have you been in the hospital since your No No No last visit? Has dressing in place as prescribed Yes Yes Has compression in place as prescribed N/A Yes Has offloadiing in place as prescribed N/A N/A Experienced any changes in pain level or No No management Left Footwear Regular Shoe Regular Shoe Regular Shoe Right Footwear Regular Shoe Regular Shoe Regular Shoe Pain Scale: 0-10 Numeric Is Patient Pain Free? Yes No Yes WC - Nurse 1 - General Ulcer Measurement Start: 09/17/21 09:59 Freq: Status: Active Protocol: Activity Type Activity Date Activity User E-Sign Co-Sign Detail Recorded Client Recorded Date Recorded By Document 09/17/21 09:59 AK [id number] 09/17/21 10:11 AK Document 09/24/21 09:37 AK [id number] 09/24/21 09:46 AK Document 10/01/21 09:42 KR [id number] 10/01/21 09:50 KR 09/17/21 09/24/21 10/01/21 09:59 09:37 09:42 Wound Center Nurse 1 #1 L LE -Combined with other wound No No -Current Size (cm) - Length 2 2 2.1 -Current Size (cm) - Width 3.5 2.5 1.9 -Current Size (cm) - Depth 0.1 0.2 0.2 -Total Square Cm 7.0 5.0 3.99 -Date of Last Picture (Recall this 09/17/21 field) -Photo Taken Yes Yes -Epithelialization None Present -Tunneling No -Undermining/Tunneling No -Circular Undermining No -Change in Wound Grade/Stage No -Exudate Amt None Present Medium Medium -Exudate Type Serosanguineous Serosanguineous -Wound Margin Thickened Distinct, Distinct, Outline Outline Attached Attached -Granulation Amt Large (67-100%) Medium (34-66%) -Granulation Quality N/A Red -Slough/Fibrin No -Necrosis Amt Large (67-100%) Medium (34-66%) Medium (34-66%) -Necrotic Tissue Type Eschar Adherent Slough Adherent Slough -Structure Exposed N/A N/A -Texture (Ana-wound Skin Appearance) Assessed, Scarring Assessed, Scarring Scarring -Moisture (Ana-wound Skin Appearance) No Abnormality, Dry/Scaly No Abnormality, Assessed Assessed -Color (Ana-wound Skin Appearance) Assessed, Hemosiderin No Abnormality, Hemosiderin Staining Assessed Staining -Temperature (Ana-wound Skin No Abnormality No Abnormality No Abnormality Appearance) (Pt Warm) (Pt Warm) (Pt Warm) -Tenderness on Palpation (Ana-wound No No No Skin Appearance) -Ulcer Cleansing Rinsed/ Soap and Water Rinsed/ Irrigated with Irrigated with Saline Saline -Foul Odor after Cleansing No No No -Anesthetic Used 4% Lidocaine 5% Lidocaine 5% Lidocaine Solution Gel Gel Lower Limb Edema Present No Right Calf (cm) 29 Right Ankle (cm) 34 Left Calf (cm) 34 28 32 Left Ankle (cm) 27 26 25.4 WC - Nurse 2 - General Ulcer CM Notes Start: 09/17/21 09:59 Freq: Status: Active Protocol: Activity Type Activity Date Activity User E-Sign Co-Sign Detail Recorded Client Recorded Date Recorded By Document 09/17/21 11:11 PL [id number] 09/17/21 11:13 PL Document 09/24/21 13:07 PL [id number] 09/24/21 13:08 PL 09/17/21 09/24/21 11:11 13:07 Wound Center Nurse 2 #1 L LE -Time 10:26 10:10 -Correct Patient Yes Yes -Correct Side, Site, Position Yes Yes -Correct Procedure Yes Yes -Procedure Performed Yes Yes -Type of Procedure Debridement Debridement -Clinical Debridement Subcutaneous Subcutaneous -Tissue Removed Subcutaneous Subcutaneous -Post Debridement (cm) - Length 2.0 2.0 -Post Debridement (cm) - Width 3.5 2.5 -Post Debridement (cm) - Depth 0.3 0.2 -Total Square (Post) (cm) 7.00 5.00 -Area of Debridement (cm) - Length 2.0 2.0 -Area of Debridement (cm) - Width 3.5 2.5 -Total Square (Area) (cm) 7.00 5.00 -Tunneling No No -Undermining/Tunneling No No -Circular Undermining No No -Wound/Ulcer Outcome Not Healed Not Healed -Ulcer Cleansing Rinsed/ Rinsed/ Irrigated with Irrigated with Saline Saline -Foul Odor after Cleansing No No -Bioengineered Tissue No No -Bleeding Controlled with Pressure Pressure -Treatment Response Procedure Procedure Tolerated Well Tolerated Well -Debridement - Subq, 1st 20sq cm Yes Yes Pain Scale: 0-10 Numeric Is Patient Pain Free? Yes Yes - Nurse 3 - General Ulcer D/C NN Start: 09/17/21 09:59 Freq: Status: Active Protocol: Activity Type Activity Date Activity User E-Sign Co-Sign Detail Recorded Client Recorded Date Recorded By Document 09/17/21 10:47 JOSE [id number] 09/17/21 10:48 AK Document 09/24/21 11:52 JOSE [id number] 09/24/21 11:53 AK 09/17/21 09/24/21 10:47 11:52 Wound Care Nurse 3 #1 L LE -Ulcer Cleansing Rinsed/ Rinsed/ Irrigated with Irrigated with Saline Saline -Foul Odor after Cleansing No No -Negative Pressure Wound Therapy N/A N/A -Other Dressing wet to dry -Primary Dressing Covered/Secured with Dry Gauze & Dry Gauze & Roll Gauze, Roll Gauze, Secured with Secured with Tape Tape Left -Lotion applied to leg before No compression wrap -Tubular Bandage Double Layer Double Layer -Size of Tubigrip Used Size E Size D -Size D ($) 2 -Size E ($) 2 Pain Scale: 0-10 Numeric Is Patient Pain Free? Yes Yes WC - Visit Discharge Discharge Condition Stable Stable Ambulatory Status Ambulatory Ambulatory Transportation Private Auto Private Auto Medication Reconcilliation completed & Yes Yes provided to patient/care provider Clinical Summary of Care Provided Yes Yes Lab / Micro Data Result Diagrams: 09/17/21 11:08 09/17/21 11:08 Assessment/Plan Assessment/Plan (1) Traumatic open wound of left lower leg: CODE(S): S81.802A - Unspecified open wound, left lower leg, initial encounter QUALIFIERS: Encounter type: subsequent encounter Qualified Code(s): S81.802D - Unspecified open wound, left lower leg, subsequent encounter (2) Leg edema, left: CODE(S): R60.0 - Localized edema (3) Left leg swelling: CODE(S): M79.89 - Other specified soft tissue disorders (4) Postphlebitic syndrome with inflammation: CODE(S): I87.029 - Postthrombotic syndrome with inflammation of unspecified lower extremity (5) History of deep vein thrombosis (DVT) of lower extremity: CODE(S): Z86.718 - Personal history of other venous thrombosis and embolism (6) Lumbar disc disease: CODE(S): M51.9 - Unspecified thoracic, thoracolumbar and lumbosacral intervertebral disc disorder (7) Dementia: CODE(S): F03.90 - Unspecified dementia without behavioral disturbance (8) Risk for falls: CODE(S): Z91.81 - History of falling (9) Choudhary esophagus: CODE(S): K22.70 - Choudhary's esophagus without dysplasia (10) History of CVA (cerebrovascular accident): CODE(S): Z86.73 - Personal history of transient ischemic attack (TIA), and cerebral infarction without residual deficits (11) Chronic kidney disease, stage III (moderate): CODE(S): N18.30 - Chronic kidney disease, stage 3 unspecified (12) Generalized weakness: CODE(S): R53.1 - Weakness (13) Distal radius fracture: CODE(S): S52.509A - Unspecified fracture of the lower end of unspecified radius, initial encounter for closed fracture (14) History of peptic ulcer: CODE(S): Z87.11 - Personal history of peptic ulcer disease (15) Ulcerative colitis: CODE(S): K51.90 - Ulcerative colitis, unspecified, without complications (16) Hyperlipidemia: CODE(S): E78.5 - Hyperlipidemia, unspecified (17) Hypothyroidism: CODE(S): E03.9 - Hypothyroidism, unspecified (18) GERD (gastroesophageal reflux disease): CODE(S): K21.9 - Gastro-esophageal reflux disease without esophagitis (19) HTN (hypertension): CODE(S): I10 - Essential (primary) hypertension PLAN: This is an 86-year-old female who presented with a traumatic wound on the left pretibial surface. She also has a long history of left lower extremity swelling, and prior episodes of left lower extremity deep vein thrombosis. We have discussed the implementation of conservative treatment measures, including leg elevation, avoidance of idle standing and sitting, lower extremity compression, the benefits of activity, and the use of [id number]-ioqkdfd analgesics as necessary. As discussed, elevation is to be to heart level, or higher. Prolonged idle sitting has been discouraged. Activity has been encouraged, though the patient is somewhat limited due to her advanced age and debility. We are to continue compression to the left lower extremity by means of a double Tubigrip. We are to transition to the use of Promogran, which will be applied by the patient and her family on a daily basis. The patient and her [id number] have been instructed in the appropriate means of application. Serial wound debridements are anticipated. Routine laboratory studies have been performed, with results as follows: Glucose 111, BUN 19, creatinine 0.77, total protein 6.8, albumin 3.7, calcium 9.0, AST 15, alkaline phosphatase 62, ALT 16, total bilirubin 0.30, sodium 140, potassium 3.6, chloride 106, serum prealbumin 35.5, white blood count 7.7, hemoglobin 12.0, hematocrit 38.9, platelets 260,000. Patient is to return in 1 week for reassessment. Total time: 29 minutes
[2021-10-08 09:59] VITALS: BP 154/76; PULSE 85; TEMP 36.1; BMI 22.4
--- NOTE | 2021-10-08 12:42 | VDLE_ITS ---
Reason For Study: edema RIGHT LEFT CFV is compressible, spontaneous, phasic, CFV is compressible, spontaneous, phasic, competent and demonstrates normal competent, and demonstrates normal augmentation. augmentation. FV is compressible, spontaneous, phasic, FV is compressible, spontaneous, phasic, competent and demonstrates normal competent and demonstrates normal augmentation. augmentation. POP V is compressible, spontaneous, phasic, POP V is compressible, spontaneous, phasic, competent and demonstrates normal competent and demonstrates normal augmentation. augmentation. T/P Trunk is compressible. T/P Trunk is compressible. PTV is compressible. PTV is compressible. RT PerV is compressible. LT PerV is compressible. SFJ is competent and measures .28 cm. SFJ is competent and measures .33 cm. GSV proximal thigh measures .18 x .18 cm. GSV proximal thigh measures .16 x .17 cm. GSV at knee measures .14 x .14 cm. GSV at knee measures .14 x .16 cm. GSV is competent throughout. GSV is competent throughout. SSV proximal calf is competent and SSV proximal calf is competent and measures .24 x .27 cm. measures .49 x .48 cm. Hypoechoic area behind the knee measuring Hypoechoic area behind the knee measuring 1.1 1.02 x 2.73 cm. Area is nonvascular. x 2.55 cm. Area is nonvascular. Procedure Spontaneous and phasic flow is noted in the This is a venous duplex using B-mode, color Common Iliac and External Iliac veins. flow and spectral Doppler. Exam performed in department. The exam was diagnostic. VL/Venous Duplex US - Dawson Extrem Interpretation Summary Deep veins of the lower extremities are bilaterally patent and compressible seg mentally. There is no evidence of deep vein thrombosis on either side. Valvular competence appears in tact within the proximal deep venous systems bilaterally. The great saphenous veins appear bila terally patent and compressible segmentally. Sapheno-femoral junctions are bilaterally competent . Valvular competence appears to be intact segmentally within the great saphenous veins bilaterally. Small saphenous veins are patent and competent bilaterally. A non-vascular, hypoechoic structure is n oted bilaterally in each popliteal space, with dimensions as documented above. These probably repre sent popliteal cysts. Clinical correlation is advised. Spontaneous and phasic venous flow is noted in the left common iliac vein and left external iliac vein, suggesting relatively normal venous ou tflow in the left lower extremity. Ordering Physician: Zaheer Campa Performed By: Raghav Phillips RVT
--- NOTE | 2021-10-08 12:49 | PCM.WC.HP ---
History of Present Illness Date of Service: 10/08/21 Chief Complaint: Traumatic wound - left pretibial area History of Wound: This is an 86-year-old female who presented accompanied by her [id number]. The patient relates a long history of swelling in her left leg. The swelling is typically worse at the end of the day. She claims to sleep on a flat mattress at night, but sits idly a great deal during each day. She is minimally active. Patient presents with an open wound on the left pretibial area, which had been present for approximately 1 month, and resulting from trauma as result of impacting her left pretibial area with the soil science technical officer door. Patient has been evaluated in the [facility] Emergency Department on August 05, 2021. Patient has a history of left lower extremity deep vein thrombosis in the remote past, and again recently. She was on systemic anticoagulation therapy until her recent visit to the Emergency Department. She presented for evaluation and management relative to the traumatic wound on her left lower extremity. [facility] Medical History Choudhary esophagus Chronic kidney disease, stage III (moderate) Dementia H/O ht shoulder arthroscopy History of CVA (cerebrovascular accident) History of deep vein thrombosis (DVT) of lower extremity Left leg swelling Leg edema, left Lumbar disc disease Postphlebitic syndrome with inflammation Risk for falls Traumatic open wound of left lower leg Home Medications duloxetine 60 mg PO DAILY 08/16/13 [History Last Taken 11/28/19] pravastatin 40 mg PO DAILY 08/16/13 [History Last Taken 11/27/19] budesonide 3 mg PO BID 10/21/18 [History Last Taken 11/28/19] omeprazole 40 mg PO DAILY 10/21/18 [History Last Taken 11/28/19] apixaban [Eliquis] 5 mg BID 05/07/21 [History Last Taken Unknown] furosemide 40 mg DAILY 05/07/21 [History Last Taken Unknown] ondansetron 4 mg PO Q8H PRN PRN #10 tab 05/07/21 [Rx Last Taken Unknown] Allergy/AdvReac Type Severity Reaction Status Date / Time No Known Allergies Allergy Verified 08/05/21 11:09 Family History Mother Temporal arteritis Other Arthritis Emphysema of lung Surgical History no surgical history Social History Smoking Status: Never smoker Vital Signs Vital Signs Vital Signs: 10/08/21 09:59 Temperature 96.9 F L Temperature Source Temporal Pulse Rate 85 Blood Pressure 154/76 H Blood Pressure Mean 102 Blood Pressure Source Monitor Weight Weight: 115 lb Body Mass Index (BMI) 22.4 Physical Exam Const alert, oriented x3, no apparent distress, average body habitus and well nourished General Appearance: cooperative, comfortable, well kempt and well developed Orientation / Consciousness: awake, oriented to person, oriented to place and oriented to time HEENT normocephalic and head/scalp atraumatic Head and Scalp: normal to inspection, normocephalic and atraumatic External Ear: external ears normal Eyes PERRL and EOMs intact bilaterally General Eye: normal appearance of both eyes Resp normal respiratory effort, normal air movement, no retractions and no use of accessory muscles Effort and Inspection: able to speak in complete sentences Extremity no calf tenderness General Extremity: Negative for clubbing or cyanosis Skin Wound Narrative: The wound persists on the left pretibial area, though much smaller in size. Dimensions are documented elsewhere. There is no sign of infection or cellulitis. There is a moderate amount of bioburden. Mild swelling is noted in the distal left lower extremity, most notable on the dorsum of the left foot. Neuro oriented x3, CN's II-XII intact bilaterally, moves all extremities and no focal motor deficits Sensorium / Orientation: awake, alert, oriented to person, oriented to place and oriented to time Psych Appearance: grossly normal and appropriate Attitude: calm Activity / Motor Behavior: appropriate eye contact Speech: normal speech Mood & Affect: euthymic mood Thought Process: normal thought process Thought Content: normal thought content Attention / Concentration: attention grossly intact Debridement Note Debridement Note Wound debrided: Left pretibial wound Laterality: Left Type of Debridement: Excisional debridement Anesthesia Used: 5% Lidocaine Gel Depth: Down to and including healthy tissue and in the subcutaneous layer Percentage of wound debrided: 100 Instrument Used: 5mm curette Tissue Removed: Bioburden Severity: Fat Layer Exposed Amount of bleeding with debridement: Mild Bleeding Controlled with: Compression and gauze Patient tolerated procedure: Patient tolerated procedure well Post-Debridement Measurements and Additional Note: Post-Debridement Measurements/Treatment WC - Nurse 1 - General Ulcer Assessment Start: 09/17/21 09:59 Freq: Status: Active Protocol: ESTEFANI Activity Type Activity Date Activity User E-Sign Co-Sign Detail Recorded Client Recorded Date Recorded By Document 09/17/21 09:59 JOSE [id number] 09/17/21 10:11 AK Document 09/24/21 09:37 AK [id number] 09/24/21 09:46 AK Document 10/01/21 09:42 KR [id number] 10/01/21 09:50 KR Document 10/08/21 09:59 AK [id number] 10/08/21 10:09 AK 09/17/21 09/24/21 10/01/21 09:59 09:37 09:42 WC - Today's Visit Information Type of service Initial Visit Follow-up Visit Follow-up Visit (Physician/SENIOR MARKETING DATA ANALYST (Physician/SENIOR MARKETING DATA ANALYST ) ) Arrival Mode Ambulatory Ambulatory Ambulatory Patient Identification Verified (Name & Yes Yes Yes ) Patient Requires Transmission-Based No No Precautions Safety Precautions Fall Prevention NA Height and Weight Height 5 ft Weight 115 lb Weight in Pounds 115.0 lbs Body Mass Index (BMI) 22.4 22.4 22.4 BMI Classification Normal Normal Normal BSA - Cassy 1.48 Vital Signs Temperature (97.8 F-99.1 F) 96.2 F L 96.1 F L 97.5 F L Temperature Source Temporal Temporal Temporal Pulse Rate (60-100) 82 85 73 Pulse Location Monitor Monitor Monitor Blood Pressure (90/60-120/80) 180/61 H 150/87 H 153/81 H Blood Pressure Mean 100 108 105 Source Monitor Monitor Monitor Position Sitting Blood Pressure Location Right Arm History Since Last Visit- (Skip if this is Patient's initial visit) Have you changed medications since your No No No last visit? Any new allergies or adverse reactions No No No Had a fall/change in ADL's that may No No No increase risk of falls Signs or symptoms of abuse and/or No No No neglect since last visit Have you been in the hospital since your No No No last visit? Has dressing in place as prescribed Yes Yes Has compression in place as prescribed N/A Yes Has offloadiing in place as prescribed N/A N/A Experienced any changes in pain level or No No management Left Footwear Regular Shoe Regular Shoe Regular Shoe Right Footwear Regular Shoe Regular Shoe Regular Shoe Pain Scale: 0-10 Numeric Is Patient Pain Free? Yes No Yes 10/08/21 09:59 - Today's Visit Information Type of service Follow-up Visit (Physician/SENIOR MARKETING DATA ANALYST ) Arrival Mode Ambulatory Patient Identification Verified (Name & No ) Patient Requires Transmission-Based No Precautions Safety Precautions Height and Weight Height Weight Weight in Pounds Body Mass Index (BMI) 22.4 BMI Classification Normal BSA - Cassy Vital Signs Temperature (97.8 F-99.1 F) 96.9 F L Temperature Source Temporal Pulse Rate (60-100) 85 Pulse Location Monitor Blood Pressure (90/60-120/80) 154/76 H Blood Pressure Mean 102 Source Monitor Position Blood Pressure Location History Since Last Visit- (Skip if this is Patient's initial visit) Have you changed medications since your No last visit? Any new allergies or adverse reactions No Had a fall/change in ADL's that may No increase risk of falls Signs or symptoms of abuse and/or No neglect since last visit Have you been in the hospital since your No last visit? Has dressing in place as prescribed Yes Has compression in place as prescribed Yes Has offloadiing in place as prescribed N/A Experienced any changes in pain level or No management Left Footwear Regular Shoe Right Footwear Regular Shoe Pain Scale: 0-10 Numeric Is Patient Pain Free? Yes - Nurse 1 - General Ulcer Measurement Start: 09/17/21 09:59 Freq: Status: Active Protocol: Activity Type Activity Date Activity User E-Sign Co-Sign Detail Recorded Client Recorded Date Recorded By Document 09/17/21 09:59 AK [id number] 09/17/21 10:11 AK Document 09/24/21 09:37 AK [id number] 09/24/21 09:46 AK Document 10/01/21 09:42 KR [id number] 10/01/21 09:50 KR Document 10/08/21 09:59 AK [id number] 10/08/21 10:09 AK 09/17/21 09/24/2122 09:59 09:37 09:42 Wound Center Nurse 1 #1 L LE -Combined with other wound No No -Current Size (cm) - Length 2 2 2.1 -Current Size (cm) - Width 3.5 2.5 1.9 -Current Size (cm) - Depth 0.1 0.2 0.2 -Total Square Cm 7.0 5.0 3.99 -Date of Last Picture (Recall this 09/17/21 field) -Photo Taken Yes Yes -Epithelialization None Present -Tunneling No -Undermining/Tunneling No -Circular Undermining No -Change in Wound Grade/Stage No -Exudate Amt None Present Medium Medium -Exudate Type Serosanguineous Serosanguineous -Wound Margin Thickened Distinct, Distinct, Outline Outline Attached Attached -Granulation Amt Large (67-100%) Medium (34-66%) -Granulation Quality N/A Red -Slough/Fibrin No -Necrosis Amt Large (67-100%) Medium (34-66%) Medium (34-66%) -Necrotic Tissue Type Eschar Adherent Slough Adherent Slough -Structure Exposed N/A N/A -Texture (Ana-wound Skin Appearance) Assessed, Scarring Assessed, Scarring Scarring -Moisture (Ana-wound Skin Appearance) No Abnormality, Dry/Scaly No Abnormality, Assessed Assessed -Color (Ana-wound Skin Appearance) Assessed, Hemosiderin No Abnormality, Hemosiderin Staining Assessed Staining -Temperature (Ana-wound Skin No Abnormality No Abnormality No Abnormality Appearance) (Pt Warm) (Pt Warm) (Pt Warm) -Tenderness on Palpation (Ana-wound No No No Skin Appearance) -Ulcer Cleansing Rinsed/ Soap and Water Rinsed/ Irrigated with Irrigated with Saline Saline -Foul Odor after Cleansing No No No -Anesthetic Used 4% Lidocaine 5% Lidocaine 5% Lidocaine Solution Gel Gel Lower Limb Edema Present No Right Calf (cm) 29 Right Ankle (cm) 34 Left Calf (cm) 34 28 32 Left Ankle (cm) 27 26 25.4 10/08/21 09:59 Wound Center Nurse 1 #1 L LE -Combined with other wound No -Current Size (cm) - Length 2.2 -Current Size (cm) - Width 1.3 -Current Size (cm) - Depth 0.2 -Total Square Cm 2.86 -Date of Last Picture (Recall this 10/08/21 field) -Photo Taken Yes -Epithelialization None Present -Tunneling No -Undermining/Tunneling No -Circular Undermining No -Change in Wound Grade/Stage No -Exudate Amt Medium -Exudate Type Serosanguineous -Wound Margin Distinct, Outline Attached -Granulation Amt Large (67-100%) -Granulation Quality Red -Slough/Fibrin Yes -Necrosis Amt Small (1-33%) -Necrotic Tissue Type Adherent Slough -Structure Exposed N/A -Texture (Ana-wound Skin Appearance) No Abnormality, Assessed -Moisture (Ana-wound Skin Appearance) No Abnormality, Assessed -Color (Ana-wound Skin Appearance) No Abnormality, Assessed -Temperature (Ana-wound Skin No Abnormality Appearance) (Pt Warm) -Tenderness on Palpation (Ana-wound No Skin Appearance) -Ulcer Cleansing Rinsed/ Irrigated with Saline -Foul Odor after Cleansing No -Anesthetic Used 4% Lidocaine Solution Lower Limb Edema Present No Right Calf (cm) Right Ankle (cm) Left Calf (cm) 28 Left Ankle (cm) 25 WC - Nurse 2 - General Ulcer CM Notes Start: 09/17/21 09:59 Freq: Status: Active Protocol: Activity Type Activity Date Activity User E-Sign Co-Sign Detail Recorded Client Recorded Date Recorded By Document 09/17/21 11:11 PL [id number] 09/17/21 11:13 PL Document 09/24/21 13:07 PL [id number] 09/24/21 13:08 PL Document 10/01/21 12:23 PL [id number] 10/01/21 12:25 Document 10/08/21 10:59 [id number] 10/08/21 10:59 PL 09/17/21 09/24/21 10/01/21 11:11 13:07 12:23 Wound Center Nurse 2 #1 L LE -Time 10:26 10:10 10:00 -Correct Patient Yes Yes Yes -Correct Side, Site, Position Yes Yes Yes -Correct Procedure Yes Yes Yes -Procedure Performed Yes Yes Yes -Type of Procedure Debridement Debridement Debridement -Clinical Debridement Subcutaneous Subcutaneous Subcutaneous -Tissue Removed Subcutaneous Subcutaneous Subcutaneous -Post Debridement (cm) - Length 2.0 2.0 2.1 -Post Debridement (cm) - Width 3.5 2.5 1.9 -Post Debridement (cm) - Depth 0.3 0.2 0.2 -Total Square (Post) (cm) 7.00 5.00 3.99 -Area of Debridement (cm) - Length 2.0 2.0 2.1 -Area of Debridement (cm) - Width 3.5 2.5 1.9 -Total Square (Area) (cm) 7.00 5.00 3.99 -Tunneling No No No -Undermining/Tunneling No No No -Circular Undermining No No No -Wound/Ulcer Outcome Not Healed Not Healed Not Healed -Ulcer Cleansing Rinsed/ Rinsed/ Rinsed/ Irrigated with Irrigated with Irrigated with Saline Saline Saline -Foul Odor after Cleansing No No No -Bioengineered Tissue No No No -Bleeding Controlled with Pressure Pressure Pressure -Treatment Response Procedure Procedure Procedure Tolerated Well Tolerated Well Tolerated Well -Debridement - Subq, 1st 20sq cm Yes Yes Yes Pain Scale: 0-10 Numeric Is Patient Pain Free? Yes Yes Yes 10/08/21 10:59 Wound Center Nurse 2 #1 L LE -Time 10:30 -Correct Patient Yes -Correct Side, Site, Position Yes -Correct Procedure Yes -Procedure Performed Yes -Type of Procedure Debridement -Clinical Debridement Subcutaneous -Tissue Removed Subcutaneous -Post Debridement (cm) - Length 2.0 -Post Debridement (cm) - Width 2.0 -Post Debridement (cm) - Depth 0.1 -Total Square (Post) (cm) 4.00 -Area of Debridement (cm) - Length 2.0 -Area of Debridement (cm) - Width 2.0 -Total Square (Area) (cm) 4.00 -Tunneling No -Undermining/Tunneling No -Circular Undermining No -Wound/Ulcer Outcome Not Healed -Ulcer Cleansing Rinsed/ Irrigated with Saline -Foul Odor after Cleansing No -Bioengineered Tissue No -Bleeding Controlled with -Treatment Response -Debridement - Subq, 1st 20sq cm Yes Pain Scale: 0-10 Numeric Is Patient Pain Free? Yes - Nurse 3 - General Ulcer D/C NN Start: 09/17/21 09:59 Freq: Status: Active Protocol: Activity Type Activity Date Activity User E-Sign Co-Sign Detail Recorded Client Recorded Date Recorded By Document 09/17/21 10:47 JOSE [id number] 09/17/21 10:48 AK Document 09/24/21 11:52 AK [id number] 09/24/21 11:53 AK Document 10/01/21 12:25 PL [id number] 10/01/21 12:27 PL Document 10/08/21 10:48 DL [id number] 10/08/21 10:53 DL 09/17/21 09/24/21 10/01/21 10:47 11:52 12:25 Wound Care Nurse 3 #1 L LE -Ulcer Cleansing Rinsed/ Rinsed/ Soap and Water Irrigated with Irrigated with Saline Saline -Foul Odor after Cleansing No No No -Negative Pressure Wound Therapy N/A N/A -Primary Dressing Applied Promogran -Other Dressing wet to dry -Primary Dressing Covered/Secured with Dry Gauze & Dry Gauze & Dry Gauze & Roll Gauze, Roll Gauze, Roll Gauze, Secured with Secured with Secured with Tape Tape Tape -Promogran 2 Left -Lotion applied to leg before No compression wrap -Tubular Bandage Double Layer Double Layer Double Layer -Size of Tubigrip Used Size E Size D Size D -Size D ($) 2 4 -Size E ($) 2 -Other Treatment Response Pain Scale: 0-10 Numeric Is Patient Pain Free? Yes Yes Yes WC - Visit Discharge Discharge Condition Stable Stable Stable Ambulatory Status Ambulatory Ambulatory Ambulatory Transportation Private Auto Private Auto Private Auto Medication Reconcilliation completed & Yes Yes provided to patient/care provider Clinical Summary of Care Provided Yes Yes 10/08/21 10:48 Wound Care Nurse 3 #1 L LE -Ulcer Cleansing Rinsed/ Irrigated with Saline -Foul Odor after Cleansing No -Negative Pressure Wound Therapy -Primary Dressing Applied Promogran -Other Dressing -Primary Dressing Covered/Secured with Dry Gauze & Roll Gauze, Secured with Tape -Promogran 1 Left -Lotion applied to leg before compression wrap -Tubular Bandage -Size of Tubigrip Used -Size D ($) -Size E ($) -Other tubigrip Treatment Response Procedure Tolerated Well Pain Scale: 0-10 Numeric Is Patient Pain Free? Yes WC - Visit Discharge Discharge Condition Stable Ambulatory Status Ambulatory Transportation Private Auto Medication Reconcilliation completed & provided to patient/care provider Clinical Summary of Care Provided Lab / Micro Data Result Diagrams: 09/17/21 11:08 05/10/22 11:08 Assessment/Plan Assessment/Plan (1) Traumatic open wound of left lower leg: CODE(S): S81.802A - Unspecified open wound, left lower leg, initial encounter QUALIFIERS: Encounter type: subsequent encounter Qualified Code(s): S81.802D - Unspecified open wound, left lower leg, subsequent encounter (2) Leg edema, left: CODE(S): R60.0 - Localized edema (3) Left leg swelling: CODE(S): M79.89 - Other specified soft tissue disorders (4) Postphlebitic syndrome with inflammation: CODE(S): I87.029 - Postthrombotic syndrome with inflammation of unspecified lower extremity (5) History of deep vein thrombosis (DVT) of lower extremity: CODE(S): Z86.718 - Personal history of other venous thrombosis and embolism (6) Lumbar disc disease: CODE(S): M51.9 - Unspecified thoracic, thoracolumbar and lumbosacral intervertebral disc disorder (7) Choudhary esophagus: CODE(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 - Choudhary's esophagus without dysplasia (8) History of CVA (cerebrovascular accident): CODE(S): Z86.73 - Personal history of transient ischemic attack (TIA), and cerebral infarction without residual deficits (9) Chronic kidney disease, stage III (moderate): CODE(S): N18.30 - Chronic kidney disease, stage 3 unspecified (10) History of peptic ulcer: CODE(S): Z87.11 - Personal history of peptic ulcer disease (11) Ulcerative colitis: CODE(S): K51.90 - Ulcerative colitis, unspecified, without complications (12) Hyperlipidemia: CODE(S): E78.5 - Hyperlipidemia, unspecified (13) Hypothyroidism: CODE(S): E03.9 - Hypothyroidism, unspecified (14) GERD (gastroesophageal reflux disease): CODE(S): K21.9 - Gastro-esophageal reflux disease without esophagitis (15) HTN (hypertension): CODE(S): I10 - Essential (primary) hypertension PLAN: This is an 86-year-old female who presented with a traumatic wound on the left pretibial surface. She also has a long history of left lower extremity swelling, and prior episodes of left lower extremity deep vein thrombosis. We have discussed the implementation of conservative treatment measures, including leg elevation, avoidance of idle standing and sitting, lower extremity compression, the benefits of activity, and the use of jvge-fin-zyfroqk analgesics as necessary. As discussed, elevation is to be to heart level, or higher. Prolonged idle sitting has been discouraged. Activity has been encouraged, though the patient is somewhat limited due to her advanced age and debility. We are to continue compression to the left lower extremity by means of a double Tubigrip. We are to continue the use of Promogran, which will be applied by the patient and her family on a daily basis. The patient and her radmemvb-ci-xtm have been instructed in the appropriate means of application. Serial wound debridements are anticipated. Routine laboratory studies have been performed, with results as follows: Glucose 111, BUN 19, creatinine 0.77, total protein 6.8, albumin 3.7, calcium 9.0, AST 15, alkaline phosphatase 62, ALT 16, total bilirubin 0.30, sodium 140, potassium 3.6, chloride 106, serum prealbumin 35.5, white blood count 7.7, hemoglobin 12.0, hematocrit 38.9, platelets 260,000. Patient is to return in 1 week for reassessment. Total time: 28 minutes
== END 2021-10-08 23:59 | disposition home or self-care (01) ==
LOC: WC 09:45
PROVIDERS: PCP Family Medicine; Visit Provider Surgery
DX: S81.832A Puncture wound without foreign body, left lower leg, initial encounter (principal); F03.90 Unspecified dementia, unspecified severity, without behavioral disturbance, psychotic disturbance, mood disturbance, and anxiety; K51.90 Ulcerative colitis, unspecified, without complications; N18.30 Chronic kidney disease, stage 3 unspecified; Z79.01 Long term (current) use of anticoagulants; R53.81 Other malaise; R53.1 Weakness; I12.9 Hypertensive chronic kidney disease with stage 1 through stage 4 chronic kidney disease, or unspecified chronic kidney disease; R60.0 Localized edema; E78.5 Hyperlipidemia, unspecified; K22.70 Barrett's esophagus without dysplasia; M79.89 Other specified soft tissue disorders; Z79.899 Other long term (current) drug therapy; Z86.73 Personal history of transient ischemic attack (TIA), and cerebral infarction without residual deficits; Z86.718 Personal history of other venous thrombosis and embolism; I87.029 Postthrombotic syndrome with inflammation of unspecified lower extremity; W22.8XXA Striking against or struck by other objects, initial encounter
CPT/HCPCS: 11042; 36415; 80053; 84134; 85025; 93970; 99213; G0463

== ENCOUNTER 2021-10-08 14:20 | Emergency (ER) | payer MEDICARE, SELFPAY ==
[2021-10-08 14:20] VITALS: BP 155/88; PULSE 96; RESP 15; TEMP 36.2; O2SAT 97; BMI 21.4
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
[2021-10-08] MEDS: Diphth,Pertuss(Acell),Tet Vac 0.5 ML Vial IM (14:58)
[2021-10-08] MEDS: Lidocaine 1% (20 ml mdv) 20 ML Vial INFILT (15:02)
[2021-10-08 15:17] VITALS: PULSE 73; RESP 17; O2SAT 99
== END 2021-10-08 15:17 | disposition home or self-care (01) ==
PROVIDERS: Emergency Provider Emergency Medicine; PCP Family Medicine; Visit Provider Emergency Medicine
DX: S91.311A Laceration without foreign body, right foot, initial encounter (principal); Z23 Encounter for immunization; X58.XXXA Exposure to other specified factors, initial encounter; Z86.718 Personal history of other venous thrombosis and embolism; Z86.73 Personal history of transient ischemic attack (TIA), and cerebral infarction without residual deficits
CPT/HCPCS: 12001; 11042; 90471; 90715; 93970; 99284

== ENCOUNTER → 2021-10-10 | Outpatient (CLI) | payer MEDICARE, SELFPAY ==
[2021-10-10 12:28] LABS: Absolute Lymphocyte Count 1.54 X10^3/uL (0.83-4.51); Absolute Neutrophil Count 4.6 X10^3/uL (2.0-7.7); Basophil# 0.02 X10^3/uL; Basophil% 0.3 % (0-1); Eosinophil# 0.02 X10^3/uL; Eosinophils% 0.3 % (0-5); Hematocrit 40.7 % (37-47); Hemoglobin 12.7 g/dL (12.0-15.0); Lymphocyte # 1.54 X10^3/ul (0.83-4.51); Lymphocyte % 22.2 % (19-41); Mean Corp Hgb Conc 31.2 g/dL (32-36); Mean Corpuscular Hgb 29.7 pg (27.0-32.0); Mean Corpuscular Volume 95.3 fL (81-99); Mean Platelet Vol. 9.8 fl (6.2-12.0); Monocyte# 0.72 X10^3/uL; Monocyte% 10.4 % (0-10); NRBC Flagged by Analyzer 0 % (0-5); Neutrophil # 4.61 X10^3/uL (2.7-7.7); Neutrophil % 66.4 % (47-70); Platelet Count 284 K/mm3 (150-450); RBC Distribution Width CV 14.3 % (11.6-14.6); RBC Distribution Width SD 49.8 fl (35.1-43.9); Red Blood Count 4.27 M/mm3 (4.2-5.4); White Blood Count 6.9 K/mm3 (4.4-11.0)
[2021-10-10 13:01] LABS: ALB/GLOB Ratio 1.3 RATIO (0.9-2.4); AST(SGOT) 15 U/L (15-37); Alanine Aminotransfer ALT/SGPT 14 U/L (13-56); Albumin, Serum 3.8 g/dL (3.2-5.0); Alkaline Phosphatase 92 U/L (45-117); Anion Gap 8 (5-15); BUN 13 mg/dL (7-18); BUN/Creat Ratio 18.1 RATIO (10-20); CRP < 2.90 mg/L (0.0-3.0); Chloride 103 mmol/L (98-107); Creatinine, Serum 0.72 mg/dL (0.55-1.02); EST Glomerular Filtration Rate 82 mL/min (>60); Est Glom Filt Rate - Afr Amer 99 mL/min (>60); Globulin 2.9 g/dL (2.2-4.2); Glucose 95 mg/dL (74-106); Lipase 72 U/L (73-393); Potassium 3.6 mmol/L (3.5-5.1); Protein, Total 6.7 g/dL (6.4-8.2); Sodium Level 140 mmol/L (136-145)
[2021-10-11 00:14] LABS: Erythrocyte Sedimentation Rate 6 mm/hr (0-30)
== END | disposition home or self-care (01) ==
LOC: MTLAB 09:35
PROVIDERS: PCP Family Medicine; Referring Provider Family Medicine; Visit Provider Family Medicine
DX: R11.0 Nausea (principal); R68.81 Early satiety; K52.831 Collagenous colitis
CPT/HCPCS: 36415; 80053; 83690; 85025; 85652; 86140

== ENCOUNTER → 2021-10-17 | Outpatient (CLI) | payer MEDICARE, SELFPAY ==
--- NOTE | 2021-10-17 14:50 | US_ITS ---
STUDY: RENAL ULTRASOUND - COMPLETE REASON FOR EXAM: Female, 86 years old. LESION L KIDNEY TECHNIQUE: Ultrasound evaluation of the kidneys was performed with real-time and static vuong-scale imaging. COMPARISON: CTDec 28 2020 5:23pm FINDINGS: RIGHT KIDNEY: Normal location of the right kidney, which is normal in size. The right kidney measures 9.6 x 4.9 cm. There is a normal cortex of the right kidney. The renal cortex measures 1.1 cm. There is no right renal mass or cyst. There are no right renal calculi. There is no right hydronephrosis. DISTAL RIGHT URETER: There is non-visualization of the distal right ureter. There is no demonstrated right ureterovesical junction calculus. There is a visualized right ureteral jet. LEFT KIDNEY: Normal location of the left kidney, which is normal in size. The left kidney measures 9 x 4.6 cm. There is a normal cortex of the left kidney. The renal cortex measures 1 cm. Simple cyst measures 37 x 35 mm. No follow-up required. There are no left renal calculi. There is no left hydronephrosis. DISTAL LEFT URETER: There is non-visualization of the distal left ureter. There is no demonstrated left ureterovesical junction calculus. There is no demonstrated left ureteral jet. AORTA: There is obscuration of the abdominal aorta by overlying bowel gas There is dilation of the common bile duct. A common bile duct stone is not seen. The CBD diameter is 15 mm. I.V.C.: The IVC is obscured. BLADDER: The distended urinary bladder has a volume of 64 ml. There is a normal wall thickness of the distended urinary bladder. There is no demonstrated mass within the urinary bladder. There are no demonstrated bladder calculi. US/Kidney and Bladder IMPRESSION: There is dilation of the common bile duct. A common bile duct stone is not seen. The CBD diameter is 15 mm. Ultrasound reveals a simple cyst of the left kidney. No Follow-up required. Electronically Signed: Moreno Osman MD at 22:03 EDT ,
== END | disposition home or self-care (01) ==
LOC: US 14:48
PROVIDERS: PCP Family Medicine; Referring Provider Family Medicine; Visit Provider Family Medicine
DX: N28.9 Disorder of kidney and ureter, unspecified (principal)
CPT/HCPCS: 76770

== ENCOUNTER 2021-11-05 10:00 | Outpatient (RCR) | payer MEDICARE, SELFPAY ==
[2021-10-09 01:12] VITALS: BP 154/76; PULSE 85; TEMP 36.1; BMI 22.4
[2021-10-15 10:01] VITALS: BP 147/82; PULSE 83; RESP 17; TEMP 36.3; BMI 22.4
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
[2021-10-29 09:29] VITALS: BP 164/92; PULSE 93; TEMP 36.4; BMI 22.4
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
[2021-11-05 10:10] VITALS: BP 185/66; PULSE 67; TEMP 36.3; BMI 22.4
--- NOTE | 2021-11-05 10:23 | PCM.WC.HP ---
History of Present Illness Date of Service: 11/05/21 Chief Complaint: Traumatic wound - left pretibial area History of Wound: This is an 86-year-old female who presented accompanied by her [id number]. The patient relates a long history of swelling in her left leg. The swelling is typically worse at the end of the day. She claims to sleep on a flat mattress at night, but sits idly a great deal during each day. She is minimally active. Patient presents with an open wound on the left pretibial area, which had been present for approximately 1 month, and resulting from trauma as result of impacting her left pretibial area with the [employer] ump[employer] door. Patient has been evaluated in the [facility] Emergency Department on August 05, 2021. Patient has a history of left lower extremity deep vein thrombosis in the remote past, and again recently. She was on systemic anticoagulation therapy until her recent visit to the Emergency Department. She presented for evaluation and management relative to the traumatic wound on her left lower extremity. [facility] Medical History (Updated 11/05/21 @ 10:[address] Zaheer Campa MD) Abrasion of knee, left Abrasion, knee Choudhary esophagus Chronic kidney disease, stage III (moderate) Dementia H/O ht shoulder arthroscopy History of CVA (cerebrovascular accident) History of deep vein thrombosis (DVT) of lower extremity Laceration of foot excluding toes Left leg swelling Leg edema, left Lumbar disc disease Postphlebitic syndrome with inflammation Risk for falls Traumatic open wound of left lower leg Wound of left lower extremity Home Medications duloxetine 60 mg capsule,delayed release 60 mg PO DAILY depression 08/16/13 [History Last Taken 11/28/19] pravastatin 40 mg tablet 40 mg PO DAILY cholesterol 08/16/13 [History Last Taken 11/27/19] budesonide 3 mg capsule,delayed,extended release 3 mg PO BID colitis 10/21/18 [History Last Taken 11/28/19] omeprazole 40 mg capsule,delayed release 40 mg PO DAILY GERD 10/21/18 [History Last Taken 11/28/19] apixaban 5 mg tablet (Eliquis) 5 mg BID 05/07/21 [History Last Taken Unknown] furosemide 20 mg tablet 40 mg DAILY 05/07/21 [History Last Taken Unknown] ondansetron 4 mg disintegrating tablet 4 mg PO Q8H PRN PRN Nausea #10 tabs 05/07/21 [Rx Last Taken Unknown] cephalexin 500 mg capsule 500 mg PO Q6 #20 CAPSULES 10/08/21 [Rx Last Taken Unknown] Allergy/AdvReac Type Severity Reaction Status Date / Time No Known Allergies Allergy Verified 08/05/21 11:09 Family History Mother Temporal arteritis Other Arthritis Emphysema of lung Surgical History no surgical history Social History Smoking Status: Never smoker substance use type: does not use Vital Signs Vital Signs Vital Signs: 11/05/21 10:10 Temperature 97.4 F L Temperature Source Temporal Pulse Rate 67 Blood Pressure 185/66 H Blood Pressure Mean 105 Blood Pressure Source Monitor Blood Pressure Position Semi-Fowlers Blood Pressure Location Right Arm Weight Weight: 115 lb Body Mass Index (BMI) 22.4 Physical Exam Const alert, oriented x3, no apparent distress, average body habitus and well nourished General Appearance: cooperative, comfortable, well kempt and well developed Orientation / Consciousness: awake, oriented to person, oriented to place and oriented to time HEENT normocephalic, head/scalp atraumatic and hearing grossly normal bilaterally Head and Scalp: normal to inspection, normocephalic and atraumatic External Ear: external ears normal Eyes PERRL and EOMs intact bilaterally General Eye: normal appearance of both eyes Resp normal respiratory effort, normal air movement, no retractions and no use of accessory muscles Effort and Inspection: able to speak in complete sentences Extremity full ROM and no calf tenderness General Extremity: Negative for clubbing or cyanosis Skin Wound Narrative: The left pretibial wound remains completely healed and epithelialized. However, the patient now has a superficial wound on the left knee, the result of a fall while ascending the stairs recently. There is an abrasion/wound on the left knee as a result. Dimensions are documented elsewhere. There is no sign of infection or cellulitis. The base of the left knee wound is pink and healthy in appearance, with evidence of active granulation tissue. There is a small amount of bioburden, but no significant necrotic or nonviable tissue. Mild swelling is noted in the left lower extremity, which is chronic. Neuro oriented x3, CN's II-XII intact bilaterally, moves all extremities and no focal motor deficits Sensorium / Orientation: awake, alert, oriented to person, oriented to place and oriented to time Psych Appearance: grossly normal and appropriate Attitude: calm Activity / Motor Behavior: appropriate eye contact Speech: normal speech Mood & Affect: euthymic mood Thought Process: normal thought process Thought Content: normal thought content Attention / Concentration: attention grossly intact Debridement Note Debridement Note Wound debrided: Left knee wound Laterality: Left Type of Debridement: Excisional debridement Anesthesia Used: 5% Lidocaine Gel Depth: Down to and including healthy tissue and in the subcutaneous layer Percentage of wound debrided: 100 Instrument Used: 5mm curette Tissue Removed: Bioburden Severity: Fat Layer Exposed Amount of bleeding with debridement: Mild Bleeding Controlled with: Compression and gauze Patient tolerated procedure: Patient tolerated procedure well Post-Debridement Measurements and Additional Note: Post-Debridement Measurements/Treatment - Nurse 1 - General Ulcer Assessment Start: 10/15/21 10:01 Freq: Status: Active Protocol: ESTEFANI Activity Type Activity Date Activity User E-sign Co-sign Detail Recorded Client Recorded Date Recorded By Document 10/15/21 10:01 [id number] 10/15/21 10:11 ML Document 10/29/21 09:29 [id number] 10/29/21 09:35 KR Document 11/05/21 10:10 KR [id number] 11/05/21 10:11 KR 10/15/21 10/29/21 11/05/21 10:01 09:29 10:10 [facility] Today's Visit Information Type of service Follow-up Visit Follow-up Visit Follow-up Visit (Physician/INTERNET PROGRAMMER (Physician/INTERNET PROGRAMMER (Physician/INTERNET PROGRAMMER ) ) ) Arrival Mode Ambulatory Ambulatory Ambulatory Transfer Assistance None Accompanied by daughter Patient Identification Verified (Name & Yes Yes ) Patient Requires Transmission-Based No Precautions Safety Precautions NA Height and Weight Body Mass Index (BMI) 22.4 22.4 22.4 BMI Classification Normal Normal Normal Vital Signs Temperature (97.8 F-99.1 F) 97.3 F L 97.5 F L 97.4 F L Temperature Source Temporal Temporal Temporal Pulse Rate (60-100) 83 93 67 Pulse Location Monitor Monitor Monitor Respiratory Rate (12-18) 17 Respiratory rate source Observation Blood Pressure (90/60-120/80) 147/82 H 164/92 H 185/66 H Blood Pressure Mean 103 116 105 Source Monitor Monitor Monitor Position Sitting Semi-Fowlers Semi-Fowlers Blood Pressure Location Right Arm Right Arm Right Arm History Since Last Visit- (Skip if this is Patient's initial visit) Have you changed medications since your No No No last visit? Any new allergies or adverse reactions No No No Had a fall/change in ADL's that may No No No increase risk of falls Signs or symptoms of abuse and/or No No No neglect since last visit Have you been in the hospital since your No No No last visit? Has dressing in place as prescribed Yes Yes Yes Has compression in place as prescribed No N/A N/A Has offloadiing in place as prescribed N/A N/A N/A Experienced any changes in pain level or No No No management Left Footwear Regular Shoe Regular Shoe Regular Shoe Right Footwear Regular Shoe Regular Shoe Regular Shoe Pain Scale: 0-10 Numeric Is Patient Pain Free? Yes Yes Yes - Nurse 1 - General Ulcer Measurement Start: 10/15/21 10:01 Freq: Status: Active Protocol: Activity Type Activity Date Activity User E-sign Co-sign Detail Recorded Client Recorded Date Recorded By Document 10/15/21 10:01 [id number] 10/15/21 10:11 ML Document 10/29/21 09:29 KR [id number] 10/29/21 09:35 KR Document 11/05/21 10:10 KR [id number] 11/05/21 10:11 KR 10/15/21 10/29/21 11/05/21 10:01 09:29 10:10 Wound Center Nurse 1 #1 L LE -Current Size (cm) - Length 1 1.4 -Current Size (cm) - Width 1 0.9 -Current Size (cm) - Depth 0.3 0.1 -Total Square Cm 1 1.26 -Exudate Amt Small None Present -Exudate Type Serous -Wound Margin Distinct, Distinct, Outline Outline Attached Attached -Granulation Amt Small (1-33%) Small (1-33%) -Granulation Quality [place] Mel -Slough/Fibrin Yes -Necrosis Amt Small (1-33%) None Present (0 %) -Necrotic Tissue Type Adherent Slough -Texture (Ana-wound Skin Appearance) Assessed Assessed, Scarring -Moisture (Ana-wound Skin Appearance) Assessed No Abnormality, Assessed -Color (Ana-wound Skin Appearance) Assessed No Abnormality, Assessed -Temperature (Ana-wound Skin No Abnormality No Abnormality Appearance) (Pt Warm) (Pt Warm) -Tenderness on Palpation (Ana-wound No No Skin Appearance) -Ulcer Cleansing Rinsed/ Rinsed/ Irrigated with Irrigated with Saline Saline -Foul Odor after Cleansing No No -Anesthetic Used 5% Lidocaine 5% Lidocaine Gel Gel #2 Left knee -Current Size (cm) - Length 2.4 2.3 -Current Size (cm) - Width 1 1.8 -Current Size (cm) - Depth 0.1 0.2 -Total Square Cm 2.4 4.14 -Exudate Amt Small Small -Exudate Type Serosanguineous Serosanguineous -Wound Margin Distinct, Distinct, Outline Outline Attached Attached -Granulation Amt Small (1-33%) Small (1-33%) -Granulation Quality Red Red -Necrosis Amt None Present (0 Small (1-33%) %) -Necrotic Tissue Type Adherent Slough -Texture (Ana-wound Skin Appearance) Assessed, Assessed, Scarring Scarring -Moisture (Ana-wound Skin Appearance) No Abnormality, No Abnormality, Assessed Assessed -Color (Ana-wound Skin Appearance) No Abnormality, No Abnormality, Assessed Assessed -Temperature (Ana-wound Skin No Abnormality No Abnormality Appearance) (Pt Warm) (Pt Warm) -Tenderness on Palpation (Ana-wound No No Skin Appearance) -Ulcer Cleansing Rinsed/ Rinsed/ Irrigated with Irrigated with Saline Saline -Foul Odor after Cleansing No No -Anesthetic Used 5% Lidocaine 5% Lidocaine Gel Gel WC - Nurse 2 - General Ulcer CM Notes Start: 10/15/21 10:01 Freq: Status: Active Protocol: Activity Type Activity Date Activity User E-sign Co-sign Detail Recorded Client Recorded Date Recorded By Document 10/15/21 12:58 PL [id number] 10/15/21 12:59 PL Document 10/29/21 12:24 PL [id number] 10/29/21 12:27 PL 10/15/21 10/29/21 12:58 12:24 Wound Center Nurse 2 #1 L LE -Time 10:35 -Correct Patient Yes -Correct Side, Site, Position Yes -Correct Procedure Yes -Procedure Performed Yes No -Type of Procedure Debridement -Clinical Debridement Subcutaneous -Tissue Removed Subcutaneous -Post Debridement (cm) - Length 1.0 0 -Post Debridement (cm) - Width 1.0 0 -Post Debridement (cm) - Depth 0.3 0 -Total Square (Post) (cm) 1.00 0 -Area of Debridement (cm) - Length 1 -Area of Debridement (cm) - Width 1 -Total Square (Area) (cm) 1 -Tunneling No -Undermining/Tunneling No -Circular Undermining No -Wound/Ulcer Outcome Not Healed Healed- Epithelialized -Ulcer Cleansing Rinsed/ Irrigated with Saline -Foul Odor after Cleansing No -Bioengineered Tissue No -Bleeding Controlled with Pressure -Treatment Response Procedure Tolerated Well -Debridement - Subq, 1st 20sq cm Yes #2 Left knee -Time 10:47 -Correct Patient Yes -Correct Side, Site, Position Yes -Correct Procedure Yes -Procedure Performed Yes -Type of Procedure Debridement -Clinical Debridement Subcutaneous -Tissue Removed Subcutaneous -Post Debridement (cm) - Length 2.4 -Post Debridement (cm) - Width 1.0 -Post Debridement (cm) - Depth 0.1 -Total Square (Post) (cm) 2.40 -Area of Debridement (cm) - Length 2.4 -Area of Debridement (cm) - Width 1.0 -Total Square (Area) (cm) 2.40 -Tunneling No -Undermining/Tunneling No -Circular Undermining No -Wound/Ulcer Outcome Not Healed -Ulcer Cleansing Rinsed/ Irrigated with Saline -Foul Odor after Cleansing No -Bioengineered Tissue No -Bleeding Controlled with Pressure -Treatment Response Procedure Tolerated Well -Debridement - Subq, 1st 20sq cm Yes Pain Scale: 0-10 Numeric Is Patient Pain Free? Yes Yes WC - Nurse 3 - General Ulcer D/C NN Start: 10/15/21 10:01 Freq: Status: Active Protocol: Activity Type Activity Date Activity User E-sign Co-sign Detail Recorded Client Recorded Date Recorded By Document 10/15/21 10:49 ML [id number] 10/15/21 10:50 ML 10/15/21 10:49 Wound Care Nurse 3 #1 L LE -Ulcer Cleansing Rinsed/ Irrigated with Saline -Primary Dressing Applied Promogran -Primary Dressing Covered/Secured with Dry Gauze,Dry Gauze & Roll Gauze,Secured with Tape -Promogran 1 Left -Tubular Bandage Double Layer -Size of Tubigrip Used Size D -Size D ($) 2 Pain Scale: 0-10 Numeric Is Patient Pain Free? Yes WC - Visit Discharge Discharge Condition Stable Ambulatory Status Ambulatory Medication Reconcilliation completed & No provided to patient/care provider Clinical Summary of Care Provided Yes Assessment/Plan Assessment/Plan (1) Abrasion of knee, left: CODE(S): S80.212A - Abrasion, left knee, initial encounter QUALIFIERS: Encounter type: subsequent encounter Qualified Code(s): S80.212D - Abrasion, left knee, subsequent encounter (2) Traumatic open wound of left lower leg: CODE(S): S81.802A - Unspecified open wound, left lower leg, initial encounter QUALIFIERS: Encounter type: subsequent encounter Qualified Code(s): S81.802D - Unspecified open wound, left lower leg, subsequent encounter (3) Laceration of foot excluding toes: CODE(S): S91.319A - Laceration without foreign body, unspecified foot, initial encounter (4) Leg edema, left: CODE(S): R60.0 - Localized edema (5) Left leg swelling: CODE(S): M79.89 - Other specified soft tissue disorders (6) Postphlebitic syndrome with inflammation: CODE(S): I87.029 - Postthrombotic syndrome with inflammation of unspecified lower extremity (7) History of deep vein thrombosis (DVT) of lower extremity: CODE(S): Z86.718 - Personal history of other venous thrombosis and embolism (8) Lumbar disc disease: CODE(S): M51.9 - Unspecified thoracic, thoracolumbar and lumbosacral intervertebral disc disorder (9) Dementia: CODE(S): F03.90 - Unspecified dementia without behavioral disturbance (10) Risk for falls: CODE(S): Z91.81 - History of falling (11) Choudhary esophagus: CODE(S): K22.70 - Choudhary's esophagus without dysplasia (12) History of CVA (cerebrovascular accident): CODE(S): Z86.73 - Personal history of transient ischemic attack (TIA), and cerebral infarction without residual deficits (13) Chronic kidney disease, stage III (moderate): CODE(S): N18.30 - Chronic kidney disease, stage 3 unspecified (14) Generalized weakness: CODE(S): R53.1 - Weakness (15) History of peptic ulcer: CODE(S): Z87.11 - Personal history of peptic ulcer disease (16) Ulcerative colitis: CODE(S): K51.90 - Ulcerative colitis, unspecified, without complications (17) Hyperlipidemia: CODE(S): E78.5 - Hyperlipidemia, unspecified (18) Hypothyroidism: CODE(S): E03.9 - Hypothyroidism, unspecified (19) GERD (gastroesophageal reflux disease): CODE(S): K21.9 - Gastro-esophageal reflux disease without esophagitis (20) HTN (hypertension): CODE(S): I10 - Essential (primary) hypertension (21) Wound of left lower extremity: CODE(S): S81.802A - Unspecified open wound, left lower leg, initial encounter PLAN: Plan This is an 86-year-old female who presented with a traumatic wound on the left pretibial surface. She also has a long history of left lower extremity swelling, and prior episodes of left lower extremity deep vein thrombosis. We have discussed the implementation of conservative treatment measures, including leg elevation, avoidance of idle standing and sitting, lower extremity compression, the benefits of activity, and the use of dusu-wve-terpifw analgesics as necessary. As discussed, elevation is to be to heart level, or higher. Prolonged idle sitting has been discouraged. Activity has been encouraged, though the patient is somewhat limited due to her advanced age and debility. We are to continue compression to the left lower extremity by means of Tubigrip. The patient has been less than totally compliant with the use of the Tubigrip. The left pretibial wound remains completely healed. We are to use Promogran topically on the left knee abrasion, which is recent. The patient and her [id number] have been instructed in the appropriate means of application. The sutures have been removed from the laceration on the dorsum of the right foot. Patient is to return in 1 week for reassessment. The patient's iqwqgnip-za-wns expresses concern that the patient is a fall risk. She lives alone, and many of her problems are related to fall which have occurred, resulting in wounds. We have discussed options for long-term living arrangement, though these are issues which are best left to the family in collaboration with the patient herself. The patient herself seems very determined to continue living by herself, confident in her abilities to remain independent. Her blood pressure has been noted to be high today, measured at 185/66. She has been advised to collaborate with her primary care physician in this regard, who has been treating her for hypertension as recently as the last 2 weeks. Total time: 29 minutes
== END 2021-11-07 23:59 | disposition home or self-care (01) ==
LOC: WC 10:00
PROVIDERS: PCP Family Medicine; Visit Provider Surgery
DX: S91.311A Laceration without foreign body, right foot, initial encounter (principal); F03.90 Unspecified dementia, unspecified severity, without behavioral disturbance, psychotic disturbance, mood disturbance, and anxiety; K51.90 Ulcerative colitis, unspecified, without complications; N18.30 Chronic kidney disease, stage 3 unspecified; S80.212A Abrasion, left knee, initial encounter; Z79.01 Long term (current) use of anticoagulants; R53.81 Other malaise; I12.9 Hypertensive chronic kidney disease with stage 1 through stage 4 chronic kidney disease, or unspecified chronic kidney disease; R53.1 Weakness; S81.802A Unspecified open wound, left lower leg, initial encounter; K22.70 Barrett's esophagus without dysplasia; R60.0 Localized edema; E78.5 Hyperlipidemia, unspecified; E03.9 Hypothyroidism, unspecified; Z79.899 Other long term (current) drug therapy; Z86.718 Personal history of other venous thrombosis and embolism; W22.8XXA Striking against or struck by other objects, initial encounter; M79.89 Other specified soft tissue disorders
CPT/HCPCS: 11042

== ENCOUNTER 2021-11-19 10:15 | Outpatient (RCR) | payer MEDICARE, SELFPAY ==
[2021-11-08 00:40] VITALS: BP 185/66; PULSE 67; RESP 17; TEMP 36.3; BMI 22.4
[2021-11-19 10:21] VITALS: BP 153/64; PULSE 72; RESP 20; TEMP 37; BMI 22.4
--- NOTE | 2021-11-19 12:39 | PCM.WC.HP ---
History of Present Illness Date of Service: 11/19/21 Chief Complaint: Traumatic wound - left pretibial area History of Wound: This is an 86-year-old female who presented accompanied by her [id number]. The patient relates a long history of swelling in her left leg. The swelling is typically worse at the end of the day. She claims to sleep on a flat mattress at night, but sits idly a great deal during each day. She is minimally active. 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 Patient has been evaluated in the [facility] Emergency Department on August 05, 2021. Patient has a history of left lower extremity deep vein thrombosis in the remote past, and again recently. She was on systemic anticoagulation therapy until her recent visit to the Emergency Department. She presented for evaluation and management relative to the traumatic wound on her left lower extremity. [facility] Medical History Abrasion of knee, left Abrasion, knee Choudhary esophagus Chronic kidney disease, stage III (moderate) Dementia H/O ht shoulder arthroscopy History of CVA (cerebrovascular accident) History of deep vein thrombosis (DVT) of lower extremity Laceration of foot excluding toes Left leg swelling Leg edema, left Lumbar disc disease Postphlebitic syndrome with inflammation Risk for falls Traumatic open wound of left lower leg Wound of left lower extremity Home Medications duloxetine 60 mg capsule,delayed release 60 mg PO DAILY depression 08/16/13 [History Last Taken 11/28/19] pravastatin 40 mg tablet 40 mg PO DAILY cholesterol 08/16/13 [History Last Taken 11/27/19] budesonide 3 mg capsule,delayed,extended release 3 mg PO BID colitis 10/21/18 [History Last Taken 11/28/19] omeprazole 40 mg capsule,delayed release 40 mg PO DAILY GERD 10/21/18 [History Last Taken 11/28/19] apixaban 5 mg tablet (Eliquis) 5 mg BID 05/07/21 [History Last Taken Unknown] furosemide 20 mg tablet 40 mg DAILY 05/07/21 [History Last Taken Unknown] ondansetron 4 mg disintegrating tablet 4 mg PO Q8H PRN PRN Nausea #10 tabs 05/07/21 [Rx Last Taken Unknown] cephalexin 500 mg capsule 500 mg PO Q6 #20 CAPSULES 10/08/21 [Rx Last Taken Unknown] Allergy/AdvReac Type Severity Reaction Status Date / Time No Known Allergies Allergy Verified 08/05/21 11:09 Family History Mother Temporal arteritis Other Arthritis Emphysema of lung Surgical History no surgical history Social History Smoking Status: Never smoker substance use type: does not use Vital Signs Vital Signs Vital Signs: 11/19/21 10:21 Temperature 98.6 F Temperature Source Temporal Pulse Rate 72 Respiratory Rate 20 H Blood Pressure 153/64 H Blood Pressure Mean 93 Blood Pressure Source Monitor Weight Weight: 115 lb Body Mass Index (BMI) 22.4 Physical Exam Const alert, oriented x3, no apparent distress, average body habitus and well nourished General Appearance: cooperative, comfortable, well kempt and well developed Orientation / Consciousness: awake, oriented to person, oriented to place and oriented to time HEENT normocephalic, head/scalp atraumatic and hearing grossly normal bilaterally Head and Scalp: normal to inspection, normocephalic and atraumatic External Ear: external ears normal Eyes PERRL and EOMs intact bilaterally General Eye: normal appearance of both eyes Resp normal respiratory effort, normal air movement, no retractions and no use of accessory muscles Effort and Inspection: able to speak in complete sentences Extremity full ROM and no calf tenderness General Extremity: Negative for clubbing or cyanosis Skin Wound Narrative: The left pretibial wound remains completely healed and epithelialized. The abrasion on the patient's left knee is also now completely healed. The suture site on the patient's right dorsal foot also appears to be well approximated and healing well. Mild swelling is noted in the left lower extremity, which is chronic. Neuro oriented x3, CN's II-XII intact bilaterally, moves all extremities and no focal motor deficits Sensorium / Orientation: awake, alert, oriented to person, oriented to place and oriented to time Psych Appearance: grossly normal and appropriate Attitude: calm Activity / Motor Behavior: appropriate eye contact Speech: normal speech Mood & Affect: euthymic mood Thought Process: normal thought process Thought Content: normal thought content Attention / Concentration: attention grossly intact Debridement Note Debridement Note No debridement was completed: No debridement was completed today (There are no open wounds or ulcerations.) Post-Debridement Measurements and Additional Note: Post-Debridement Measurements/Treatment - Nurse 1 - General Ulcer Assessment Start: 11/19/21 10:19 Freq: Status: Active Protocol: ESTEFANI Activity Type Activity Date Activity User E-sign Co-sign Detail Recorded Client Recorded Date Recorded By Document 11/19/21 10:21 DL [id number] 11/19/21 10:30 DL 11/19/21 10:21 WC - Today's Visit Information Type of service Follow-up Visit (Physician/[employer] DES[employer]ER ) Arrival Mode Ambulatory Transfer Assistance None Patient Identification Verified (Name & Yes ) Patient Requires Transmission-Based No Precautions Safety Precautions NA Height and Weight Body Mass Index (BMI) 22.4 BMI Classification Normal Vital Signs Temperature (97.8 F-99.1 F) 98.6 F Temperature Source Temporal Pulse Rate (60-100) 72 Pulse Location Monitor Respiratory Rate (12-18) 20 H Respiratory rate source Observation Blood Pressure (90/60-120/80) 153/64 H Blood Pressure Mean 93 Source Monitor History Since Last Visit- (Skip if this is Patient's initial visit) Have you changed medications since your No last visit? Any new allergies or adverse reactions No Had a fall/change in ADL's that may No increase risk of falls Signs or symptoms of abuse and/or No neglect since last visit Have you been in the hospital since your No last visit? Has dressing in place as prescribed Yes Has compression in place as prescribed No Has offloadiing in place as prescribed N/A Experienced any changes in pain level or Yes management Left Footwear Slipper Right Footwear Slipper Pain Scale: 0-10 Numeric Is Patient Pain Free? Yes - Nurse 1 - General Ulcer Measurement Start: 11/19/21 10:19 Freq: Status: Active Protocol: Activity Type Activity Date Activity User E-sign Co-sign Detail Recorded Client Recorded Date Recorded By Document 11/19/21 10:21 DL [id number] 11/19/21 10:30 DL 11/19/21 10:21 Wound Center Nurse 1 #2 Left knee -Current Size (cm) - Length 0 -Current Size (cm) - Width 0 -Current Size (cm) - Depth 0 -Total Square Cm 0 -Exudate Amt None Present -Wound Margin Flat & Intact -Granulation Amt Large (67-100%) -Granulation Quality Pale -Necrosis Amt None Present (0 %) -Structure Exposed N/A -Texture (Ana-wound Skin Appearance) Scarring -Moisture (Ana-wound Skin Appearance) Dry/Scaly -Color (Ana-wound Skin Appearance) Hemosiderin Staining -Temperature (Ana-wound Skin No Abnormality Appearance) (Pt Warm) -Ulcer Cleansing Rinsed/ Irrigated with Saline -Foul Odor after Cleansing No #1 L LE -Current Size (cm) - Length 0 -Current Size (cm) - Width 0 -Current Size (cm) - Depth 0 -Total Square Cm 0 -Photo Taken Yes -Exudate Amt None Present -Wound Margin Flat & Intact -Granulation Amt Large (67-100%) -Granulation Quality [place] -Necrosis Amt None Present (0 %) -Structure Exposed N/A -Texture (Ana-wound Skin Appearance) Scarring -Moisture (Ana-wound Skin Appearance) Dry/Scaly -Color (Ana-wound Skin Appearance) No Abnormality, Hemosiderin Staining -Temperature (Ana-wound Skin No Abnormality Appearance) (Pt Warm) -Ulcer Cleansing Rinsed/ Irrigated with Saline -Foul Odor after Cleansing No Right Calf (cm) 25.5 Right Ankle (cm) 18.2 Left Calf (cm) 26.6 Left Ankle (cm) 23 Assessment/Plan Assessment/Plan (1) Abrasion of knee, left: CODE(S): S80.212A - Abrasion, left knee, initial encounter QUALIFIERS: Encounter type: subsequent encounter Qualified Code(s): S80.212D - Abrasion, left knee, subsequent encounter (2) Traumatic open wound of left lower leg: CODE(S): S81.802A - Unspecified open wound, left lower leg, initial encounter QUALIFIERS: Encounter type: subsequent encounter Qualified Code(s): S81.802D - Unspecified open wound, left lower leg, subsequent encounter (3) Laceration of foot excluding toes: CODE(S): S91.319A - Laceration without foreign body, unspecified foot, initial encounter (4) Leg edema, left: CODE(S): R60.0 - Localized edema (5) Left leg swelling: CODE(S): M79.89 - Other specified soft tissue disorders (6) Postphlebitic syndrome with inflammation: CODE(S): I87.029 - Postthrombotic syndrome with inflammation of unspecified lower extremity (7) History of deep vein thrombosis (DVT) of lower extremity: CODE(S): Z86.718 - Personal history of other venous thrombosis and embolism (8) Lumbar disc disease: CODE(S): M51.9 - Unspecified thoracic, thoracolumbar and lumbosacral intervertebral disc disorder (9) Dementia: CODE(S): F03.90 - Unspecified dementia without behavioral disturbance (10) Risk for falls: CODE(S): Z91.81 - History of falling (11) Choudhary esophagus: CODE(S): K22.70 - Choudhary's esophagus without dysplasia (12) History of CVA (cerebrovascular accident): CODE(S): Z86.73 - Personal history of transient ischemic attack (TIA), and cerebral infarction without residual deficits (13) Chronic kidney disease, stage III (moderate): CODE(S): N18.30 - Chronic kidney disease, stage 3 unspecified (14) Generalized weakness: CODE(S): R53.1 - Weakness (15) History of peptic ulcer: CODE(S): Z87.11 - Personal history of peptic ulcer disease (16) Ulcerative colitis: CODE(S): K51.90 - Ulcerative colitis, unspecified, without complications (17) Hyperlipidemia: CODE(S): E78.5 - Hyperlipidemia, unspecified (18) Hypothyroidism: CODE(S): E03.9 - Hypothyroidism, unspecified (19) GERD (gastroesophageal reflux disease): CODE(S): K21.9 - Gastro-esophageal reflux disease without esophagitis (20) HTN (hypertension): CODE(S): I10 - Essential (primary) hypertension (21) Wound of left lower extremity: CODE(S): S81.802A - Unspecified open wound, left lower leg, initial encounter PLAN: Plan This is an 86-year-old female who presented with a traumatic wound on the left pretibial surface. She also has a long history of left lower extremity swelling, and prior episodes of left lower extremity deep vein thrombosis. We have discussed the implementation of conservative treatment measures, including leg elevation, avoidance of idle standing and sitting, lower extremity compression, the benefits of activity, and the use of [id number] analgesics as necessary. As discussed, elevation is to be to heart level, or higher. Prolonged idle sitting has been discouraged. Activity has been encouraged, though the patient is somewhat limited due to her advanced age and debility. The patient's wounds are now completely healed. She is to be discharged, and will follow-up henceforth on an as-needed basis. She has been encouraged to continue with leg elevation, avoidance of prolonged idle sitting, lower extremity compression, etc. The patient and her [id number] have been instructed to contact our facility if any problems are encountered in the future. Total time: 26 minutes
== END 2021-11-19 15:00 | disposition home or self-care (01) ==
LOC: WC 10:15
PROVIDERS: PCP Family Medicine; Visit Provider Surgery
DX: S91.311A Laceration without foreign body, right foot, initial encounter (principal); F03.90 Unspecified dementia, unspecified severity, without behavioral disturbance, psychotic disturbance, mood disturbance, and anxiety; K51.90 Ulcerative colitis, unspecified, without complications; N18.30 Chronic kidney disease, stage 3 unspecified; R53.1 Weakness; K22.70 Barrett's esophagus without dysplasia; S80.212A Abrasion, left knee, initial encounter; R60.0 Localized edema; I12.9 Hypertensive chronic kidney disease with stage 1 through stage 4 chronic kidney disease, or unspecified chronic kidney disease; Z79.01 Long term (current) use of anticoagulants; S81.802A Unspecified open wound, left lower leg, initial encounter; E78.5 Hyperlipidemia, unspecified; Z79.899 Other long term (current) drug therapy
CPT/HCPCS: 99213; G0463

== ENCOUNTER 2022-02-26 15:40 | Emergency (ER) | payer MEDICARE, SELFPAY ==
[2022-02-26 15:42] VITALS: BP 117/57; PULSE 78; RESP 16; TEMP 35.3; O2SAT 100; BMI 20.9
--- NOTE | 2022-02-26 15:54 | ED.VIS.FALL ---
HPI HPI - Fall History of Present Illness Chief Complaint: Fall Informant: patient Occured/Mechanism Occurred: Today Mechanism/Context: Yes trip Pain/Injury Location: Left wrist Pain Location: head and upper extremity (Left wrist) Quality of Pain: Sharp Worsened by: Movement Relieved by: Nothing Associated Symptoms Associated Symptoms: Negative for Parasthesias, Weakness, Loss of function, Inability to ambulate, Loss of consciousness or Amnesia Narrative Narrative: Presents after a trip and fall that occurred today. Patient states she was trying to step up onto a curb when she tripped and fell forward. Epistaxis patient states she landed on her head. Patient also put her left arm out to catch her. Patient complains of pain in her left wrist. Patient describes the pain as sharp. Patient states it is worse with movement. Patient denies any paresthesias or weakness. Patient was able to ambulate after the fall. Patient denies any loss of consciousness. Last tetanus was 10/08/2021. PFSH [facility] Medical History (Updated 02/26/22 @ 20:[address] Mickey Ahmadi, ) Abrasion of knee, left Abrasion, knee Choudhary esophagus Chronic kidney disease, stage III (moderate) Dementia H/O ht shoulder arthroscopy History of CVA (cerebrovascular accident) History of deep vein thrombosis (DVT) of lower extremity Laceration of foot excluding toes Left leg swelling Leg edema, left Lumbar disc disease Postphlebitic syndrome with inflammation Risk for falls Traumatic open wound of left lower leg Wound of left lower extremity Medical History no medical history no medical history Home Medications duloxetine 60 mg capsule,delayed release 60 mg PO DAILY depression 08/16/13 [History Last Taken 11/28/19] budesonide 3 mg capsule,delayed,extended release 9 mg PO DAILY colitis 10/21/18 [History Last Taken 11/28/19] omeprazole 40 mg capsule,delayed release 40 mg PO DAILY GERD 10/21/18 [History Last Taken 11/28/19] furosemide 20 mg tablet 40 mg DAILY 05/07/21 [History Last Taken Unknown] ondansetron 4 mg disintegrating tablet 4 mg PO Q8H PRN PRN Nausea #10 tabs 05/07/21 [Rx Last Taken Unknown] hydrocodone-acetaminophen 5-325mg 5mg-325mg 1 tab PO Q6H PRN PRN Pain 3 days #10 TABLETS 02/26/22 [Rx Last Taken Unknown] Allergy/AdvReac Type Severity Reaction Status Date / Time No Known Allergies Allergy Verified 02/26/22 15:42 Family History Mother Temporal arteritis Other Arthritis Emphysema of lung Surgical History S/P ORIF (open reduction internal fixation) fracture Social History Smoking Status: Never smoker substance use type: does not use ROS ROS ED Constitutional Constitutional ED: Denies chills or fever(s) Eyes Eyes: Denies blurry vision or change in vision ENT ENT ED: Denies rhinorrhea or sore throat Cardiovascular Cardiovascular: Denies chest pain or palpitations Respiratory/Chest Respiratory/Chest: Denies cough or dyspnea Gastrointestinal Gastrointestinal: Denies nausea or vomiting Genitourinary Genitourinary ED: Denies dysuria or hematuria Musculoskeletal Musculoskeletal: Reports back pain; Denies neck pain Integumentary Denies abscess or rash Neurologic Neurologic: Denies headache(s) or weakness Allergic/Immunologic Allergic/Immunologic ED: Denies mouth swelling or urticaria EXAM Physical Exam Const Vital Signs: 02/26/22 15:42 02/26/22 15:54 Temperature 95.5 F L Temperature Source Temporal Pulse Rate 78 Respiratory Rate 16 Respiratory Effort Normal Non-Labored Respiratory Depth Normal Respiratory Pattern Normal Blood Pressure 117/57 L Blood Pressure Mean 77 Pulse Ox 100 Oxygen Delivery Method Room Air Room Air Positive well nourished and well developed General Appearance ED: well developed and NAD HEENT Reports moist mucous membranes Neck supple and no JVD Resp normal respiratory effort and clear to auscultation bilaterally Cardio regular rate, regular rhythm and no murmurs GI normal to inspection, nondistended, normoactive bowel sounds and non-tender Palpation: soft Extremity Extremity Narrative: There is tenderness, edema, and ecchymosis over the left wrist. Range of motion was limited in all motions of the left wrist secondary to pain. There is a superficial skin tear over the dorsum of the left hand in the webspace between the first and second metacarpals. There is no active bleeding noted. There is a 2.5 cm superficial linear laceration over the dorsal aspect of the left fifth finger over the proximal middle phalanges. There is mild gapping of the wound margins. There are no foreign bodies noted. There is no bony crepitance or step-off. There is no deformity noted. Strength is 5/5 in flexion extension of the MP, PIP, and DIP joints. Sensation was intact to light touch in all digits. Capillary refill was less than 2 seconds in all digits. General Extremety ED: Yes tenderness Neuro oriented x3, CN's II-XII intact bilaterally and no sensory deficits noted Sensorium / Orientation: alert Motor Exam: strength 5/5 throughout Psych mental status grossly normal Skin no rashes or lesions noted MDM MDM MDM Narrative Medical decision making narrative: X-rays of the left wrist were obtained. There are 3 views. On my interpretation, there is a comminuted intra-articular fracture of the distal radius. There is dorsal angulation noted. There is also a minimally displaced fracture of the distal ulna. There is soft tissue swelling noted. Radiologist also interpreted the x-rays and agrees. The left fifth finger wound was cleaned and irrigated with copious amounts of normal saline. The wound was anesthetized with 1% plain lidocaine locally. The wound was closed with 4 simple interrupted #5-0 nylon sutures under sterile technique. Patient tolerated the procedure well. Bacitracin dressing was applied. Adaptic dressing was applied to the skin tear on the dorsum of the left hand. Case was discussed with Dr. Baldwin from orthopedics. He recommended reducing the fracture. Patient was given a dose of morphine here. Patient was placed in finger traps. A hematoma block was performed. Reduction was attempted. There is some movement of the fracture fragments. This feels like it is in better alignment. Patient was placed in a custom made well-padded AP splint. Patient tolerated the procedure well. Patient was instructed to ice and elevate the left wrist. Patient was instructed to follow-up with Dr. Baldwin in 3 to 5 days. Patient understood and was agreeable with the plan. All questions were answered. Radiography Diagnostic Testing: Clinical Impression(s) from Imaging Studies Wrist X-Ray 02/26/22 16:09 IMPRESSION: Comminuted angulated intra-articular fracture of the distal radius. Minimally displaced fracture of the distal ulna. Electronically Signed: Kenroy Courtney MD at 16:52 EDT , Wrist X-Ray 02/26/22 19:38 IMPRESSION: 1. Improved alignment of the distal radial fracture when compared to prior study. 2. Semiopaque cast. Electronically Signed: Héctor HartonDO at 20:14 EDT Reading Location ID and State: [facility] / [place] Tel [phone], Service support , Procedures Lacerations Left small finger: Length: 2.5 cm Depth: Skin Shape: Linear Prep: Sterile Conditions and Chlorhexadine Laceration repair: Lidocaine, Local and Skin sutures Number of Sutures/[place]: 4 Suture Information: Ethilon, Simple and 5-0 Upper Extremity Splints Upper Extremity Splint: Orthoglass and - (AP splint) Splint Fabrication: Fabricated Location: Left Discharge Plan Triage Chief Complaint: Fall ED Provider: Mickey Ahmadi Dx/Rx/DC Orders Clinical Impression: Closed fracture of distal end of left radius with ulna, Laceration of left little finger, Multiple skin tears Instructions: ED Laceration, Hand: All Closures, ED Fracture, Wrist, General Prescriptions: New hydrocodone-acetaminophen [hydrocodone-acetaminophen] 5-325 mg tablet 1 tab PO Q6H PRN PRN (Reason: Pain) 3 Days Qty: 10 0RF No Action duloxetine 60 MG capsule 60 mg PO DAILY Label Comments: Depression/anxiety budesonide 3 MG capsule,delayed,extend.release 9 mg PO DAILY omeprazole 40 MG capsule,delayed release(DR/EC) 40 mg PO DAILY furosemide 20 mg tablet 40 mg DAILY ondansetron [ondansetron] 4 MG tablet 4 mg PO Q8H PRN PRN (Reason: Nausea) Qty: 10 0RF Primary Care Provider: Claudio Steele Referrals: Claudio Steele DO [Primary Care Provider] - 5-7 Days Toy Baldwin DO [Med Staff - Active Staff] - 3-5 Days Disposition Disposition: Home, Self Care Discharge Date/Time: 02/26/22 20:49
--- NOTE | 2022-02-26 16:09 | RAD_ITS ---
INDICATION: Pain EXAMINATION/TECHNIQUE: X-RAY - LEFT XR Wrist Min 3 Views 3 VIEWS COMPARISON: None. FINDINGS: SOFT TISSUES: Mild wrist soft tissue swelling. Orthopedic screw in the first distal phalanx. BONES/JOINTS: Comminuted, displaced, angulated intra-articular fracture of the distal radius. Minimally displaced fracture of the distal ulna. Dorsal tilt of the radial articular surface. Ulnar alignment overall near-anatomic. Degenerative changes present. No sclerotic or destructive changes observed. RAD/Wrist min 3 Views IMPRESSION: Comminuted angulated intra-articular fracture of the distal radius. Minimally displaced fracture of the distal ulna. Electronically Signed: Kenroy Courtney MD at 16:52 EDT ,
[2022-02-26] MEDS: Lidocaine 1% (20 ml mdv) 20 ML Vial INFILT (16:53)
[2022-02-26] MEDS: Morphine 4 MG/ML Syringe IM (18:18)
--- NOTE | 2022-02-26 19:38 | RAD_ITS ---
STUDY: X-RAY - LEFT WRIST REASON FOR EXAM: Female, 86 years old. Injury. Pain. TECHNIQUE: 3 view(s) of the wrist were obtained. COMPARISON: Left wrist, 02/26/2022. FINDINGS: Generalized osteopenia And seen is a fracture of the distal radius. This is in improved alignment of the shaft compared to the previous examination. Distal ulna is unremarkable. There is degenerative arthrosis of the radiocarpal articulation. Normal distal radioulnar articulation. Normal carpal bones. There is degenerative arthrosis of the carpal articulations. Normal carpometacarpal articulation of the thumb. Normal second through fifth carpometacarpal articulations. Normal visualized metacarpal bones. There is continued soft tissue swelling. A semiradiopaque cast surrounds the hand and wrist. RAD/Wrist min 3 Views IMPRESSION: 1. Improved alignment of the distal radial fracture when compared to prior study. 2. Semiopaque cast. Electronically Signed: Héctor Rosales DO at 20:14 EDT ,
== END 2022-02-26 20:49 | disposition home or self-care (01) ==
PROVIDERS: Emergency Provider Emergency Medicine; PCP Family Medicine; Visit Provider Emergency Medicine
DX: S52.502A Unspecified fracture of the lower end of left radius, initial encounter for closed fracture (principal); S61.217A Laceration without foreign body of left little finger without damage to nail, initial encounter; Z86.718 Personal history of other venous thrombosis and embolism; Z86.73 Personal history of transient ischemic attack (TIA), and cerebral infarction without residual deficits; Z79.899 Other long term (current) drug therapy; W19.XXXA Unspecified fall, initial encounter
CPT/HCPCS: 12001; 29125; 73110; 96372; 99284; A4216

== ENCOUNTER → 2022-05-13 | Outpatient (REF) | payer MEDICARE, SELFPAY ==
[2022-05-13 09:30] LABS: Anion Gap 8 (5-15); BUN 24 mg/dL (7-18); BUN/Creat Ratio 37.1 RATIO (10-20); Calcium,Total 8.5 mg/dL (8.5-10.1); Chloride 100 mmol/L (98-107); Creatinine, Serum 0.65 mg/dL (0.55-1.02); EST Glomerular Filtration Rate 92 mL/min (>60); Est Glom Filt Rate - Afr Amer 112 mL/min (>60); Glucose 88 mg/dL (74-106); Potassium 3.4 mmol/L (3.5-5.1); Sodium Level 139 mmol/L (136-145)
== END ==
LOC: OLS.DANBUR 04:00
PROVIDERS: PCP Family Medicine; Referring Provider Family Medicine; Visit Provider Family Medicine
DX: R60.9 Edema, unspecified (principal)
CPT/HCPCS: 36415; 80048

== ENCOUNTER → 2022-06-23 | Outpatient (CLI) | payer MEDICARE, SELFPAY ==
[2022-06-23 12:28] LABS: Anion Gap 6 (5-15); BUN 21 mg/dL (7-18); BUN/Creat Ratio 22.4 RATIO (10-20); Chloride 102 mmol/L (98-107); Creatinine, Serum 0.94 mg/dL (0.55-1.02); EST Glomerular Filtration Rate 60 mL/min (>60); Est Glom Filt Rate - Afr Amer 73 mL/min (>60); Glucose 131 mg/dL (74-106); Sodium Level 139 mmol/L (136-145)
== END | disposition home or self-care (01) ==
LOC: BFHLAB 10:45
PROVIDERS: PCP Family Medicine; Visit Provider Family Medicine
DX: Z51.81 Encounter for therapeutic drug level monitoring (principal)
CPT/HCPCS: 36415; 80048

== ENCOUNTER → 2022-12-11 | Outpatient (REF) | payer MEDICARE, SELFPAY ==
[2022-12-11 09:46] LABS: Anion Gap 2 (5-15); BUN 18 mg/dL (7-18); BUN/Creat Ratio 22.9 RATIO (10-20); Calcium,Total 8.7 mg/dL (8.5-10.1); Chloride 103 mmol/L (98-107); Creatinine, Serum 0.78 mg/dL (0.55-1.02); EST Glomerular Filtration Rate 74 mL/min (>60); Est Glom Filt Rate - Afr Amer 89 mL/min (>60); Glucose 88 mg/dL (74-106); Potassium 3.7 mmol/L (3.5-5.1); Sodium Level 138 mmol/L (136-145)
[2022-12-11 09:56] LABS: BNP,B-Type NATRIURETIC PEPTIDE 93.6 pg/mL (0-100)
== END ==
LOC: OLS.DANBUR 04:00
PROVIDERS: PCP Family Medicine; Referring Provider Family Medicine; Visit Provider Family Medicine
DX: R60.9 Edema, unspecified (principal)
CPT/HCPCS: 36415; 80048; 83880

== ENCOUNTER → 2023-01-02 | Outpatient (CLI) | payer MEDICARE, SELFPAY ==
[2023-01-02 16:15] LABS: Color, Urine Yellow (Yellow); Glucose, Dipstick Normal (Normal); Ketone-Dipstick 5 mg/dl (Negative); Leukocyte Esterase-Dipstick 500 /ul (Negative); Nitrite-Dipstick Positive (Negative); Occult Blood-Urine 25 /ul (Negative); Protein-Dipstick 15 mg/dl (Negative); Urine Bilirubin Dipstick Negative (Negative); Urine Clarity Turbid (Clear); Urine Urobilinogen Normal (Normal)
== END | disposition home or self-care (01) ==
PROVIDERS: PCP Family Medicine; Referring Provider Family Medicine; Visit Provider Family Medicine
DX: R41.0 Disorientation, unspecified (principal); M54.50 Low back pain, unspecified
CPT/HCPCS: 81002; 87077; 87086; 87088; 87186

== ENCOUNTER → 2023-11-09 | Outpatient (CLI) | payer MEDICARE, SELFPAY ==
[2023-11-09 18:28] LABS: AST(SGOT) 24 U/L (15-37); Alanine Aminotransfer ALT/SGPT 25 U/L (13-56); Albumin, Serum 3.4 g/dL (3.2-5.0); Alkaline Phosphatase 60 U/L (45-117); Anion Gap 4 (5-15); BUN 19 mg/dL (7-18); BUN/Creat Ratio 16.8 RATIO (10-20); Calcium,Total 9.1 mg/dL (8.5-10.1); Chloride 103 mmol/L (98-107); Creatinine, Serum 1.13 mg/dL (0.55-1.02); EST Glomerular Filtration Rate 48 mL/min (>60); Est Glom Filt Rate - Afr Amer 58 mL/min (>60); Globulin 3.4 g/dL (2.2-4.2); Glucose 159 mg/dL (74-106); Potassium 4.7 mmol/L (3.5-5.1); Protein, Total 6.8 g/dL (6.4-8.2); Sodium Level 136 mmol/L (136-145)
== END | disposition home or self-care (01) ==
LOC: BFHLAB 16:26
PROVIDERS: PCP Family Medicine; Referring Provider Family Medicine; Visit Provider Family Medicine
DX: R60.9 Edema, unspecified (principal)
CPT/HCPCS: 36415; 80053

== ENCOUNTER → 2024-03-31 | Outpatient (CLI) | payer MEDICARE, SELFPAY ==
[2024-03-31 15:25] LABS: ALB/GLOB Ratio 0.9 RATIO (0.9-2.4); AST(SGOT) 20 U/L (15-37); Alanine Aminotransfer ALT/SGPT 19 U/L (13-56); Albumin, Serum 3.2 g/dL (3.2-5.0); Alkaline Phosphatase 74 U/L (45-117); Anion Gap 6 (5-15); BUN 30 mg/dL (7-18); Calcium,Total 8.9 mg/dL (8.5-10.1); Chloride 104 mmol/L (98-107); Creatinine, Serum 1.11 mg/dL (0.55-1.02); EST Glomerular Filtration Rate 49 mL/min (>60); Est Glom Filt Rate - Afr Amer 60 mL/min (>60); Globulin 3.7 g/dL (2.2-4.2); Glucose 133 mg/dL (74-106); Potassium 4.5 mmol/L (3.5-5.1); Protein, Total 6.9 g/dL (6.4-8.2); Sodium Level 139 mmol/L (136-145)
== END | disposition home or self-care (01) ==
LOC: BFHLAB 13:31
PROVIDERS: PCP Family Medicine; Visit Provider Family Medicine
DX: N18.31 Chronic kidney disease, stage 3a (principal); Z51.81 Encounter for therapeutic drug level monitoring
CPT/HCPCS: 36415; 80053

== ENCOUNTER 2024-06-09 09:48 | Outpatient (RCR) | payer MEDICARE, SELFPAY ==
[2024-06-09 10:09] VITALS: TEMP 36.7; BMI 23.8
--- NOTE | 2024-06-09 13:21 | PCM.WC.HP ---
History of Present Illness Date of Service: 06/09/24 Chief Complaint: Right Leg Ulcer History of Wound: Ms. Miller is a pleasant 88-year-old who presents due to nonhealing right lower extremity ulcer. Here with her [id number]. She believes it started about 2 months ago. 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 She is quite mobile and sleeps in a bed. Currently resides in an assisted living facility and measures so far have not been helpful. She feels well overall. Appetite is good. No chills, fever or change in bowel habit reported. [facility] Medical History (Updated 06/09/24 @ 13:[address] Nan Goodwin MD) Bilateral lower extremity edema Ulcer of right lower extremity with fat layer exposed Abrasion of knee, left Wound of left lower extremity Abrasion, knee Laceration of foot excluding toes Leg edema, left Left leg swelling Postphlebitic syndrome with inflammation History of deep vein thrombosis (DVT) of lower extremity Traumatic open wound of left lower leg Lumbar disc disease Dementia Risk for falls Choudhary esophagus History of CVA (cerebrovascular accident) Chronic kidney disease, stage III (moderate) H/O ht shoulder arthroscopy Home Medications ?Medication ?Instructions ?Recorded ?Last Taken ?Type duloxetine 60 mg capsule,delayed 60 mg PO DAILY depression 08/16/13 11/28/19 History release budesonide 3 mg 9 mg PO DAILY colitis 10/21/18 11/28/19 History capsule,delayed,extended release omeprazole 40 mg capsule,delayed 40 mg PO DAILY GERD 10/21/18 11/28/19 History release furosemide 20 mg tablet 40 mg PO DAILY 05/07/21 Unknown History ondansetron 4 mg disintegrating 4 mg PO Q8H PRN PRN Nausea #10 tabs 05/07/21 Unknown Rx tablet hydrocodone-acetaminophen 5-325mg 1 tab PO Q6H PRN PRN Pain 3 days 02/26/22 Unknown Rx 5mg-325mg #10 TABLETS Allergy/AdvReac Type Severity Reaction Status Date / Time No Known Allergies Allergy Verified 06/09/24 10:32 Family History Mother Temporal arteritis Other Arthritis Emphysema of lung Surgical History S/P ORIF (open reduction internal fixation) fracture Social History Smoking Status: Never smoker substance use type: does not use ROS Constitutional Constitutional: Denies change in weight, difficulty sleeping, fatigue, frequent falls, headache(s) or increased appetite Eyes Eyes: Denies blind spots, bloody eye, blurry vision, change in vision, discharge from eye(s), discongugate gaze, dry eyes, erythema or exophthalmos ENT HEENT: Denies disequillibrium, dizziness, dysphagia, foreign body in nose, halitosis, headache(s) or hearing loss Cardiovascular Cardiovascular: Denies abdominal bloating, abdominal edema, abdominal pain, chest pain at rest, claudication, clubbing or dyspnea at rest Respiratory/Chest Respiratory/Chest: Denies change in phlegm color, chest congestion, dyspnea on exertion, excessive phlegm production, hemoptysis, hoarseness, inability to speak or nail bed cyanosis Gastrointestinal Gastrointestinal: Denies bloating, change in bowel habits, chewing difficulty, coffee ground emesis, dysphagia or excessive flatus Genitourinary Genitourinary: Denies abdominal discomfort, difficulty urinating or flank pain Musculoskeletal Musculoskeletal: Denies extremity pain, muscle spasms, myalgias, tingling or tremors Integumentary Integumentary: Denies erythema, furuncle, hirsutism, jaundice, pruritus or rash Neurologic Neurologic: Denies abnormal hearing, abnormal speech, behavior changes, burning sensations, convulsions, focal weakness, headache(s) or loss of vision Psychiatric Psychiatric: Reports memory loss; Denies anxiety, auditory hallucinations, behavioral changes, change in appetite or hallucinations Endocrine Endocrinology: Denies cold intolerance, deepening of the voice, excessive sweating, flushing, heat intolerance or increase in ring/shoe/hat size Hematologic/Lymphatic Hematologic/Lymphatic: Denies easy bleeding, easy bruising or lymphadenopathy Allergic/Immunologic Allergic/Immunologic: Denies itchy eyes, lip swelling, tongue swelling, hives or wheezing Vital Signs Vital Signs Vital Signs: 06/09/24 10:09 Temperature 98.0 F Temperature Source Temporal Weight Weight: 122 lb Body Mass Index (BMI) 23.8 Physical Exam Const alert and no apparent distress General Appearance: cooperative, comfortable and well kempt HEENT normocephalic, head/scalp atraumatic and hearing grossly normal bilaterally Eyes EOMs intact bilaterally Neck full ROM and supple General: normal visual inspection Resp normal respiratory effort and normal air movement Effort and Inspection: able to speak in complete sentences Cardio regular rate, regular rhythm, S1 normal heart sound and S2 normal heart sound GI soft to palpation, non-tender and no masses Extremity General Extremity: edema Skin Wounds: wounds noted size Size: See clinical note, bed beefy red, margins well approximated, no odor, open and surrounding erythema Neuro CN's II-XII intact bilaterally, moves all extremities and no focal motor deficits Psych mental status grossly normal, thought process normal, cooperative and affect normal Debridement Note Debridement Note Wound debrided: Right lower extremity Type of Debridement: Excisional debridement Anesthesia Used: 5% Lidocaine Gel Depth: Down to and including healthy tissue and in the subcutaneous layer Percentage of wound debrided: 100 Instrument Used: 5mm curette Tissue Removed: Slough and devitalized tissue Severity: Fat Layer Exposed Amount of bleeding with debridement: Mild Bleeding Controlled with: Compression and gauze Patient tolerated procedure: Patient tolerated procedure well Post-Debridement Measurements and Additional Note: Post-Debridement Measurements/Treatment WC - Nurse 1 - General Ulcer Assessment Start: 06/09/24 10:09 Freq: Status: Active Protocol: ESTEFANI Activity Type Activity Date Activity User E-sign Co-sign Detail Recorded Client Recorded Date Recorded By Document 06/09/24 10:09 [email or web address] [id number] 06/09/24 10:31 KW 06/09/24 10:09 WC - Today's Visit Information Type of service Initial Visit Arrival Mode Ambulatory, Walker Accompanied by DAUGHTER Patient Identification Verified (Name & Yes ) Height and Weight Height 5 ft Weight 122 lb Weight in Pounds 122.0 lbs Weight Measurement Method Estimated by Patient Body Mass Index (BMI) 23.8 BMI Classification Normal Vital Signs Temperature (97.8 F-99.1 F) 98.0 F Temperature Source Temporal History Since Last Visit- (Skip if this is Patient's initial visit) Left Footwear Regular Shoe Right Footwear Regular Shoe Pain Scale: 0-10 Numeric Is Patient Pain Free? Yes - Nurse 1 - General Ulcer Measurement Start: 06/09/24 10:09 Freq: Status: Active Protocol: Activity Type Activity Date Activity User E-sign Co-sign Detail Recorded Client Recorded Date Recorded By Document 06/09/24 10:09 KW [id number] 06/09/24 10:31 KW 06/09/24 10:09 Wound Center Nurse 1 #3 RT POST CALF -Current Size (cm) - Length 1.6 -Current Size (cm) - Width 1.7 -Current Size (cm) - Depth 0 -Total Square Cm 2.72 -Date of Last Picture (Recall this 06/09/24 field) -Exudate Amt Small -Exudate Type Serosanguineous -Wound Margin Distinct, Outline Attached -Granulation Amt Large (67-100%) -Granulation Quality Hyper- granulation, [place],Red -Texture (Ana-wound Skin Appearance) Assessed -Moisture (Ana-wound Skin Appearance) Assessed, Maceration -Color (Ana-wound Skin Appearance) Assessed, Hemosiderin Staining -Temperature (Ana-wound Skin No Abnormality Appearance) (Pt Warm) -Ulcer Cleansing Soap and Water -Foul Odor after Cleansing No -Anesthetic Used 5% Lidocaine Gel Right Calf (cm) 27 Right Ankle (cm) 22.5 Left Calf (cm) 27 Left Ankle (cm) 25 WC - Nurse 2 - General Ulcer CM Notes Start: 06/09/24 10:09 Freq: Status: Active Protocol: Activity Type Activity Date Activity User E-sign Co-sign Detail Recorded Client Recorded Date Recorded By Document 06/09/24 10:48 [id number] 06/09/24 11:01 06/09/24 10:48 Wound Center Nurse 2 #3 RT POST CALF -Time 10:48 -Correct Patient Yes -Correct Side, Site, Position Yes -Correct Procedure Yes -Procedure Performed Yes -Type of Procedure Debridement -Clinical Debridement Subcutaneous -Tissue Removed Subcutaneous -Post Debridement (cm) - Length 2.0 -Post Debridement (cm) - Width 1.6 -Post Debridement (cm) - Depth 0.6 -Total Square (Post) (cm) 3.20 -Area of Debridement (cm) - Length 2.0 -Area of Debridement (cm) - Width 1.6 -Total Square (Area) (cm) 3.20 -Tunneling No -Undermining/Tunneling No -Circular Undermining No -Wound/Ulcer Outcome Not Healed -Ulcer Cleansing Rinsed/ Irrigated with Saline -Foul Odor after Cleansing No -Bioengineered Tissue No -Bleeding Controlled with Pressure -Treatment Response Procedure Tolerated Well -Debridement - Subq, 1st 20sq cm Yes Pain Scale: 0-10 Numeric Is Patient Pain Free? Yes WC - Nurse 3 - General Ulcer D/C NN Start: 06/09/24 10:09 Freq: Status: Active Protocol: Activity Type Activity Date Activity User E-sign Co-sign Detail Recorded Client Recorded Date Recorded By Document 06/09/24 11:14 DS [id number] 06/09/24 11:35 DS 06/09/24 11:14 Wound Care Center Nurse 3 #4 Left Post supine calf -Ulcer Cleansing Rinsed/ Irrigated with Saline -Primary Dressing Applied Silicone Border Foam 6x6 -Silicone Border Foam 6x6 1 #3 RT POST CALF -Ulcer Cleansing Rinsed/ Irrigated with Saline -Primary Dressing Applied NonAdherent Contact Layer, Promogran -Primary Dressing Covered/Secured with Dry Gauze, Secured with Tape -Promogran 1 LE -Multi-Layered Wrap Application Multi-Layer Comp - Bilat ($ ) -Other 2ND SET GIVEN TO PT FOR NH CHANGE BL LE -Multi-Layered Wrap Application Multi-Layer Comp - Bilat ($ ) Pain Scale: 0-10 Numeric Is Patient Pain Free? Yes WC - Visit Discharge Discharge Condition Stable Ambulatory Status Walker Transportation Private Auto Accompanied by DAUGHTER Charges/Coding Visit Charges Office Visits / Consults: 58655 OV L4 New 45min Procedures Integumentary 111xxx-113xx: 93963 Cecy subq tissue 20 sq cm/< Assessment/Plan Assessment/Plan (1) Ulcer of right lower extremity with fat layer exposed: CODE(S): L97.912 - Non-pressure chronic ulcer of unspecified part of right lower leg with fat layer exposed (2) Bilateral lower extremity edema: CODE(S): R60.0 - Localized edema (3) Dementia: CODE(S): F03.90 - Unspecified dementia, unspecified severity, without behavioral disturbance, psychotic disturbance, mood disturbance, and anxiety PLAN: Plan Debridement done as documented above, procedure was well-tolerated. Hypergranulation noted on exam. No significant tenderness or drainage appreciated. Cultures taken due to chronicity, will review. For now, Promogran and Adaptic over top. 3M wrap for edema management, change on Thursday. Encourage leg elevation, exercise and compliance with compression. Appetite is said to be good, Evens daily to twice daily also recommended/discussed. Questions were answered and they were advised to let us know if they have any further questions or concerns. Follow-up in a week or sooner if needed. This note was generated with [email or web address] dictation software. It may contain incorrect words, spelling, and punctuation that were not noted in checking the note before signing.
--- NOTE | 2024-06-10 11:40 | WC ---
PHOTO 06/09/24 RIGHT POST CALF
== END 2024-06-10 23:59 | disposition home or self-care (01) ==
LOC: WC 09:48
PROVIDERS: PCP Family Medicine; Referring Provider Family Medicine; Visit Provider Internal Medicine
DX: L97.912 Non-pressure chronic ulcer of unspecified part of right lower leg with fat layer exposed (principal); F03.90 Unspecified dementia, unspecified severity, without behavioral disturbance, psychotic disturbance, mood disturbance, and anxiety; N18.30 Chronic kidney disease, stage 3 unspecified; R60.0 Localized edema; Z86.73 Personal history of transient ischemic attack (TIA), and cerebral infarction without residual deficits; Z86.718 Personal history of other venous thrombosis and embolism
CPT/HCPCS: 11042; 29581; 99204; G0463

== ENCOUNTER 2024-07-07 11:00 | Outpatient (RCR) | payer MEDICARE, SELFPAY ==
[2024-06-11 01:25] VITALS: TEMP 36.7; BMI 23.8
[2024-06-16 10:56] VITALS: BP 198/102; PULSE 99; RESP 18; TEMP 36.3; BMI 23.8
--- NOTE | 2024-06-16 12:07 | PCM.WC.PN ---
History of Present Illness Date of Service: 06/16/24 Chief Complaint: Right Leg Ulcer History of Wound: Ms. Miller is a pleasant 88-year-old who presents due to nonhealing right lower extremity ulcer. Here with her [id number]. She believes it started about 2 months ago. 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 She is quite mobile and sleeps in a bed. Currently resides in an assisted living facility and measures so far have not been helpful. She feels well overall. Appetite is good. No chills, fever or change in bowel habit reported. Progress of Wound: Right lower extremity ulcer is healing. No new concerns reported in that regard. Fell on her way here and sustained an injury to her left hand but otherwise feels well Objective Data Objective Data Vital Signs: Vital Signs Temp Pulse Resp BP 97.3 F L 99 18 198/102 H 06/16/24 10:56 06/16/24 10:56 06/16/24 10:56 06/16/24 10:56 Weight: 122 lb Body Mass Index (BMI) 23.8 Charges/Coding Procedures Integumentary 111xxx-113xx: [id number] Cecy subq tissue 20 sq cm/< Physical Exam Const alert and no apparent distress General Appearance: cooperative, comfortable and well kempt HEENT normocephalic, head/scalp atraumatic and hearing grossly normal bilaterally Eyes EOMs intact bilaterally Neck full ROM and supple General: normal visual inspection Resp normal respiratory effort Effort and Inspection: able to speak in complete sentences Extremity General Extremity: edema Skin Wounds: wounds noted size Size: See clinical note, bed granulating well, margins well approximated, no odor and open Neuro CN's II-XII intact bilaterally, moves all extremities and no focal motor deficits Psych mental status grossly normal, thought process normal, cooperative and affect normal Debridement Note Debridement Note Wound debrided: Right lower extremity Type of Debridement: Excisional debridement Anesthesia Used: 5% Lidocaine Gel Depth: Down to and including healthy tissue and in the subcutaneous layer Percentage of wound debrided: 100 Instrument Used: 5mm curette Tissue Removed: Slough and devitalized tissue Severity: Fat Layer Exposed Amount of bleeding with debridement: Mild Bleeding Controlled with: Pressure Patient tolerated procedure: Patient tolerated procedure well Post-Debridement Measurements and Additional Note: Post-Debridement Measurements/Treatment WC - Nurse 1 - General Ulcer Assessment Start: 06/16/24 10:56 Freq: Status: Active Protocol: LINETTE.LOWEXT Activity Type Activity Date Activity User E-sign Co-sign Detail Recorded Client Recorded Date Recorded By Document 06/16/24 10:56 RADHA [id number] 06/16/24 11:02 06/16/24 10:56 - Today's Visit Information Type of service Follow-up Visit (Physician/REFERRAL COORDINATOR ) Arrival Mode Ambulatory, Walker Transfer Assistance None Patient Identification Verified (Name & Yes ) Patient Requires Transmission-Based No Precautions Height and Weight Body Mass Index (BMI) 23.8 BMI Classification Normal Vital Signs Temperature (97.8 F-99.1 F) 97.3 F L Temperature Source Temporal Pulse Rate (60-100) 99 Pulse Location Monitor Respiratory Rate (12-18) 18 Respiratory rate source Observation Blood Pressure (90/60-120/80) 198/102 H Blood Pressure Mean (mm Hg) 134 Source Monitor Position Sitting Blood Pressure Location Left Arm History Since Last Visit- (Skip if this is Patient's initial visit) Have you changed medications since your No last visit? Any new allergies or adverse reactions No Had a fall/change in ADL's that may No increase risk of falls Signs or symptoms of abuse and/or No neglect since last visit Have you been in the hospital since your No last visit? Has dressing in place as prescribed Yes Has compression in place as prescribed Yes Has offloadiing in place as prescribed N/A Experienced any changes in pain level or No management Pain Scale: 0-10 Numeric Is Patient Pain Free? Yes - Nurse 1 - General Ulcer Measurement Start: 06/16/24 10:56 Freq: Status: Active Protocol: Activity Type Activity Date Activity User E-sign Co-sign Detail Recorded Client Recorded Date Recorded By Document 06/16/24 10:56 RB [id number] 06/16/24 11:02 RB 06/16/24 10:56 Wound Center Nurse 1 #4 Left Post supine calf -Combined with other wound No -Current Size (cm) - Length 0.1 -Current Size (cm) - Width 0.1 -Current Size (cm) - Depth 0.1 -Total Square Cm 0.01 -Tunneling No -Undermining/Tunneling No -Circular Undermining No -Exudate Amt Medium -Exudate Type Serosanguineous -Wound Margin Distinct, Outline Attached -Granulation Amt Medium (34-66%) -Granulation Quality [place] -Slough/Fibrin Yes -Necrosis Amt Medium (34-66%) -Necrotic Tissue Type Adherent Slough -Structure Exposed N/A -Texture (Ana-wound Skin Appearance) Assessed -Moisture (Ana-wound Skin Appearance) Assessed -Color (Ana-wound Skin Appearance) Assessed, Hemosiderin Staining -Temperature (Ana-wound Skin No Abnormality Appearance) (Pt Warm) -Tenderness on Palpation (Ana-wound No Skin Appearance) -Ulcer Cleansing Wound Cleanser -Foul Odor after Cleansing No -Anesthetic Used 5% Lidocaine Gel 5. Left hand -Combined with other wound No -Current Size (cm) - Length 0.1 -Current Size (cm) - Width 0.1 -Current Size (cm) - Depth 0.1 -Total Square Cm 0.01 -Photo Taken Yes -Tunneling No -Undermining/Tunneling No -Circular Undermining No -Exudate Amt Medium -Exudate Type Serosanguineous -Wound Margin Distinct, Outline Attached -Granulation Amt Medium (34-66%) -Granulation Quality [place] -Slough/Fibrin Yes -Necrosis Amt Medium (34-66%) -Necrotic Tissue Type Adherent Slough -Structure Exposed N/A -Texture (Ana-wound Skin Appearance) Assessed -Moisture (Ana-wound Skin Appearance) Assessed -Color (Ana-wound Skin Appearance) Assessed -Temperature (Ana-wound Skin No Abnormality Appearance) (Pt Warm) -Tenderness on Palpation (Ana-wound No Skin Appearance) -Ulcer Cleansing Wound Cleanser -Foul Odor after Cleansing No -Anesthetic Used 5% Lidocaine Gel #3 RT POST CALF -Combined with other wound No -Current Size (cm) - Length 1.3 -Current Size (cm) - Width 1 -Current Size (cm) - Depth 0.1 -Total Square Cm 1.3 -Tunneling No -Undermining/Tunneling No -Circular Undermining No -Exudate Amt Medium -Exudate Type Serosanguineous -Wound Margin Distinct, Outline Attached -Granulation Amt Medium (34-66%) -Granulation Quality [place] -Slough/Fibrin Yes -Necrosis Amt Large (67-100%) -Necrotic Tissue Type Adherent Slough -Structure Exposed N/A -Texture (Ana-wound Skin Appearance) Assessed -Moisture (Ana-wound Skin Appearance) Assessed -Color (Ana-wound Skin Appearance) Assessed, Hemosiderin Staining -Temperature (Ana-wound Skin No Abnormality Appearance) (Pt Warm) -Tenderness on Palpation (Ana-wound No Skin Appearance) -Ulcer Cleansing Wound Cleanser -Foul Odor after Cleansing No -Anesthetic Used 5% Lidocaine Gel Lower Limb Edema Present Yes Right Calf (cm) 29.5 Right Ankle (cm) 19.5 Left Calf (cm) 28.5 Left Ankle (cm) 19.8 WC - Nurse 2 - General Ulcer CM Notes Start: 06/16/24 10:56 Freq: Status: Active Protocol: Activity Type Activity Date Activity User E-sign Co-sign Detail Recorded Client Recorded Date Recorded By Document 06/16/24 11:28 [id number] 06/16/24 11:30 06/16/24 11:28 Wound Center Nurse 2 #3 RT POST CALF -Time 11:29 -Correct Patient Yes -Correct Side, Site, Position Yes -Correct Procedure Yes -Procedure Performed Yes -Type of Procedure Debridement -Clinical Debridement Subcutaneous -Tissue Removed Subcutaneous -Post Debridement (cm) - Length 1.5 -Post Debridement (cm) - Width 0.8 -Post Debridement (cm) - Depth 0.2 -Total Square (Post) (cm) 1.20 -Area of Debridement (cm) - Length 1.5 -Area of Debridement (cm) - Width 0.8 -Total Square (Area) (cm) 1.20 -Tunneling No -Undermining/Tunneling No -Circular Undermining No -Wound/Ulcer Outcome Not Healed -Ulcer Cleansing Rinsed/ Irrigated with Saline -Foul Odor after Cleansing No -Bioengineered Tissue No -Bleeding Controlled with Pressure -Treatment Response Procedure Tolerated Well -Debridement - Subq, 1st 20sq cm Yes Pain Scale: 0-10 Numeric Is Patient Pain Free? Yes - Nurse 3 - General Ulcer D/C NN Start: 06/16/24 10:56 Freq: Status: Active Protocol: Activity Type Activity Date Activity User E-sign Co-sign Detail Recorded Client Recorded Date Recorded By Document 06/16/24 11:43 [id number] 06/16/24 11:44 06/16/24 11:43 Wound Care Center Nurse 3 5. Left hand -Ulcer Cleansing Rinsed/ Irrigated with Saline -Primary Dressing Applied NonAdherent Contact Layer, Promogran -Primary Dressing Covered/Secured with Dry Gauze,Dry Gauze & Roll Gauze -Promogran 1 #3 RT POST CALF -Ulcer Cleansing Rinsed/ Irrigated with Saline -Other Dressing promogran -Primary Dressing Covered/Secured with Dry Gauze & Roll Gauze, Secured with Tape BL LE -Multi-Layered Wrap Application Multi-Layer Comp - Bilat ($ ) Pain Scale: 0-10 Numeric Is Patient Pain Free? Yes WC - Visit Discharge Discharge Condition Stable Ambulatory Status Walker Transportation Private Auto Medication Reconcilliation completed & No provided to patient/care provider Clinical Summary of Care Provided Yes Assessment/Plan Assessment/Plan (1) Ulcer of right lower extremity with fat layer exposed: CODE(S): L97.912 - Non-pressure chronic ulcer of unspecified part of right lower leg with fat layer exposed (2) Bilateral lower extremity edema: CODE(S): R60.0 - Localized edema (3) Dementia: CODE(S): F03.90 - Unspecified dementia, unspecified severity, without behavioral disturbance, psychotic disturbance, mood disturbance, and anxiety PLAN: Plan Debridement done as documented above, procedure was well-tolerated. Good improvement noted since the last visit. No acute concerns regarding her right lower extremity. New/acute left hand wound following a fall just before her visit today. This was not completely addressed. Continue Promogran to right lower extremity, change in Thursday at facility. 3M wrap for edema management, change on Thursday. Encourage leg elevation, exercise and compliance with compression. Continue Evens twice daily.. To her left hand, clean and apply Promogran/wound care management as per facility. Reevaluate next week. Their questions were answered and they were advised to let us know if they have any further questions or concerns. Follow-up in a week or sooner if needed. This note was generated with [employer] dictation software. It may contain incorrect words, spelling, and punctuation that were not noted in checking the note before signing.
--- NOTE | 2024-06-17 12:38 | WC ---
PHOTO 06/16/24
[2024-06-20 09:27] VITALS: RESP 18; TEMP 36.2; BMI 23.8
[2024-06-23 10:58] VITALS: BP 142/84; PULSE 98; RESP 18; TEMP 36.4; BMI 23.8
--- NOTE | 2024-06-23 12:43 | PCM.WC.PN ---
History of Present Illness Date of Service: 06/23/24 Chief Complaint: Right Leg Ulcer. Left hand wound History of Wound: Ms. Miller is a pleasant 88-year-old who presents due to nonhealing right lower extremity ulcer. Here with her [id number]. She believes it started about 2 months ago. 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 She is quite mobile and sleeps in a bed. Currently resides in an assisted living facility and measures so far have not been helpful. She feels well overall. Appetite is good. No chills, fever or change in bowel habit reported. Progress of Wound: Right lower extremity ulcer is healing. No new concerns reported in that regard. Left hand wound with some improvement but some slough noted today. Objective Data Objective Data Vital Signs: Vital Signs Temp Pulse Resp BP O2 Del Method 97.5 F L 98 18 142/84 H Room Air 06/23/24 10:58 06/23/24 10:58 06/23/24 10:58 06/23/24 10:58 06/23/24 10:58 Oxygen Delivery Method Room Air Weight: 122 lb Body Mass Index (BMI) 23.8 Charges/Coding Procedures Integumentary 111xxx-113xx: 33080 Cecy subq tissue 20 sq cm/< Physical Exam Const alert and no apparent distress General Appearance: cooperative, comfortable and well kempt HEENT normocephalic, head/scalp atraumatic and hearing grossly normal bilaterally Eyes EOMs intact bilaterally Neck full ROM and supple General: normal visual inspection Resp normal respiratory effort Effort and Inspection: able to speak in complete sentences Extremity General Extremity: edema Skin Wounds: wounds noted size Size: See clinical note, bed granulating well and with slough, margins well approximated, no odor and open Neuro CN's II-XII intact bilaterally, moves all extremities and no focal motor deficits Psych mental status grossly normal, thought process normal, cooperative and affect normal Debridement Note Debridement Note Wound debrided: Right lower extremity Type of Debridement: Excisional debridement Anesthesia Used: 5% Lidocaine Gel Depth: Down to and including healthy tissue and in the subcutaneous layer Percentage of wound debrided: 100 Instrument Used: 5mm curette Tissue Removed: Slough and devitalized tissue Severity: Fat Layer Exposed Amount of bleeding with debridement: Mild Bleeding Controlled with: Pressure Patient tolerated procedure: Patient tolerated procedure well Post-Debridement Measurements and Additional Note: Post-Debridement Measurements/Treatment WC - Nurse 1 - General Ulcer Assessment Start: 06/16/24 10:56 Freq: Status: Active Protocol: ESTEFANI Activity Type Activity Date Activity User E-sign Co-sign Detail Recorded Client Recorded Date Recorded By Document 06/16/24 10:56 RB [id number] 06/16/24 11:02 RB Document 06/20/24 09:27 KW [id number] 06/20/24 09:30 KW Document 06/23/24 10:58 KW [id number] 06/23/24 11:12 KW 06/16/24 06/20/24 06/23/24 10:56 09:27 10:58 WC - Today's Visit Information Type of service Follow-up Visit Nurse-only Follow-up Visit (Physician/SURGICAL NURSE PRACTITIONER Visit (Physician/SURGICAL NURSE PRACTITIONER ) ) Arrival Mode Ambulatory, Ambulatory, Ambulatory, Walker Walker Walker Transfer Assistance None Accompanied by daughter Patient Identification Verified (Name & Yes Yes Yes ) Patient Requires Transmission-Based No Precautions Height and Weight Body Mass Index (BMI) 23.8 23.8 23.8 BMI Classification Normal Normal Normal Vital Signs Temperature (97.8 F-99.1 F) 97.3 F L 97.2 F L 97.5 F L Temperature Source Temporal Temporal Temporal Pulse Rate (60-100) 99 98 Pulse Location Monitor Monitor Respiratory Rate (12-18) 18 18 18 Respiratory rate source Observation Observation Observation Oxygen Delivery Method Room Air Room Air Blood Pressure (90/60-120/80) 198/102 H 142/84 H Blood Pressure Mean (mm Hg) 134 103 Source Monitor Monitor Position Sitting Semi-Fowlers Blood Pressure Location Left Arm Right Arm History Since Last Visit- (Skip if this is Patient's initial visit) Have you changed medications since your No No No last visit? Any new allergies or adverse reactions No No No Had a fall/change in ADL's that may No No No increase risk of falls Signs or symptoms of abuse and/or No No No neglect since last visit Have you been in the hospital since your No No No last visit? Has dressing in place as prescribed Yes Yes Yes Has compression in place as prescribed Yes Yes Yes Has offloadiing in place as prescribed N/A N/A N/A Experienced any changes in pain level or No No No management Left Footwear Regular Shoe Regular Shoe Right Footwear Regular Shoe Regular Shoe Pain Scale: 0-10 Numeric Is Patient Pain Free? Yes Yes Yes WC - Nurse 1 - General Ulcer Measurement Start: 06/16/24 10:56 Freq: Status: Active Protocol: Activity Type Activity Date Activity User E-sign Co-sign Detail Recorded Client Recorded Date Recorded By Document 06/16/24 10:56 RB [id number] 06/16/24 11:02 RB Document 06/20/24 09:27 KW [id number] 06/20/24 09:30 KW Document 06/23/24 10:58 KW [id number] 06/23/24 11:12 KW 06/16/24 06/20/24 06/23/24 10:56 09:27 10:58 Wound Center Nurse 1 #4 Left Post supine calf -Combined with other wound No -Current Size (cm) - Length 0.1 -Current Size (cm) - Width 0.1 -Current Size (cm) - Depth 0.1 -Total Square Cm 0.01 -Tunneling No -Undermining/Tunneling No -Circular Undermining No -Exudate Amt Medium -Exudate Type Serosanguineous -Wound Margin Distinct, Outline Attached -Granulation Amt Medium (34-66%) -Granulation Quality [place] -Slough/Fibrin Yes -Necrosis Amt Medium (34-66%) -Necrotic Tissue Type Adherent Slough -Structure Exposed N/A -Texture (Ana-wound Skin Appearance) Assessed -Moisture (Ana-wound Skin Appearance) Assessed -Color (Ana-wound Skin Appearance) Assessed, Hemosiderin Staining -Temperature (Ana-wound Skin No Abnormality Appearance) (Pt Warm) -Tenderness on Palpation (Ana-wound No Skin Appearance) -Ulcer Cleansing Wound Cleanser -Foul Odor after Cleansing No -Anesthetic Used 5% Lidocaine Gel 5. Left hand -Combined with other wound No -Current Size (cm) - Length 0.1 0.1 -Current Size (cm) - Width 0.1 0.1 -Current Size (cm) - Depth 0.1 0 -Total Square Cm 0.01 0.01 -Photo Taken Yes -Tunneling No -Undermining/Tunneling No -Circular Undermining No -Exudate Amt Medium None Present -Exudate Type Serosanguineous -Wound Margin Distinct, Outline Attached -Granulation Amt Medium (34-66%) -Granulation Quality [place] -Slough/Fibrin Yes -Necrosis Amt Medium (34-66%) -Necrotic Tissue Type Adherent Slough -Structure Exposed N/A -Texture (Ana-wound Skin Appearance) Assessed Assessed -Moisture (Ana-wound Skin Appearance) Assessed Assessed -Color (Ana-wound Skin Appearance) Assessed Assessed -Temperature (Ana-wound Skin No Abnormality No Abnormality Appearance) (Pt Warm) (Pt Warm) -Tenderness on Palpation (Ana-wound No No Skin Appearance) -Ulcer Cleansing Wound Cleanser Soap and Water -Foul Odor after Cleansing No -Anesthetic Used 5% Lidocaine Gel #3 RT POST CALF -Combined with other wound No -Current Size (cm) - Length 1.3 0.1 -Current Size (cm) - Width 1 0.1 -Current Size (cm) - Depth 0.1 0 -Total Square Cm 1.3 0.01 -Tunneling No -Undermining/Tunneling No -Circular Undermining No -Exudate Amt Medium None Present -Exudate Type Serosanguineous -Wound Margin Distinct, Outline Attached -Granulation Amt Medium (34-66%) -Granulation Quality [place] -Slough/Fibrin Yes -Necrosis Amt Large (67-100%) -Necrotic Tissue Type Adherent Slough -Structure Exposed N/A -Texture (Naa-wound Skin Appearance) Assessed Assessed -Moisture (Naa-wound Skin Appearance) Assessed Assessed -Color (Ana-wound Skin Appearance) Assessed, Assessed Hemosiderin Staining -Temperature (Ana-wound Skin No Abnormality No Abnormality Appearance) (Pt Warm) (Pt Warm) -Tenderness on Palpation (Ana-wound No No Skin Appearance) -Ulcer Cleansing Wound Cleanser Soap and Water -Foul Odor after Cleansing No No -Anesthetic Used 5% Lidocaine Gel Lower Limb Edema Present Yes Right Calf (cm) 29.5 25.6 24.5 Right Ankle (cm) 19.5 18.6 18.5 Left Calf (cm) 28.5 25 24.5 Left Ankle (cm) 19.8 19.5 19.5 WC - Nurse 2 - General Ulcer CM Notes Start: 06/16/24 10:56 Freq: Status: Active Protocol: Activity Type Activity Date Activity User E-sign Co-sign Detail Recorded Client Recorded Date Recorded By Document 06/16/24 11:28 [id number] 06/16/24 11:30 GM Document 06/23/24 11:38 [id number] 06/23/24 11:45 GM 06/16/24 06/23/24 11:28 11:38 Wound Center Nurse 2 5. Left hand -Time 11:38 -Correct Patient Yes -Correct Side, Site, Position Yes -Correct Procedure Yes -Procedure Performed Yes -Type of Procedure Debridement -Clinical Debridement Subcutaneous -Tissue Removed Subcutaneous -Post Debridement (cm) - Length 0.4 -Post Debridement (cm) - Width 1.6 -Post Debridement (cm) - Depth 0.1 -Total Square (Post) (cm) 0.64 -Area of Debridement (cm) - Length 0.4 -Area of Debridement (cm) - Width 1.6 -Total Square (Area) (cm) 0.64 -Tunneling No -Undermining/Tunneling No -Circular Undermining No -Wound/Ulcer Outcome Not Healed -Ulcer Cleansing Not Cleansed -Foul Odor after Cleansing No -Bioengineered Tissue No -Bleeding Controlled with Pressure -Treatment Response Procedure Tolerated Well -Debridement - Subq, 1st 20sq cm No #3 RT POST CALF -Time 11:29 11:38 -Correct Patient Yes Yes -Correct Side, Site, Position Yes Yes -Correct Procedure Yes Yes -Procedure Performed Yes Yes -Type of Procedure Debridement Debridement -Clinical Debridement Subcutaneous Subcutaneous -Tissue Removed Subcutaneous Subcutaneous -Post Debridement (cm) - Length 1.5 1.0 -Post Debridement (cm) - Width 0.8 0.6 -Post Debridement (cm) - Depth 0.2 0.1 -Total Square (Post) (cm) 1.20 0.60 -Area of Debridement (cm) - Length 1.5 1.0 -Area of Debridement (cm) - Width 0.8 0.6 -Total Square (Area) (cm) 1.20 0.60 -Tunneling No No -Undermining/Tunneling No No -Circular Undermining No No -Wound/Ulcer Outcome Not Healed Not Healed -Ulcer Cleansing Rinsed/ Rinsed/ Irrigated with Irrigated with Saline Saline -Foul Odor after Cleansing No No -Bioengineered Tissue No No -Bleeding Controlled with Pressure Pressure -Treatment Response Procedure Procedure Tolerated Well Tolerated Well -Debridement - Subq, 1st 20sq cm Yes Yes Pain Scale: 0-10 Numeric Is Patient Pain Free? Yes Yes WC - Nurse 3 - General Ulcer D/C NN Start: 06/16/24 10:56 Freq: Status: Active Protocol: Activity Type Activity Date Activity User E-sign Co-sign Detail Recorded Client Recorded Date Recorded By Document 06/16/24 11:43 GM [id number] 06/16/24 11:44 GM Document 06/20/24 09:27 KW [id number] 06/20/24 09:30 KW Document 06/23/24 11:50 KW [id number] 06/23/24 11:52 KW 06/16/24 06/20/24 06/23/24 11:43 09:27 11:50 Wound Care Center Nurse 3 5. Left hand -Ulcer Cleansing Rinsed/ Irrigated with Saline -Primary Dressing Applied NonAdherent NonAdherent Contact Layer, Contact Layer, Promogran Promogran -Primary Dressing Covered/Secured with Dry Gauze,Dry Dry Gauze & Gauze & Roll Roll Gauze, Gauze Secured with Tape -Promogran 1 1 #3 RT POST CALF -Ulcer Cleansing Rinsed/ Soap and Water Irrigated with Saline -Primary Dressing Applied NonAdherent Contact Layer, Promogran -Other Dressing promogran PROMOGRAN ADAPTIC -Primary Dressing Covered/Secured with Dry Gauze & Dry Gauze & Dry Gauze Roll Gauze, Roll Gauze, Secured with Secured with Tape Tape -Promogran 1 BL LE -Multi-Layered Wrap Application Multi-Layer Multi-Layer Multi-Layer Comp - Bilat ($ Comp - Bilat ($ Comp - Bilat ($ ) ) ) Vital Signs Temperature (97.8 F-99.1 F) 97.2 F L Temperature Source Temporal Respiratory Rate (12-18) 18 Respiratory rate source Observation Oxygen Delivery Method Room Air Pain Scale: 0-10 Numeric Is Patient Pain Free? Yes Yes Yes WC - Visit Discharge Discharge Condition Stable Stable Ambulatory Status Walker Ambulatory, Walker Transportation Private Auto Private Auto Medication Reconcilliation completed & No No provided to patient/care provider Clinical Summary of Care Provided Yes Yes Additional Wound Wound debrided: Left hand Type of Debridement: Excisional debridement Anesthesia Used: 5% Lidocaine Gel Depth: Down to and including healthy tissue and in the subcutaneous layer Percentage of wound debrided: 100 Instrument Used: 3mm curette Tissue Removed: Slough and devitalized tissue Severity: Fat Layer Exposed Amount of bleeding with debridement: Mild Bleeding Controlled with: Pressure Patient tolerated procedure: Patient tolerated procedure well Assessment/Plan Assessment/Plan (1) Ulcer of right lower extremity with fat layer exposed: CODE(S): L97.912 - Non-pressure chronic ulcer of unspecified part of right lower leg with fat layer exposed (2) Bilateral lower extremity edema: CODE(S): R60.0 - Localized edema (3) Open wound of left hand: CODE(S): S61.402A - Unspecified open wound of left hand, initial encounter PLAN: Traumatic, penetrating. (4) Dementia: CODE(S): F03.90 - Unspecified dementia, unspecified severity, without behavioral disturbance, psychotic disturbance, mood disturbance, and anxiety PLAN: Plan Debridement done as documented above, procedure was well-tolerated. Right lower extremity ulcer continues to show good improvement. Left hand wound sustained last week is improving but has some significant slough, this was debrided today. Continue Promogran to right lower extremity, change on Thursday at facility. 3M wrap for edema management. Continue Promogran, Adaptic and gauze daily to left hand. Encourage leg elevation, exercise and compliance with compression. Continue Evens twice daily. Their questions were answered and they were advised to let us know if they have any further questions or concerns. Follow-up in a week for nurse visit and in 2 weeks with me. This note was generated with [employer] dictation software. It may contain incorrect words, spelling, and punctuation that were not noted in checking the note before signing.
--- NOTE | 2024-06-24 09:39 | WC ---
PHOTO 06/23/24 RIGHT POST CALF
[2024-06-30 11:25] VITALS: RESP 18; TEMP 36.4; BMI 23.8
[2024-07-07 11:06] VITALS: BMI 23.8
--- NOTE | 2024-07-07 11:19 | WC ---
Pt refused vital signs.
--- NOTE | 2024-07-07 13:35 | PCM.WC.PN ---
History of Present Illness Date of Service: 07/07/24 Chief Complaint: Right Leg Ulcer. Left hand wound History of Wound: Ms. Miller is a pleasant 88-year-old who presents due to nonhealing right lower extremity ulcer. Here with her [id number]. She believes it started about 2 months ago. 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 She is quite mobile and sleeps in a bed. Currently resides in an assisted living facility and measures so far have not been helpful. She feels well overall. Appetite is good. No chills, fever or change in bowel habit reported. Progress of Wound: Minimal areas left to prior ulcers. Has some new skin tears. No acute concerns otherwise. Objective Data Objective Data Vital Signs: Vital Signs Temp Pulse Resp BP O2 Del Method 97.6 F L 98 18 142/84 H Room Air 06/30/24 11:25 06/23/24 10:58 06/30/24 11:25 06/23/24 10:58 06/30/24 11:25 Oxygen Delivery Method Room Air Weight: 122 lb Body Mass Index (BMI) 23.8 Charges/Coding Procedures Integumentary 111xxx-113xx: [id number] Cecy subq tissue 20 sq cm/< (Superficial/selective debridement.) Physical Exam Const alert and no apparent distress General Appearance: cooperative, comfortable and well kempt HEENT normocephalic, head/scalp atraumatic and hearing grossly normal bilaterally Eyes EOMs intact bilaterally Neck full ROM and supple General: normal visual inspection Resp normal respiratory effort Effort and Inspection: able to speak in complete sentences Extremity General Extremity: edema Skin Wounds: wounds noted size Size: See clinical note, bed other Epithelialized , margins well approximated, no odor and open Neuro CN's II-XII intact bilaterally, moves all extremities and no focal motor deficits Psych mental status grossly normal, thought process normal, cooperative and affect normal Debridement Note Debridement Note Wound debrided: Left hand Type of Debridement: Selective debridement Anesthesia Used: 4% Lidocaine Solution Depth: Down to and including healthy tissue Percentage of wound debrided: 100 Instrument Used: 3mm curette Tissue Removed: Devitalized tissue Severity: Limited To Skin Breakdown Bleeding Controlled with: Compression and gauze Patient tolerated procedure: Patient tolerated procedure well Post-Debridement Measurements and Additional Note: Post-Debridement Measurements/Treatment WC - Nurse 1 - General Ulcer Assessment Start: 06/16/24 10:56 Freq: Status: Active Protocol: WC.LOWEXT Activity Type Activity Date Activity User E-sign Co-sign Detail Recorded Client Recorded Date Recorded By Document 06/16/24 10:56 RB [id number] 06/16/24 11:02 RB Document 06/20/24 09:27 KW [id number] 06/20/24 09:30 KW Document 06/23/24 10:58 KW [id number] 06/23/24 11:12 KW Document 06/30/24 11:25 KW [id number] 06/30/24 11:27 KW Document 07/07/24 11:06 ML [id number] 07/07/24 11:20 ML 06/16/24 06/20/24 06/23/24 10:56 09:27 10:58 WC - Today's Visit Information Type of service Follow-up Visit Nurse-only Follow-up Visit (Physician/GLASS PULVERIZER EQUIPMENT OPERATOR Visit (Physician/GLASS PULVERIZER EQUIPMENT OPERATOR ) ) Arrival Mode Ambulatory, Ambulatory, Ambulatory, Walker Walker Walker Transfer Assistance None Accompanied by daughter Patient Identification Verified (Name & Yes Yes Yes ) Patient Requires Transmission-Based No Precautions Height and Weight Body Mass Index (BMI) 23.8 23.8 23.8 BMI Classification Normal Normal Normal Vital Signs Temperature (97.8 F-99.1 F) 97.3 F L 97.2 F L 97.5 F L Temperature Source Temporal Temporal Temporal Pulse Rate (60-100) 99 98 Pulse Location Monitor Monitor Respiratory Rate (12-18) 18 18 18 Respiratory rate source Observation Observation Observation Oxygen Delivery Method Room Air Room Air Blood Pressure (90/60-120/80) 198/102 H 142/84 H Blood Pressure Mean (mm Hg) 134 103 Source Monitor Monitor Position Sitting Semi-Fowlers Blood Pressure Location Left Arm Right Arm History Since Last Visit- (Skip if this is Patient's initial visit) Have you changed medications since your No No No last visit? Any new allergies or adverse reactions No No No Had a fall/change in ADL's that may No No No increase risk of falls Signs or symptoms of abuse and/or No No No neglect since last visit Have you been in the hospital since your No No No last visit? Has dressing in place as prescribed Yes Yes Yes Has compression in place as prescribed Yes Yes Yes Has offloadiing in place as prescribed N/A N/A N/A Experienced any changes in pain level or No No No management Left Footwear Regular Shoe Regular Shoe Right Footwear Regular Shoe Regular Shoe Pain Scale: 0-10 Numeric Is Patient Pain Free? Yes Yes Yes 06/30/24 07/07/24 11:25 11:06 - Today's Visit Information Type of service Nurse-only Follow-up Visit Visit (Physician/GLASS PULVERIZER EQUIPMENT OPERATOR ) Arrival Mode Ambulatory, Walker Walker Transfer Assistance None Accompanied by SON Patient Identification Verified (Name & Yes Yes ) Patient Requires Transmission-Based No Precautions Height and Weight Body Mass Index (BMI) 23.8 23.8 BMI Classification Normal Normal Vital Signs Temperature (97.8 F-99.1 F) 97.6 F L Temperature Source Temporal Pulse Rate (60-100) Pulse Location Respiratory Rate (12-18) 18 Respiratory rate source Observation Oxygen Delivery Method Room Air Blood Pressure (90/60-120/80) Blood Pressure Mean (mm Hg) Source Position Blood Pressure Location History Since Last Visit- (Skip if this is Patient's initial visit) Have you changed medications since your No No last visit? Any new allergies or adverse reactions No No Had a fall/change in ADL's that may No No increase risk of falls Signs or symptoms of abuse and/or No No neglect since last visit Have you been in the hospital since your No last visit? Has dressing in place as prescribed Yes Yes Has compression in place as prescribed Yes N/A Has offloadiing in place as prescribed N/A N/A Experienced any changes in pain level or No No management Left Footwear Regular Shoe Right Footwear Regular Shoe Pain Scale: 0-10 Numeric Is Patient Pain Free? Yes Yes - Nurse 1 - General Ulcer Measurement Start: 06/16/24 10:56 Freq: Status: Active Protocol: Activity Type Activity Date Activity User E-sign Co-sign Detail Recorded Client Recorded Date Recorded By Document 06/16/24 10:56 RB [id number] 06/16/24 11:02 RB Document 06/20/24 09:27 KW [id number] 06/20/24 09:30 KW Document 06/23/24 10:58 KW [id number] 06/23/24 11:12 KW Document 07/07/24 11:06 ML [id number] 07/07/24 11:20 ML 02/11/0206/20/24 06/23/24 10:56 09:27 10:58 Wound Center Nurse 1 #4 Left Post supine calf -Combined with other wound No -Current Size (cm) - Length 0.1 -Current Size (cm) - Width 0.1 -Current Size (cm) - Depth 0.1 -Total Square Cm 0.01 -Tunneling No -Undermining/Tunneling No -Circular Undermining No -Exudate Amt Medium -Exudate Type Serosanguineous -Wound Margin Distinct, Outline Attached -Granulation Amt Medium (34-66%) -Granulation Quality Twin -Slough/Fibrin Yes -Necrosis Amt Medium (34-66%) -Necrotic Tissue Type Adherent Slough -Structure Exposed N/A -Texture (Ana-wound Skin Appearance) Assessed -Moisture (Ana-wound Skin Appearance) Assessed -Color (Ana-wound Skin Appearance) Assessed, Hemosiderin Staining -Temperature (Ana-wound Skin No Abnormality Appearance) (Pt Warm) -Tenderness on Palpation (Ana-wound No Skin Appearance) -Ulcer Cleansing Wound Cleanser -Foul Odor after Cleansing No -Anesthetic Used 5% Lidocaine Gel 5. Left hand -Combined with other wound No -Combined with (Name of Wound-Exactly as it is documented) -Current Size (cm) - Length 0.1 0.1 -Current Size (cm) - Width 0.1 0.1 -Current Size (cm) - Depth 0.1 0 -Total Square Cm 0.01 0.01 -Photo Taken Yes -Tunneling No -Undermining/Tunneling No -Circular Undermining No -Exudate Amt Medium None Present -Exudate Type Serosanguineous -Wound Margin Distinct, Outline Attached -Granulation Amt Medium (34-66%) -Granulation Quality Twin -Slough/Fibrin Yes -Necrosis Amt Medium (34-66%) -Necrotic Tissue Type Adherent Slough -Structure Exposed N/A -Texture (Ana-wound Skin Appearance) Assessed Assessed -Moisture (Ana-wound Skin Appearance) Assessed Assessed -Color (Ana-wound Skin Appearance) Assessed Assessed -Temperature (Ana-wound Skin No Abnormality No Abnormality Appearance) (Pt Warm) (Pt Warm) -Tenderness on Palpation (Ana-wound No No Skin Appearance) -Ulcer Cleansing Wound Cleanser Soap and Water -Foul Odor after Cleansing No -Anesthetic Used 5% Lidocaine Gel #3 RT POST CALF -Combined with other wound No -Combined with (Name of Wound-Exactly as it is documented) -Current Size (cm) - Length 1.3 0.1 -Current Size (cm) - Width 1 0.1 -Current Size (cm) - Depth 0.1 0 -Total Square Cm 1.3 0.01 -Tunneling No -Undermining/Tunneling No -Circular Undermining No -Exudate Amt Medium None Present -Exudate Type Serosanguineous -Wound Margin Distinct, Outline Attached -Granulation Amt Medium (34-66%) -Granulation Quality Twin -Slough/Fibrin Yes -Necrosis Amt Large (67-100%) -Necrotic Tissue Type Adherent Slough -Structure Exposed N/A -Texture (Ana-wound Skin Appearance) Assessed Assessed -Moisture (Ana-wound Skin Appearance) Assessed Assessed -Color (Ana-wound Skin Appearance) Assessed, Assessed Hemosiderin Staining -Temperature (Ana-wound Skin No Abnormality No Abnormality Appearance) (Pt Warm) (Pt Warm) -Tenderness on Palpation (Ana-wound No No Skin Appearance) -Ulcer Cleansing Wound Cleanser Soap and Water -Foul Odor after Cleansing No No -Anesthetic Used 5% Lidocaine Gel Lower Limb Edema Present Yes Right Calf (cm) 29.5 25.6 24.5 Right Ankle (cm) 19.5 18.6 18.5 Left Calf (cm) 28.5 25 24.5 Left Ankle (cm) 19.8 19.5 19.5 07/07/24 11:06 Wound Center Nurse 1 #4 Left Post supine calf -Combined with other wound -Current Size (cm) - Length -Current Size (cm) - Width -Current Size (cm) - Depth -Total Square Cm -Tunneling -Undermining/Tunneling -Circular Undermining -Exudate Amt -Exudate Type -Wound Margin -Granulation Amt -Granulation Quality -Slough/Fibrin -Necrosis Amt -Necrotic Tissue Type -Structure Exposed -Texture (Ana-wound Skin Appearance) -Moisture (Ana-wound Skin Appearance) -Color (Ana-wound Skin Appearance) -Temperature (Ana-wound Skin Appearance) -Tenderness on Palpation (Ana-wound Skin Appearance) -Ulcer Cleansing -Foul Odor after Cleansing -Anesthetic Used 5. Left hand -Combined with other wound -Combined with (Name of Wound-Exactly 0.5 as it is documented) -Current Size (cm) - Length 0.5 -Current Size (cm) - Width 0.1 -Current Size (cm) - Depth -Total Square Cm 0.05 -Photo Taken -Tunneling -Undermining/Tunneling -Circular Undermining -Exudate Amt None Present -Exudate Type -Wound Margin -Granulation Amt None Present (0 %) -Granulation Quality -Slough/Fibrin -Necrosis Amt None Present (0 %) -Necrotic Tissue Type -Structure Exposed -Texture (Ana-wound Skin Appearance) Assessed -Moisture (Ana-wound Skin Appearance) -Color (Ana-wound Skin Appearance) Assessed -Temperature (Ana-wound Skin No Abnormality Appearance) (Pt Warm) -Tenderness on Palpation (Ana-wound Yes Skin Appearance) -Ulcer Cleansing Soap and Water -Foul Odor after Cleansing No -Anesthetic Used 5% Lidocaine Gel #3 RT POST CALF -Combined with other wound -Combined with (Name of Wound-Exactly 0.1 as it is documented) -Current Size (cm) - Length 0.1 -Current Size (cm) - Width 0.1 -Current Size (cm) - Depth -Total Square Cm 0.01 -Tunneling -Undermining/Tunneling -Circular Undermining -Exudate Amt None Present -Exudate Type -Wound Margin -Granulation Amt None Present (0 %) -Granulation Quality -Slough/Fibrin No -Necrosis Amt None Present (0 %) -Necrotic Tissue Type -Structure Exposed -Texture (Ana-wound Skin Appearance) Assessed -Moisture (Ana-wound Skin Appearance) -Color (Ana-wound Skin Appearance) Assessed -Temperature (Ana-wound Skin No Abnormality Appearance) (Pt Warm) -Tenderness on Palpation (Ana-wound Yes Skin Appearance) -Ulcer Cleansing Soap and Water -Foul Odor after Cleansing No -Anesthetic Used 5% Lidocaine Gel Lower Limb Edema Present Right Calf (cm) Right Ankle (cm) Left Calf (cm) Left Ankle (cm) 07/07/24 11:19 Wound Center by Karla Mast Pt refused vital signs. Initialized on 07/07/24 11:19 - END OF NOTE WC - Nurse 2 - General Ulcer CM Notes Start: 06/16/24 10:56 Freq: Status: Active Protocol: Activity Type Activity Date Activity User E-sign Co-sign Detail Recorded Client Recorded Date Recorded By Document 06/16/24 11:28 [id number] 06/16/24 11:30 Document 06/23/24 11:38 [id number] 06/23/24 11:45 Document 07/07/24 11:41 [id number] 07/07/24 11:50 06/16/24 06/23/24 07/07/24 11:28 11:38 11:41 Wound Center Nurse 2 5. Left hand -Time 11:38 11:46 -Correct Patient Yes Yes -Correct Side, Site, Position Yes Yes -Correct Procedure Yes Yes -Procedure Performed Yes Yes -Type of Procedure Debridement Debridement -Clinical Debridement Subcutaneous Epidermis / Dermis -Tissue Removed Subcutaneous Epidermis -Post Debridement (cm) - Length 0.4 0.1 -Post Debridement (cm) - Width 1.6 0.1 -Post Debridement (cm) - Depth 0.1 0.1 -Total Square (Post) (cm) 0.64 0.01 -Area of Debridement (cm) - Length 0.4 0.1 -Area of Debridement (cm) - Width 1.6 0.1 -Total Square (Area) (cm) 0.64 0.01 -Tunneling No No -Undermining/Tunneling No No -Circular Undermining No No -Wound/Ulcer Outcome Not Healed Not Healed -Ulcer Cleansing Not Cleansed Rinsed/ Irrigated with Saline -Foul Odor after Cleansing No No -Bioengineered Tissue No No -Bleeding Controlled with Pressure NA -Treatment Response Procedure Procedure Tolerated Well Tolerated Well -Offloading No -Debridement - Open, 1st 20sq cm Yes -Debridement - Subq, 1st 20sq cm No #3 RT POST CALF -Time 11:29 11:38 11:43 -Correct Patient Yes Yes Yes -Correct Side, Site, Position Yes Yes Yes -Correct Procedure Yes Yes No -Procedure Performed Yes Yes No -Type of Procedure Debridement Debridement -Clinical Debridement Subcutaneous Subcutaneous -Tissue Removed Subcutaneous Subcutaneous -Post Debridement (cm) - Length 1.5 1.0 0.1 -Post Debridement (cm) - Width 0.8 0.6 0.1 -Post Debridement (cm) - Depth 0.2 0.1 0.1 -Total Square (Post) (cm) 1.20 0.60 0.01 -Area of Debridement (cm) - Length 1.5 1.0 0.1 -Area of Debridement (cm) - Width 0.8 0.6 0.1 -Total Square (Area) (cm) 1.20 0.60 0.01 -Tunneling No No -Undermining/Tunneling No No -Circular Undermining No No -Wound/Ulcer Outcome Not Healed Not Healed Not Healed -Ulcer Cleansing Rinsed/ Rinsed/ Rinsed/ Irrigated with Irrigated with Irrigated with Saline Saline Saline -Foul Odor after Cleansing No No No -Bioengineered Tissue No No No -Bleeding Controlled with Pressure Pressure NA -Treatment Response Procedure Procedure Tolerated Well Tolerated Well -Debridement - Subq, 1st 20sq cm Yes Yes Pain Scale: 0-10 Numeric Is Patient Pain Free? Yes Yes Yes WC - Nurse 3 - General Ulcer D/C NN Start: 06/16/24 10:56 Freq: Status: Active Protocol: Activity Type Activity Date Activity User E-sign Co-sign Detail Recorded Client Recorded Date Recorded By Document 06/16/24 11:43 GM [id number] 06/16/24 11:44 GM Document 06/20/24 09:27 KW [id number] 06/20/24 09:30 KW Document 06/23/24 11:50 KW [id number] 06/23/24 11:52 KW Document 06/30/24 11:25 KW [id number] 06/30/24 11:27 KW Document 07/07/24 12:03 RB [id number] 07/07/24 12:05 RB 06/16/24 06/20/24 06/23/24 11:43 09:27 11:50 Wound Care Center Nurse 3 5. Left hand -Ulcer Cleansing Rinsed/ Irrigated with Saline -Primary Dressing Applied NonAdherent NonAdherent Contact Layer, Contact Layer, Promogran Promogran -Primary Dressing Covered/Secured with Dry Gauze,Dry Dry Gauze & Gauze & Roll Roll Gauze, Gauze Secured with Tape -Promogran 1 1 #3 RT POST CALF -Ulcer Cleansing Rinsed/ Soap and Water Irrigated with Saline -Primary Dressing Applied NonAdherent Contact Layer, Promogran -Other Dressing promogran PROMOGRAN ADAPTIC -Primary Dressing Covered/Secured with Dry Gauze & Dry Gauze & Dry Gauze Roll Gauze, Roll Gauze, Secured with Secured with Tape Tape -Promogran 1 BL LE -Multi-Layered Wrap Application Multi-Layer Multi-Layer Multi-Layer Comp - Bilat ($ Comp - Bilat ($ Comp - Bilat ($ ) ) ) Vital Signs Temperature (97.8 F-99.1 F) 97.2 F L Temperature Source Temporal Respiratory Rate (12-18) 18 Respiratory rate source Observation Oxygen Delivery Method Room Air Pain Scale: 0-10 Numeric Is Patient Pain Free? Yes Yes Yes Teaching: Wound Center Compression stockings -Person Taught -Teaching Method -Response to teaching WC - Visit Discharge Discharge Condition Stable Stable Ambulatory Status Walker Ambulatory, Walker Transportation Private Auto Private Auto Medication Reconcilliation completed & No No provided to patient/care provider Clinical Summary of Care Provided Yes Yes 5. Left hand -Ulcer Cleansing -Primary Dressing Applied -Silicone Border Foam 4x4 #3 RT POST CALF -Ulcer Cleansing -Primary Dressing Applied -Primary Dressing Covered/Secured with -Promogran -Silicone Border Foam 4x4 BL LE -Multi-Layered Wrap Application -Tubular Bandage -Size of Tubigrip Used -Size D ($) Treatment Response 06/30/24 07/07/24 11:25 12:03 Wound Care Center Nurse 3 5. Left hand -Ulcer Cleansing -Primary Dressing Applied -Primary Dressing Covered/Secured with -Promogran #3 RT POST CALF -Ulcer Cleansing -Primary Dressing Applied -Other Dressing -Primary Dressing Covered/Secured with -Promogran BL LE -Multi-Layered Wrap Application Vital Signs Temperature (97.8 F-99.1 F) 97.6 F L Temperature Source Temporal Respiratory Rate (12-18) 18 Respiratory rate source Observation Oxygen Delivery Method Room Air Pain Scale: 0-10 Numeric Is Patient Pain Free? Yes Yes Teaching: Wound Center Compression stockings -Person Taught Patient,Family -Teaching Method Demonstration -Response to teaching Verbalize Understanding WC - Visit Discharge Discharge Condition Stable Stable Ambulatory Status Ambulatory, Ambulatory, Wheelchair Walker Transportation Private Auto Medication Reconcilliation completed & No No provided to patient/care provider Clinical Summary of Care Provided Yes Yes 5. Left hand -Ulcer Cleansing Rinsed/ Irrigated with Saline -Primary Dressing Applied NonAdherent Contact Layer, Silicone Border Foam 4x4 -Silicone Border Foam 4x4 1 #3 RT POST CALF -Ulcer Cleansing Soap and Water -Primary Dressing Applied NonAdherent NonAdherent Contact Layer, Contact Layer, Promogran Silicone Border Foam 4x4 -Primary Dressing Covered/Secured with Dry Gauze -Promogran 1 -Silicone Border Foam 4x4 1 BL LE -Multi-Layered Wrap Application Multi-Layer Comp - Bilat ($ ) -Tubular Bandage Single Layer -Size of Tubigrip Used Size D -Size D ($) 2 Treatment Response Procedure Tolerated Well Additional Wound Wound debrided: Right posterior leg Type of Debridement: Selective debridement Depth: Down to and including healthy tissue Percentage of wound debrided: 100 Tissue Removed: Devitalized tissue Severity: Limited To Skin Breakdown Assessment/Plan Assessment/Plan (1) Ulcer of right lower extremity with fat layer exposed: CODE(S): L97.912 - Non-pressure chronic ulcer of unspecified part of right lower leg with fat layer exposed (2) Bilateral lower extremity edema: CODE(S): R60.0 - Localized edema (3) Open wound of left hand: CODE(S): S61.402A - Unspecified open wound of left hand, initial encounter PLAN: Traumatic, penetrating. (4) Dementia: CODE(S): F03.90 - Unspecified dementia, unspecified severity, without behavioral disturbance, psychotic disturbance, mood disturbance, and anxiety PLAN: Plan Debridement done as documented above, procedure was well-tolerated. Largely epithelialized/minimal area left. Adaptic and gauze to all areas. Foam dressing to right leg. Continue 3M compression, encourage leg elevation, exercise and compliance with compression. Continue Evens twice daily. Their questions were answered and they were advised to let us know if they have any further questions or concerns. Follow-up in 1 week. This note was generated with [employer] dictation software. It may contain incorrect words, spelling, and punctuation that were not noted in checking the note before signing.
== END 2024-07-08 23:59 | disposition home or self-care (01) ==
LOC: WC 11:00
PROVIDERS: PCP Family Medicine; Referring Provider Family Medicine; Visit Provider Internal Medicine
DX: L97.912 Non-pressure chronic ulcer of unspecified part of right lower leg with fat layer exposed (principal); F03.90 Unspecified dementia, unspecified severity, without behavioral disturbance, psychotic disturbance, mood disturbance, and anxiety; R60.0 Localized edema; S61.402A Unspecified open wound of left hand, initial encounter
CPT/HCPCS: 11042; 29581; 97597

== ENCOUNTER 2024-07-14 10:35 | Outpatient (RCR) | payer MEDICARE, SELFPAY ==
[2024-07-09 00:58] VITALS: BP 142/84; PULSE 98; RESP 18; TEMP 36.4; BMI 23.8
[2024-07-14 10:55] VITALS: BP 138/82; PULSE 82; RESP 18; TEMP 36.1; BMI 23.8
--- NOTE | 2024-07-14 12:56 | PN.PCM_ITS ---
History of Present Illness Date of Service: 07/14/24 Chief Complaint: Right Leg Ulcer. Left hand wound History of Wound: Ms. Miller is a pleasant 88-year-old who presents due to nonhealing right lower extremity ulcer. Here with her [id number]. She believes it started about 2 months ago. 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 She is quite mobile and sleeps in a bed. Currently resides in an assisted living facility and measures so far have not been helpful. She feels well overall. Appetite is good. No chills, fever or change in bowel habit reported. Progress of Wound: Worsening bilateral lower extremity edema. Has had Tubigrip's applied to both extremities but concerns remain with application. Objective Data Objective Data Vital Signs: Vital Signs Temp Pulse Resp BP 97 F L 82 18 138/82 H 07/14/24 10:55 07/14/24 10:55 07/14/24 10:55 07/14/24 10:55 Weight: 122 lb Body Mass Index (BMI) 23.8 Charges/Coding Procedures Integumentary [id number]: [id number] Cecy subq tissue 20 sq cm/< Physical Exam Const alert and no apparent distress General Appearance: cooperative, comfortable and well kempt HEENT normocephalic, head/scalp atraumatic and hearing grossly normal bilaterally Eyes EOMs intact bilaterally Neck full ROM and supple General: normal visual inspection Resp normal respiratory effort Effort and Inspection: able to speak in complete sentences Extremity General Extremity: edema Skin Wounds: wounds noted size Size: See clinical note, bed granulating well and other, margins well approximated, no odor and open Neuro CN's II-XII intact bilaterally, moves all extremities and no focal motor deficits Psych mental status grossly normal, thought process normal, cooperative and affect normal Debridement Note Debridement Note Wound debrided: Right posterior lower extremity Type of Debridement: Excisional debridement Anesthesia Used: 5% Lidocaine Gel Depth: Down to and including healthy tissue and in the subcutaneous layer Percentage of wound debrided: 100 Instrument Used: 3mm curette Tissue Removed: Devitalized tissue Severity: Fat Layer Exposed Amount of bleeding with debridement: Mild Bleeding Controlled with: Pressure Patient tolerated procedure: Patient tolerated procedure well Post-Debridement Measurements and Additional Note: Post-Debridement Measurements/Treatment WC - Nurse 1 - General Ulcer Assessment Start: 07/14/24 10:55 Freq: Status: Active Protocol: [email or web address] Activity Type Activity Date Activity User E-sign Co-sign Detail Recorded Client Recorded Date Recorded By Document 07/14/24 10:55 RADHA [id number] 07/14/24 11:02 07/14/24 10:55 - Today's Visit Information Type of service Follow-up Visit (Physician/LABORATORY SPECIALIST ) Arrival Mode Ambulatory Transfer Assistance None Patient Identification Verified (Name & Yes ) Patient Requires Transmission-Based No Precautions Height and Weight Body Mass Index (BMI) 23.8 BMI Classification Normal Vital Signs Temperature (97.8 F-99.1 F) 97 F L Temperature Source Temporal Pulse Rate (60-100) 82 Pulse Location Monitor Respiratory Rate (12-18) 18 Respiratory rate source Observation Blood Pressure (90/60-120/80) 138/82 H Blood Pressure Mean (mm Hg) 100 Source Monitor Position Semi-Fowlers Blood Pressure Location Left Arm History Since Last Visit- (Skip if this is Patient's initial visit) Have you changed medications since your No last visit? Any new allergies or adverse reactions No Had a fall/change in ADL's that may No increase risk of falls Signs or symptoms of abuse and/or No neglect since last visit Have you been in the hospital since your No last visit? Has dressing in place as prescribed Yes Has compression in place as prescribed Yes Has offloadiing in place as prescribed N/A Experienced any changes in pain level or No management Left Footwear Regular Shoe Right Footwear Regular Shoe Pain Scale: 0-10 Numeric Is Patient Pain Free? Yes - Nurse 1 - General Ulcer Measurement Start: 07/14/24 10:55 Freq: Status: Active Protocol: Activity Type Activity Date Activity User E-sign Co-sign Detail Recorded Client Recorded Date Recorded By Document 07/14/24 10:55 RADHA [id number] 07/14/24 11:02 RB 07/14/24 10:55 Wound Center Nurse 1 5. Left hand -Combined with other wound No -Current Size (cm) - Length 0 -Current Size (cm) - Width 0 -Current Size (cm) - Depth 0 -Total Square Cm 0 -Photo Taken Yes -Epithelialization Large 67-100% #3 RT POST CALF -Combined with other wound No -Current Size (cm) - Length 0.1 -Current Size (cm) - Width 0.1 -Current Size (cm) - Depth 0.1 -Total Square Cm 0.01 -Photo Taken Yes -Tunneling No -Undermining/Tunneling No -Circular Undermining No -Exudate Amt Small -Exudate Type Serosanguineous -Wound Margin Distinct, Outline Attached -Granulation Amt Medium (34-66%) -Granulation Quality Forrest -Slough/Fibrin Yes -Necrosis Amt Medium (34-66%) -Necrotic Tissue Type Adherent Slough -Structure Exposed N/A -Texture (Ana-wound Skin Appearance) Assessed -Moisture (Ana-wound Skin Appearance) Assessed -Color (Ana-wound Skin Appearance) Assessed, Hemosiderin Staining -Temperature (Ana-wound Skin No Abnormality Appearance) (Pt Warm) -Tenderness on Palpation (Ana-wound No Skin Appearance) -Ulcer Cleansing Wound Cleanser -Foul Odor after Cleansing No -Anesthetic Used 5% Lidocaine Gel Lower Limb Edema Present Yes Right Calf (cm) 25.7 Right Ankle (cm) 21.5 Left Calf (cm) 27.5 Left Ankle (cm) 23 WC - Nurse 2 - General Ulcer CM Notes Start: 07/14/24 10:55 Freq: Status: Active Protocol: Activity Type Activity Date Activity User E-sign Co-sign Detail Recorded Client Recorded Date Recorded By Document 07/14/24 11:14 [id number] 07/14/24 11:15 07/14/24 11:14 Wound Center Nurse 2 5. Left hand -Time 11:14 -Correct Patient Yes -Correct Side, Site, Position Yes -Correct Procedure No -Procedure Performed No -Tunneling No -Undermining/Tunneling No -Circular Undermining No -Wound/Ulcer Outcome Healed- Epithelialized -Foul Odor after Cleansing No -Bioengineered Tissue No -Bleeding Controlled with NA #3 RT POST CALF -Time 11:14 -Correct Patient Yes -Correct Side, Site, Position Yes -Correct Procedure Yes -Procedure Performed Yes -Type of Procedure Debridement -Clinical Debridement Subcutaneous -Tissue Removed Subcutaneous -Post Debridement (cm) - Length 1.5 -Post Debridement (cm) - Width 0.8 -Post Debridement (cm) - Depth 0.1 -Total Square (Post) (cm) 1.20 -Area of Debridement (cm) - Length 1.5 -Area of Debridement (cm) - Width 0.8 -Total Square (Area) (cm) 1.20 -Tunneling No -Undermining/Tunneling No -Circular Undermining No -Wound/Ulcer Outcome Not Healed -Ulcer Cleansing Rinsed/ Irrigated with Saline -Foul Odor after Cleansing No -Bioengineered Tissue No -Bleeding Controlled with Pressure -Debridement - Subq, 1st 20sq cm Yes Pain Scale: 0-10 Numeric Is Patient Pain Free? Yes - Nurse 3 - General Ulcer D/C NN Start: 07/14/24 10:55 Freq: Status: Active Protocol: Activity Type Activity Date Activity User E-sign Co-sign Detail Recorded Client Recorded Date Recorded By Document 07/14/24 11:29 [id number] 07/14/24 11:30 07/14/24 11:29 Wound Care Center Nurse 3 #3 RT POST CALF -Ulcer Cleansing Not Cleansed -Foul Odor after Cleansing No -Negative Pressure Wound Therapy N/A -Primary Dressing Applied NonAdherent Contact Layer, Promogran -Primary Dressing Covered/Secured with Dry Gauze & Roll Gauze, Secured with Tape -Promogran 1 BLE -Lotion applied to leg before No compression wrap -Multi-Layered Wrap Application Multi-Layer Comp - Bilat ($ ) -Stockings No -Multi-Layer Compression Bilat (Qty 2 applied) Pain Scale: 0-10 Numeric Is Patient Pain Free? Yes - Visit Discharge Discharge Condition Stable Ambulatory Status Ambulatory, Walker Transportation Private Auto Assessment/Plan Assessment/Plan (1) Ulcer of right lower extremity with fat layer exposed: CODE(S): L97.912 - Non-pressure chronic ulcer of unspecified part of right lower leg with fat layer exposed (2) Bilateral lower extremity edema: CODE(S): R60.0 - Localized edema (3) Open wound of left hand: CODE(S): S61.402A - Unspecified open wound of left hand, initial encounter PLAN: Traumatic, penetrating. Healed. (4) Dementia: CODE(S): F03.90 - Unspecified dementia, unspecified severity, without behavioral disturbance, psychotic disturbance, mood disturbance, and anxiety PLAN: Plan Debridement done as documented above, procedure was well-tolerated. Increased edema and ulcer reopening. Promogran to right posterior leg, cover with Adaptic and foam dressing. 3M for edema management. Nurse visit on Thursday for change. Continue Evens twice daily. Prescription for CircAid's for better edema management after healing. Continue other chronic wound care measures. Their questions were answered and they were advised to let us know if they have any further questions or concerns. Follow-up in 1 week. This note was generated with [employer] dictation software. It may contain incorrect words, spelling, and punctuation that were not noted in checking the note before signing.
--- NOTE | 2024-07-15 09:55 | WC ---
PHOTO 07/14/24 RIGHT POST CALF
--- NOTE | 2024-07-15 09:57 | WC ---
PHOTO 07/14/24 LEFT HAND
== END 2024-08-08 23:59 | disposition home or self-care (01) ==
LOC: WC 10:35
PROVIDERS: PCP Family Medicine; Referring Provider Family Medicine; Visit Provider Internal Medicine
DX: L97.812 Non-pressure chronic ulcer of other part of right lower leg with fat layer exposed (principal); F03.90 Unspecified dementia, unspecified severity, without behavioral disturbance, psychotic disturbance, mood disturbance, and anxiety; R60.0 Localized edema
CPT/HCPCS: 11042; 29581

== ENCOUNTER 2024-07-20 11:50 | Inpatient (IN) | payer MEDICARE, SELFPAY ==
[2024-07-20] VITALS (8 sets, daily range): BP systolic 125–159; BP diastolic 70–106; PULSE 88–114; RESP 15–26; TEMP 36.1–37.1; O2SAT 2–98; BMI 23.8; BMI 25.8
--- NOTE | 2024-07-20 12:38 | ED.RN ---
Patient SPO2 reading 87%. 3L via NC applied. SPO2 now reading 96%.
--- NOTE | 2024-07-20 13:41 | EKG12_ITS ---
Test Reason : Blood Pressure : */* mmHG Vent. Rate : 107 BPM Atrial Rate : 107 BPM P-R Int : 130 ms QRS Dur : 72 ms QT Int : 338 ms P-R-T Axes : 51 -39 52 degrees QTcB Int : 451 ms Sinus tachycardia with Premature atrial complexes with Aberrant conduction Left axis deviation Abnormal ECG Confirmed by OJHN TSANG, KESHAV ([id number]), city editor MICHELLE KATE ([id number]) on 07/25/2024 10:57:53 AM Referred By: ATA Confirmed By: KESHAV LOPEZ MD
[2024-07-20 14:17] LABS: Absolute Lymphocyte Count 1.84 X10^3/uL (0.83-4.51); Absolute Neutrophil Count 12.4 X10^3/uL (2.0-7.7); Basophil# 0.04 X10^3/uL; Basophil% 0.3 % (0-1); Eosinophil# 0.02 X10^3/uL; Eosinophils% 0.1 % (0-5); Hematocrit 45.2 % (37-47); Hemoglobin 14.9 g/dL (12.0-15.0); Lymphocyte # 1.84 X10^3/ul (0.83-4.51); Lymphocyte % 11.5 % (19-41); Mean Corpuscular Hgb 30.7 pg (27.0-32.0); Mean Platelet Vol. 9.5 fl (6.2-12.0); Monocyte# 1.57 X10^3/uL; Monocyte% 9.8 % (0-10); NRBC Flagged by Analyzer 0 % (0-5); Neutrophil # 12.37 X10^3/uL (2.7-7.7); Neutrophil % 77.5 % (47-70); POSITIVE DIFFERENTIAL YES; Platelet Count 310 K/mm3 (150-450); RBC Distribution Width CV 15.4 % (11.6-14.6); RBC Distribution Width SD 52.5 fl (35.1-43.9); Red Blood Count 4.86 M/mm3 (4.2-5.4)
[2024-07-20 14:18] LABS: Differential Indicated SCAN CRITERIA MET
--- NOTE | 2024-07-20 14:20 | CT_ITS ---
EXAM: BRAIN/HEAD WITHOUT CONTRAST CLINICAL HISTORY: INTERMITTENT CONFUSION COMPARISON: Comparison is made with prior study dated November 28, 2019. TECHNIQUE: Multiple axial tomographic images were obtained without intravenous contrast administration. Coronal and sagittal reconstruction was obtained as well. FINDINGS: Moderate degree of cerebral atrophy. Decreased attenuation deep in the white matter in the periventricular distribution in keeping with chronic small-vessel disease. There is evidence of cerebellar atrophy. Atherosclerotic plaque formation of the cavernous portions of the internal carotid arteries bilaterally. Partial opacification of the left ethmoid sinus in the left frontal sinus. CT/Brain/Head without Contrast IMPRESSION: Moderate degree of cerebral atrophy with decreased attenuation in the periventr icular white matter in keeping with chronic ischemic changes. Left maxillary and left frontal sinusitis. Reading Location: [facility]
--- NOTE | 2024-07-20 14:30 | RAD_ITS ---
EXAM: XR Chest, 2 Views CLINICAL INDICATION: HYPOXIA TECHNIQUE: Frontal and lateral views of the chest. COMPARISON: No relevant prior studies available. FINDINGS: LUNGS AND PLEURAL SPACES: See below. HEART: Cardiomegaly with mild congestion. MEDIASTINUM: Unremarkable. Normal mediastinal contour. BONES/JOINTS: Unremarkable. No acute fracture. RAD/Chest PA and Lateral IMPRESSION: Cardiomegaly with mild congestion. Reading [facility]
[2024-07-20 14:35] LABS: Pathologist Review May foll
[2024-07-20] MEDS: 0.9% Normal Saline (500mL Bag) 500 ML 1000 ML IV (14:39)
[2024-07-20 14:43] LABS: Pro- Brain NATRIURETIC PEPTIDE 286 pg/mL (<=1800)
[2024-07-20 14:45] LABS: Lactic Acid 1.2 mmol/L (0.0-2.0)
[2024-07-20 14:47] LABS: ALB/GLOB Ratio 1.1 RATIO (0.9-2.4); AST(SGOT) 49 U/L (<=31); Alanine Aminotransfer ALT/SGPT 23 U/L (<=34); Albumin, Serum 3.8 g/dL (3.4-4.8); Alkaline Phosphatase 136 U/L (35-104); Anion Gap 14 (5-15); BUN 30 mg/dL (4-19); Calcium,Total 9.1 mg/dL (7.6-11.0); Carbon Dioxide 22.9 mmol/L (21.0-32.0); Chloride 101 mmol/L (98-108); Creatinine, Serum 0.89 mg/dL (0.70-1.20); EST Glomerular Filtration Rate 62 (>60); Estimated Creatinine Clearance 34.14 ml/min (50-250); Globulin 3.4 g/dL (2.2-4.2); Glucose 141 mg/dL (70-99); Potassium 4.8 mmol/L (3.3-5.1); Protein, Total 7.2 g/dL (5.9-8.4); Sodium Level 139 mmol/L (133-145); Total Bilirubin 0.45 mg/dL (0.00-1.30)
[2024-07-20 14:59] LABS: Troponin T High Sensitivity 81 ng/L (<=14)
[2024-07-20 15:13] LABS: D-Dimer Quantitative (DVT/PE) 1.18 FEU/ug/m (0.27-0.49)
--- NOTE | 2024-07-20 15:30 | CT_ITS ---
EXAM: CT Angiography Chest Without and With Intravenous Contrast CLINICAL INDICATION: HYPOXIA, PE TECHNIQUE: Axial computed tomographic angiography images of the chest without and with intravenous contrast. This CT exam was performed using one or more of the following dose reduction techniques: automated exposure control, adjustment of the mA and/or kV according to patient size, and/or use of iterative reconstruction technique. MIP reconstructed images were created and reviewed. COMPARISON: No relevant prior studies available. FINDINGS: LIMITATIONS: Suboptimal opacification of the pulmonary arteries. PULMONARY ARTERIES: No pulmonary embolism is identified. Some of the distal pulmonary arteries cannot be evaluated due to suboptimal opacification. AORTA: No acute findings. No thoracic aortic aneurysm. LUNGS AND PLEURAL SPACES: Lung emphysema/COPD. No mass. No consolidation. No significant effusion. No pneumothorax. HEART: Mild cardiomegaly. No significant pericardial effusion. No evidence of RV dysfunction. MEDIASTINUM: Moderate esophageal hiatal hernia. BONES/JOINTS: Multilevel endplate degenerative change and disc disease of the thoracic spine with multilevel anterior wedging deformity of the mid to lower aspect. No dislocation. SOFT TISSUES: Unremarkable. LYMPH NODES: Unremarkable. No enlarged lymph nodes. LIVER: Probable hepatic cysts. GALLBLADDER AND BILE DUCTS: Cholecystectomy. CT/CTA Chest W/WO Contrast IMPRESSION: 1. No pulmonary embolism is identified. Some of the distal pulmonary arteries cannot be evaluated due to suboptimal opacification. 2. Moderate esophageal hiatal hernia. Reading Location: [facility]
[2024-07-20 16:11] LABS: Mucous, Urine 0 SEEN /hpf (<or=2+); Squamous Epithelial Cells - UA 0 SEEN /hpf (5-10)
[2024-07-20 16:17] LABS: Color, Urine Yellow (Yellow); Glucose, Dipstick Normal (Normal); Ketone-Dipstick Negative (Negative); Leukocyte Esterase-Dipstick Negative /ul (Negative); Nitrite-Dipstick Positive (Negative); Occult Blood-Urine 10 /ul (Negative); Protein-Dipstick Negative (Negative); Urine Bilirubin Dipstick Negative (Negative); Urine Clarity Clear (Clear); Urine Urobilinogen Normal (Normal)
--- NOTE | 2024-07-20 16:36 | ED.VIS.BACK ---
HPI History of Present Illness Chief Complaint: Back Narrative Narrative: Chief complaint and HPI: Generalized malaise. 88-year-old female with past medical history of dementia, chronic back pain, UC, HTN, presents from care facility for evaluation of general malaise. Patient is a very poor historian given her dementia and therefore history is mostly taken by family members. Triage note states that the patient is here for chronic back pain, family states this is not why she is here. Family states that since Thursday the patient has been experiencing weakness, fatigue, decreased p.o. intake. Her weakness worsened today which is why she presented for evaluation. Family denies any fever, cough, shortness of breath, chest pain, abdominal pain, nausea, vomiting, diarrhea. Patient currently denies any complaints other than her typical back pain. She sees wound care for bilateral lower extremity wounds. Patient has had frequent falls due to her weakness. Review of systems: See HPI Medications: As listed on the chart Allergies: As listed on the chart PFSH: Per chart Vital signs: As listed on the chart. Reviewed. Physical exam: Gen: Alert, no acute distress Head: Normocephalic, atraumatic Eyes: No sclera icterus, conjunctiva clear, PERRL, EOMI ENT: Mildly dry mucous membranes Neck: Trachea midline, No JVD, no meningismus CV: Tachycardic, regular rhythm, no murmurs, no peripheral edema, bandages were removed and patient's leg are healing well without any infection or cellulitis Resp: Lungs CTA BL, no w/r/c GI: Abd soft, non-distended, non-tender, no r/r/g : No CVA tenderness Musc: Moves all extremities, generalized weakness Skin: Warm, dry Neuro: Alert, grossly intact, sensation intact Psych: Cooperative, appropriate mood and affec [facility] Medical History (Updated 07/20/24 @ 17:29 by Rossana Ramos) Depression Non-smoker DVT (deep venous thrombosis) Open wound of left hand Bilateral lower extremity edema Ulcer of right lower extremity with fat layer exposed Abrasion of knee, left Wound of left lower extremity Abrasion, knee Laceration of foot excluding toes Leg edema, left Left leg swelling Postphlebitic syndrome with inflammation History of deep vein thrombosis (DVT) of lower extremity Traumatic open wound of left lower leg Lumbar disc disease Dementia Risk for falls Choudhary esophagus History of CVA (cerebrovascular accident) Chronic kidney disease, stage III (moderate) H/O ht shoulder arthroscopy Home Medications ?Medication ?Instructions ?Recorded ?Last Taken ?Type duloxetine 60 mg capsule,delayed 60 mg PO DAILY depression 08/16/13 11/28/19 History release budesonide 3 mg 3 mg PO TID colitis 10/21/18 11/28/19 History capsule,delayed,extended release omeprazole 40 mg capsule,delayed 40 mg PO DAILY GERD 10/21/18 11/28/19 History release furosemide 20 mg tablet 40 mg PO DAILY 05/07/21 Unknown History mirtazapine 7.5 mg tablet 7.5 mg PO QHS 07/20/24 Unknown History potassium chloride 20 mEq 20 meq PO DAILY 07/20/24 Unknown History tablet,extended release(part/cryst) (Klor-Con M) tramadol 50 mg tablet 50 mg PO BID 07/20/24 Unknown History Allergy/AdvReac Type Severity Reaction Status Date / Time No Known Allergies Allergy Verified 07/20/24 11:51 Family History Mother Temporal arteritis Other Arthritis Emphysema of lung Surgical History S/P ORIF (open reduction internal fixation) fracture Social History Smoking Status: Never smoker substance use type: does not use EXAM Physical Exam Const Vital Signs: 07/20/24 11:50 07/20/24 14:42 07/20/24 15:42 Temperature 96.9 F L 98.8 F 98.2 F Temperature Source Temporal Oral Oral Pulse Rate 109 H 114 H 100 Respiratory Rate 26 H 16 25 H Blood Pressure 155/70 H 159/101 H 146/102 H Blood Pressure Mean 98 120 116 Pulse Ox 94 97 97 Oxygen Delivery Method Room Air Nasal Cannula Nasal Cannula Oxygen Flow Rate (L/min) 2 2 07/20/24 16:00 Temperature 98.2 F Temperature Source Oral Pulse Rate 101 H Respiratory Rate 17 Blood Pressure 125/106 H Blood Pressure Mean 112 Pulse Ox 96 Oxygen Delivery Method Nasal Cannula Oxygen Flow Rate (L/min) 2 MDM MDM MDM Narrative Medical decision making narrative: 88-year-old female with past medical history of dementia, chronic back pain, UC, HTN, presents from care facility for evaluation of general malaise. On presentation patient is afebrile but tachycardic with hypertension. 94% on room air however her oxygenation dropped into the mid 80s and patient was placed on 2 L nasal cannula. Differential diagnosis includes but is not limited to viral illness, pneumonia, electrolyte abnormality, RJ, UTI, PE, ACS. NS bolus ordered. Laboratory workup ordered including chest x-ray. EKG and chest x-ray reviewed see below. CBC with leukocytosis of 16. No anemia. CMP without significant electrolyte abnormality or RJ. Patient does have mild AST transaminitis of 49. BNP unremarkable. D-dimer elevated at 1.18. CTA chest ordered to rule out PE. Patient's troponin is 81. Not endorsing any chest pain. Will get delta. CTA chest negative for PE. Patient does have emfizatamab changes. No pneumonia. CT head shows chronic changes but no acute intracranial abnormality. with past medical history of dementia, chronic back pain, UC, HTN, presents from care facility for evaluation of general malaise. UA positive for UTI. Urine culture sent. Rocephin ordered. Patient will warrant admission. Patient and family updated of all the results and confirmed understanding of the plan. I spoke with Dr. North who accepted admission. Plan will be for Med Surg versus PCU pending 2-hour troponin. Awaiting 2-hour troponin. Patient signed out to Dr. North, oncoming physician. He will place that order once troponin results. EKG: Interpreted by me/EM physician: EKG shows sinus tachycardia with PACs. No acute ischemic changes. Heart rate 107. Diagnostic: Interpreted by me/EM physician: Chest x-ray with cardiomegaly. No pneumonia, large effusion, pneumothorax Impression: 1. Acute hypoxia 2. UTI 3. Generalized weakness 4. Elevated troponin suspect secondary to infection Lab Data Labs: Laboratory Results - last 24 hr 07/20/24 07/20/24 07/20/24 13:00 14:39 15:50 WBC 16.0 H RBC 4.86 Hgb 14.9 Hct 45.2 MCV 93.0 MCH 30.7 MCHC 33.0 RDW Std Deviation 52.5 H RDW Coeff of Neisha 15.4 H Plt Count 310 MPV 9.5 Immature Gran % (Auto) 0.800 Neut % (Auto) 77.5 H Lymph % (Auto) 11.5 L [place] % (Auto) 9.8 Eos % (Auto) 0.1 Baso % (Auto) 0.3 Absolute Neuts (auto) 12.4 H Absolute Lymphs (auto) 1.84 Nucleated RBC % 0 Diff Path Review September D-Dimer Quant (PE/DVT) Cancelled 1.18 H* Sodium 139 Potassium 4.8 Chloride 101 Carbon Dioxide 22.9 Anion Gap 14 BUN 30 H Creatinine 0.89 Estim Creat Clear Calc 34.14 L Est GFR (MDRD) Non-Af 62 BUN/Creatinine Ratio 33.0 H Glucose 141 H Lactic Acid 1.2 Calcium 9.1 Total Bilirubin 0.45 AST 49 H ALT 23 Alkaline Phosphatase 136 H Troponin T High Sens 81 H* NT pro BNP II 286 Total Protein 7.2 Albumin 3.8 Globulin 3.4 Albumin/Globulin Ratio 1.1 Urine Color Yellow Urine Clarity Clear Urine pH 5.0 Ur Specific [place] 1.010 Urine Protein Negative Urine Glucose (UA) Normal Urine Ketones Negative Urine Occult Blood 10 H Urine Nitrite Positive H Urine Bilirubin Negative Urine Urobilinogen Normal Ur Leukocyte Esterase Negative Urine RBC 0 SEEN Urine WBC 0-5 SEEN Ur Squamous Epith Cells 0 SEEN Urine Bacteria 3+ Hyaline Casts 5-10 SEEN Urine Mucus 0 SEEN Radiography Diagnostic Testing: Clinical Impression(s) from Imaging Studies Brain CT 07/20/24 14:20 IMPRESSION: Moderate degree of cerebral atrophy with decreased attenuation in the periventricular white matter in keeping with chronic ischemic changes. Left maxillary and left frontal sinusitis. Reading Location: [facility] Chest X-Ray 07/20/24 14:30 IMPRESSION: Cardiomegaly with mild congestion. Reading [facility] Chest CTA 07/20/24 15:30 IMPRESSION: 1. No pulmonary embolism is identified. Some of the distal pulmonary arteries cannot be evaluated due to suboptimal opacification. 2. Moderate esophageal hiatal hernia. Reading [facility] Discharge Plan Triage Chief Complaint: Back ED Provider: Andrea Mendez Dx/Rx/DC Orders Prescriptions: No Action duloxetine 60 MG capsule 60 mg PO DAILY Patient Comments: Depression/anxiety budesonide 3 MG capsule,delayed,extend.release 3 mg PO TID omeprazole 40 MG capsule,delayed release(DR/EC) 40 mg PO DAILY furosemide 20 mg tablet 40 mg PO DAILY mirtazapine 7.5 mg tablet 7.5 mg PO QHS tramadol 50 mg tablet 50 mg PO BID potassium chloride [Klor-Con M20] 20 mEq tablet,ER particles/crystals 20 meq PO DAILY Primary Care Provider: Claudio Steele Referrals: Claudio Steele DO [Primary Care Provider] - Print Language: Frisian
[2024-07-20 16:42] LABS: Bacteria 3+ /hpf (None Seen)
[2024-07-20 16:44] LABS: Red Blood Cells-Urine 0 SEEN /hpf (0-5); White Blood Cells 0-5 SEEN /hpf (0-5)
[2024-07-20 16:45] LABS: Hyaline Cast 5-10 SEEN /lpf (0-5)
--- NOTE | 2024-07-20 18:16 | PCM.HP.STD ---
HPI - General General Date of Admission: 07/20/24 Date of Service: 07/20/24 Chief Complaint: Malaise HPI Narrative NINA SANDOVAL, is a 88 F who presented to the emergency department at [facility] on 07/20/2024 with a chief complaint of general malaise and low back pain. Patient states she has chronic low back pain that is always problematic for her however lately it has been a bit worse. She is overall fairly poor historian unable to give a lot of information regarding what has been going on clinically. Her son states that since Thursday she been experiencing weakness, fatigue and decreased oral intake. Due to the ongoing weakness they decided to have her evaluated today in the emergency department. She has not had fever or chills. She has not had a significant cough. She had not had shortness of breath. She sees wound care for bilateral lower extremity wounds. Vital signs on presentation showed temperature 96.9, heart rate 109, respiratory 26, blood pressure was 155/70 and pulse ox was initially 94% on room air but she desatted and was placed on 2 L with improvement oxygen saturation 97%. CBC showed a white count of 16 with a 77.5% neutrophilia but was otherwise unremarkable. D-dimer was up at 1.18. Chemistry panel was overall unremarkable. Lactic acid was normal at 1.2, initial troponin was 81 with a 2-hour at 73. proBNP was normal at 286. UA was consistent with infection having positive nitrates, and 3+ bacteria. White cells were unremarkable however patient was symptomatic. Given this, antibiotics were started [facility] Medical History Depression Non-smoker DVT (deep venous thrombosis) Open wound of left hand Bilateral lower extremity edema Ulcer of right lower extremity with fat layer exposed Abrasion of knee, left Wound of left lower extremity Abrasion, knee Laceration of foot excluding toes Leg edema, left Left leg swelling Postphlebitic syndrome with inflammation History of deep vein thrombosis (DVT) of lower extremity Traumatic open wound of left lower leg Lumbar disc disease Dementia Risk for falls Choudhary esophagus History of CVA (cerebrovascular accident) Chronic kidney disease, stage III (moderate) H/O ht shoulder arthroscopy Home Medications ?Medication ?Instructions ?Recorded ?Last Taken ?Type duloxetine 60 mg capsule,delayed 60 mg PO DAILY depression 08/16/13 11/28/19 History release budesonide 3 mg 3 mg PO TID colitis 10/21/18 11/28/19 History capsule,delayed,extended release omeprazole 40 mg capsule,delayed 40 mg PO DAILY GERD 10/21/18 11/28/19 History release furosemide 20 mg tablet 40 mg PO DAILY 05/07/21 Unknown History mirtazapine 7.5 mg tablet 7.5 mg PO QHS 07/20/24 Unknown History potassium chloride 20 mEq 20 meq PO DAILY 07/20/24 Unknown History tablet,extended release(part/cryst) (Klor-Con M) tramadol 50 mg tablet 50 mg PO BID 07/20/24 Unknown History Allergy/AdvReac Type Severity Reaction Status Date / Time No Known Allergies Allergy Verified 07/20/24 11:51 Family History Mother Temporal arteritis Other Arthritis Emphysema of lung Surgical History S/P ORIF (open reduction internal fixation) fracture Social History Smoking Status: Never smoker substance use type: does not use ROS Review of Systems ROS Unobtainable: other Details: Very difficult to obtain from patient due to her being a poor historian and dementia at baseline Vital Signs Vital Signs Vital Signs: 07/20/24 11:50 07/20/24 14:42 07/20/24 15:42 Temperature 96.9 F L 98.8 F 98.2 F Temperature Source Temporal Oral Oral Pulse Rate 109 H 114 H 100 Respiratory Rate 26 H 16 25 H Blood Pressure 155/70 H 159/101 H 146/102 H Blood Pressure Mean 98 120 116 Pulse Ox 94 97 97 Oxygen Delivery Method Room Air Nasal Cannula Nasal Cannula Oxygen Flow Rate (L/min) 2 2 07/20/24 16:00 07/20/24 16:00 07/20/24 17:30 Temperature 98.2 F Temperature Source Oral Pulse Rate 101 H 96 95 Respiratory Rate 17 15 17 Blood Pressure 125/106 H 125/105 H 149/104 H Blood Pressure Mean 112 113 117 Pulse Ox 96 97 91 Oxygen Delivery Method Nasal Cannula Oxygen Flow Rate (L/min) 2 Weight Weight: 55.5 kg Body Mass Index (BMI) 23.8 Physical Exam Const alert, no apparent distress, average body habitus and well nourished Constitutional Narrative: Elderly, white female, sitting up in bed, son at bedside, oriented to self and place but not time, appears comfortable, nontoxic but requiring 2 L oxygen General Appearance: cooperative HEENT normocephalic, head/scalp atraumatic and moist oral mucous membranes; Negative for hearing grossly normal bilaterally HEENT Narrative: Mallampati 2, no thrush, moderate hearing loss Eyes EOMs intact bilaterally and conjunctivae normal Eyes Narrative: No scleral icterus Neck supple Neck Narrative: Trachea midline Resp normal respiratory effort, no retractions, no use of accessory muscles and clear to auscultation bilaterally Auscultation: Negative for rales, rhonchi or wheezes Cardio regular rate, regular rhythm, S1 normal heart sound, S2 normal heart sound, no murmurs, no rub, no gallops and no clicks GI normal to inspection, nondistended, normoactive bowel sounds and soft to palpation GI Narrative: Very mild suprapubic tenderness Extremity no clubbing, cyanosis or edema Extremity Narrative: Pedal and radial pulses 2+ Neuro moves all extremities and no focal motor deficits Neuro Narrative: Significant generalized weakness noted but no focal deficits Sensorium / Orientation: awake, alert, oriented to person and oriented to place; Negative for oriented to time Speech: speech normal Psych affect normal Psych Narrative: Extremely pleasant a Results Lab / Micro Data 07/20/24 13:00 07/20/24 13:00 Labs: Laboratory Results - last 24 hr 07/20/24 13:00: WBC 16.0 H, RBC 4.86, Hgb 14.9, Hct 45.2, MCV 93.0, MCH 30.7, MCHC 33.0, RDW Std Deviation 52.5 H, RDW Coeff of Neisha 15.4 H, Plt Count 310, MPV 9.5, Immature Gran % (Auto) 0.800, Neut % (Auto) 77.5 H, Lymph % (Auto) 11.5 L, [place] % (Auto) 9.8, Eos % (Auto) 0.1, Baso % (Auto) 0.3, Absolute Neuts (auto) 12.4 H, Absolute Lymphs (auto) 1.84, Nucleated RBC % 0, Diff Path Review May foll, D-Dimer Quant (PE/DVT) Cancelled, Sodium 139, Potassium 4.8, Chloride 101, Carbon Dioxide 22.9, Anion Gap 14, BUN 30 H, Creatinine 0.89, Estim Creat Clear Calc 34.14 L, Est GFR (MDRD) Non-Af 62, BUN/Creatinine Ratio 33.0 H, Glucose 141 H, Lactic Acid 1.2, Calcium 9.1, Total Bilirubin 0.45, AST 49 H, ALT 23, Alkaline Phosphatase 136 H, Troponin T High Sens 81 H*, NT pro BNP II 286, Total Protein 7.2, Albumin 3.8, Globulin 3.4, Albumin/Globulin Ratio 1.1 07/20/24 14:39: D-Dimer Quant (PE/DVT) 1.18 H* 07/20/24 15:50: Urine Color Yellow, Urine Clarity Clear, Urine pH 5.0, Ur Specific Serena 1.010, Urine Protein Negative, Urine Glucose (UA) Normal, Urine Ketones Negative, Urine Occult Blood 10 H, Urine Nitrite Positive H, Urine Bilirubin Negative, Urine Urobilinogen Normal, Ur Leukocyte Esterase Negative, Urine RBC 0 SEEN, Urine WBC 0-5 SEEN, Ur Squamous Epith Cells 0 SEEN, Urine Bacteria 3+, Hyaline Casts 5-10 SEEN, Urine Mucus 0 SEEN Micro: Microbiology 07/20/24 13:00 Mucosa - Nose SARS-CoV-2, Influenza & RSV (PCR) - Final Imaging Radiology Impression Brain CT 07/20/24 14:20 IMPRESSION: Moderate degree of cerebral atrophy with decreased attenuation in the periventricular white matter in keeping with chronic ischemic changes. Left maxillary and left frontal sinusitis. Reading Location: [id number] Chest X-Ray 07/20/24 14:30 IMPRESSION: Cardiomegaly with mild congestion. Reading [facility] Chest CTA 07/20/24 15:30 IMPRESSION: 1. No pulmonary embolism is identified. Some of the distal pulmonary arteries cannot be evaluated due to suboptimal opacification. 2. Moderate esophageal hiatal hernia. Reading Location[facility] Assessment & Plan Assessment/Plan (1) Hypoxia: (2) Weakness: (3) Acute on chronic low back pain: (4) Abnormal urinalysis: (5) Elevated troponin: (6) Leukocytosis: PLAN: Plan Acute hypoxia -Patient typically on room air at baseline -Requiring 2 L to keep sats greater than 88% -Chest x-ray showed some cardiomegaly with mild congestion -D-dimer was elevated so CTA was performed and demonstrated no pulmonary embolism, moderate esophageal hiatal hernia upon my review she does seem to have some groundglass changes on CAT scan consistent with maybe some mild volume overload -BNP was performed and was only 286 but will give 1 dose of IV Lasix and reassess tomorrow -Will need home O2 eval prior to discharge -I-S and Acapella ordered -As needed aerosols next-patient does not have history of COPD or any lung issues at baseline Abnormal UA -Highly suspicious for ureteric infection -Urine culture sent -Continue ceftriaxone as initiated emergency department -patient does have frequency and some mild discomfort Elevated troponin -Initial troponin was mildly elevated but repeat was normal -Patient without any chest pain or shortness of breath -Will check echocardiogram but overall low suspicion cardiac issue Leukocytosis -Suspect related to UTI -Will trend with antibiotics -Lactic acid within normal limits Acute on chronic low back pain -Continue home regimen -Add scheduled Tylenol -Add lidocaine patch -PT/OT consultation Generalized weakness/debility -PT/OT consultation -Case management/social work consultation for assistance with discharge planning GERD/Choudhary's esophagus -Continue PPI Collagenous colitis -Continue home budesonide History of DVT -Remote -No chronic anticoagulation Depression -Continue home duloxetine -Continue mirtazapine Dementia -Chronic DVT prophylaxis -Subcu Lovenox CODE STATUS -DNR CCA with no intubation as verified on admission with family Charges/Coding Visit Charges Inpatient E&M: 80373 Init Hosp L2
[2024-07-20 18:19] LABS: Troponin T High Sens 2 HR 73 ng/L (<=14)
--- NOTE | 2024-07-20 20:47 | ECHOD_ITS ---
Reason For Study Reason For Study: HYPOXIA Procedure This was a 2D Doppler, Color Flow transthoracic echocardiogram. Technically difficult study due to patient being uncooperative and unable to tolerate probe pressure. Study terminated early per patient request. Exam performed portable in patient room. Left Ventricle Normal LV size. The estimated ejection fraction is 70 %. No evidence for diastolic dysfunction. No regional wall motion abnormalities noted. Right Ventricle Normal RV size. Normal systolic function. Atria The left and right atria are normal. No doppler evidence for ASD. Mitral Valve There is no mitral valve stenosis. No mitral valve insufficiency. Tricuspid Valve There is no tricuspid stenosis. Unable to estimate RV systolic pressure due to inadequate jet, pulmonary artery pressure probably normal. Aortic Valve Aortic sclerosis, no stenosis. There is no aortic stenosis. No aortic valve insufficiency. Pulmonic Valve There is no pulmonic valvular stenosis. No pulmonic valve insufficiency. Great Vessels Normal sized aortic root. Pericardium/Pleural No pericardial effusion. MMode/2D Measurements & Calculations Ao root diam: 2.7 cm LAV(MOD-bp): 29.9 ml LA A4 area: 12.2 cm2 LAV(MOD-bp) Indexed: 19.8 ml/m2 LAV(MOD-sp2): 33.9 ml LAV(MOD-sp4): 27.5 ml RA A4 area: 9.6 cm2 Time Measurements MV dec time: 0.13 sec Doppler Measurements & Calculations MV E max joby: 59.7 cm/sec Lat Peak E' Joby: 7.4 cm/sec Med Peak E' Joby: 8.2 cm/sec MV A max joby: 105.9 cm/sec E/E' lat: 8.0 E/E' med: 7.3 MV E/A: 0.56 MV V2 max: 104.6 cm/sec MV dec slope: 473.4 cm/sec2 Ao V2 max: 132.9 cm/sec MV max P.4 mmHg Ao max P.1 mmHg MV V2 mean: 60.8 cm/sec Ao V2 mean: 98.4 cm/sec MV mean P.7 mmHg Ao mean P.3 mmHg MV V2 VTI: 27.7 cm Ao V2 VTI: 23.4 cm AV (velocity ratio): 0.89 LV V1 max: 125.8 cm/sec LV V1 max P.4 mmHg LV V1 mean P.6 mmHg LV V1 mean: 90.1 cm/sec LV V1 VTI: 20.9 cm ECHO/Echo Complete Interpretation Summary The estimated ejection fraction is 70 %. No evidence for diastolic dysfunction. Ordering Physician: Radhika North Referring Physician: Claudio Steele Performed By: Natalie Laureano RCS
[2024-07-20] MEDS: Acetaminophen 500 MG Tablet 1000 MG PO (22:23)
[2024-07-20] MEDS: Budesonide 3 MG CAPSULE.EC PO (22:23)
[2024-07-20] MEDS: Furosemide 20 MG/2 ML VIAL IV (22:23)
[2024-07-20] MEDS: Mirtazapine 15 MG Tablet 7.5 MG PO (22:23)
[2024-07-20] MEDS: traMADol 50 MG Tablet PO (22:23)
[2024-07-21 02:16] VITALS: BP 135/79; PULSE 86; RESP 18; TEMP 36.3; O2SAT 98
[2024-07-21 04:36] VITALS: BMI 26.1
[2024-07-21] MEDS: Acetaminophen 500 MG Tablet 1000 MG PO ×3 (05:49→20:31)
[2024-07-21] MEDS: Budesonide 3 MG CAPSULE.EC PO ×3 (05:49→20:30)
[2024-07-21 06:51] LABS: Absolute Lymphocyte Count 1.93 X10^3/uL (0.83-4.51); Absolute Neutrophil Count 8.2 X10^3/uL (2.0-7.7); Basophil# 0.03 X10^3/uL; Basophil% 0.3 % (0-1); Eosinophil# 0.03 X10^3/uL; Eosinophils% 0.3 % (0-5); Hematocrit 42.9 % (37-47); Hemoglobin 13.2 g/dL (12.0-15.0); Lymphocyte # 1.93 X10^3/ul (0.83-4.51); Lymphocyte % 17.4 % (19-41); Mean Corp Hgb Conc 30.8 g/dL (32-36); Mean Corpuscular Volume 97.5 fL (81-99); Mean Platelet Vol. 9.2 fl (6.2-12.0); Monocyte# 0.84 X10^3/uL; Monocyte% 7.6 % (0-10); NRBC Flagged by Analyzer 0 % (0-5); Neutrophil # 8.16 X10^3/uL (2.7-7.7); Neutrophil % 73.4 % (47-70); Platelet Count 265 K/mm3 (150-450); RBC Distribution Width CV 15.3 % (11.6-14.6); RBC Distribution Width SD 54.6 fl (35.1-43.9); White Blood Count 11.1 K/mm3 (4.4-11.0)
[2024-07-21 08:00] VITALS: BP 171/88; PULSE 76; RESP 18; TEMP 36.5; O2SAT 99
[2024-07-21] MEDS: Potassium Chloride Oral Tablet 20 MEQ PO (08:24)
[2024-07-21 09:13] LABS: Magnesium 2.3 mg/dL (1.5-2.2); Phosphorus 3.9 mg/dL (2.7-4.5)
[2024-07-21 09:44] LABS: ALB/GLOB Ratio 1.2 RATIO (0.9-2.4); AST(SGOT) 23 U/L (<=31); Alanine Aminotransfer ALT/SGPT 16 U/L (<=34); Albumin, Serum 3.4 g/dL (3.4-4.8); Alkaline Phosphatase 121 U/L (35-104); Anion Gap 17 (5-15); BUN 26 mg/dL (4-19); BUN/Creat Ratio 31.7 RATIO (10-20); Calcium,Total 8.5 mg/dL (7.6-11.0); Carbon Dioxide 20.2 mmol/L (21.0-32.0); Chloride 103 mmol/L (98-108); Creatinine, Serum 0.82 mg/dL (0.70-1.20); EST Glomerular Filtration Rate 69 (>60); Estimated Creatinine Clearance 38.02 ml/min (50-250); Globulin 2.9 g/dL (2.2-4.2); Glucose 76 mg/dL (70-99); Potassium 3.8 mmol/L (3.3-5.1); Protein, Total 6.4 g/dL (5.9-8.4); Sodium Level 140 mmol/L (133-145); Total Bilirubin 0.36 mg/dL (0.00-1.30)
[2024-07-21] MEDS: Furosemide 40 MG Tablet PO (09:55)
[2024-07-21] MEDS: traMADol 50 MG Tablet PO ×2 (09:55→20:31)
[2024-07-21] MEDS: DULoxetine Hcl 60 MG Capsule PO (09:55)
[2024-07-21] MEDS: Pantoprazole Sodium 40 MG Tablet PO (09:56)
[2024-07-21] MEDS: Enoxaparin 40 MG/0.4 ML Syringe SC (09:56)
[2024-07-21] MEDS: Lidocaine 5% Patch 1 PATCH TOPICAL (09:57)
[2024-07-21] MEDS: 0.9% Saline Lock 10 ML Syringe IV (11:10)
[2024-07-21] MEDS: Ceftriaxone 1 GM/50 ML BAG IV (11:10)
[2024-07-21] MEDS: 0.9% Normal Saline (100mL Bag) 100 ML IV (11:10)
--- NOTE | 2024-07-21 11:33 | CASEMGMT ---
Addendum entered by Lulu Stafford 07/21/24 16:05: Pt family will folllow up with WENDI in the morning regarding SNF choices vs hospice, as family is reviewing options this evening. Pt family prefers [facility] hospice, [place]'s provider. WENDI called Floridalma Ochoa, navigator, who reports a meeting is scheduled for next week on Thursday. If the family prefers to meet sooner, Floridalma is willing to move that up. WENDI remains available to follow and will continue to coordinate with family and providers on discharge planning. SUSAN Smith Addendum entered by Lulu Stafford 07/21/24 14:35: WENDI collaborated with physician. Order for hospice consult placed. Hospice referral for informational consult completed. SUSAN Smith Addendum entered by Lulu Stafford 07/21/24 14:25: WENDI met with pt POA and [id number], Silvina, and dtr to discuss discharge planning. Pt [id number] reports that she is interested in information on SNF and hospice, as pt has been declining in function and has significant pain, but is hopeful that pt may be able to gain some function back with therapy. Silvina reports that pt has declined over the previous 6 months and is on the waitlist for a first floor apartment. Silvina reports that pt has very sensitive skin and often screams when people touch her in addition to having pain in her back. Silvina reports that pt cannot get in and out of a car at this time. Silvina requests a SNF list and referral to hospice for informational consult so that family can make decisions regarding discharge. WENDI to collaborate with physician on hospice referral. A list of SNF providers including quality and resource use data and consistent with the patient?s preferred geographic region, medical needs, and insurance network were provided from the [employer] Guide. SW remains available to follow. SUSAN Smith Original Note: Social Work- WENDI met with pt to introduce self and role. Pt reports that she is from [place] and plans to return if she is able at discharge. Pt has not had therapy at this time to determine discharge needs. Pt uncertain if she will need transportation or if daughter is able to transport. WENDI remains available to follow. SUSAN Smith
[2024-07-21 14:00] VITALS: BP 150/84; PULSE 65; RESP 16; TEMP 36.4; O2SAT 98
--- NOTE | 2024-07-21 14:27 | CASEMGMT ---
Discharge Planning A list of?SNF providers including quality and resource use data and consistent with the patient's preferred geographic region, medical needs, and insurance network was created in [employer] Guide.? This list was provided to the SW. Ignacia Galdamez Discharge Planning Asst.
[2024-07-21] MEDS: Cephalexin 500 MG Capsule PO ×2 (15:20→20:30)
--- NOTE | 2024-07-21 15:22 | CHAPLAIN ---
Type of Pastoral Visit _x__ Initial Visit ___ Follow-up Visit ___ On-call Visit ___ General Patient Visit ___ Spiritual Assessment ___ Family Conference ___ Bereavement ___ Rapid Response ___ Code Blue ___ Other (describe below) Pastoral Care Referral From _x__ Patient ___ Family ___ Nurse ___ Physician ___ Deli/Bakery Associate ___ Torpedo Worker ___ Other (describe below) Sacrament/Intervention _x__ Active listening ___ Anointing ___ Shinto ___ Bereavement ___ Communion ___ Lisa exploration ___ ___ Life review _x__ Prayer ___ Reconciliation ___ Sacrament of Sick ___ Supportive presence ___ Wedding ___ Other (describe below) Pastoral Comments patient is slowly eating her lunch which is late; pt and a family member in the room reveal health problems; both are focused on themselves and their back issues; pt states that I have dealt with this most of my life and I come to realize that other people have it worse off than me; family member states that pt has some dementia issues; both welcome prayer for support but deny that anything else can be done
--- NOTE | 2024-07-21 15:25 | CASEMGMT ---
Discharge Planning Updates sent to Floridalma @ [place]. Ignacia Galdamez DC Planning Asst.
--- NOTE | 2024-07-21 16:41 | PN.HOSP_ITS ---
Reason for Visit Reason for Visit: Diagnoses Elevated white blood cell count, unspecified (07/20/24) Other chronic pain (07/20/24) Low back pain, unspecified (07/20/24) Hypoxemia (07/20/24) Weakness (07/20/24) Other specified abnormal findings of blood chemistry (07/20/24) Unspecified abnormal findings in urine (07/20/24) Subjective Subjective Patient was seen and examined today, family request a consultation with hospice for the patient, she has baseline dementia and she lives at assisted living ([facility]). Patient's IV came out today and it was difficult finding another vein, I did not think the patient required a PICC line and I placed her on oral antibiotics. Patient does not appear toxic or septic. Patient does not appear to be agitated or depressed. Objective Data Objective Data Vital Signs: Vital Signs Temp Pulse Resp BP Pulse Ox O2 Del Method O2 Flow Rate 97.5 F L 65 16 150/84 H 98 Nasal Cannula 2 07/21/24 14:00 07/21/24 14:00 07/21/24 14:00 07/21/24 14:00 07/21/24 14:00 07/21/24 14:00 07/21/24 12:08 Oxygen Flow Rate (L/min) 2 Oxygen Delivery Method Nasal Cannula Weight: 58.7 kg Body Mass Index (BMI) 26.1 Intake & Output: Intake and Output for Last 24 Hours 07/19/24 07/20/24 07/21/24 23:59 23:59 23:59 Intake Total 500 / 750 369.08 / 369.08 Output Total 350 / 350 Balance 500 / 650 19.08 / 19.08 Lab / Micro Data 07/21/24 06:13 07/21/24 06:13 Labs: Laboratory Results - last 24 hr 07/20/24 15:50: Urine RBC 0 SEEN, Urine WBC 0-5 SEEN, Ur Squamous Epith Cells 0 SEEN, Urine Bacteria 3+, Hyaline Casts 5-10 SEEN, Urine Mucus 0 SEEN 07/20/24 16:24: Troponin T Hi Sens 2 Hr 73 H* 07/21/24 06:13: WBC 11.1 H, RBC 4.40, Hgb 13.2, Hct 42.9, MCV 97.5, MCH 30.0, M CHC 30.8 L D, RDW Std Deviation 54.6 H, RDW Coeff of Neisha 15.3 H, Plt Count 265, MPV 9.2, Immature Gran % (Auto) 1.000 H, Neut % (Auto) 73.4 H, Lymph % (Auto) 17.4 L, [place] % (Auto) 7.6, Eos % (Auto) 0.3, Baso % (Auto) 0.3, Absolute Neuts (auto) 8.2 H, Absolute Lymphs (auto) 1.93, Nucleated RBC % 0, Sodium 140, Potassium 3.8, Chloride 103, Carbon Dioxide 20.2 L, Anion Gap 17 H, BUN 26 H, Creatinine 0.82, Estim Creat Clear Calc 38.02 L, Est GFR (MDRD) Non-Af 69, B UN/Creatinine Ratio 31.7 H, Glucose 76, Calcium 8.5, Phosphorus 3.9, Magnesium 2.3 H, Total Bilirubin 0.36, AST 23, ALT 16, Alkaline Phosphatase 121 H, Total Protein 6.4, Albumin 3.4, Globulin 2.9, Albumin/Globulin Ratio 1.2 Micro: Microbiology 07/20/24 15:50 Urine, Catheterized Urine Culture - Preliminary Gram negative cole 07/20/24 20:55 Mucosa - Nasopharyngeal Respiratory Panel (PCR) - Final 07/20/24 13:00 Mucosa - Nose SARS-CoV-2, Influenza & RSV (PCR) - Final Radiography Diagnostic Testing: Radiology Impression Echocardiogram 07/20/24 20:47 Interpretation Summary The estimated ejection fraction is 70 %. No evidence for diastolic dysfunction. Ordering Physician: Radhika North Referring Physician: Claudio Steele Performed By: Natalie Laureano RCS Physical Exam Const alert and no apparent distress Constitutional Narrative: Patient exhibits moderate confusion, she is oriented as to person and place General Appearance: cooperative, well kempt and well developed Orientation / Consciousness: awake and oriented to person HEENT normocephalic, head/scalp atraumatic and moist oral mucous membranes Eyes PERRL, EOMs intact bilaterally and conjunctivae normal Neck supple, no JVD, thyroid normal and no carotid bruits General: trachea midline Resp normal respiratory effort, no retractions, no use of accessory muscles and clear to auscultation bilaterally Auscultation: Negative for rales, rhonchi or wheezes Cardio regular rate, regular rhythm, S1 normal heart sound, S2 normal heart sound, no murmurs, no rub and no gallops GI normal to inspection, nondistended, normoactive bowel sounds, soft to palpation, non-tender and non-distended Extremity no clubbing, cyanosis or edema Skin no rashes or lesions noted General Skin Exam: no breakdown Neuro CN's II-XII intact bilaterally, moves all extremities, no focal motor deficits and no sensory deficits noted Neuro Narrative: Patient exhibits moderate confusion Sensorium / Orientation: awake, alert, oriented to person and oriented to place Speech: speech normal Psych Psych Narrative: Patient exhibits moderate confusion Assessment & Plan Assessment/Plan (1) Generalized weakness: PLAN: Plan 1. Acute cystitis-again patient lost her IV access today and I elected not to put a PICC line and the patient, she will be continued on Keflex, labs will be repeated tomorrow #2 generalized weakness secondary to advanced age and acute cystitis-PT and OT are seeing the patient, it may be necessary to the for the patient to go to a skilled facility for short-term rehab #3 dementia-complicates care, management, recovery, and prognosis #4 hypoxia-etiology unclear, patient's CTA did not show any evidence of infiltrate or pulmonary congestion-oxygen will be weaned if possible #5 chronic depression-patient is on Cymbalta #6 GERD-patient is on a PPI Total clinical time spent by myself addressing the patient's medical issues, reviewing all of her data, and collaborating with patient's care team: 35 minutes Charges/Coding Visit Charges Inpatient E&M: 93324 Subs Hosp L2
[2024-07-21] MEDS: Ensure Plus High Protein 120 ML LIQUID PO (16:43)
[2024-07-21 20:24] VITALS: BP 162/93; PULSE 83; RESP 18; TEMP 36.9; O2SAT 93
[2024-07-21] MEDS: Mirtazapine 15 MG Tablet 7.5 MG PO (20:30)
[2024-07-21 20:32] VITALS: RESP 16
[2024-07-22 03:04] VITALS: BP 141/75; PULSE 81; RESP 16; RESP 18; TEMP 36.4; O2SAT 94
[2024-07-22 05:38] VITALS: BMI 25.9
[2024-07-22] MEDS: Budesonide 3 MG CAPSULE.EC PO ×2 (06:03→13:52)
[2024-07-22] MEDS: Acetaminophen 500 MG Tablet 1000 MG PO ×2 (06:04→13:53)
[2024-07-22] MEDS: Potassium Chloride Oral Tablet 20 MEQ PO (08:50)
[2024-07-22] MEDS: Pantoprazole Sodium 40 MG Tablet PO (08:50)
[2024-07-22] MEDS: Cephalexin 500 MG Capsule PO (08:50)
[2024-07-22] MEDS: Ensure Plus High Protein 120 ML LIQUID PO ×2 (08:50→13:52)
[2024-07-22] MEDS: Furosemide 40 MG Tablet PO (08:50)
[2024-07-22] MEDS: Lidocaine 5% Patch 1 PATCH TOPICAL (08:51)
[2024-07-22] MEDS: Enoxaparin 40 MG/0.4 ML Syringe SC (08:51)
[2024-07-22] MEDS: DULoxetine Hcl 60 MG Capsule PO (08:52)
[2024-07-22 09:00] VITALS: BP 148/73; PULSE 80; RESP 18; TEMP 36.6; O2SAT 94
--- NOTE | 2024-07-22 10:06 | CASEMGMT ---
Social Work- SW spoke with [id number] Silvina to receive choices from list of SNF providers including quality and resource use data and consistent with the patient?s preferred geographic region, medical needs, and insurance network were provided from the [facility] Guide. [facility] selected as [facility]. [facility] and [facility] selected as alternates. Referral to TCU completed. [facility] notified. TCU accepted pt referral and will start precert. Plan: TCU; pending precert SUSAN Smith
[2024-07-22] MEDS: traMADol 50 MG Tablet PO (10:09)
--- NOTE | 2024-07-22 11:39 | CASEMGMT ---
Social Work- WENDI spoke with [id number], Silvina, to follow up on discharge plans. Silvina provided selections for SNF, stating that if pt is not able to improve function following an inpatient stay, then family will pursue hospice services at that time. Silvina selected [facility] as [facility], followed by [facility] and [facility]. WENDI completed referral for TCU and notified [facility] of referral request. WENDI remains available to follow. SUSAN Smith
[2024-07-22 15:00] VITALS: BP 131/71; PULSE 79; PULSE 88; RESP 18; TEMP 36.6; O2SAT 99
--- NOTE | 2024-07-22 15:18 | TREXTCAR_ITS ---
Diet Diet Order/Speech Therapy: 07/20/24 19:12 Diet: Regular - General Food consistency:: Regular Liquid Consistency:: Regular/Thin Routine Orders/Code Status Enema Type: Fleetz Enema Frequency: Daily PRN Suppository Type: Dulcolax 10mg Suppository Frequency: Daily PRN DC O2, CPAP, BIPAP needs Home O2 Discharge instructions: No Therapies Weight Bearing: Weight bearing as tolerated Physical Therapy: Eval and Treat Occupational Therapy: Eval and Treat Problem/Diagnosis (1) Generalized weakness: Status: Acute Code(s): R53.1 - Weakness Allergies/Procedures Done in Hospital Allergies No Known Allergies Allergy (Verified 07/20/24 11:51) Procedures: 2-D Echocardiogram Type of Care/Length of Stay Estimated LOS: Convalescent Care Less Than 30 days Type of Care Needed: Skilled Rehab Potential: Fair Prognosis: Fair Additional Orders/Day of Discharge Day of Discharge: 07/22/24 Dietary and Speech Recommendations Dietitian Recommendations/Changes: Continue Regular diet to optimize oral intakes. Will order 120mL EPHP TID with medpass to provide supplemental energy. Discharge Plan Admission Admit Date/Time: 07/20/24 18:16 Primary Reason for Your Visit: UTI Attending Provider: Millicent Valdovinos Primary Care Provider: Claudio Steele Consulting Providers: Radhika North; Huber Levin; Sujey Sutton; Pamela Petersen; Yanci Velez; Nikki Steele CONTACT LENS TECHNICIAN; Bailey Scott; Claudio Molina Instructions Patient Instructions: ED Cystitis Female Adult Discharge Orders/Prescriptions Prescriptions: New cefdinir 300 mg capsule 300 mg PO BID Qty: 10 0RF Continued duloxetine 60 MG capsule 60 mg PO DAILY Patient Comments: Depression/anxiety budesonide 3 MG capsule,delayed,extend.release 3 mg PO TID omeprazole 40 MG capsule,delayed release(DR/EC) 40 mg PO DAILY furosemide 20 mg tablet 40 mg PO DAILY mirtazapine 7.5 mg tablet 7.5 mg PO QHS tramadol 50 mg tablet 50 mg PO BID potassium chloride [Klor-Con M20] 20 mEq tablet,ER particles/crystals 20 meq PO DAILY Referrals / Follow Up: Claudio Steele DO [Primary Care Provider] - Within 1 Week Disposition Disposition (needs filled in before D/C Order can be placed): Residential Facility
--- NOTE | 2024-07-22 15:22 | DS.PCM_ITS ---
Providers Date of Admission: 07/20/24 Date of Discharge: 07/22/24 Primary Care Physician: Dr. Claudio Steele, Consultations 07/20/24 20:58 Consult: Onc/Wound/damage appraiser Routine Comment: 07/21/24 14:31 Consult: Hospice / Palliative Care Routine Consulting Provider: [facility] Reason for Consult: family request due to decline over previous 6 months EMERGENT Consult: No MD Notified: Yes Date Notified: 07/21/24 Time Notified: 14:31 Method of Notification: Verbal Reason For Visit: HYPOXIA/GENERALIZED WEAKNESS Diagnosis Discharge Diagnosis (1) Generalized weakness: Status: Acute Code(s): R53.1 - Weakness Medications at Discharge Home Medications duloxetine 60 mg capsule,delayed release 60 mg PO DAILY depression 08/16/13 budesonide 3 mg capsule,delayed,extended release 3 mg PO TID colitis 10/21/18 omeprazole 40 mg capsule,delayed release 40 mg PO DAILY GERD 10/21/18 furosemide 20 mg tablet 40 mg PO DAILY 05/07/21 mirtazapine 7.5 mg tablet 7.5 mg PO QHS 07/20/24 potassium chloride 20 mEq tablet,extended release(part/cryst) (Klor-Con M) 20 meq PO DAILY 07/20/24 tramadol 50 mg tablet 50 mg PO BID 07/20/24 cefdinir 300 mg capsule 300 mg PO BID #10 caps 07/22/24 Hospital Course Operations None Procedures 2-D Echocardiogram Summary of Care Provided Minutes Spent on Discharge: 42 Hospital Course: Patient is an 88-year-old female with past medical history as outlined was admitted to the ED on 07/20/2024 with complaint of generalized malaise and lower back pain. Her low back pain was chronic and she followed up with pain management but she said he had recently gotten worse. Contributed to the history and said for 2 days prior to admission she had been experiencing weakness fatigue and decreased oral intake. She had no fever or chills no any urinary symptoms. Was following up with wound care on outpatient basis for chronic bilateral lower extremity wounds. She had an elevated white count of 16 and D-dimer was 1.18. Lactic acid was normal. Initial troponin was slightly elevated at 81 and subsequently trended down to 73. Urinalysis showed evidence of UTI with 3+ bacteria. She was admitted to be managed for debility and weakness due to UTI. CT of the brain showed no acute intracranial pathology and chest x-ray showed cardiomegaly with mild congestion. CTA of the chest showed no evidence of PE and showed a moderate esophageal hiatal hernia. He was started on IV ceftriaxone. 2D echo was done which showed EF of 70% and no evidence of diastolic dysfunction and no regional wall motion abnormalities noted. She improved and urine culture growing E coli which was pansensitive. She was skilled for TCU and discharged to TCU on 07/22/2024. She was discharged on a 5 day course of PO cefdinir. She is to follow up with her PCP within one week. Patient seen and examined prior to discharge. He had no active complaints and had an uneventful night. Review of systems is otherwise negative. Labs and vitals reviewed. Home meds reviewed and reconciled. Physical Exam Const alert, oriented x3, no apparent distress and average body habitus General Appearance: cooperative and comfortable Orientation / Consciousness: awake, oriented to person, oriented to place and oriented to time Exam Limitations: no limitations HEENT normocephalic, head/scalp atraumatic, hearing grossly normal bilaterally and moist oral mucous membranes Eyes PERRL, EOMs intact bilaterally and conjunctivae normal Neck no lymphadenopathy and supple Resp normal respiratory effort, no retractions, no use of accessory muscles and clear to auscultation bilaterally Cardio regular rate, regular rhythm, S1 normal heart sound, S2 normal heart sound and no murmurs GI normal to inspection, nondistended, normoactive bowel sounds, soft to palpation, non-tender and non-distended Extremity normal to inspection, full ROM and no clubbing, cyanosis or edema Skin no rashes or lesions noted Neuro oriented x3, CN's II-XII intact bilaterally, moves all extremities and no focal motor deficits Sensorium / Orientation: awake and alert Motor Exam: strength 5/5 throughout Psych affect normal Weight / BMI Weight Weight: 128 lb 11.999 oz Body Mass Index (BMI) 25.9 ABG / Lab / Microbiology Data 07/21/24 06:13 07/21/24 06:13 Microbiology: Microbiology 07/20/24 15:50 Urine, Catheterized Urine Culture - Final Escherichia coli 07/20/24 20:55 Mucosa - Nasopharyngeal Respiratory Panel (PCR) - Final 07/20/24 13:00 Mucosa - Nose SARS-CoV-2, Influenza & RSV (PCR) - Final D/C Instructions Discharge Diet: Low fat / Low cholesterol Discharge Activity: Return to Normal Activity Weight Bearing Status: Weight bearing as tolerated Call your doctor if you observe: Fever of 101 or Higher, Shortness of breath, Dizziness, Swelling in the ankles, Chest pain and Uncontrolled pain DC O2, CPAP, BIPAP Needs Home O2 Discharge instructions: No DC home with Oxygen: No Meaningful Use Info Meaningful Use Meaningful Use Diagnoses (Choose all that apply): None applicable Ischemic Stroke Statin Dosing Therapy Reference: STATIN DOSE THERAPY REFERENCE: * Patients > 75 years receive moderate or high dose statin therapy. * Patients 75 years or YOUNGER should receive HIGH intensity statin dose unless contraindicated. You will be required to document reason for non-treatment if statin daily dose does not meet guidelines. HIGH DOSE STATIN THERAPY DAILY Atorvastatin > than or = to 40 mg Rosuvastatin > than or = to 20 mg Amlodipine + Atorvastatin > than or = to 2.5/40 mg Ezetimibe + Simvastatin 10/80 mg Simvastatin 80mg Discharge Plan Admission Admit Date/Time: 07/20/24 18:16 Primary Reason for Your Visit: UTI Attending Provider: Millicent Valdovinos Primary Care Provider: Claudio Steele Consulting Providers: Radhika North; Hubre Levin; Sujey Sutton; Pamela Petersen; Yanci Velez; Nikki Steele ENTRY LEVEL PROJECT COORDINATOR; Bailey Scott; Claudio Molina Instructions Patient Instructions: ED Cystitis Female Adult Discharge Orders/Prescriptions Prescriptions: New cefdinir 300 mg capsule 300 mg PO BID Qty: 10 0RF Continued duloxetine 60 MG capsule 60 mg PO DAILY Patient Comments: Depression/anxiety budesonide 3 MG capsule,delayed,extend.release 3 mg PO TID omeprazole 40 MG capsule,delayed release(DR/EC) 40 mg PO DAILY furosemide 20 mg tablet 40 mg PO DAILY mirtazapine 7.5 mg tablet 7.5 mg PO QHS tramadol 50 mg tablet 50 mg PO BID potassium chloride [Klor-Con M20] 20 mEq tablet,ER particles/crystals 20 meq PO DAILY Referrals / Follow Up: Claudio Steele DO [Primary Care Provider] - Within 1 Week Disposition Disposition (needs filled in before D/C Order can be placed): Care Home Facility Charges/Coding Visit Charges Inpatient E&M: 90368 Disch Hosp >30min
--- NOTE | 2024-07-22 15:52 | NURSING ---
report called to Katharine in TCU
--- NOTE | 2024-07-22 16:04 | CASEMGMT ---
Social Work- SW received notice that pt has precert. Physician feels that pt is medically ready. SW faxed discharge paperwork to TCU admissions. SW spoke with pt [id number] and pt son-in-law, as well as pt to provide updates on precert and transfer. Pt and family agreeable. Bedside nurse updated. Plan: TCU; skilled level of care SUSAN Smith
== END 2024-07-22 16:10 | disposition skilled nursing facility (03) | DRG 690 ==
LOC: ED 17:25 → MS3 18:52
PROVIDERS: Admitting Provider Internal Medicine; Emergency Provider Surgery; PCP Family Medicine; Visit Provider Student in an Organized Health Care Education/Training Program
DX: N39.0 Urinary tract infection, site not specified (principal); B96.20 Unspecified Escherichia coli [E. coli] as the cause of diseases classified elsewhere; Z66 Do not resuscitate; F03.90 Unspecified dementia, unspecified severity, without behavioral disturbance, psychotic disturbance, mood disturbance, and anxiety; I12.9 Hypertensive chronic kidney disease with stage 1 through stage 4 chronic kidney disease, or unspecified chronic kidney disease; F32.A Depression, unspecified; N18.9 Chronic kidney disease, unspecified; M54.50 Low back pain, unspecified; K22.70 Barrett's esophagus without dysplasia; K52.831 Collagenous colitis; K44.9 Diaphragmatic hernia without obstruction or gangrene; K21.9 Gastro-esophageal reflux disease without esophagitis; G89.29 Other chronic pain; Z86.718 Personal history of other venous thrombosis and embolism; Z79.899 Other long term (current) drug therapy; Z79.51 Long term (current) use of inhaled steroids; Z86.73 Personal history of transient ischemic attack (TIA), and cerebral infarction without residual deficits
CPT/HCPCS: 36415; 70450; 71046; 71275; 80053; 81001; 83605; 83735; 83880; 84100; 84484; 85025; 85379; 87040; 87077; 87086; 87088; 87186; 87631; 87633; 93005; 93306; 94668; 97161; 97166; 97530; 97802; 99252; 99285; P9612; Q9967; A4216; G0463; J1940

== ENCOUNTER 2024-07-22 16:20 | Inpatient (IN) | payer MEDICARE, SELFPAY ==
[2024-07-22 16:29] VITALS: BP 134/84; PULSE 103; RESP 18; TEMP 36.6; O2SAT 98; BMI 24.8
--- NOTE | 2024-07-22 16:41 | CASEMGMT ---
Discharge Planning Floridalma Diehlbury updated that pt discharged to TCU. Ignacia Galdamez DC Planning Asst.
--- NOTE | 2024-07-22 17:47 | HP.PCM_ITS ---
HPI - General General Date of Admission: 07/22/24 Date of Service: 07/22/24 Chief Complaint: Here for rehabilitation. HPI Narrative NINA SANDOVAL, is a 88 Female who presents with followin07/20/2024 [facility] ED with back pain. Generalized malaise, weakness, fatigue, decreased oral intake. Weakness worsened, frequent falls 2/2 weakness. Seeing wound care for bilateral lower extremity wounds. Pulsox 80's oxygen 2 liters per nasal cannula applied. WBC 16, D-dimer 1.18, CTA chest negative for pulmonary embolism. CT head negative. Urinalysis positive for urinary tract infection, urine culture sent, Rocephin given. 07/20/2024 Admit [facility]. Lasix IV x 1 dose given for volume overload. Aerosols for copd. Rocephin IV, urine culture pending for urinary tract infection. Repeat troponin was normal. Tylenol scheduled, Lidoderm patch, PT/OT for low back pain. 07/21/2024 Family requested hospice consultation. Rocephin IV, changed to Keflex PO for urinary tract infection after losing IV site, urine culture pending. PT/OT for SNF. Wean oxygen as tolerated for acute hypoxia. 07/21/2024 Echo EF 70%. Negative diastolic dysfunction. 07/22/2024 urine culture growing pansensitive E. Coli, Discharge with 5 days of Cefdinir for treatment. 07/22/2024 Admit to TCU with debility, here for rehabilitation, strengthening, prior to discharge home to [facility]. [facility] Medical History (Updated 07/22/24 @ 17:[address] Elmer Walters MD) Depression Non-smoker DVT (deep venous thrombosis) Open wound of left hand Bilateral lower extremity edema Ulcer of right lower extremity with fat layer exposed Abrasion of knee, left Wound of left lower extremity Abrasion, knee Laceration of foot excluding toes Leg edema, left Left leg swelling Postphlebitic syndrome with inflammation History of deep vein thrombosis (DVT) of lower extremity Traumatic open wound of left lower leg Lumbar disc disease Dementia Risk for falls Choudhary esophagus History of CVA (cerebrovascular accident) Chronic kidney disease, stage III (moderate) H/O ht shoulder arthroscopy Home Medications ?Medication ?Instructions ?Recorded ?Last Taken ?Type duloxetine 60 mg capsule,delayed 60 mg PO DAILY depres mann 08/16/13 07/22/24 08:50 History release budesonide 3 mg 3 mg PO TID colitis 10/21/18 11/28/19 History capsule,delayed,extended release omeprazole 40 mg capsule,delayed 40 mg PO DAILY GERD 0 10/21/18 07/22/24 08:50 History release furosemide 20 mg tablet 40 mg PO DAILY Edema 05/07/ 1 07/22/24 08:50 History mirtazapine 7.5 mg tablet 7.5 mg PO QHS Mood 07/20/24 07/21/24 20:30 History potassium chloride 20 mEq 20 meq PO DAILY Supplement 0 07/20/24 07/22/24 08:50 History tablet,extended release(part/cryst) (Klor-Con M) tramadol 50 mg tablet 50 mg PO BID Pain 07/20/24 0 07/22/24 10:10 History cefdinir 300 mg capsule 300 mg PO BID Antibiotic #10 caps 07/22/24 Unknown Rx Allergy/AdvReac Type Severity Reaction Status Date / Time No Known Allergies Allergy Verified 07/20/24 11:51 Family History Mother Temporal arteritis Other Arthritis Emphysema of lung Surgical History S/P ORIF (open reduction internal fixation) fracture Social History (Updated 07/22/24 @ 17:[address] Elmer Walters MD) household members: none and other details: members of [place] community. housing: assisted living facility Smoking Status: Never smoker alcohol intake: never substance use type: does not use ROS Constitutional Constitutional: Reports weakness; Denies chills, fever(s) or weight gain ENT HEENT: Denies headache(s), nasal congestion or nasal discharge Cardiovascular Cardiovascular: Denies chest pain or palpitations Respiratory/Chest Respiratory/Chest: Denies cough, excessive phlegm production or shortness of breath with exertion Gastrointestinal Gastrointestinal: Denies abdominal pain, nausea or vomiting Genitourinary Genitourinary: Denies dysuria Musculoskeletal Musculoskeletal: Denies joint pain or joint swelling Integumentary Integumentary: Denies rash or wounds Neurologic Neurologic: Denies focal weakness, numbness or tingling Psychiatric Psychiatric: Denies anxiety, auditory hallucinations, depression, homicidal ideation or suicidal ideation Vital Signs Vital Signs Vital Signs: 07/22/24 16:29 07/22/24 16:29 07/22/24 16:59 Temperature 97.9 F Temperature Source Temporal Pulse Rate 103 H Pulse Rhythm Regular Pulse Strength Normal (2+) Normal (2+) Respiratory Rate 18 Respiratory Effort Normal Non-Labored Respiratory Depth Normal Respiratory Pattern Normal Blood Pressure 134/84 H Blood Pressure Mean 100 Blood Pressure Source Monitor Blood Pressure Position Semi-Fowlers Blood Pressure Location Right Forearm Pulse Ox 98 Oxygen Delivery Method Room Air Room Air Weight Weight: 55.806 kg Body Mass Index (BMI) 24.8 Physical Exam Const alert General Appearance: cooperative HEENT normocephalic Eyes PERRL and EOMs intact bilaterally Neck supple, no JVD and no carotid bruits Resp normal respiratory effort, normal air movement and clear to auscultation bilaterally Cardio regular rate and regular rhythm GI normal to inspection, nondistended, normoactive bowel sounds, non-tender and non-distended Extremity normal capillary refill General Extremity: Negative for edema Skin no rashes or lesions noted General Skin Exam: no breakdown Psych affect normal Appearance: appropriate Assessment & Plan Assessment/Plan (1) Debility: (2) Urinary tract infection: (3) Acute respiratory failure with hypoxia: (4) Elevated troponin: (5) Low back pain: (6) Alzheimer disease: (7) Ulcerative colitis: (8) Essential (primary) hypertension: (9) Depression: (10) GERD (gastroesophageal reflux disease): (11) Appetite loss: (12) Hypokalemia: PLAN: Plan 88 year old female with below past medical history hospitalized for weakness 2/2 E. Coli urinary tract infection, complicated by acute respiratory failure with hypoxia, elevated troponin, admitted to TCU with debility, here for rehabilitation, strengthening, prior to discharge to [facility], family did request hospice consultation prior to discharge from hospital. * Debility - PT/OT. * Cognition - ST. * Pain - Tramadol 50mg bid, Tylenol 1000mg q6 prn pain (1-10). * Bowel - senna/colace 1 tablet bid, Magnesium citrate 300mL po daily prn. * Adult immunization - Administer pneumonia vaccine, covid vaccine, flu vaccine as appropriate. * DVT prophylaxis - Lovenox 30mg sc daily. * Ulcerative colitis - Budesonide 3mg po tid. * E. Coli urinary tract infection - Cefdinir 300mg bid thru 07/27/2024. * Depression - Duloxetine 60mg daily, stable chronic detention use, GDR not recommended. * Nutrition - Ensure Plus 120mL po tidcm. * Chronic HFpEF - Furosemide 40mg daily. * Appetite loss/Insomnia - Mirtazapine 7.5mg qhs, stable chronic detention use, GDR not recommended. * Tinea Corporis - Nystatin powder topical bid. * GERD - Pantoprazole 40mg daily. * Hypokalemia - KCL 20meq daily.
[2024-07-22] MEDS: Ensure Plus High Protein 120 ML LIQUID PO (17:50)
[2024-07-22] MEDS: Acetaminophen 500 MG Tablet 1000 MG PO (19:32)
[2024-07-22] MEDS: Budesonide 3 MG CAPSULE.EC PO (21:24)
[2024-07-22] MEDS: traMADol 50 MG Tablet PO (21:24)
[2024-07-22] MEDS: Cefdinir 300 MG Capsule PO (21:24)
[2024-07-22] MEDS: Mirtazapine 15 MG Tablet 7.5 MG PO (21:25)
[2024-07-22] MEDS: Senna/Docusate Sodium 1 Tablet PO (21:26)
[2024-07-22] MEDS: Nystatin Powder 15gm Bottle 1 APPLIC TOPICAL (21:31)
[2024-07-23] MEDS: Budesonide 3 MG CAPSULE.EC PO ×3 (05:14→21:03)
[2024-07-23] MEDS: Enoxaparin 30 MG/0.3 ML Syringe SC (05:14)
[2024-07-23 05:25] LABS: Absolute Lymphocyte Count 2.23 X10^3/uL (0.83-4.51); Absolute Neutrophil Count 7.3 X10^3/uL (2.0-7.7); Basophil# 0.03 X10^3/uL; Basophil% 0.3 % (0-1); Eosinophil# 0.11 X10^3/uL; Hematocrit 42.8 % (37-47); Lymphocyte # 2.23 X10^3/ul (0.83-4.51); Lymphocyte % 20.6 % (19-41); Mean Corp Hgb Conc 32.7 g/dL (32-36); Mean Corpuscular Hgb 30.6 pg (27.0-32.0); Mean Corpuscular Volume 93.4 fL (81-99); Mean Platelet Vol. 9.2 fl (6.2-12.0); Monocyte# 0.98 X10^3/uL; Monocyte% 9.1 % (0-10); NRBC Flagged by Analyzer 0 % (0-5); Neutrophil # 7.34 X10^3/uL (2.7-7.7); Platelet Count 286 K/mm3 (150-450); RBC Distribution Width CV 15.7 % (11.6-14.6); RBC Distribution Width SD 53.5 fl (35.1-43.9); Red Blood Count 4.58 M/mm3 (4.2-5.4); White Blood Count 10.8 K/mm3 (4.4-11.0)
[2024-07-23 07:28] LABS: Anion Gap 16 (5-15); BUN 29 mg/dL (4-19); BUN/Creat Ratio 36.1 RATIO (10-20); Carbon Dioxide 21.9 mmol/L (21.0-32.0); Chloride 101 mmol/L (98-108); EST Glomerular Filtration Rate 70 (>60); Estimated Creatinine Clearance 38.08 ml/min (50-250); Glucose 123 mg/dL (70-99); Potassium 3.8 mmol/L (3.3-5.1); Sodium Level 139 mmol/L (133-145)
[2024-07-23 08:40] VITALS: BP 120/106; PULSE 84; RESP 18; TEMP 36.2; O2SAT 93
[2024-07-23] MEDS: Ensure Plus High Protein 120 ML LIQUID PO ×3 (08:47→16:37)
[2024-07-23] MEDS: DULoxetine Hcl 60 MG Capsule PO (08:47)
[2024-07-23] MEDS: Furosemide 40 MG Tablet PO (08:48)
[2024-07-23] MEDS: Nystatin Powder 15gm Bottle 1 APPLIC TOPICAL ×2 (08:48→21:06)
[2024-07-23] MEDS: Cefdinir 300 MG Capsule PO ×2 (08:48→21:03)
[2024-07-23] MEDS: Potassium Chloride Oral Tablet 20 MEQ PO (08:48)
[2024-07-23] MEDS: Pantoprazole Sodium 40 MG Tablet PO (08:48)
[2024-07-23] MEDS: Acetaminophen 500 MG Tablet 1000 MG PO ×2 (08:51→16:38)
[2024-07-23] MEDS: Tuberculin,Purif.prot.deriv. 50 TU/ML Vial 0.1 ML ID (09:32)
[2024-07-23] MEDS: traMADol 50 MG Tablet PO ×2 (09:32→21:03)
--- NOTE | 2024-07-23 18:48 | NURSING ---
Call placed to [facility] and spoke to nurse Lo. Lo to fax over patient's signed DNR. RN provided fax number for TCU.
[2024-07-23 20:38] VITALS: PULSE 89; RESP 16; O2SAT 94
[2024-07-23] MEDS: Mirtazapine 15 MG Tablet 7.5 MG PO (21:03)
[2024-07-24] MEDS: Budesonide 3 MG CAPSULE.EC PO ×3 (05:22→22:27)
[2024-07-24] MEDS: Enoxaparin 40 MG/0.4 ML Syringe SC (05:22)
[2024-07-24 09:04] VITALS: BP 167/82; PULSE 72; RESP 16; TEMP 36.4; O2SAT 95
[2024-07-24] MEDS: DULoxetine Hcl 60 MG Capsule PO (09:08)
[2024-07-24] MEDS: Ensure Plus High Protein 120 ML LIQUID PO ×3 (09:08→17:01)
[2024-07-24] MEDS: Potassium Chloride Oral Tablet 20 MEQ PO (09:08)
[2024-07-24] MEDS: Nystatin Powder 15gm Bottle 1 APPLIC TOPICAL ×2 (09:08→22:27)
[2024-07-24] MEDS: Furosemide 40 MG Tablet PO (09:08)
[2024-07-24] MEDS: Pantoprazole Sodium 40 MG Tablet PO (09:09)
[2024-07-24] MEDS: Cefdinir 300 MG Capsule PO ×2 (09:09→22:27)
[2024-07-24] MEDS: traMADol 50 MG Tablet PO ×2 (09:11→22:26)
[2024-07-24] MEDS: Acetaminophen 500 MG Tablet 1000 MG PO ×2 (09:13→22:26)
--- NOTE | 2024-07-24 09:21 | PHA.CONS_ITS ---
Documented by User: Jayjay Conner 07/24/24 09:38 TCU RX Drug Regimen Review Subjective/Objective Subjective/Objective Subjective: TCU admission note. 88 year old female with below past medical history hospitalized for weakness 2/2 E. Coli urinary tract infection, compl icated by acute respiratory failure with hypoxia, elevated troponin, admitted to TCU with debility, here for rehabilitation, strengthening, prior to discharge to [facility], family did request hospice consultation prior to discharge from hospital. Objective: Allergies No Known Allergies Allergy (Verified 07/20/24 11:51) Current Medications Generic Name Dose Route Start Last Admin Trade Name Freq PRN Reason Stop Dose Admin Acetaminophen 1,000 mg 07/22/24 18:06 07/24/24 09:13 Acetaminophen 500 Mg Tablet PO 1,000 mg Q6H PRN PRN Administration Pain Score 1-10 Budesonide 3 mg 07/22/24 22:00 07/24/24 05:22 Budesonide 3 Mg Capsule.Ec PO 3 mg TID MACRINA Administration Cefdinir 300 mg 07/22/24 22:00 07/24/24 09:09 Cefdinir 300 Mg Capsule PO 07/27/24 10:01 300 mg BID MACRINA Administration Duloxetine HCl 60 mg 07/23/24 10:00 07/24/24 09:08 Duloxetine Hcl 60 Mg Capsule PO 60 mg DAILY MACRINA Administration Enoxaparin Sodium 40 mg 07/24/24 06:00 07/24/24 05:22 Enoxaparin 40 Mg/0.4 Ml Syringe SC 40 mg DAILY@0600 MACRINA Administration Furosemide 40 mg 07/23/24 10:00 07/24/24 09:08 Furosemide 40 Mg Tablet PO 40 mg DAILY MACRINA Administration Protocol Magnesium Citrate 300 ml 07/22/24 18:06 Magnesium Citrate 300 Ml PO DAILY PRN Constipation Mirtazapine 7.5 mg 07/22/24 22:00 07/23/24 21:03 Mirtazapine 15 Mg Tablet PO 7.5 mg QHS MACRINA Administration Nutritional Formula (Lactose Free) 120 ml 07/22/24 17:45 07/24/24 09:08 Ensure Plus High Protein 120 Ml Liquid PO 120 ml TIDCM MACRINA Administration Nystatin 1 applic 07/22/24 22:00 07/24/24 09:08 Nystatin Powder 15gm Bottle TOPICAL 1 applic BID MACRINA Administration Protocol Pantoprazole Sodium 40 mg 07/23/24 10:00 07/24/24 09:09 Pantoprazole Sodium 40 Mg Tablet PO 40 mg DAILY MACRINA Administration Potassium Chloride 20 meq 07/23/24 10:00 07/24/24 09:08 Potassium Chloride Oral Tablet 20 Meq PO 20 meq DAILY MACRINA Administration Senna/Docusate Sodium 1 tablet 07/22/24 22:00 07/24/24 09:09 Senna/Docusate Sodium 1 Tablet PO Not Given BID MACRINA Sodium Chloride 10 - 40 ml 07/22/24 16:30 0.9% Saline Lock 10 Ml Syringe IV UD PRN SALINE FLUSH Tramadol HCl 50 mg 07/22/24 22:00 07/24/24 09:11 Tramadol 50 Mg Tablet PO 50 mg BID MACRINA Administration Tuberculin PPD 0.1 ml 07/30/24 10:00 Tuberculin,Purif.Prot.Deriv. 50 Tu/Ml Vial ID 07/30/24 10:01 X1 ONE Problem List Appetite loss (Acute) Depression (Acute) Essential (primary) hypertension (Acute) Alzheimer disease (Acute) Low back pain (Acute) Acute respiratory failure with hypoxia (Acute) Debility (Acute) Elevated troponin (Acute) Urinary tract infection (Acute) Hypokalemia (Acute) GERD (gastroesophageal reflux disease) (Chronic) Ulcerative colitis (Chronic) Vital Signs Temp Pulse Resp BP Pulse Ox O2 Del Method 97.6 F L 72 16 167/82 H 95 Room Air 07/24/24 09:04 07/24/24 09:04 07/24/24 09:04 07/24/24 09:04 07/24/24 09:04 07/24/24 09:04 Oxygen Delivery Method Room Air Weight: 55.806 kg Body Mass Index (BMI) 24.8 Sodium 139 mmol/L (133-145) 07/23/24 05:01 Potassium 3.8 mmol/L (3.3-5.1) 07/23/24 05:01 Chloride 101 mmol/L (98-108) 07/23/24 05:01 Carbon Dioxide 21.9 mmol/L (21.0-32.0) 07/23/24 05:01 Anion Gap 16 (5-15) H 07/23/24 05:01 BUN 29 mg/dL (4-19) H 07/23/24 05:01 Creatinine 0.80 mg/dL (0.70-1.20) 07/23/24 05:01 Est GFR (MDRD) Non-Af 70 (>60) 07/23/24 05:01 BUN/Creatinine Ratio 36.1 RATIO (10-20) H 07/23/24 05:01 Glucose 123 mg/dL (70-99) H 07/23/24 05:01 Assessment/Plan: 1. Pain: acetaminophen 1000 mg PO Q6H PRN pain, tramadol 50 mg PO BID. The patient has used 4 doses of PRN acetaminophen so far this admission. Please continue to monitor pain levels, PRN medication usage, LFTs (AST/ALT = 23/16 U/L on 07/21/24), renal function (serum creatinine = 0.80 mg/dL with creatinine clearance ~ 38 on 07/23/24), for dizziness/drowsiness, respiratory depression, constipation, syncope/ataxia/falls, and seizures. 2. Bowel: senna/docusate 1 tablet PO BID, magnesium citrate 300 mL PO daily PRN constipation. The patient has not required any PRN doses of magnesium citrate so far this admission and the patient's last bowel movement was documented on 07/24/24. Please continue to monitor for bowel movements, for PRN medication usage, for constipation and diarrhea. 3. DVT prophylaxis: enoxaparin 40 mg SC daily. Please continue to monitor for s/s of a DVT such as pain/erythema/edema in an extremity, for s/s of bleeding/excessive bruising, renal function (serum creatinine = 0.80 mg/dL with creatinine clearance ~ 38 on 07/23/24), hemoglobin levels (Hgb = 14.0 g/dL on 07/23/24), and platelet counts (Plt = 286 K/mm3 on 07/23/24). 4. E coli UTI: cefdinir 300 mg PO BID through 07/27/24. Please continue to monitor for s/s of a UTI such as dysuria/frequency/urgency, WBC counts (WBC = 10.8 K/mm3 on 07/23/24), for fever/chills (Temp = 97.6 F), renal function (serum creatinine = 0.80 mg/dL with creatinine clearance ~ 38 on 07/23/24), and for diarrhea. 5. Chronic HFpEF: furosemide 40 mg PO daily. Please continue to monitor for s/s of a CHF exacerbation such as shortness of breath and edema, renal function (serum creatinine = 0.80 mg/dL with creatinine clearance ~ 38 on 07/23/24), for s/s fo dehydration, potassium levels (K = 3.8 mmol/L on 07/23/24), sodium levels (Na = 139 mmol/L on 07/23/24), and calcium levels (Ca = 9.0 mg/dL on 07/23/24). 6. Ulcerative colitis: budesonide 3 mg PO TID. Please continue to monitor for UC flares, for bleeding in stool, and for nausea. 7. GERD: pantoprazole 40 mg PO daily. Please continue to monitor for s/s of GERD, for diarrhea that could indicate clostridium difficile infection, and for s/s of bone resorption such as fractures. 8. Hypokalemia: potassium chloride 20 mEq PO daily. Please continue to monitor potassium levels (K = 3.8 mmol/L on 07/23/24), and for GI distress with potassium administration. 9. Delicia corporis: nystatin powder 1 application topically BID. Please continue to monitor for resolution of tinea corporis. 10. Nutrition: ensure plus high protein 120 mL PO TID with meals. Please continue to monitor overall nutritional status. Assessment/Plan for indications treated with psychotropic medications: 1. Depression: duloxetine 60 mg PO daily. Please see provider not regarding stable chronic long-term use GDR not recommended. Please continue to monitor for depression, for SI, for s/s of serotonin syndrome, LFTs (AST/ALT = 23/16 U/L on 07/21/24), sodium levels (Na = 139 mmol/L on 07/23/24), and abdominal pain as well as dizziness, dry mouth and fatigue. 2. Appetite loss/insomnia: mirtazapine 7.5 mg PO QHS. Please see provider note regarding stable chronic long-term use GDR not recommended. Please continue to monitor for insomnia, appetite, for s/s of serotonin syndrome, drowsiness, for s/s of orthostasis, constipation, and dry mouth. Medical chart and medication regimen reviewed. The following medication irregularities or issues were identified: NA Date Date of Note: 07/24/24 Documented by User: Dr. lEmer Walters MD 07/25/24 07:20 TCU RX Drug Regimen Review Provider Comments Provider responsibility Provider Comments to Recommendations by Pharmacy Agree
--- NOTE | 2024-07-24 16:03 | NURSING ---
Patient refused RN to recheck her BP d/t patient having pain with BP cuff inflation. RN attempted to use manual, patient refused. RN also encouraged patient to get out of bed for meals this shift. Patient refused.
--- NOTE | 2024-07-24 20:32 | NURSING ---
Rakel RN reports patient reports of increased back pain. Dr. Walters notified of patient complaint, patient dx: lumbar disc disease. New orders received: Tylenol 1000 mg Q8H RTN, Baclofen 5mg TID PRN muscle spasm. Orders read back and verified.
[2024-07-24 21:30] VITALS: PULSE 71; RESP 18; O2SAT 93
[2024-07-24] MEDS: Mirtazapine 15 MG Tablet 7.5 MG PO (22:27)
[2024-07-24] MEDS: Baclofen 10 MG Tablet 5 MG PO (23:33)
--- NOTE | 2024-07-25 06:08 | NURSING ---
Patient continues to c/o increased back pain, states is a Dr. Salguero patient. Written communication left for Dr. Walters regarding patient c/o of increased back pain despite new orders for RTN Tylenol and PRN Baclofen.
[2024-07-25] MEDS: Baclofen 10 MG Tablet 5 MG PO ×2 (06:20→13:59)
[2024-07-25] MEDS: Acetaminophen 500 MG Tablet 1000 MG PO ×3 (06:21→21:31)
[2024-07-25] MEDS: Enoxaparin 40 MG/0.4 ML Syringe SC (06:21)
[2024-07-25] MEDS: Budesonide 3 MG CAPSULE.EC PO ×3 (06:22→21:32)
[2024-07-25 08:57] VITALS: BP 164/97; PULSE 93; RESP 16; TEMP 36.6; O2SAT 93
[2024-07-25] MEDS: Furosemide 40 MG Tablet PO (09:04)
[2024-07-25] MEDS: Nystatin Powder 15gm Bottle 1 APPLIC TOPICAL ×2 (09:04→21:32)
[2024-07-25] MEDS: Cefdinir 300 MG Capsule PO ×2 (09:04→21:32)
[2024-07-25] MEDS: Pantoprazole Sodium 40 MG Tablet PO (09:04)
[2024-07-25] MEDS: DULoxetine Hcl 60 MG Capsule PO (09:04)
[2024-07-25] MEDS: Potassium Chloride Oral Tablet 20 MEQ PO (09:04)
[2024-07-25] MEDS: Ensure Plus High Protein 120 ML LIQUID PO ×3 (09:04→17:48)
[2024-07-25] MEDS: Menthol/Lanolin/Calamine/Znox 113 GM Tube 1 APPLIC TOPICAL ×2 (09:07→21:32)
[2024-07-25] MEDS: traMADol 50 MG Tablet PO (09:09)
--- NOTE | 2024-07-25 09:52 | NURSING ---
Addendum entered by Solange Kolb 07/25/24 10:11: leg was unbearable, worse than arm for pt will not attempt again in legs Original Note: pt c/o pain with BP cuff squeezing and pt tenses up, many nurses have tried manual BP's and pt reacts same way. pt BP elevated at times, not sure if from pt tensing so much during cuff inflation. skin very thin & ecchymotic, This bond writer placed a thin layer of cotton cast underlayer to help but pt continued with same complaint. Will recheck BP in leg to see if this helps.
--- NOTE | 2024-07-25 10:11 | NURSING ---
Director Diversity Note; Activity Asset: Raj Truong is independent in her choice of daily activities w/reminders. Dionne stated she would prefer to do her own thing in her room, visit w/her family, word puzzles and she loves to read. She does welcome visits from the tube winder and therapy dog when available. Staff will encourage social activities, remind her of group activities and respect her right to say no.
--- NOTE | 2024-07-25 10:24 | NURSING ---
Offered covid vaccine, VIS provided. Resident declines at this time.
--- NOTE | 2024-07-25 10:34 | CASEMGMT ---
Social Work Per chart review, pt is a poor historian and could not provide PLOF. SW phoned [facility] listed, Silvina DIL. SW introduced self and role. Verified/updated contacts. HCPOA is Gabe, pt's son. Listed on file. Silvina explained she was to pt's son, Isaias, for 32 years, but then . However, d/t pt's cognition, the family has not shared this with pt. Pt continues to treat Silvina as her DIL and vise versa. Silvina explained Isaias has not seen or talked to the pt in awhile, and pt's dtr Lupe, is not involved either. Lupe visits sometimes when pt goes to the hospital or to take her to the Dr twice/year, but Gabe and Silvina are mainly involved and collaborate well. Silvina is local and Gabe is not. Silvina provided answers to assessment information. Informed this worker she and Gabe have an appt to meet with Floridalma Ochoa, navigator at [facility], and [facility] on 07/29, to gather more information, in case pt does not improve/recover and hospice is needed at [place]. WENDI appreciative of information. Explained this worker will assist with DC planning as well. WENDI educated to [facility] [place] insurance with [employer] 07/26 and continued stay is not guaranteed with each review. BRITANY expressed understanding. - WENDI met with pt at bedside. Introduced self and role. Pt appears cognitively intact until BIMS was completed. - WENDI received call from Floridalma Ochoa at [facility], informing this worker of meeting 07/29. WENDI requested Floridalma keep this worker updated on outcome and any DC plans discussed. Floridalma agreed. WENDI will continue to follow for DC planning. Jordyn Yousif BANKING SERVICES ADVISOR BICYCLE SERVICE TECHNICIAN
--- NOTE | 2024-07-25 14:02 | CON.PCM_ITS ---
Assessment & Plan Assessment/Plan (1) Spinal stenosis, lumbar region without neurogenic claudication: PLAN: Plan Lumbar MRI: 2018: IMPRESSION: 1. Grade 1 spondylolisthesis at L4-5 and L5-S1. 2. Severe multilevel degenerative disc disease and degenerative arthropathy of the lumbar spine with acquired canal stenosis, neural foraminal narrowing and potential nerve root impingement, as described. 3. 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 Order lumbar x-ray and pelvic/ hip x-rays. I also have some concern for possible compression fracture. Due to her debility, age and medical history so is not a surgical candidate. Furthermore, she emphatically states she would not want surgery. Consider lumbar MRI I will discontinue tramadol as it is not helping. We will start on oxycodone 2.5 mg t.i.d. p.r.n.. We will start this very low dose as she previously had taken 5 mg and a had some worsening confusion symptoms per the family Plan for caudal GENE. This needs precert Lovenox 40mg will need to be held 12 hours prior to injection. HPI Consult Data Date of Consult: 07/25/24 HPI Narrative HPI Narrative: NINA SANDOVAL, is a 88 F who presents With a past medical history of dementia, severe degenerative change in her lumbar spine can causing severe lumbar spinal stenosis and foraminal stenosis. She was a patient of Dr. Bro in his undergone various treatment modalities including medication therapy and interventional therapy. She has had epidural steroid injections caudal injections with reducing benefit over time. She was previously on oxycodone but was having some side effects 5 mg. She does feel that the oxycodone has helpd at that time, but This was several years ago. Over the past week or 2 she has developed worsening low back, hip pain and leg pain. She has had difficulty ambulating and getting up out of bed or from the toilet. She was admitted for debility and has been having difficulties here as well. she has unfortunately not the best historian due to her dementia history. I have collected the story from the patient as well as her family who is present at this time. She says that the pain is worst in the back/ hips and buttocks but also has pain into the legs. She does not have any recent lumbar or hip imaging. She denies any perineal or saddle anesthesia. The family plans to have a discussion with hospice prior to discharge. She has been on Tylenol, baclofen and tramadol in the hospital. She does not feel that tramadol is helping unfortunately. She lives in [facility]. [facility] Medical History (Updated 07/25/24 @ 17:[address] Toy Velazquez MD) Depression Non-smoker DVT (deep venous thrombosis) Open wound of left hand Bilateral lower extremity edema Ulcer of right lower extremity with fat layer exposed Abrasion of knee, left Wound of left lower extremity Abrasion, knee Laceration of foot excluding toes Leg edema, left Left leg swelling Postphlebitic syndrome with inflammation History of deep vein thrombosis (DVT) of lower extremity Traumatic open wound of left lower leg Lumbar disc disease Dementia Risk for falls Choudhary esophagus History of CVA (cerebrovascular accident) Chronic kidney disease, stage III (moderate) H/O ht shoulder arthroscopy Home Medications ?Medication ?Instructions ?Recorded ?Last Taken ?Type duloxetine 60 mg capsule,delayed 60 mg PO DAILY depres mann 08/16/13 07/22/24 08:50 History release budesonide 3 mg 3 mg PO TID colitis 10/21/18 11/28/19 History capsule,delayed,extended release omeprazole 40 mg capsule,delayed 40 mg PO DAILY GERD 0 10/21/18 07/22/24 08:50 History release furosemide 20 mg tablet 40 mg PO DAILY Edema 1 07/22/24 08:50 History mirtazapine 7.5 mg tablet 7.5 mg PO QHS Mood 07/20/24 07/21/24 20:30 History potassium chloride 20 mEq 20 meq PO DAILY Supplement 0 07/20/24 07/22/24 08:50 History tablet,extended release(part/cryst) (Klor-Con M) tramadol 50 mg tablet 50 mg PO BID Pain 07/20/24 0 07/22/24 10:10 History cefdinir 300 mg capsule 300 mg PO BID Antibiotic #10 caps 07/22/24 Unknown Rx Allergy/AdvReac Type Severity Reaction Status Date / Time No Known Allergies Allergy Verified 07/20/24 11:51 Family History Mother Temporal arteritis Other Arthritis Emphysema of lung Surgical History S/P ORIF (open reduction internal fixation) fracture Social History (Updated 07/22/24 @ 17:[address] Elmer Walters MD) household members: none and other details: members of [place] community. housing: assisted living facility Smoking Status: Never smoker alcohol intake: never substance use type: does not use ROS Constitutional Constitutional: Reports weakness; Denies chills, fever(s) or weight gain ENT HEENT: Denies headache(s), nasal congestion or nasal discharge Cardiovascular Cardiovascular: Denies chest pain or palpitations Respiratory/Chest Respiratory/Chest: Denies cough, excessive phlegm production or shortness of breath with exertion Gastrointestinal Gastrointestinal: Denies abdominal pain, nausea or vomiting Genitourinary Genitourinary: Denies dysuria Musculoskeletal Musculoskeletal: Denies joint pain or joint swelling Integumentary Integumentary: Denies rash or wounds Neurologic Neurologic: Denies focal weakness, numbness or tingling Psychiatric Psychiatric: Denies anxiety, auditory hallucinations, depression, homicidal ideation or suicidal ideation Physical Exam Narrative Lumbar paraspinal tenderness + bilaterally SLR + bilaterally No Si tenderness. Hip provocative maneuvers + for some pain She has tenderness to palpation over the lower extremities 5/5 strength throughout lower extremities She is able to feel equally in lower extremities Lab / Micro Data 07/23/24 05:01 07/23/24 05:01
--- NOTE | 2024-07-25 14:15 | NURSING ---
dr Velazquez here to see pt, son & daughter in law in room
--- NOTE | 2024-07-25 14:39 | RAD_ITS ---
PROCEDURE: LUMBAR SPINE 2 OR 3 VIEWS ([facility]), 07/25/2024 REASON FOR EXAM: PAIN TECHNIQUE: AP and lateral views of the lumbar spine and lateral spot views of the lumbosacral junction were obtained. COMPARISON: 02/18/2018 FINDINGS: Fracture/dislocation: T12 compression deformity is age indeterminate and new from 02/18/2018, roughly 40% anterior height loss. T11 compression deformity is probably similar. Vertebral body heights: As above.. Alignment: Similar mild S shaped thoracolumbar. Similar grade 1/2 anterolisthesis at L4-L5 and L5-S1. Disc spaces: Variable disc height loss up to severe from L2-S1 with endplate sclerosis and tiny osteophytes. Facets: Facet arthropathy greatest from L3-S1. Soft tissues: Presumed pelvic phleboliths. Atherosclerosis. Foreign bodies: None visible. Bone mineralization: Demineralization. Other: Right upper quadrant surgical clips. RAD/Lumbar Spine 2 or 3 Views IMPRESSION: 1. Age-indeterminate T12 compression deformity is new from 02/18/2018. Correla te with history and point tenderness. 2. Multilevel spondylosis and additional description as above. Reading Location: [id number]
--- NOTE | 2024-07-25 14:43 | RAD_ITS ---
PROCEDURE: Pelvis and bilateral hip radiographs, five views 07/25/2024 REASON FOR EXAM: PAIN TECHNIQUE: Five views of the pelvis and bilateral hips were obtained. COMPARISON: None. FINDINGS: Five views of the pelvis and bilateral hips were obtained. The bones are osteopenic. Moderate degenerative changes lower lumbar spine. SI joints are intact. No displaced pelvic or proximal femur fracture. Mild degenerative changes in the hip joints. No acute fracture or dislocation of either hip. RAD/Hips B/L min 2 views w/ Pelvis IMPRESSION: Osteopenia. No acute bony abnormality of the pelvis/bilateral hips. Mild degenerative changes in the hip joints. Reading Location: [facility]
[2024-07-25] MEDS: oxyCODONE 5 MG Tablet 2.5 MG PO (16:16)
[2024-07-25 20:20] VITALS: O2SAT 96
[2024-07-25] MEDS: Senna/Docusate Sodium 1 Tablet PO (21:32)
[2024-07-25] MEDS: Mirtazapine 15 MG Tablet 7.5 MG PO (21:32)
[2024-07-26] MEDS: Budesonide 3 MG CAPSULE.EC PO ×3 (06:26→21:49)
[2024-07-26] MEDS: Acetaminophen 500 MG Tablet 1000 MG PO ×3 (06:26→21:48)
[2024-07-26] MEDS: Enoxaparin 40 MG/0.4 ML Syringe SC (06:28)
--- NOTE | 2024-07-26 08:33 | PCM.CONS.GEN ---
Assessment & Plan Assessment/Plan (1) Compression fracture of body of thoracic vertebra: (2) Spinal stenosis, lumbar region with neurogenic claudication: PLAN: Plan Lumbar x-ray showed evidence of T11 and T12 age indeterminate fracture. This may be contributing to her severe and acute worsening of her pain. The area was quite painful to percussion which also suggest this as a possibility. Order lumbar MRI without contrast to evaluate acuity of compression fracture. Spoke with nursing about overnight. Seems that she did not have lots of pain complaints, but was not little bit confused at times. Upon speaking with her today she was reasonably coherent, but forgetful of our discussions yesterday. We changed from tramadol 50mg to oxycodone 2.5 mg t.i.d. p.r.n.. At this juncture I think we should continue the oxycodone 2.5 t.i.d. p.r.n. to assess efficacy and side effect profile. Can consider increasing or switching to [place] or Tylenol 3 depending upon the above. Plan for caudal GENE. Lovenox 40mg will need to be held 12 hours prior to injection. HPI Consult Data Date of Consult: 07/26/24 HPI Narrative HPI Narrative: NINA SANDOVAL, is a 88 F who presents with low back, hip and lower extremity pain. Known history of severe degenerative lumbar changes as well as spinal stenosis. Back and hip x-rays obtained yesterday demonstrated mild degenerative hip changes and no fracture. Lumbar x-ray demonstrated age-indeterminate fractures of T11 and T12. This morning she was resting comfortably in bed on her side. The pain seems to get a lot worse with activity and movement. She is not the best historian unfortunately due to her dementia, but did not seem to be more confused than yesterday upon our discussion this morning. [facility] Medical History (Updated 07/26/24 @ 08:[address] Toy Velazquez MD) Depression Non-smoker DVT (deep venous thrombosis) Open wound of left hand Bilateral lower extremity edema Ulcer of right lower extremity with fat layer exposed Abrasion of knee, left Wound of left lower extremity Abrasion, knee Laceration of foot excluding toes Leg edema, left Left leg swelling Postphlebitic syndrome with inflammation History of deep vein thrombosis (DVT) of lower extremity Traumatic open wound of left lower leg Lumbar disc disease Dementia Risk for falls Choudhary esophagus History of CVA (cerebrovascular accident) Chronic kidney disease, stage III (moderate) H/O ht shoulder arthroscopy Home Medications ?Medication ?Instructions ?Recorded ?Last Taken ?Type duloxetine 60 mg capsule,delayed 60 mg PO DAILY depression 08/16/13 07/22/24 08:50 History release budesonide 3 mg 3 mg PO TID colitis 10/21/18 11/28/19 History capsule,delayed,extended release omeprazole 40 mg capsule,delayed 40 mg PO DAILY GERD 10/21/18 07/22/24 08:50 History release furosemide 20 mg tablet 40 mg PO DAILY Edema 05/07/21 07/22/24 08:50 History mirtazapine 7.5 mg tablet 7.5 mg PO QHS Mood 07/20/24 07/21/24 20:30 History potassium chloride 20 mEq 20 meq PO DAILY Supplement 07/20/24 07/22/24 08:50 History tablet,extended release(part/cryst) (Klor-Con M) tramadol 50 mg tablet 50 mg PO BID Pain 07/20/24 07/22/24 10:10 History cefdinir 300 mg capsule 300 mg PO BID Antibiotic #10 caps 07/22/24 Unknown Rx Allergy/AdvReac Type Severity Reaction Status Date / Time No Known Allergies Allergy Verified 07/20/24 11:51 Family History Mother Temporal arteritis Other Arthritis Emphysema of lung Surgical History S/P ORIF (open reduction internal fixation) fracture Social History (Updated 07/22/24 @ 17:[address] Elmer Walters MD) household members: none and other details: members of [facility]. housing: assisted living facility Smoking Status: Never smoker alcohol intake: never substance use type: does not use Physical Exam Narrative Lumbar paraspinal tenderness + bilaterally Pain to percussion over the lumbar and low thoracic area. SLR + bilaterally No Si tenderness. Hip provocative maneuvers + for some pain She has tenderness to palpation over the lower extremities 5/5 strength throughout lower extremities She is able to feel equally in lower extremities Lab / Micro Data 07/23/24 05:01 07/23/24 05:01 Imaging Radiology Impression Lumbar Spine X-Ray 07/25/24 14:39 IMPRESSION: 1. Age-indeterminate T12 compression deformity is new from 02/18/2018. Correlate with history and point tenderness. 2. Multilevel spondylosis and additional description as above. Reading Location: [facility] Hip/Pelvis X-Ray 07/25/24 14:43 IMPRESSION: Osteopenia. No acute bony abnormality of the pelvis/bilateral hips. Mild degenerative changes in the hip joints. Reading Location: [facility]
[2024-07-26 09:14] VITALS: BP 156/84; PULSE 78; RESP 18; TEMP 36.7; O2SAT 98
[2024-07-26] MEDS: Potassium Chloride Oral Tablet 20 MEQ PO (09:17)
[2024-07-26] MEDS: Menthol/Lanolin/Calamine/Znox 113 GM Tube 1 APPLIC TOPICAL ×2 (09:17→21:49)
[2024-07-26] MEDS: DULoxetine Hcl 60 MG Capsule PO (09:17)
[2024-07-26] MEDS: Furosemide 40 MG Tablet PO (09:17)
[2024-07-26] MEDS: Nystatin Powder 15gm Bottle 1 APPLIC TOPICAL ×2 (09:18→21:49)
[2024-07-26] MEDS: Cefdinir 300 MG Capsule PO ×2 (09:18→21:48)
[2024-07-26] MEDS: Pantoprazole Sodium 40 MG Tablet PO (09:18)
[2024-07-26] MEDS: oxyCODONE 5 MG Tablet 2.5 MG PO ×2 (09:21→21:47)
[2024-07-26] MEDS: Ensure Plus High Protein 120 ML LIQUID PO ×3 (09:26→17:44)
--- NOTE | 2024-07-26 09:33 | SUR.PHASEI ---
Verbal order from Dr. Velazquez to do MRI lumbar spine without contrast. Auth received #[id number]. Tracking #[id number].
[2024-07-26] MEDS: Baclofen 10 MG Tablet 5 MG PO ×2 (12:26→21:47)
--- NOTE | 2024-07-26 15:15 | CHAPLAIN ---
Type of Pastoral Visit _x__ Initial Visit ___ Follow-up Visit ___ On-call Visit ___ General Patient Visit ___ Spiritual Assessment ___ Family Conference ___ Bereavement ___ Rapid Response ___ Code Blue ___ Other (describe below) Pastoral Care Referral From _x__ Patient ___ Family ___ Nurse ___ Physician ___ Olive Knocker ___ Journeyman Power Plant Operator ___ Other (describe below) Sacrament/Intervention _x__ Active listening ___ Anointing ___ Alevism ___ Bereavement ___ Communion ___ Lisa exploration ___ ___ Life review _x__ Prayer ___ Reconciliation ___ Sacrament of Sick ___ Supportive presence ___ Wedding ___ Other (describe below) Pastoral Comments patient was seen last week in [facility] along with a daughter that is with her again in this visit; pt is resting but awake; daughter does most of the talking and explaining the situation; pt is to have an MRI this afternoon to get more clarity of her physical pain; pt is hopeful that this will give some answers and better relief; again daughter takes over the conversation; pt says that she is doing fine and would just like to rest before her procedure; prayer welcomed
[2024-07-26 16:45] VITALS: BMI 24.7
--- NOTE | 2024-07-26 16:57 | NURSING ---
Updated Dr. Walters, per therapy pt c/o severe left shoulder pain with touch. New order placed by Dr. Walters for xray.
--- NOTE | 2024-07-26 17:09 | RAD_ITS ---
PROCEDURE: SHOULDER MIN 2 VIEWS 07/26/2024 REASON FOR EXAM: PAIN. TECHNIQUE: Four views left shoulder, 5 total images with 2 axillary views COMPARISON: 11/10/2018 FINDINGS: LEFT SHOULDER: Proximal humerus fracture deformity with lateral plate and screws again seen without significant change. Posterolateral left 6th and 7th rib fractures may be acute/recent, clinically correlate. Glenohumeral joint appears normally located. Acromioclavicular joint appears within limits. RAD/Shoulder min 2 Views IMPRESSION: Posterolateral left 6th and 7th rib fractures may be acute/recent, clinically c orrelate. Proximal humerus fracture deformity with lateral plate and screws again seen wi thout significant change. Reading Location: [id number]
[2024-07-26] MEDS: Mirtazapine 15 MG Tablet 7.5 MG PO (21:48)
[2024-07-27] MEDS: Enoxaparin 40 MG/0.4 ML Syringe SC (05:03)
[2024-07-27] MEDS: Budesonide 3 MG CAPSULE.EC PO ×3 (05:04→21:55)
[2024-07-27] MEDS: Acetaminophen 500 MG Tablet 1000 MG PO ×3 (05:04→21:55)
[2024-07-27 05:09] VITALS: RESP 16
[2024-07-27 10:07] VITALS: BP 139/71; PULSE 98; RESP 16; TEMP 36.4; O2SAT 94
[2024-07-27] MEDS: Ensure Plus High Protein 120 ML LIQUID PO ×3 (10:10→16:59)
[2024-07-27] MEDS: Menthol/Lanolin/Calamine/Znox 113 GM Tube 1 APPLIC TOPICAL ×2 (10:11→21:56)
[2024-07-27] MEDS: Furosemide 40 MG Tablet PO (10:12)
[2024-07-27] MEDS: Potassium Chloride Oral Tablet 20 MEQ PO (10:12)
[2024-07-27] MEDS: DULoxetine Hcl 60 MG Capsule PO (10:12)
[2024-07-27] MEDS: Pantoprazole Sodium 40 MG Tablet PO (10:13)
[2024-07-27] MEDS: Nystatin Powder 15gm Bottle 1 APPLIC TOPICAL ×2 (10:13→21:56)
[2024-07-27] MEDS: Cefdinir 300 MG Capsule PO (10:13)
[2024-07-27] MEDS: Senna/Docusate Sodium 1 Tablet PO ×2 (10:13→21:55)
--- NOTE | 2024-07-27 10:36 | CASEMGMT ---
Social Work- SW attempted to meet with pt x2. Pt not responding to SW attempts to wake up. SW re-visited pt room; bedside nurse present. Pt laying with eyes closed and again not responding to name being spoken. Bedside nurse reports that pt has been very sleepy this morning. SW persisted and was able to engage pt in conversation. Pt reports that she often feels tired, but is more tired today than usual. Pt reports she is uncertain if she did not sleep well. Pt repeatedly closed eyes between replies and did not offer nurse her arm to scan wristband, but instead the nurse reached and moved arm without effort to move arm from pt. Bedside nurse reports that she will follow up on pt drowsiness. Pt scored 4/15 on BIMS. Pt reported the year as 1921. Pt was unable to provide a month even when given the months of the year, instead repeating 1922. Pt was initially unable to recall days of the week, then when presented with the names of the days of the week, gave several days. Pt denies depression, loss of interest in activities, or feeling isolated. SW discussed concerns with bedside nurse and with floor SW. Pt son arrived at end of SW visit and pt was able to open eyes and seemed more alert in speaking with son. SW remains available to follow. SUSAN Smith
--- NOTE | 2024-07-27 10:37 | CASEMGMT ---
Social Work IDT met with patient and son for care plan meeting. Discussed patient's progress in PT/OT/SN. Educated to [facility] [place] insurance with [employer] 07/26 and continued stay is not guaranteed with each review. Pt is inconsistent with progress r/t pain. Pain management consulted to assist. Son confirmed family has a meeting with [facility] 07/29 and will notify this worker of outcome or any decisions made. Family does not want pt to suffer and if she cannot participate in therapy, they will likely have pt discharged with hospice, returning to [place] [place]. SW to keep [facility] updated on pt's LOF and ensure they can provide care. WENDI will continue to follow for DC planning assistance and support. Jordyn Yousif CHECKERING MACHINE OPERATOR CHEMICAL OPERATIONS SPECIALIST
[2024-07-27] MEDS: Baclofen 10 MG Tablet 5 MG PO ×2 (12:36→21:56)
[2024-07-27] MEDS: oxyCODONE 5 MG Tablet 2.5 MG PO (16:59)
[2024-07-27] MEDS: Mirtazapine 15 MG Tablet 7.5 MG PO (21:55)
[2024-07-28] MEDS: oxyCODONE 5 MG Tablet 2.5 MG PO ×2 (02:28→12:32)
--- NOTE | 2024-07-28 02:40 | NURSING ---
CLOTH BLEACHING RANGE BACK TENDER reported to this nurse a new skin tear to patient's left calf upon transferring patient to bedside commode. This nurse entered room, patient was sitting at side of bed. Patient states to this nurse, I think I did it with my fingernail. This nurse assessed skin tear to left calf. Area cleaned and adaptic and Dry Sterile Dressing applied. Patient tolerated well. This nurse assisted patient into bed and positioned her to comfort. Patient denies further assistance. Bed in low position and call light in reach.
[2024-07-28] MEDS: Acetaminophen 500 MG Tablet 1000 MG PO ×3 (06:03→21:02)
[2024-07-28] MEDS: Enoxaparin 40 MG/0.4 ML Syringe SC (06:03)
[2024-07-28] MEDS: Budesonide 3 MG CAPSULE.EC PO ×3 (06:03→21:01)
[2024-07-28 08:27] VITALS: BP 122/71; PULSE 83; RESP 16; TEMP 36.4; O2SAT 93
[2024-07-28] MEDS: Menthol/Lanolin/Calamine/Znox 113 GM Tube 1 APPLIC TOPICAL ×2 (08:31→20:55)
[2024-07-28] MEDS: Ensure Plus High Protein 120 ML LIQUID PO ×2 (08:31→17:22)
[2024-07-28] MEDS: Nystatin Powder 15gm Bottle 1 APPLIC TOPICAL ×2 (08:32→20:55)
[2024-07-28] MEDS: Pantoprazole Sodium 40 MG Tablet PO (08:32)
[2024-07-28] MEDS: Potassium Chloride Oral Tablet 20 MEQ PO (08:32)
[2024-07-28] MEDS: Furosemide 40 MG Tablet PO (08:32)
[2024-07-28] MEDS: DULoxetine Hcl 60 MG Capsule PO (08:32)
[2024-07-28] MEDS: Senna/Docusate Sodium 1 Tablet PO ×2 (08:33→21:01)
--- NOTE | 2024-07-28 09:26 | MDS.RN ---
Pain assessment for MDS complete.
--- NOTE | 2024-07-28 13:15 | NURSING ---
Resident removed 2 silver rings, left them sitting on her bedside table. Asked about locking them in box and she agreed. Placed in lidded cup in lock box.
[2024-07-28] MEDS: Mirtazapine 15 MG Tablet 7.5 MG PO (20:58)
[2024-07-29] MEDS: Acetaminophen 500 MG Tablet 1000 MG PO ×3 (06:34→22:01)
[2024-07-29] MEDS: Enoxaparin 40 MG/0.4 ML Syringe SC (06:34)
[2024-07-29] MEDS: Budesonide 3 MG CAPSULE.EC PO ×3 (06:34→22:02)
[2024-07-29] MEDS: Baclofen 10 MG Tablet 5 MG PO ×2 (06:39→14:22)
[2024-07-29 06:59] VITALS: PULSE 65; RESP 14; O2SAT 95
[2024-07-29 07:08] LABS: Absolute Lymphocyte Count 2.43 X10^3/uL (0.83-4.51); Absolute Neutrophil Count 5.2 X10^3/uL (2.0-7.7); Basophil# 0.03 X10^3/uL; Basophil% 0.3 % (0-1); Eosinophil# 0.09 X10^3/uL; Hematocrit 41.5 % (37-47); Hemoglobin 13.3 g/dL (12.0-15.0); Lymphocyte # 2.43 X10^3/ul (0.83-4.51); Lymphocyte % 27.9 % (19-41); Mean Corpuscular Hgb 30.1 pg (27.0-32.0); Mean Corpuscular Volume 93.9 fL (81-99); Mean Platelet Vol. 9.1 fl (6.2-12.0); Monocyte# 0.85 X10^3/uL; Monocyte% 9.8 % (0-10); NRBC Flagged by Analyzer 0 % (0-5); Neutrophil # 5.18 X10^3/uL (2.7-7.7); Neutrophil % 59.6 % (47-70); Platelet Count 325 K/mm3 (150-450); RBC Distribution Width CV 15.4 % (11.6-14.6); RBC Distribution Width SD 53.3 fl (35.1-43.9); Red Blood Count 4.42 M/mm3 (4.2-5.4); White Blood Count 8.7 K/mm3 (4.4-11.0)
[2024-07-29 07:33] LABS: Anion Gap 13 (5-15); BUN 35 mg/dL (4-19); BUN/Creat Ratio 42.1 RATIO (10-20); Carbon Dioxide 25.1 mmol/L (21.0-32.0); Chloride 99 mmol/L (98-108); Creatinine, Serum 0.84 mg/dL (0.70-1.20); EST Glomerular Filtration Rate 67 (>60); Estimated Creatinine Clearance 36.26 ml/min (50-250); Glucose 133 mg/dL (70-99); Potassium 4.1 mmol/L (3.3-5.1); Sodium Level 137 mmol/L (133-145)
--- NOTE | 2024-07-29 09:10 | NURSING ---
Roller Note; MDS for 07/29/2024 Complete
[2024-07-29 09:30] VITALS: BP 129/67; PULSE 84; RESP 16; TEMP 36.7; O2SAT 96
[2024-07-29] MEDS: Potassium Chloride Oral Tablet 20 MEQ PO (09:32)
[2024-07-29] MEDS: Pantoprazole Sodium 40 MG Tablet PO (09:32)
[2024-07-29] MEDS: Nystatin Powder 15gm Bottle 1 APPLIC TOPICAL ×2 (09:32→22:01)
[2024-07-29] MEDS: Menthol/Lanolin/Calamine/Znox 113 GM Tube 1 APPLIC TOPICAL ×2 (09:32→22:01)
[2024-07-29] MEDS: Furosemide 40 MG Tablet PO (09:32)
[2024-07-29] MEDS: DULoxetine Hcl 60 MG Capsule PO (09:32)
[2024-07-29] MEDS: Ensure Plus High Protein 120 ML LIQUID PO ×3 (09:33→16:50)
[2024-07-29] MEDS: oxyCODONE 5 MG Tablet 2.5 MG PO ×2 (09:37→21:59)
--- NOTE | 2024-07-29 12:22 | CASEMGMT ---
Addendum entered by Jordyn Yousif 07/29/24 15:23: Received call from Floridalma Ochoa, liaison at [facility], stating the family met and elected hospice, and to forego the procedure. Floridalma and family need to coordinate DME, etc prior to DC, thus pt will remain on TCU through the weekend. WENDI and Floridalma to discuss 08/01, on status of DC. Floridalma stated she has reached out to [facility] Air Brake Tester to ensure pt can return at higher level of care. Floridalma requested clinicals be faxed to her for review. WENDI faxed. IDT updated. WENDI will continue to follow. Original Note: Social Work SW met with pt's DIL in room, per DIL request. Pt asleep. BRITANY is meeting at [facility] with hospice and liaison for [facility] with 3 children. BRITANY received education from nursing on the procedure Dr. Velazquez wants to complete next week on pt. BRITANY is unsure if that will improve pt's quality of life, as it may not work and if pt needs hospice now. 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 WENDI provided active listening. Encouraged BRITANY to share those concerns with hospice, [facility] and pt's children. Requested BRITANY to notify this worker with outcome of meeting, once known. BRITANY agreed. WENDI will continue to follow. Jordyn Yousif GAMING COMMISSIONER CRUDE OIL TREATER
--- NOTE | 2024-07-29 15:27 | NURSING ---
Addendum entered by Nichol Zaragoza 08/01/24 15:20: Dr Velazquez notifies that prior authentication is needed before procedure, kyphoplasty is not scheduled tomorrow. Addendum entered by Nichol Zaragoza 08/01/24 10:08: WENDI notifies that pt's family contacted with decision to proceed with kyphoplasty procedure, Dr. Velazquez to operate tomorrow. Discharge date postponed. Left written notification for Dr. Walters. Original Note: Updated from WENDI that resident/family decided on hospice and do not wish to proceed with kyphoplasty. Updated Dr. Velazquez.
--- NOTE | 2024-07-29 15:34 | NURSING ---
Patient had a good therapy session today. Patient was medicated with PRN Oxy this morning and PRN baclofen given this afternoon. Discussed with Dr. Walters patient's benefit with scheduled medications for discomfort d/t patient's confusion and inability to ask for PRNs when needed. Per Dr. Walters, schedule Oxy 2.5mg PO BID and Baclofen 5mg PO in afternoon. VORB.
[2024-07-29] MEDS: Mirtazapine 15 MG Tablet 7.5 MG PO (22:01)
[2024-07-30] MEDS: Enoxaparin 40 MG/0.4 ML Syringe SC (05:28)
[2024-07-30] MEDS: Acetaminophen 500 MG Tablet 1000 MG PO ×3 (05:28→22:51)
[2024-07-30] MEDS: Budesonide 3 MG CAPSULE.EC PO ×3 (05:28→22:49)
[2024-07-30 10:11] VITALS: BP 140/62; PULSE 81; RESP 18; TEMP 36.2; O2SAT 97
[2024-07-30] MEDS: Ensure Plus High Protein 120 ML LIQUID PO ×3 (10:12→18:40)
[2024-07-30] MEDS: Senna/Docusate Sodium 1 Tablet PO ×2 (10:12→22:51)
[2024-07-30] MEDS: Furosemide 40 MG Tablet PO (10:13)
[2024-07-30] MEDS: Potassium Chloride Oral Tablet 20 MEQ PO (10:13)
[2024-07-30] MEDS: DULoxetine Hcl 60 MG Capsule PO (10:13)
[2024-07-30] MEDS: Pantoprazole Sodium 40 MG Tablet PO (10:13)
[2024-07-30] MEDS: Menthol/Lanolin/Calamine/Znox 113 GM Tube 1 APPLIC TOPICAL ×2 (10:14→22:50)
[2024-07-30] MEDS: Nystatin Powder 15gm Bottle 1 APPLIC TOPICAL ×2 (10:14→22:50)
[2024-07-30] MEDS: Tuberculin,Purif.prot.deriv. 50 TU/ML Vial 0.1 ML ID (10:15)
[2024-07-30] MEDS: oxyCODONE 5 MG Tablet 2.5 MG PO ×2 (10:21→22:53)
[2024-07-30] MEDS: Baclofen 10 MG Tablet 5 MG PO (15:33)
--- NOTE | 2024-07-30 22:45 | NURSING ---
Informed during report that resident has a skin tear to the left posterior lower leg. Roll gauze is secured w/ tape placed on the skin to both the distal and proximal end of the roll gauze. Dressing carefully removed and resident states, Ouch when this nurse removed dressing. Cleansed the affected area w/ NS, pat dry, applied adaptic to wound bed, and secured w/ border foam dressing. Noted adaptic fell off of wound. Gently peeled adaptic back and a new piece of adaptic was applied to wound bed. Resident denies any c/o pain or discomfort and shows no sxs of pain of discomfort when mepliex border was briefly removed. Will continue to monitor.
[2024-07-30] MEDS: Mirtazapine 15 MG Tablet 7.5 MG PO (22:52)
[2024-07-31] MEDS: Acetaminophen 500 MG Tablet 1000 MG PO ×3 (06:16→20:44)
[2024-07-31] MEDS: Budesonide 3 MG CAPSULE.EC PO ×3 (06:17→20:45)
[2024-07-31] MEDS: Enoxaparin 40 MG/0.4 ML Syringe SC (06:17)
[2024-07-31] MEDS: Ensure Plus High Protein 120 ML LIQUID PO ×3 (09:47→17:38)
[2024-07-31] MEDS: oxyCODONE 5 MG Tablet 2.5 MG PO ×2 (09:47→20:45)
[2024-07-31] MEDS: DULoxetine Hcl 60 MG Capsule PO (09:48)
[2024-07-31] MEDS: Menthol/Lanolin/Calamine/Znox 113 GM Tube 1 APPLIC TOPICAL ×2 (09:48→20:46)
[2024-07-31] MEDS: Furosemide 40 MG Tablet PO (09:48)
[2024-07-31] MEDS: Potassium Chloride Oral Tablet 20 MEQ PO (09:48)
[2024-07-31] MEDS: Senna/Docusate Sodium 1 Tablet PO ×2 (09:49→20:47)
[2024-07-31] MEDS: Pantoprazole Sodium 40 MG Tablet PO (09:49)
[2024-07-31] MEDS: Nystatin Powder 15gm Bottle 1 APPLIC TOPICAL ×2 (09:52→20:46)
[2024-07-31 12:59] VITALS: BP 146/91; PULSE 95; RESP 14; TEMP 36.6; O2SAT 97
[2024-07-31] MEDS: Baclofen 10 MG Tablet 5 MG PO (15:30)
[2024-07-31] MEDS: Mirtazapine 15 MG Tablet 7.5 MG PO (20:44)
[2024-08-01] MEDS: Budesonide 3 MG CAPSULE.EC PO ×3 (06:23→20:58)
[2024-08-01] MEDS: Acetaminophen 500 MG Tablet 1000 MG PO ×3 (06:24→20:58)
[2024-08-01] MEDS: Enoxaparin 40 MG/0.4 ML Syringe SC (06:24)
[2024-08-01 09:10] VITALS: BP 169/85; PULSE 86; RESP 16; O2SAT 98
[2024-08-01] MEDS: Senna/Docusate Sodium 1 Tablet PO ×2 (09:15→20:58)
[2024-08-01] MEDS: Potassium Chloride Oral Tablet 20 MEQ PO (09:15)
[2024-08-01] MEDS: oxyCODONE 5 MG Tablet 2.5 MG PO ×2 (09:15→20:58)
[2024-08-01] MEDS: Pantoprazole Sodium 40 MG Tablet PO (09:16)
[2024-08-01] MEDS: Furosemide 40 MG Tablet PO (09:16)
[2024-08-01] MEDS: DULoxetine Hcl 60 MG Capsule PO (09:16)
[2024-08-01] MEDS: Menthol/Lanolin/Calamine/Znox 113 GM Tube 1 APPLIC TOPICAL ×2 (09:17→20:59)
[2024-08-01] MEDS: Ensure Plus High Protein 120 ML LIQUID PO ×3 (09:17→18:23)
[2024-08-01] MEDS: Nystatin Powder 15gm Bottle 1 APPLIC TOPICAL ×2 (09:17→20:59)
--- NOTE | 2024-08-01 09:45 | CASEMGMT ---
Social Work 0845: Received VM from [facility] (through [facility]) checking on the status of pt's DC. WENDI received call from Floridalma ochoa at [facility] confirming Administration accepted pt to return and this worker can coordinate DC date with [facility]. WENDI agred. WENDI returned call to [facility] and spoke with Modesta [phone]. WENDI inquired when DME could be delivered. [facility] can deliver DME this date and pt can DC tomorrow 08/02. WENDI agreed. Will fax DC paperwork once received. ([phone]) WENDI returned call to Floridalma to update on DC 08/02 and this worker to schedule transportation for the morning. Floridalma agreed. SW to send DC paperwork once received. WENDI updated IDT and Dr. -- [id number]: Received call from pt's Silvina GARG, informing this worker that family spoke on Thursday and 2 children decided not to have kyphoplasty and the other 2 children elected for procedure. BRITANY stated she had a great, lucid conversation with pt on Thursday and pt elected to proceed with kyphoplasty. BRITANY contacted Dr. Velazquez's office this morning to update on election and Dr. Velazquez, allegedly can complete the procedure 08/02 in the AM. WENDI clarified with BRITANY the plan is no longer to have pt DC 08/02 with hospice, but to proceed with kyphoplasty. BRITANY confirmed. WENDI explained insurance update was sent this morning with DC plans for [facility] with hospice, and pt is no longer receiving therapy d/t hospice election and DC. WENDI explained insurance may not approve additional days to remain in TCU. BRITANY expressed understanding, stating pt will still DC to [facility] with hospice, but pt stated if the procedure can help relieve pain and she didn't do it, she would have regretted not completing the kyphoplasty. WENDI accepted and will update IDT and insurance with wishes. BRITANY appreciative. WENDI updated IDT. WENDI phoned Modesta at [facility] and Floridalma Ochoa at [facility] to update on change in plans. WENDI will keep parties updated on new DC date and insurance outcome. Will continue to follow. Jordyn Yousif TANNING WHEEL OPERATOR DIRECTOR SCHOOL FOR BLIND
[2024-08-01] MEDS: Baclofen 10 MG Tablet 5 MG PO (12:58)
--- NOTE | 2024-08-01 13:06 | NURSING ---
Addendum entered by Nichol Zaragoza 08/01/24 13:32: Pt requested bedpan within 5 min of writing previous note, had small amt urine to brief, was able to void in bedpan. Current bladder scan 137mL. Pt continues to deny pressure/discomfort. Original Note: MACHINE OPERATOR HOP WORKER notifies that pt had incontinent episode and requested bedpan within 5 minutes of prior use. Pt denies dysuria, t-97.8, no foul odor noted to urine. Pt reports chronic, occasional incontinence. Pt unable to void, denies discomfort and pressure. Bladder scan shows 316mL. Will recheck this afternoon and strait cath if >350mL and unable to void per orders.
[2024-08-01] MEDS: Mirtazapine 15 MG Tablet 7.5 MG PO (20:58)
[2024-08-02] MEDS: Acetaminophen 500 MG Tablet 1000 MG PO ×3 (05:19→22:31)
[2024-08-02] MEDS: Enoxaparin 40 MG/0.4 ML Syringe SC (05:19)
[2024-08-02] MEDS: Budesonide 3 MG CAPSULE.EC PO ×3 (05:19→22:30)
[2024-08-02] MEDS: Magnesium Citrate 300 ML PO (05:20)
[2024-08-02 06:03] VITALS: RESP 16
[2024-08-02 09:08] VITALS: BP 135/88; PULSE 89; RESP 15; TEMP 36.3; O2SAT 97
[2024-08-02] MEDS: Ensure Plus High Protein 120 ML LIQUID PO ×3 (09:09→17:25)
[2024-08-02] MEDS: DULoxetine Hcl 60 MG Capsule PO (09:09)
[2024-08-02] MEDS: Potassium Chloride Oral Tablet 20 MEQ PO (09:09)
[2024-08-02] MEDS: Nystatin Powder 15gm Bottle 1 APPLIC TOPICAL ×2 (09:10→22:30)
[2024-08-02] MEDS: Furosemide 40 MG Tablet PO (09:10)
[2024-08-02] MEDS: Pantoprazole Sodium 40 MG Tablet PO (09:10)
[2024-08-02] MEDS: Menthol/Lanolin/Calamine/Znox 113 GM Tube 1 APPLIC TOPICAL ×2 (09:10→22:30)
[2024-08-02] MEDS: Senna/Docusate Sodium 1 Tablet PO ×2 (09:10→22:31)
[2024-08-02] MEDS: oxyCODONE 5 MG Tablet 2.5 MG PO ×2 (09:13→22:31)
[2024-08-02 13:36] VITALS: BMI 24.7
[2024-08-02] MEDS: Baclofen 10 MG Tablet 5 MG PO (14:27)
[2024-08-02] MEDS: Mirtazapine 15 MG Tablet 7.5 MG PO (22:31)
[2024-08-03 03:57] VITALS: RESP 16
[2024-08-03] MEDS: Budesonide 3 MG CAPSULE.EC PO ×3 (06:32→21:25)
[2024-08-03] MEDS: Enoxaparin 40 MG/0.4 ML Syringe SC (06:32)
[2024-08-03] MEDS: Acetaminophen 500 MG Tablet 1000 MG PO ×3 (06:33→21:25)
--- NOTE | 2024-08-03 09:06 | PCM.CONS.GEN ---
Assessment & Plan Assessment/Plan (1) Compression fracture of body of thoracic vertebra: (2) Spinal stenosis, lumbar region with neurogenic claudication: (3) Age-related osteoporosis with current pathological fracture, unspecified site, initial encounter for fracture: PLAN: Plan Lumbar MRI demonstrates T12 acute/subacute fracture. I feel this is likely contributing to the severe recent worsening of her pain and reduction in her functional status. Due to the severity of her symptoms, I will plan for T12 kyphoplasty. I discussed at length the risks/benefits of kyphoplasty and the decision was made to proceed with the procedure. I discussed possible risks including nerve damage, infection, bleeding, paralysis, and . Continue medication regimen Lovenox 40mg will need to be held 12 hours prior to the procedure HPI Consult Data Date of Consult: 08/03/24 HPI Narrative HPI Narrative: NINA SANDOVAL, is a 88 F continues to struggle significantly with pain control and mobility during her current stay. She does report that it improves a bit with the medication. She reports severe pain rated at 9 to 10 out of 10 in her mid to lower back, especially with any movement, which has markedly limited her functional capacity. She also endorses bilateral lower extremity pain. Of note, she has a chronic history of severe lumbar spinal stenosis, which has been longstanding and stable; however, her current symptoms are far more intense and functionally limiting than her baseline. Recent imaging revealed an acute T12 compression fracture, correlating with the new onset of debilitating pain. Despite medical management, including analgesics, she reports minimal relief. She is under consideration for hospice care after discharge. However, after an extensive discussion regarding the risks, benefits, and goals of care, the family elected to proceed with a kyphoplasty given the patient's severe pain and functional decline related to the T12 fracture. [facility] Medical History (Updated 08/03/24 @ 09:[address] Toy Velazquez MD) Elevated troponin Abnormal urinalysis Acute on chronic low back pain Weakness Hypoxia Generalized weakness Depression Non-smoker DVT (deep venous thrombosis) Open wound of left hand Bilateral lower extremity edema Ulcer of right lower extremity with fat layer exposed Abrasion of knee, left Wound of left lower extremity Abrasion, knee Laceration of foot excluding toes Leg edema, left Left leg swelling Postphlebitic syndrome with inflammation History of deep vein thrombosis (DVT) of lower extremity Traumatic open wound of left lower leg Lumbar disc disease Dementia Risk for falls Choudhary esophagus History of CVA (cerebrovascular accident) Chronic kidney disease, stage III (moderate) H/O ht shoulder arthroscopy Home Medications ?Medication ?Instructions ?Recorded ?Last Taken ?Type duloxetine 60 mg capsule,delayed 60 mg PO DAILY depression 08/16/13 07/22/24 08:50 History release budesonide 3 mg 3 mg PO TID colitis 10/21/18 11/28/19 History capsule,delayed,extended release omeprazole 40 mg capsule,delayed 40 mg PO DAILY GERD 10/21/18 07/22/24 08:50 History release furosemide 20 mg tablet 40 mg PO DAILY Edema 05/07/21 07/22/24 08:50 History mirtazapine 7.5 mg tablet 7.5 mg PO QHS Mood 07/20/24 07/21/24 20:30 History potassium chloride 20 mEq 20 meq PO DAILY Supplement 07/20/24 07/22/24 08:50 History tablet,extended release(part/cryst) (Klor-Con M) tramadol 50 mg tablet 50 mg PO BID Pain 07/20/24 07/22/24 10:10 History cefdinir 300 mg capsule 300 mg PO BID Antibiotic #10 caps 07/22/24 Unknown Rx Allergy/AdvReac Type Severity Reaction Status Date / Time No Known Allergies Allergy Verified 07/20/24 11:51 Family History Mother Temporal arteritis Other Arthritis Emphysema of lung Surgical History S/P ORIF (open reduction internal fixation) fracture Social History (Updated 07/22/24 @ 17:[address] Elmer Walters MD) household members: none and other details: members of [facility]. housing: assisted living facility Smoking Status: Never smoker alcohol intake: never substance use type: does not use Physical Exam Narrative Lumbar paraspinal tenderness + bilaterally Pain to percussion over the lumbar and low thoracic area. SLR + bilaterally No Si tenderness. Hip provocative maneuvers + for some pain She has tenderness to palpation over the lower extremities 5/5 strength throughout lower extremities She is able to feel equally in lower extremities Lab / Micro Data 07/29/24 06:58 07/29/24 06:58
[2024-08-03 09:22] VITALS: BP 138/76; PULSE 67; RESP 18; TEMP 36.4; O2SAT 95
[2024-08-03] MEDS: Menthol/Lanolin/Calamine/Znox 113 GM Tube 1 APPLIC TOPICAL ×2 (09:27→21:27)
[2024-08-03] MEDS: Ensure Plus High Protein 120 ML LIQUID PO ×3 (09:27→17:10)
[2024-08-03] MEDS: DULoxetine Hcl 60 MG Capsule PO (09:28)
[2024-08-03] MEDS: Pantoprazole Sodium 40 MG Tablet PO (09:28)
[2024-08-03] MEDS: Furosemide 40 MG Tablet PO (09:28)
[2024-08-03] MEDS: Potassium Chloride Oral Tablet 20 MEQ PO (09:28)
[2024-08-03] MEDS: Nystatin Powder 15gm Bottle 1 APPLIC TOPICAL ×2 (09:29→21:27)
[2024-08-03] MEDS: oxyCODONE 5 MG Tablet 2.5 MG PO ×2 (09:33→21:25)
--- NOTE | 2024-08-03 12:34 | MDS.RN ---
Information for the MDS was obtained from review of the clinical record, interview of resident, staff, and direct observation of resident?s care.
[2024-08-03] MEDS: Baclofen 10 MG Tablet 5 MG PO (14:03)
[2024-08-03] MEDS: Mirtazapine 15 MG Tablet 7.5 MG PO (21:26)
[2024-08-03] MEDS: Senna/Docusate Sodium 1 Tablet PO (21:26)
[2024-08-04] MEDS: Enoxaparin 40 MG/0.4 ML Syringe SC (05:35)
[2024-08-04] MEDS: Budesonide 3 MG CAPSULE.EC PO ×3 (05:36→21:19)
[2024-08-04] MEDS: Acetaminophen 500 MG Tablet 1000 MG PO ×3 (05:37→21:22)
[2024-08-04 05:40] VITALS: PULSE 68; RESP 16
[2024-08-04 07:59] VITALS: BP 120/78; PULSE 70; RESP 16; TEMP 36.3; O2SAT 93
[2024-08-04] MEDS: Nystatin Powder 15gm Bottle 1 APPLIC TOPICAL ×2 (08:05→21:18)
[2024-08-04] MEDS: Ensure Plus High Protein 120 ML LIQUID PO ×3 (08:05→18:19)
[2024-08-04] MEDS: Menthol/Lanolin/Calamine/Znox 113 GM Tube 1 APPLIC TOPICAL ×2 (08:05→21:18)
[2024-08-04] MEDS: Furosemide 40 MG Tablet PO (08:07)
[2024-08-04] MEDS: Potassium Chloride Oral Tablet 20 MEQ PO (08:07)
[2024-08-04] MEDS: Senna/Docusate Sodium 1 Tablet PO (08:07)
[2024-08-04] MEDS: DULoxetine Hcl 60 MG Capsule PO (08:07)
[2024-08-04] MEDS: Pantoprazole Sodium 40 MG Tablet PO (08:07)
[2024-08-04] MEDS: oxyCODONE 5 MG Tablet 2.5 MG PO ×2 (08:09→21:29)
[2024-08-04] MEDS: Baclofen 10 MG Tablet 5 MG PO (14:00)
[2024-08-04] MEDS: Mirtazapine 15 MG Tablet 7.5 MG PO (21:19)
[2024-08-05] MEDS: Budesonide 3 MG CAPSULE.EC PO ×3 (05:42→22:12)
[2024-08-05] MEDS: Enoxaparin 40 MG/0.4 ML Syringe SC (05:43)
[2024-08-05] MEDS: Acetaminophen 500 MG Tablet 1000 MG PO ×3 (05:43→22:18)
[2024-08-05 06:10] LABS: Absolute Lymphocyte Count 2.13 X10^3/uL (0.83-4.51); Absolute Neutrophil Count 5.9 X10^3/uL (2.0-7.7); Basophil# 0.05 X10^3/uL; Basophil% 0.5 % (0-1); Eosinophil# 0.11 X10^3/uL; Eosinophils% 1.2 % (0-5); Hematocrit 39.4 % (37-47); Hemoglobin 12.7 g/dL (12.0-15.0); Lymphocyte # 2.13 X10^3/ul (0.83-4.51); Lymphocyte % 22.9 % (19-41); Mean Corp Hgb Conc 32.2 g/dL (32-36); Mean Corpuscular Hgb 30.4 pg (27.0-32.0); Mean Corpuscular Volume 94.3 fL (81-99); Mean Platelet Vol. 9.6 fl (6.2-12.0); Monocyte# 0.91 X10^3/uL; Monocyte% 9.8 % (0-10); NRBC Flagged by Analyzer 0 % (0-5); Neutrophil % 63.6 % (47-70); Platelet Count 288 K/mm3 (150-450); RBC Distribution Width CV 15.5 % (11.6-14.6); RBC Distribution Width SD 53.7 fl (35.1-43.9); Red Blood Count 4.18 M/mm3 (4.2-5.4); White Blood Count 9.3 K/mm3 (4.4-11.0)
[2024-08-05 07:02] LABS: Anion Gap 13 (5-15); BUN 39 mg/dL (4-19); Carbon Dioxide 25.1 mmol/L (21.0-32.0); Chloride 100 mmol/L (98-108); Creatinine, Serum 1.01 mg/dL (0.70-1.20); EST Glomerular Filtration Rate 53 (>60); Estimated Creatinine Clearance 29.58 ml/min (50-250); Glucose 144 mg/dL (70-99); Potassium 3.9 mmol/L (3.3-5.1); Sodium Level 137 mmol/L (133-145)
[2024-08-05 09:51] VITALS: BP 141/75; PULSE 84; RESP 18; TEMP 36.4; O2SAT 95
[2024-08-05] MEDS: Menthol/Lanolin/Calamine/Znox 113 GM Tube 1 APPLIC TOPICAL ×2 (09:57→22:12)
[2024-08-05] MEDS: Potassium Chloride Oral Tablet 20 MEQ PO (09:57)
[2024-08-05] MEDS: DULoxetine Hcl 60 MG Capsule PO (09:57)
[2024-08-05] MEDS: Pantoprazole Sodium 40 MG Tablet PO (09:58)
[2024-08-05] MEDS: Nystatin Powder 15gm Bottle 1 APPLIC TOPICAL ×2 (09:58→22:12)
[2024-08-05] MEDS: oxyCODONE 5 MG Tablet 2.5 MG PO ×2 (09:58→22:16)
[2024-08-05] MEDS: Furosemide 40 MG Tablet PO (09:58)
[2024-08-05] MEDS: Baclofen 10 MG Tablet 5 MG PO (13:10)
[2024-08-05] MEDS: Ensure Plus High Protein 120 ML LIQUID PO (17:22)
[2024-08-05 20:00] VITALS: PULSE 95; O2SAT 93
[2024-08-05] MEDS: Mirtazapine 15 MG Tablet 7.5 MG PO (22:16)
[2024-08-06] MEDS: Acetaminophen 500 MG Tablet 1000 MG PO ×3 (05:25→23:07)
[2024-08-06] MEDS: Budesonide 3 MG CAPSULE.EC PO ×3 (05:25→23:09)
[2024-08-06] MEDS: Enoxaparin 40 MG/0.4 ML Syringe SC (05:26)
[2024-08-06 06:35] VITALS: PULSE 70; O2SAT 96
[2024-08-06 09:31] VITALS: BP 112/78; PULSE 60; RESP 17; TEMP 36.4; O2SAT 100
[2024-08-06] MEDS: Menthol/Lanolin/Calamine/Znox 113 GM Tube 1 APPLIC TOPICAL ×2 (09:34→23:08)
[2024-08-06] MEDS: DULoxetine Hcl 60 MG Capsule PO (09:34)
[2024-08-06] MEDS: Ensure Plus High Protein 120 ML LIQUID PO ×3 (09:34→17:58)
[2024-08-06] MEDS: Potassium Chloride Oral Tablet 20 MEQ PO (09:34)
[2024-08-06] MEDS: Nystatin Powder 15gm Bottle 1 APPLIC TOPICAL ×2 (09:35→23:07)
[2024-08-06] MEDS: Pantoprazole Sodium 40 MG Tablet PO (09:35)
[2024-08-06] MEDS: Furosemide 40 MG Tablet PO (09:35)
[2024-08-06] MEDS: oxyCODONE 5 MG Tablet 2.5 MG PO ×2 (09:38→23:09)
[2024-08-06] MEDS: Baclofen 10 MG Tablet 5 MG PO (13:21)
[2024-08-06] MEDS: Mirtazapine 15 MG Tablet 7.5 MG PO (23:08)
[2024-08-07] MEDS: Budesonide 3 MG CAPSULE.EC PO ×3 (05:50→22:24)
[2024-08-07] MEDS: Acetaminophen 500 MG Tablet 1000 MG PO ×3 (05:50→22:24)
[2024-08-07 08:23] VITALS: BP 122/78; PULSE 65; RESP 16; TEMP 36.4; O2SAT 95
[2024-08-07] MEDS: Potassium Chloride Oral Tablet 20 MEQ PO (08:33)
[2024-08-07] MEDS: Furosemide 40 MG Tablet PO (08:33)
[2024-08-07] MEDS: DULoxetine Hcl 60 MG Capsule PO (08:33)
[2024-08-07] MEDS: Menthol/Lanolin/Calamine/Znox 113 GM Tube 1 APPLIC TOPICAL ×2 (08:33→22:27)
[2024-08-07] MEDS: Pantoprazole Sodium 40 MG Tablet PO (08:33)
[2024-08-07] MEDS: Nystatin Powder 15gm Bottle 1 APPLIC TOPICAL ×2 (08:34→22:24)
[2024-08-07] MEDS: Ensure Plus High Protein 120 ML LIQUID PO ×3 (08:35→16:30)
[2024-08-07] MEDS: oxyCODONE 5 MG Tablet 2.5 MG PO ×2 (08:37→22:24)
[2024-08-07] MEDS: Enoxaparin 30 MG/0.3 ML Syringe SC (08:37)
[2024-08-07] MEDS: Baclofen 10 MG Tablet 5 MG PO (13:07)
[2024-08-07 13:14] VITALS: PULSE 89; RESP 16; O2SAT 98
[2024-08-07] MEDS: Mirtazapine 15 MG Tablet 7.5 MG PO (22:24)
[2024-08-08] MEDS: Acetaminophen 500 MG Tablet 1000 MG PO ×3 (05:17→22:31)
[2024-08-08] MEDS: Enoxaparin 30 MG/0.3 ML Syringe SC (05:17)
[2024-08-08] MEDS: Budesonide 3 MG CAPSULE.EC PO ×3 (05:17→22:31)
[2024-08-08] MEDS: Nystatin Powder 15gm Bottle 1 APPLIC TOPICAL ×2 (09:37→22:32)
[2024-08-08] MEDS: Ensure Plus High Protein 120 ML LIQUID PO ×3 (09:37→17:49)
[2024-08-08] MEDS: Potassium Chloride Oral Tablet 20 MEQ PO (09:38)
[2024-08-08] MEDS: Pantoprazole Sodium 40 MG Tablet PO (09:38)
[2024-08-08] MEDS: oxyCODONE 5 MG Tablet 2.5 MG PO ×2 (09:38→22:30)
[2024-08-08] MEDS: Furosemide 40 MG Tablet PO (09:38)
[2024-08-08] MEDS: DULoxetine Hcl 60 MG Capsule PO (09:38)
[2024-08-08] MEDS: Menthol/Lanolin/Calamine/Znox 113 GM Tube 1 APPLIC TOPICAL ×2 (09:40→22:32)
[2024-08-08] MEDS: Baclofen 10 MG Tablet 5 MG PO (13:28)
[2024-08-08] MEDS: Mirtazapine 15 MG Tablet 7.5 MG PO (22:31)
[2024-08-09] MEDS: Budesonide 3 MG CAPSULE.EC PO ×3 (05:52→21:15)
[2024-08-09] MEDS: Enoxaparin 30 MG/0.3 ML Syringe SC (05:52)
[2024-08-09] MEDS: Acetaminophen 500 MG Tablet 1000 MG PO ×3 (05:52→21:15)
[2024-08-09 08:59] VITALS: BP 140/82; PULSE 63; RESP 18; TEMP 36.6; O2SAT 98
[2024-08-09] MEDS: Pantoprazole Sodium 40 MG Tablet PO (09:05)
[2024-08-09] MEDS: Furosemide 40 MG Tablet PO (09:05)
[2024-08-09] MEDS: Ensure Plus High Protein 120 ML LIQUID PO ×3 (09:05→17:53)
[2024-08-09] MEDS: DULoxetine Hcl 60 MG Capsule PO (09:05)
[2024-08-09] MEDS: Potassium Chloride Oral Tablet 20 MEQ PO (09:05)
[2024-08-09] MEDS: Menthol/Lanolin/Calamine/Znox 113 GM Tube 1 APPLIC TOPICAL ×2 (09:06→21:15)
[2024-08-09] MEDS: Nystatin Powder 15gm Bottle 1 APPLIC TOPICAL ×2 (09:06→21:15)
[2024-08-09] MEDS: oxyCODONE 5 MG Tablet 2.5 MG PO ×2 (09:09→21:15)
[2024-08-09 13:00] VITALS: BMI 24.1
[2024-08-09] MEDS: Baclofen 10 MG Tablet 5 MG PO (13:06)
[2024-08-09 15:37] VITALS: BP 130/84; PULSE 90; RESP 16; TEMP 36.2; O2SAT 95
--- NOTE | 2024-08-09 15:54 | NURSING ---
Charting reviewed with student that is used for educational and learning purposes.
[2024-08-09 19:44] VITALS: PULSE 86; RESP 16; O2SAT 96
[2024-08-09] MEDS: Mirtazapine 15 MG Tablet 7.5 MG PO (21:15)
[2024-08-10] MEDS: Acetaminophen 500 MG Tablet 1000 MG PO ×3 (05:42→22:02)
[2024-08-10] MEDS: Budesonide 3 MG CAPSULE.EC PO ×3 (05:42→22:02)
[2024-08-10] MEDS: Enoxaparin 30 MG/0.3 ML Syringe SC (05:42)
[2024-08-10 08:03] VITALS: BP 118/78; PULSE 59; RESP 17; TEMP 36.8; O2SAT 93
[2024-08-10] MEDS: Potassium Chloride Oral Tablet 20 MEQ PO (08:07)
[2024-08-10] MEDS: Furosemide 40 MG Tablet PO (08:07)
[2024-08-10] MEDS: DULoxetine Hcl 60 MG Capsule PO (08:07)
[2024-08-10] MEDS: Pantoprazole Sodium 40 MG Tablet PO (08:07)
[2024-08-10] MEDS: Nystatin Powder 15gm Bottle 1 APPLIC TOPICAL ×2 (08:08→22:00)
[2024-08-10] MEDS: Menthol/Lanolin/Calamine/Znox 113 GM Tube 1 APPLIC TOPICAL ×2 (08:08→22:03)
[2024-08-10] MEDS: Ensure Plus High Protein 120 ML LIQUID PO ×3 (08:09→17:46)
[2024-08-10] MEDS: oxyCODONE 5 MG Tablet 2.5 MG PO ×2 (08:12→22:00)
[2024-08-10] MEDS: Baclofen 10 MG Tablet 5 MG PO (13:30)
[2024-08-10 13:41] VITALS: PULSE 98; RESP 17; O2SAT 95
[2024-08-10] MEDS: Mirtazapine 15 MG Tablet 7.5 MG PO (22:02)
[2024-08-11] MEDS: Acetaminophen 500 MG Tablet 1000 MG PO ×3 (05:42→21:23)
[2024-08-11] MEDS: Budesonide 3 MG CAPSULE.EC PO ×3 (05:42→21:23)
[2024-08-11] MEDS: Enoxaparin 30 MG/0.3 ML Syringe SC (05:42)
--- NOTE | 2024-08-11 09:38 | CASEMGMT ---
Social Work WENDI phoned BRITANY to check in on wishes to continue waiting for insurance precert for kyphoplasty, as Dr is OOO from 08/12-08/14. BRITANY confirmed family is wishing to continue waiting, however, she is meeting the other children at [facility] today to look at a new room, and will confirm with them again. BRITANY to notify this worker of any changes. WENDI will continue to follow. Jordyn Yousif LPN COIN MACHINE COLLECTOR SUPERVISOR
[2024-08-11 10:03] VITALS: BP 151/83; PULSE 90; RESP 17; TEMP 36.4; O2SAT 92
[2024-08-11] MEDS: Menthol/Lanolin/Calamine/Znox 113 GM Tube 1 APPLIC TOPICAL ×2 (10:06→21:22)
[2024-08-11] MEDS: Ensure Plus High Protein 120 ML LIQUID PO ×3 (10:06→16:59)
[2024-08-11] MEDS: Furosemide 40 MG Tablet PO (10:06)
[2024-08-11] MEDS: Potassium Chloride Oral Tablet 20 MEQ PO (10:06)
[2024-08-11] MEDS: DULoxetine Hcl 60 MG Capsule PO (10:06)
[2024-08-11] MEDS: Nystatin Powder 15gm Bottle 1 APPLIC TOPICAL ×2 (10:07→21:22)
[2024-08-11] MEDS: Pantoprazole Sodium 40 MG Tablet PO (10:07)
[2024-08-11] MEDS: oxyCODONE 5 MG Tablet 2.5 MG PO ×2 (10:09→21:21)
[2024-08-11] MEDS: Baclofen 10 MG Tablet 5 MG PO (13:24)
[2024-08-11] MEDS: Mirtazapine 15 MG Tablet 7.5 MG PO (21:23)
[2024-08-12] MEDS: Enoxaparin 30 MG/0.3 ML Syringe SC (06:02)
[2024-08-12] MEDS: Budesonide 3 MG CAPSULE.EC PO ×3 (06:02→21:04)
[2024-08-12 06:03] LABS: Absolute Lymphocyte Count 2.17 X10^3/uL (0.83-4.51); Basophil# 0.04 X10^3/uL; Basophil% 0.5 % (0-1); Eosinophil# 0.06 X10^3/uL; Eosinophils% 0.7 % (0-5); Hematocrit 38.1 % (37-47); Hemoglobin 12.2 g/dL (12.0-15.0); Lymphocyte # 2.17 X10^3/ul (0.83-4.51); Lymphocyte % 26.8 % (19-41); Mean Corpuscular Hgb 30.4 pg (27.0-32.0); Mean Platelet Vol. 9.4 fl (6.2-12.0); Monocyte# 0.72 X10^3/uL; Monocyte% 8.9 % (0-10); NRBC Flagged by Analyzer 0 % (0-5); Neutrophil % 61.7 % (47-70); Platelet Count 241 K/mm3 (150-450); RBC Distribution Width CV 15.3 % (11.6-14.6); RBC Distribution Width SD 53.2 fl (35.1-43.9); Red Blood Count 4.01 M/mm3 (4.2-5.4); White Blood Count 8.1 K/mm3 (4.4-11.0)
[2024-08-12] MEDS: Acetaminophen 500 MG Tablet 1000 MG PO ×3 (06:03→21:05)
[2024-08-12 06:48] LABS: BUN 35 mg/dL (4-19); Calcium,Total 8.9 mg/dL (7.6-11.0); Chloride 102 mmol/L (98-108); EST Glomerular Filtration Rate 75 (>60); Potassium 3.6 mmol/L (3.3-5.1); Sodium Level 138 mmol/L (133-145)
[2024-08-12 08:40] VITALS: BP 157/85; PULSE 86; RESP 17; TEMP 36.3; O2SAT 96
[2024-08-12] MEDS: Potassium Chloride Oral Tablet 20 MEQ PO (08:45)
[2024-08-12] MEDS: DULoxetine Hcl 60 MG Capsule PO (08:45)
[2024-08-12] MEDS: Menthol/Lanolin/Calamine/Znox 113 GM Tube 1 APPLIC TOPICAL ×2 (08:45→21:05)
[2024-08-12] MEDS: Ensure Plus High Protein 120 ML LIQUID PO ×3 (08:45→17:33)
[2024-08-12] MEDS: Pantoprazole Sodium 40 MG Tablet PO (08:46)
[2024-08-12] MEDS: Furosemide 40 MG Tablet PO (08:46)
[2024-08-12] MEDS: Nystatin Powder 15gm Bottle 1 APPLIC TOPICAL ×2 (08:46→21:06)
--- NOTE | 2024-08-12 09:29 | NURSING ---
Called and spoke with Chritsa gonzales/ Dr. Velazquez's office. They got approval for kyphoplasty, planning to schedule for Thursday.
--- NOTE | 2024-08-12 09:33 | CASEMGMT ---
Social Work Received call from BRITANY who called [facility] and stated precert was approved on 08/09. WENDI notified charge nurse, who contacted Dr. Velazquez's office. Procedure is scheduled for 08/16. WENDI updated BRITANY and Petty Palma/Hospice navigator. Jordyn Yousif EQUITY SALES ASSISTANT RN HEMODIALYSIS
[2024-08-12] MEDS: oxyCODONE 5 MG Tablet 2.5 MG PO ×2 (09:36→21:04)
--- NOTE | 2024-08-12 11:54 | NURSING ---
Received call from pain management. Patient scheduled for Kyphoplasty on ThursdayAugust 16. Patient is not to have any blood thinners 12hrs prior to procedure and patient is to be NPO after midnight.
[2024-08-12 13:52] LABS: Anion Gap 16 (5-15); BUN/Creat Ratio 30.2 RATIO (10-20); Carbon Dioxide 19.7 mmol/L (21.0-32.0); Creatinine, Serum 1.16 mg/dL (0.70-1.20); Glucose 117 mg/dL (70-99)
[2024-08-12] MEDS: Baclofen 10 MG Tablet 5 MG PO (15:16)
[2024-08-12] MEDS: Mirtazapine 15 MG Tablet 7.5 MG PO (21:05)
[2024-08-13] MEDS: Budesonide 3 MG CAPSULE.EC PO ×3 (05:31→21:21)
[2024-08-13] MEDS: Acetaminophen 500 MG Tablet 1000 MG PO ×3 (05:31→21:22)
[2024-08-13] MEDS: Enoxaparin 40 MG/0.4 ML Syringe SC (05:31)
[2024-08-13] MEDS: Pantoprazole Sodium 40 MG Tablet PO (08:46)
[2024-08-13] MEDS: Ensure Plus High Protein 120 ML LIQUID PO ×3 (08:46→17:00)
[2024-08-13] MEDS: DULoxetine Hcl 60 MG Capsule PO (08:46)
[2024-08-13] MEDS: Potassium Chloride Oral Tablet 20 MEQ PO (08:46)
[2024-08-13] MEDS: Furosemide 40 MG Tablet PO (08:46)
[2024-08-13] MEDS: Nystatin Powder 15gm Bottle 1 APPLIC TOPICAL ×2 (08:47→21:19)
[2024-08-13] MEDS: Menthol/Lanolin/Calamine/Znox 113 GM Tube 1 APPLIC TOPICAL ×2 (08:47→21:19)
[2024-08-13] MEDS: oxyCODONE 5 MG Tablet 2.5 MG PO ×2 (09:29→21:19)
[2024-08-13 09:57] VITALS: BP 152/80; PULSE 84; RESP 16; TEMP 36.5; O2SAT 99
[2024-08-13] MEDS: Losartan Potassium 50 MG Tablet PO (11:14)
[2024-08-13] MEDS: Baclofen 10 MG Tablet 5 MG PO (13:42)
[2024-08-13] MEDS: Mirtazapine 15 MG Tablet 7.5 MG PO (21:21)
[2024-08-14] MEDS: Enoxaparin 40 MG/0.4 ML Syringe SC (05:53)
[2024-08-14] MEDS: Budesonide 3 MG CAPSULE.EC PO ×3 (05:53→22:26)
[2024-08-14] MEDS: Acetaminophen 500 MG Tablet 1000 MG PO ×3 (05:53→22:26)
[2024-08-14] MEDS: Losartan Potassium 50 MG Tablet PO (08:25)
[2024-08-14] MEDS: Nystatin Powder 15gm Bottle 1 APPLIC TOPICAL ×2 (08:25→22:27)
[2024-08-14] MEDS: DULoxetine Hcl 60 MG Capsule PO (08:25)
[2024-08-14] MEDS: Ensure Plus High Protein 120 ML LIQUID PO ×3 (08:25→16:54)
[2024-08-14] MEDS: Menthol/Lanolin/Calamine/Znox 113 GM Tube 1 APPLIC TOPICAL ×2 (08:25→22:26)
[2024-08-14] MEDS: Potassium Chloride Oral Tablet 20 MEQ PO (08:25)
[2024-08-14] MEDS: Pantoprazole Sodium 40 MG Tablet PO (08:25)
[2024-08-14] MEDS: Furosemide 40 MG Tablet PO (08:25)
[2024-08-14 08:47] VITALS: BP 136/79; PULSE 93; RESP 18; TEMP 36.3; O2SAT 97
[2024-08-14] MEDS: oxyCODONE 5 MG Tablet 2.5 MG PO ×2 (09:25→22:25)
[2024-08-14] MEDS: Baclofen 10 MG Tablet 5 MG PO (13:14)
[2024-08-14 16:42] VITALS: BP 109/73; PULSE 83
[2024-08-14] MEDS: Mirtazapine 15 MG Tablet 7.5 MG PO (22:27)
[2024-08-15] MEDS: Acetaminophen 500 MG Tablet 1000 MG PO ×3 (05:30→22:07)
[2024-08-15] MEDS: Budesonide 3 MG CAPSULE.EC PO ×3 (05:30→22:07)
[2024-08-15] MEDS: Senna/Docusate Sodium 1 Tablet PO (05:30)
[2024-08-15] MEDS: Enoxaparin 40 MG/0.4 ML Syringe SC (05:31)
[2024-08-15 09:10] VITALS: BP 123/71; PULSE 82; RESP 17; TEMP 36.3; O2SAT 98
[2024-08-15] MEDS: Potassium Chloride Oral Tablet 20 MEQ PO (09:13)
[2024-08-15] MEDS: DULoxetine Hcl 60 MG Capsule PO (09:13)
[2024-08-15] MEDS: Menthol/Lanolin/Calamine/Znox 113 GM Tube 1 APPLIC TOPICAL ×2 (09:13→22:07)
[2024-08-15] MEDS: Losartan Potassium 50 MG Tablet PO (09:13)
[2024-08-15] MEDS: Ensure Plus High Protein 120 ML LIQUID PO ×3 (09:13→17:15)
[2024-08-15] MEDS: Pantoprazole Sodium 40 MG Tablet PO (09:14)
[2024-08-15] MEDS: Nystatin Powder 15gm Bottle 1 APPLIC TOPICAL ×2 (09:14→22:07)
[2024-08-15] MEDS: Furosemide 40 MG Tablet PO (09:14)
[2024-08-15] MEDS: oxyCODONE 5 MG Tablet 2.5 MG PO ×2 (09:17→22:06)
--- NOTE | 2024-08-15 11:27 | NURSING ---
Call from Jossy regarding Kyphoplasty for tomorrow. Unsure of time for Kyphoplasty on 08/16/24. Patient NPO after midnight. Patient can have clears up to 4 hours prior to surgery. HOLD Lovenox morning of surgery. OK to give the following meds morning of surgery: Pantoprazol, Losartan, Deloxetine, Budesonide, and Tylenol. Questions/concern call ext. [phone].
[2024-08-15] MEDS: Baclofen 10 MG Tablet 5 MG PO (13:25)
--- NOTE | 2024-08-15 18:40 | PN.TCU_ITS ---
Subjective Subjective Resident seen, examined. She appears well, her only complaint is her chronic low back pain. Dr. Velazquez planning T12 kyphoplasty tomorrow, resident looking forward to some pain relief. Objective Data Objective Data Vital Signs: Vital Signs Temp Pulse Resp BP Pulse Ox O2 Del Method 97.3 F L 82 17 123/71 H 98 Room Air 08/15/24 09:10 08/15/24 09:10 08/15/24 09:10 08/15/24 09:10 08/15/24 09:10 08/15/24 09:10 Oxygen Delivery Method Room Air Weight: 56.019 kg Body Mass Index (BMI) 24.1 Intake & Output: Intake and Output for Last 24 Hours 08/13/24 08/14/24 08/15/24 23:59 23:59 23:59 Intake Total 480 / 480 240 / 240 340 / 340 Balance 480 / 480 240 / 240 340 / 340 Lab / Micro Data 08/12/24 05:43 08/12/24 05:43 Physical Exam Const alert General Appearance: cooperative HEENT normocephalic Eyes PERRL and EOMs intact bilaterally Neck supple, no JVD and no carotid bruits Resp normal respiratory effort, normal air movement and clear to auscultation bilaterally Cardio regular rate and regular rhythm GI normal to inspection, nondistended, normoactive bowel sounds, non-tender and non-distended Extremity normal capillary refill General Extremity: Negative for edema Skin no rashes or lesions noted General Skin Exam: no breakdown Psych affect normal Appearance: appropriate Assessment & Plan Assessment/Plan (1) Debility: (2) Urinary tract infection: (3) Acute respiratory failure with hypoxia: (4) Elevated troponin: (5) Low back pain: (6) Alzheimer disease: (7) Ulcerative colitis: (8) Essential (primary) hypertension: (9) Depression: (10) GERD (gastroesophageal reflux disease): (11) Appetite loss: (12) Hypokalemia: PLAN: Plan 88 year old female with below past medical history hospitalized for weakness 2/2 E. Coli urinary tract infection, complicated by acute respiratory failure with hypoxia, elevated troponin, admitted to TCU with debility, here for rehabilitation, strengthening, prior to discharge to [facility], family did request hospice consultation prior to discharge from hospital. * Debility - PT/OT. * Cognition - ST. * Pain - Tylenol 1000mg q8, Oxycodone 2.5mg bid. * Bowel - senna/colace 1 tablet bid prn, Magnesium citrate 300mL po daily prn. * Adult immunization - Administer pneumonia vaccine, covid vaccine, flu vaccine as appropriate. * DVT prophylaxis - Lovenox 40mg sc daily, hold for kyphoplasty. * T12 compression fracture - Dr. Velazquez planning T12 kyphoplasty tomorrow. * Muscle spasm - Baclofen 5mg 1400. * Ulcerative colitis - Budesonide 3mg po tid. * Depression - Duloxetine 60mg daily, stable chronic terminal computer operator use, GDR not recommended. * Nutrition - Ensure Plus 120mL po tidcm. * Chronic HFpEF - Losartan 50mg daily, Furosemide 40mg daily. * Appetite loss/Insomnia - Mirtazapine 7.5mg qhs, stable chronic shelter use, GDR not recommended. * Tinea Corporis - Nystatin powder topical bid. * GERD - Pantoprazole 40mg daily. * Hypokalemia - KCL 20meq daily. * Skin irritation - Calmoseptine topical bid.
[2024-08-15] MEDS: Mirtazapine 15 MG Tablet 7.5 MG PO (22:07)
[2024-08-16] MEDS: Budesonide 3 MG CAPSULE.EC PO ×3 (05:42→21:43)
[2024-08-16] MEDS: Acetaminophen 500 MG Tablet 1000 MG PO ×3 (05:42→21:44)
[2024-08-16] MEDS: Losartan Potassium 50 MG Tablet PO (08:19)
[2024-08-16] MEDS: DULoxetine Hcl 60 MG Capsule PO (08:19)
[2024-08-16] MEDS: Pantoprazole Sodium 40 MG Tablet PO (08:20)
--- NOTE | 2024-08-16 09:50 | NURSING ---
Addendum entered by Nichol Zaragoza 08/16/24 13:26: Pt returns to floor after kyphoplasty. No new orders received at this time. Pt denies nausea and pain, requests water. Dressing to back dry, intact. Original Note: Off floor for kyphoplasty via bed.
[2024-08-16 13:00] VITALS: BMI 24.7
[2024-08-16] MEDS: Baclofen 10 MG Tablet 5 MG PO (14:45)
--- NOTE | 2024-08-16 15:14 | CASEMGMT ---
Social Work SW received call from BRITANY providing update that procedure went well this morning and inquiring about next steps. SW conferred with IDT and therapy recommended pt continue with stay for several more days to determine the effectiveness of the procedure. Explained if pt does not respond well, then DC date can be set. However, if pt did have success, to continue working with therapy to regain strength prior to DC. BRITANY agreed and confirmed those are the same goals as the family's. BRITANY stated they are moving pt's room at [place] on 08/21, so preferably, pt would not DC no earlier than 08/22. SW noted. SW to follow up with BRITANY at the end of the week to update on progress. BRITAYN appreciative. SW will continue to follow. Jordyn Yousif PHILOSOPHY FACULTY MOVIE THEATER USHER
[2024-08-16] MEDS: Ensure Plus High Protein 120 ML LIQUID PO (18:11)
[2024-08-16] MEDS: oxyCODONE 5 MG Tablet 2.5 MG PO (21:42)
[2024-08-16] MEDS: Mirtazapine 15 MG Tablet 7.5 MG PO (21:44)
[2024-08-16] MEDS: Menthol/Lanolin/Calamine/Znox 113 GM Tube 1 APPLIC TOPICAL (21:46)
[2024-08-16] MEDS: Nystatin Powder 15gm Bottle 1 APPLIC TOPICAL (21:46)
[2024-08-17] MEDS: Acetaminophen 500 MG Tablet 1000 MG PO ×3 (05:41→22:06)
[2024-08-17] MEDS: Budesonide 3 MG CAPSULE.EC PO ×3 (05:41→22:06)
[2024-08-17 09:18] VITALS: BP 125/65; RESP 16; TEMP 36.6; O2SAT 93
[2024-08-17] MEDS: Ensure Plus High Protein 120 ML LIQUID PO ×3 (09:19→17:34)
[2024-08-17] MEDS: oxyCODONE 5 MG Tablet 2.5 MG PO ×2 (09:19→22:06)
[2024-08-17] MEDS: Pantoprazole Sodium 40 MG Tablet PO (09:20)
[2024-08-17] MEDS: Furosemide 40 MG Tablet PO (09:20)
[2024-08-17] MEDS: DULoxetine Hcl 60 MG Capsule PO (09:20)
[2024-08-17] MEDS: Losartan Potassium 50 MG Tablet PO (09:20)
[2024-08-17] MEDS: Menthol/Lanolin/Calamine/Znox 113 GM Tube 1 APPLIC TOPICAL ×2 (09:21→22:07)
[2024-08-17] MEDS: Potassium Chloride Oral Tablet 20 MEQ PO (09:21)
[2024-08-17] MEDS: Nystatin Powder 15gm Bottle 1 APPLIC TOPICAL ×2 (09:21→22:07)
[2024-08-17] MEDS: Baclofen 10 MG Tablet 5 MG PO (14:40)
[2024-08-17 20:05] VITALS: PULSE 72; RESP 16
[2024-08-17] MEDS: Mirtazapine 15 MG Tablet 7.5 MG PO (22:06)
[2024-08-18] MEDS: Acetaminophen 500 MG Tablet 1000 MG PO ×3 (06:24→21:09)
[2024-08-18] MEDS: Budesonide 3 MG CAPSULE.EC PO ×3 (06:24→21:09)
[2024-08-18 06:45] VITALS: PULSE 68; RESP 16
[2024-08-18] MEDS: Ensure Plus High Protein 120 ML LIQUID PO ×3 (09:22→16:49)
[2024-08-18 09:24] VITALS: BP 128/78; PULSE 63; RESP 16; TEMP 36; O2SAT 96
[2024-08-18] MEDS: Furosemide 40 MG Tablet PO (09:28)
[2024-08-18] MEDS: Pantoprazole Sodium 40 MG Tablet PO (09:28)
[2024-08-18] MEDS: Potassium Chloride Oral Tablet 20 MEQ PO (09:29)
[2024-08-18] MEDS: Menthol/Lanolin/Calamine/Znox 113 GM Tube 1 APPLIC TOPICAL ×2 (09:29→21:10)
[2024-08-18] MEDS: DULoxetine Hcl 60 MG Capsule PO (09:29)
[2024-08-18] MEDS: Losartan Potassium 50 MG Tablet PO (09:29)
[2024-08-18] MEDS: Nystatin Powder 15gm Bottle 1 APPLIC TOPICAL ×2 (09:30→21:10)
[2024-08-18] MEDS: oxyCODONE 5 MG Tablet 2.5 MG PO ×2 (09:33→21:09)
--- NOTE | 2024-08-18 09:34 | NURSING ---
difficult to obtain BP on pt d/t pt clenches body/arm/hands, states it hurts skin very sensitive. manual BP obtained and pt still clenches. Not sure how accurate BP really is. pt sitting in recliner chair. call light in reach. alarms in place
[2024-08-18] MEDS: Baclofen 10 MG Tablet 5 MG PO (13:43)
[2024-08-18] MEDS: Mirtazapine 15 MG Tablet 7.5 MG PO (21:09)
[2024-08-19] MEDS: Budesonide 3 MG CAPSULE.EC PO ×3 (05:23→21:25)
[2024-08-19] MEDS: Acetaminophen 500 MG Tablet 1000 MG PO ×3 (05:24→21:24)
[2024-08-19 06:45] LABS: Absolute Lymphocyte Count 2.46 X10^3/uL (0.83-4.51); Basophil# 0.02 X10^3/uL; Basophil% 0.2 % (0-1); Eosinophil# 0.15 X10^3/uL; Eosinophils% 1.8 % (0-5); Hematocrit 37.8 % (37-47); Hemoglobin 12.1 g/dL (12.0-15.0); Lymphocyte # 2.46 X10^3/ul (0.83-4.51); Lymphocyte % 28.8 % (19-41); Mean Corpuscular Hgb 31.2 pg (27.0-32.0); Mean Corpuscular Volume 97.4 fL (81-99); Mean Platelet Vol. 9.6 fl (6.2-12.0); Monocyte# 0.84 X10^3/uL; Monocyte% 9.8 % (0-10); NRBC Flagged by Analyzer 0 % (0-5); Neutrophil # 4.95 X10^3/uL (2.7-7.7); Platelet Count 239 K/mm3 (150-450); RBC Distribution Width CV 15.5 % (11.6-14.6); RBC Distribution Width SD 55.6 fl (35.1-43.9); Red Blood Count 3.88 M/mm3 (4.2-5.4); White Blood Count 8.5 K/mm3 (4.4-11.0)
[2024-08-19 07:01] LABS: Anion Gap 12 (5-15); BUN 46 mg/dL (4-19); BUN/Creat Ratio 47.5 RATIO (10-20); Calcium,Total 8.9 mg/dL (7.6-11.0); Carbon Dioxide 20.6 mmol/L (21.0-32.0); Chloride 104 mmol/L (98-108); Creatinine, Serum 0.96 mg/dL (0.70-1.20); EST Glomerular Filtration Rate 57 (>60); Estimated Creatinine Clearance 31.46 ml/min (50-250); Glucose 114 mg/dL (70-99); Potassium 4.5 mmol/L (3.3-5.1); Sodium Level 136 mmol/L (133-145)
[2024-08-19 09:23] VITALS: BP 125/59; PULSE 85; RESP 16; TEMP 36.2; O2SAT 96
[2024-08-19] MEDS: Potassium Chloride Oral Tablet 20 MEQ PO (09:27)
[2024-08-19] MEDS: Losartan Potassium 50 MG Tablet PO (09:27)
[2024-08-19] MEDS: Pantoprazole Sodium 40 MG Tablet PO (09:27)
[2024-08-19] MEDS: Furosemide 40 MG Tablet PO (09:28)
[2024-08-19] MEDS: DULoxetine Hcl 60 MG Capsule PO (09:28)
[2024-08-19] MEDS: Nystatin Powder 15gm Bottle 1 APPLIC TOPICAL ×2 (09:28→21:25)
[2024-08-19] MEDS: Menthol/Lanolin/Calamine/Znox 113 GM Tube 1 APPLIC TOPICAL ×2 (09:28→21:25)
[2024-08-19] MEDS: oxyCODONE 5 MG Tablet 2.5 MG PO ×2 (09:32→21:24)
[2024-08-19] MEDS: Ensure Plus High Protein 120 ML LIQUID PO ×3 (09:33→16:25)
[2024-08-19] MEDS: Baclofen 10 MG Tablet 5 MG PO (13:00)
[2024-08-19 19:50] VITALS: PULSE 70; O2SAT 95
[2024-08-19] MEDS: Mirtazapine 15 MG Tablet 7.5 MG PO (21:24)
[2024-08-20] MEDS: Budesonide 3 MG CAPSULE.EC PO ×3 (06:22→21:09)
[2024-08-20] MEDS: Acetaminophen 500 MG Tablet 1000 MG PO ×3 (06:22→21:11)
[2024-08-20] MEDS: Enoxaparin 40 MG/0.4 ML Syringe SC (06:22)
[2024-08-20 09:14] VITALS: BP 159/82; PULSE 86; RESP 16; TEMP 36.7; O2SAT 97
[2024-08-20] MEDS: Menthol/Lanolin/Calamine/Znox 113 GM Tube 1 APPLIC TOPICAL ×2 (09:17→21:09)
[2024-08-20] MEDS: Ensure Plus High Protein 120 ML LIQUID PO ×3 (09:17→17:29)
[2024-08-20] MEDS: Losartan Potassium 50 MG Tablet PO (09:18)
[2024-08-20] MEDS: Potassium Chloride Oral Tablet 20 MEQ PO (09:18)
[2024-08-20] MEDS: DULoxetine Hcl 60 MG Capsule PO (09:18)
[2024-08-20] MEDS: Pantoprazole Sodium 40 MG Tablet PO (09:19)
[2024-08-20] MEDS: Nystatin Powder 15gm Bottle 1 APPLIC TOPICAL ×2 (09:19→21:09)
[2024-08-20] MEDS: Furosemide 40 MG Tablet PO (09:19)
[2024-08-20] MEDS: oxyCODONE 5 MG Tablet 2.5 MG PO ×2 (09:22→21:06)
[2024-08-20] MEDS: Baclofen 10 MG Tablet 5 MG PO (13:02)
[2024-08-20 20:00] VITALS: PULSE 68; O2SAT 93
[2024-08-20] MEDS: Mirtazapine 15 MG Tablet 7.5 MG PO (21:10)
[2024-08-21] MEDS: Acetaminophen 500 MG Tablet 1000 MG PO ×3 (06:00→20:55)
[2024-08-21] MEDS: Enoxaparin 40 MG/0.4 ML Syringe SC (06:00)
[2024-08-21] MEDS: Budesonide 3 MG CAPSULE.EC PO ×3 (06:00→20:53)
[2024-08-21] MEDS: Furosemide 40 MG Tablet PO (08:15)
[2024-08-21] MEDS: DULoxetine Hcl 60 MG Capsule PO (08:15)
[2024-08-21] MEDS: Ensure Plus High Protein 120 ML LIQUID PO ×3 (08:15→17:34)
[2024-08-21] MEDS: Potassium Chloride Oral Tablet 20 MEQ PO (08:15)
[2024-08-21] MEDS: Losartan Potassium 50 MG Tablet PO (08:15)
[2024-08-21] MEDS: Pantoprazole Sodium 40 MG Tablet PO (08:16)
[2024-08-21] MEDS: oxyCODONE 5 MG Tablet 2.5 MG PO ×2 (08:16→20:50)
[2024-08-21] MEDS: Menthol/Lanolin/Calamine/Znox 113 GM Tube 1 APPLIC TOPICAL ×2 (08:18→20:51)
[2024-08-21] MEDS: Nystatin Powder 15gm Bottle 1 APPLIC TOPICAL ×2 (08:19→20:52)
[2024-08-21] MEDS: Baclofen 10 MG Tablet 5 MG PO (13:30)
[2024-08-21 14:22] VITALS: BP 115/70; PULSE 72; RESP 18; TEMP 37.1; O2SAT 96
[2024-08-21] MEDS: Mirtazapine 15 MG Tablet 7.5 MG PO (20:54)
[2024-08-22] MEDS: Acetaminophen 500 MG Tablet 1000 MG PO ×3 (06:15→21:06)
[2024-08-22] MEDS: Budesonide 3 MG CAPSULE.EC PO ×3 (06:15→21:07)
[2024-08-22] MEDS: Enoxaparin 40 MG/0.4 ML Syringe SC (06:16)
[2024-08-22] MEDS: Losartan Potassium 50 MG Tablet PO (09:09)
[2024-08-22] MEDS: DULoxetine Hcl 60 MG Capsule PO (09:09)
[2024-08-22] MEDS: Potassium Chloride Oral Tablet 20 MEQ PO (09:09)
[2024-08-22] MEDS: Furosemide 40 MG Tablet PO (09:09)
[2024-08-22] MEDS: Pantoprazole Sodium 40 MG Tablet PO (09:10)
[2024-08-22] MEDS: oxyCODONE 5 MG Tablet 2.5 MG PO ×2 (09:10→21:07)
[2024-08-22] MEDS: Menthol/Lanolin/Calamine/Znox 113 GM Tube 1 APPLIC TOPICAL ×2 (09:12→21:07)
[2024-08-22] MEDS: Nystatin Powder 15gm Bottle 1 APPLIC TOPICAL ×2 (09:12→21:07)
--- NOTE | 2024-08-22 09:36 | CASEMGMT ---
Social Work SW continues to remain in contact several times a week with [facility], [facility] intake team and Floridalma Ochoa at [place], with pt's updates. Updates faxed to Floridalma this date. IDT meeting tomorrow to discuss therapy progress. SW will continue to follow. Jordyn Yousif SENIOR SSIS DEVELOPER MACHINE OPERATOR
[2024-08-22] MEDS: Baclofen 10 MG Tablet 5 MG PO (12:51)
[2024-08-22] MEDS: Ensure Plus High Protein 120 ML LIQUID PO ×2 (12:51→18:54)
[2024-08-22 16:00] VITALS: BP 127/64; PULSE 87; RESP 18; TEMP 36.6; O2SAT 95
[2024-08-22] MEDS: Mirtazapine 15 MG Tablet 7.5 MG PO (21:07)
[2024-08-22 21:09] VITALS: PULSE 74; RESP 16
[2024-08-23] MEDS: Enoxaparin 40 MG/0.4 ML Syringe SC (06:06)
[2024-08-23] MEDS: Budesonide 3 MG CAPSULE.EC PO ×3 (06:07→21:55)
[2024-08-23] MEDS: Acetaminophen 500 MG Tablet 1000 MG PO ×3 (06:07→21:55)
[2024-08-23] MEDS: Menthol/Lanolin/Calamine/Znox 113 GM Tube 1 APPLIC TOPICAL ×2 (09:57→21:58)
[2024-08-23] MEDS: Ensure Plus High Protein 120 ML LIQUID PO ×3 (09:57→17:37)
[2024-08-23] MEDS: Furosemide 40 MG Tablet PO (09:58)
[2024-08-23] MEDS: Pantoprazole Sodium 40 MG Tablet PO (09:58)
[2024-08-23] MEDS: Losartan Potassium 50 MG Tablet PO (09:58)
[2024-08-23] MEDS: Potassium Chloride Oral Tablet 20 MEQ PO (09:58)
[2024-08-23] MEDS: DULoxetine Hcl 60 MG Capsule PO (09:58)
[2024-08-23] MEDS: Nystatin Powder 15gm Bottle 1 APPLIC TOPICAL ×2 (09:59→21:56)
[2024-08-23] MEDS: oxyCODONE 5 MG Tablet 2.5 MG PO ×2 (10:02→21:54)
[2024-08-23] MEDS: Baclofen 10 MG Tablet 5 MG PO (12:56)
[2024-08-23 13:00] VITALS: BP 148/61; PULSE 93; RESP 18; TEMP 36.6; O2SAT 95; BMI 25.4
--- NOTE | 2024-08-23 14:55 | CASEMGMT ---
Addendum entered by Jordyn Yousif 08/23/24 15:37: Floridalma Ochoa confirmed [place] and [facility] can accept 08/27. - SW phoned DIL to update on setting DC date and recommended 08/27. DIL agreed and will meet pt at [place]. SW to schedule transport and coordinate DC. No issues noted. DIL appreciative. - Phoned [facility] and scheduled cot transport for 1100 Plan: DC 08/27 returning to [facility], admitting to [facility] Jordyn DAVIS Original Note: Social Work IDT ready to set DC date for pt. WENDI updated Floridalma Ochoa and offered DC 08/26. Will await outcome to ensure that can be accommodated by [place] and [facility], then contact BRITANY to coordinate. Jordyn LUKEW
--- NOTE | 2024-08-23 18:59 | PCM.DC.SUM ---
Providers Date of Admission: 07/22/24 Primary Care Physician: Dr. Claudio Steele, Consultations 07/25/24 07:34 Consult: Pain Management Routine Consulting Provider: Gabriel Salguero Reason for Consult: Low Back Pain. EMERGENT Consult: No MD Notified: Yes Date Notified: 07/25/24 Time Notified: 08:57 Method of Notification: Answering Service Comments:: Spoke with Cassandra Reason For Visit: HYPOXIA/GENERALIZED WEAKNESS Diagnosis Discharge Diagnosis (1) Debility: Status: Acute Code(s): R53.81 - Other malaise (2) Urinary tract infection: Status: Acute Code(s): N39.0 - Urinary tract infection, site not specified (3) Acute respiratory failure with hypoxia: Status: Acute Code(s): J96.01 - Acute respiratory failure with hypoxia (4) Elevated troponin: Status: Inactive Code(s): R79.89 - Other specified abnormal findings of blood chemistry (5) Low back pain: Status: Acute Code(s): M54.50 - Low back pain, unspecified (6) Alzheimer disease: Status: Acute Code(s): G30.9 - Alzheimer's disease, unspecified; F02.80 - Dementia in other diseases classified elsewhere, unspecified severity, without behavioral disturbance, psychotic disturbance, mood disturbance, and anxiety (7) Ulcerative colitis: Status: Chronic Code(s): K51.90 - Ulcerative colitis, unspecified, without complications (8) Essential (primary) hypertension: Status: Acute Code(s): I10 - Essential (primary) hypertension (9) Depression: Status: Acute Code(s): F32.A - Depression, unspecified (10) GERD (gastroesophageal reflux disease): Status: Chronic Code(s): K21.9 - Gastro-esophageal reflux disease without esophagitis (11) Appetite loss: Status: Acute Code(s): R63.0 - Anorexia (12) Hypokalemia: Status: Acute Code(s): E87.6 - Hypokalemia Plan 88 year old female with below past medical history hospitalized for weakness 2/2 E. Coli urinary tract infection, complicated by acute respiratory failure with hypoxia, elevated troponin, admitted to TCU with debility, here for rehabilitation, strengthening, prior to discharge to [facility], family did request hospice consultation prior to discharge from hospital. Debility - PT/OT. Cognition - ST. Pain - Tylenol 1000mg q8, Oxycodone 2.5mg bid. Bowel - senna/colace 1 tablet bid prn, Magnesium citrate 300mL po daily prn. Adult immunization - Administer pneumonia vaccine, covid vaccine, flu vaccine as appropriate. DVT prophylaxis - Lovenox 40mg sc daily, hold for kyphoplasty. T12 compression fracture - Dr. Velazquez planning T12 kyphoplasty tomorrow. Muscle spasm - Baclofen 5mg 1400. Ulcerative colitis - Budesonide 3mg po tid. Depression - Duloxetine 60mg daily, stable chronic senior living use, GDR not recommended. Nutrition - Ensure Plus 120mL po tidcm. Chronic HFpEF - Losartan 50mg daily, Furosemide 40mg daily. 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 Tinea Corporis - Nystatin powder topical bid. GERD - Pantoprazole 40mg daily. Hypokalemia - KCL 20meq daily. Skin irritation - Calmoseptine topical bid. Medications at Discharge Home Medications duloxetine 60 mg capsule,delayed release 60 mg PO DAILY depression 08/16/13 budesonide 3 mg capsule,delayed,extended release 3 mg PO TID colitis 10/21/18 omeprazole 40 mg capsule,delayed release 40 mg PO DAILY GERD 10/21/18 mirtazapine 7.5 mg tablet 7.5 mg PO QHS Mood 07/20/24 potassium chloride 20 mEq tablet,extended release(part/cryst) (Klor-Con M) 20 meq PO DAILY Supplement 07/20/24 acetaminophen 500 mg tablet 1,000 mg (2 x 500 mg) PO Q8 30 days #180 tabs 08/23/24 baclofen 10 mg tablet 5 mg (1/2 x 10 mg) PO 1400 30 days #15 tabs 08/23/24 furosemide 40 mg tablet 40 mg PO DAILY 30 days #30 tabs 08/23/24 losartan 50 mg tablet 50 mg PO DAILY 30 days #30 tabs 08/23/24 oxycodone 5 mg tablet 2.5 mg (1/2 x 5 mg) PO BID 7 days #7 tabs 08/23/24 Hospital Course Operations None Procedures - (T12 kyphoplasty.) Summary of Care Provided Minutes Spent on Discharge: 35 Hospital Course: 88 year old female with below past medical history hospitalized for weakness 2/2 E. Coli urinary tract infection, complicated by acute respiratory failure with hypoxia, elevated troponin, admitted to TCU with debility, here for rehabilitation, strengthening, prior to discharge to [facility], family did request hospice consultation prior to discharge from hospital. Resident has T12 compression fracture causing severe pain and interfering with her quality of life. 08/16/2024 Dr. Velazquez performed T12 kyphoplasty with significant improvement in thoracic pain. Discharge 08/27/2024 returning to [facility], admitting to [facility]. Physical Exam Const alert General Appearance: cooperative HEENT normocephalic Eyes PERRL and EOMs intact bilaterally Neck supple, no JVD and no carotid bruits Resp normal respiratory effort, normal air movement and clear to auscultation bilaterally Cardio regular rate and regular rhythm GI normal to inspection, nondistended, normoactive bowel sounds, non-tender and non-distended Extremity normal capillary refill General Extremity: Negative for edema Skin no rashes or lesions noted General Skin Exam: no breakdown Psych affect normal Appearance: appropriate Weight / BMI Weight Weight: 59.058 kg Body Mass Index (BMI) 25.4 ABG / Lab / Microbiology Data 08/19/24 05:17 08/19/24 05:17 D/C Instructions Discharge Diet: No restrictions Discharge Activity: Return to Normal Activity, May Shower and Use Walker Weight Bearing Status: Weight bearing as tolerated Call your doctor if you observe: Fever of 101 or Higher, Inability to urinate, Inability to have a bowel movement, Shortness of breath, Dizziness, Fainting spells, Swelling in the ankles, Chest pain and Uncontrolled pain DC O2, CPAP, BIPAP Needs Home O2 Discharge instructions: No Additional Instructions: Discharge 08/27/2024 returning to [facility], admitting to [facility]. Meaningful Use Info Meaningful Use Meaningful Use Diagnoses (Choose all that apply): None applicable Ischemic Stroke Statin Dosing Therapy Reference: STATIN DOSE THERAPY REFERENCE: * Patients > 75 years receive moderate or high dose statin therapy. * Patients 75 years or YOUNGER should receive HIGH intensity statin dose unless contraindicated. You will be required to document reason for non-treatment if statin daily dose does not meet guidelines. HIGH DOSE STATIN THERAPY DAILY Atorvastatin > than or = to 40 mg Rosuvastatin > than or = to 20 mg Amlodipine + Atorvastatin > than or = to 2.5/40 mg Ezetimibe + Simvastatin 10/80 mg Simvastatin 80mg Discharge Plan Admission Admit Date/Time: 07/22/24 16:20 Primary Reason for Your Visit: Debility. Attending Provider: Elmer Walters Chi Primary Care Provider: Claudio Steele Consulting Providers: Gabriel Salguero Instructions Additional Instructions / Restrictions: Discharge 08/27/2024 returning to [facility], admitting to [facility]. Discharge Orders/Prescriptions Prescriptions: New losartan 50 mg Tablet 50 mg PO DAILY 30 Days Qty: 30 0RF furosemide 40 mg Tablet 40 mg PO DAILY 30 Days Qty: 30 0RF acetaminophen 500 mg Tablet 1,000 mg PO Q8 30 Days Qty: 180 0RF baclofen 10 mg Tablet 5 mg PO 1400 30 Days Qty: 15 0RF oxycodone 5 mg Tablet 2.5 mg PO BID 7 Days Qty: 7 0RF Continued duloxetine 60 MG capsule 60 mg PO DAILY Patient Comments: Depression/anxiety budesonide 3 MG capsule,delayed,extend.release 3 mg PO TID omeprazole 40 MG capsule,delayed release(DR/EC) 40 mg PO DAILY mirtazapine 7.5 mg tablet 7.5 mg PO QHS potassium chloride [Klor-Con M20] 20 mEq tablet,ER particles/crystals 20 meq PO DAILY Discontinued furosemide 20 mg tablet 40 mg PO DAILY tramadol 50 mg tablet 50 mg PO BID Referrals / Follow Up: Claudio Steele DO [Primary Care Provider] - Disposition Disposition (needs filled in before D/C Order can be placed): Hospice in Medical Facility
[2024-08-24] MEDS: Budesonide 3 MG CAPSULE.EC PO ×3 (05:38→20:38)
[2024-08-24] MEDS: Acetaminophen 500 MG Tablet 1000 MG PO ×3 (05:38→20:38)
[2024-08-24] MEDS: Enoxaparin 40 MG/0.4 ML Syringe SC (05:39)
[2024-08-24] MEDS: Ensure Plus High Protein 120 ML LIQUID PO ×3 (07:32→17:51)
[2024-08-24 09:10] VITALS: BP 124/69; PULSE 92; RESP 16; TEMP 37; O2SAT 95
[2024-08-24] MEDS: Pantoprazole Sodium 40 MG Tablet PO (09:11)
[2024-08-24] MEDS: Nystatin Powder 15gm Bottle 1 APPLIC TOPICAL ×2 (09:12→20:38)
[2024-08-24] MEDS: Losartan Potassium 50 MG Tablet PO (09:12)
[2024-08-24] MEDS: Potassium Chloride Oral Tablet 20 MEQ PO (09:12)
[2024-08-24] MEDS: Furosemide 40 MG Tablet PO (09:12)
[2024-08-24] MEDS: DULoxetine Hcl 60 MG Capsule PO (09:12)
[2024-08-24] MEDS: Menthol/Lanolin/Calamine/Znox 113 GM Tube 1 APPLIC TOPICAL ×2 (09:13→20:39)
[2024-08-24] MEDS: oxyCODONE 5 MG Tablet 2.5 MG PO ×2 (09:16→20:37)
[2024-08-24] MEDS: Baclofen 10 MG Tablet 5 MG PO (13:45)
--- NOTE | 2024-08-24 16:04 | CASEMGMT ---
Social Work SW completed BIMS (11/22) and PHQ-2 () for MDS assessment. Jordyn Yousif INTERNET MARKETING DIRECTOR MANAGEMENT CONSULTING
[2024-08-24] MEDS: Mirtazapine 15 MG Tablet 7.5 MG PO (20:38)
[2024-08-25] MEDS: Enoxaparin 40 MG/0.4 ML Syringe SC (05:36)
[2024-08-25] MEDS: Acetaminophen 500 MG Tablet 1000 MG PO ×3 (05:36→21:47)
[2024-08-25] MEDS: Budesonide 3 MG CAPSULE.EC PO ×3 (05:37→21:46)
[2024-08-25 08:16] VITALS: BP 161/80; PULSE 98; RESP 16; TEMP 36.6; O2SAT 91
[2024-08-25] MEDS: Menthol/Lanolin/Calamine/Znox 113 GM Tube 1 APPLIC TOPICAL ×2 (08:23→21:47)
[2024-08-25] MEDS: Ensure Plus High Protein 120 ML LIQUID PO ×3 (08:23→16:43)
[2024-08-25] MEDS: Nystatin Powder 15gm Bottle 1 APPLIC TOPICAL ×2 (08:24→21:48)
[2024-08-25] MEDS: Losartan Potassium 50 MG Tablet PO (08:25)
[2024-08-25] MEDS: Potassium Chloride Oral Tablet 20 MEQ PO (08:25)
[2024-08-25] MEDS: Pantoprazole Sodium 40 MG Tablet PO (08:25)
[2024-08-25] MEDS: Furosemide 40 MG Tablet PO (08:25)
[2024-08-25] MEDS: DULoxetine Hcl 60 MG Capsule PO (08:26)
[2024-08-25] MEDS: oxyCODONE 5 MG Tablet 2.5 MG PO ×2 (12:03→21:46)
--- NOTE | 2024-08-25 13:29 | MDS.RN ---
Pain assessment for MDS complete.
[2024-08-25] MEDS: Baclofen 10 MG Tablet 5 MG PO (15:06)
--- NOTE | 2024-08-25 15:14 | CHAPLAIN ---
Type of Pastoral Visit ___ Initial Visit _x__ Follow-up Visit ___ On-call Visit ___ General Patient Visit ___ Spiritual Assessment ___ Family Conference ___ Bereavement ___ Rapid Response ___ Code Blue ___ Other (describe below) Pastoral Care Referral From _x__ Patient ___ Family ___ Nurse ___ Physician ___ Mechanical Development Engineer ___ Winding Machine Operator ___ Other (describe below) Sacrament/Intervention _x__ Active listening ___ Anointing ___ Mandaeism ___ Bereavement ___ Communion ___ Lisa exploration ___ _x__ Life review _x__ Prayer ___ Reconciliation ___ Sacrament of Sick _x__ Supportive presence ___ Wedding ___ Other (describe below) Pastoral Comments patient is reading a book and sits it down to visit with this shingles roofer; pt says that she remembers this shingles roofer from when she was in [facility] last year; pt actually was seen last month by this shingles roofer; pt speaks easily and tells her plan of leaving here and going somewhere that I can't name right now on Thursday; pt talks about her life and her family but details escape her throughout the visit as she comes short of remembering dates and names; pt denies any needs but says that a prayer is always fine; time to listen and offer support given along with the prayer
[2024-08-25] MEDS: Mirtazapine 15 MG Tablet 7.5 MG PO (21:47)
[2024-08-25 22:30] VITALS: PULSE 80; RESP 14; O2SAT 92
[2024-08-26 02:34] VITALS: RESP 16
[2024-08-26] MEDS: Acetaminophen 500 MG Tablet 1000 MG PO (05:59)
[2024-08-26] MEDS: Enoxaparin 40 MG/0.4 ML Syringe SC (05:59)
[2024-08-26] MEDS: Budesonide 3 MG CAPSULE.EC PO (05:59)
[2024-08-26 06:09] LABS: Absolute Lymphocyte Count 2.26 X10^3/uL (0.83-4.51); Absolute Neutrophil Count 4.7 X10^3/uL (2.0-7.7); Basophil# 0.03 X10^3/uL; Basophil% 0.4 % (0-1); Eosinophil# 0.09 X10^3/uL; Eosinophils% 1.1 % (0-5); Hematocrit 34.7 % (37-47); Hemoglobin 11.1 g/dL (12.0-15.0); Lymphocyte # 2.26 X10^3/ul (0.83-4.51); Lymphocyte % 27.6 % (19-41); Mean Corpuscular Hgb 30.7 pg (27.0-32.0); Mean Corpuscular Volume 96.1 fL (81-99); Mean Platelet Vol. 9.4 fl (6.2-12.0); Monocyte# 0.91 X10^3/uL; Monocyte% 11.1 % (0-10); NRBC Flagged by Analyzer 0 % (0-5); Neutrophil # 4.66 X10^3/uL (2.7-7.7); Neutrophil % 56.9 % (47-70); Platelet Count 243 K/mm3 (150-450); RBC Distribution Width CV 15.6 % (11.6-14.6); RBC Distribution Width SD 55.3 fl (35.1-43.9); Red Blood Count 3.61 M/mm3 (4.2-5.4); White Blood Count 8.2 K/mm3 (4.4-11.0)
[2024-08-26 07:48] LABS: Anion Gap 12 (5-15); BUN 55 mg/dL (4-19); BUN/Creat Ratio 48.4 RATIO (10-20); Calcium,Total 9.1 mg/dL (7.6-11.0); Carbon Dioxide 21.4 mmol/L (21.0-32.0); Chloride 103 mmol/L (98-108); Creatinine, Serum 1.13 mg/dL (0.70-1.20); EST Glomerular Filtration Rate 47 (>60); Estimated Creatinine Clearance 27.13 ml/min (50-250); Glucose 134 mg/dL (70-99); Potassium 4.7 mmol/L (3.3-5.1); Sodium Level 136 mmol/L (133-145)
[2024-08-26 09:02] VITALS: BP 157/67; PULSE 69; RESP 17; TEMP 36.6; O2SAT 96
[2024-08-26] MEDS: Ensure Plus High Protein 120 ML LIQUID PO (09:05)
[2024-08-26] MEDS: Menthol/Lanolin/Calamine/Znox 113 GM Tube 1 APPLIC TOPICAL (09:06)
[2024-08-26] MEDS: Losartan Potassium 50 MG Tablet PO (09:11)
[2024-08-26] MEDS: DULoxetine Hcl 60 MG Capsule PO (09:11)
[2024-08-26] MEDS: Potassium Chloride Oral Tablet 20 MEQ PO (09:11)
[2024-08-26] MEDS: Nystatin Powder 15gm Bottle 1 APPLIC TOPICAL (09:11)
[2024-08-26] MEDS: Furosemide 40 MG Tablet PO (09:11)
[2024-08-26] MEDS: oxyCODONE 5 MG Tablet 2.5 MG PO (09:11)
[2024-08-26] MEDS: Pantoprazole Sodium 40 MG Tablet PO (09:12)
--- NOTE | 2024-08-26 09:55 | NURSING ---
called report to nurse Bejarano at [place]
== END 2024-08-26 10:25 | disposition hospice, inpatient (51) | DRG 690 ==
PROVIDERS: Admitting Provider Family Medicine Geriatric Medicine; PCP Family Medicine; Referring Provider Family Medicine Geriatric Medicine; Visit Provider Family Medicine Geriatric Medicine
DX: N39.0 Urinary tract infection, site not specified (principal); I13.0 Hypertensive heart and chronic kidney disease with heart failure and stage 1 through stage 4 chronic kidney disease, or unspecified chronic kidney disease; I50.32 Chronic diastolic (congestive) heart failure; K51.90 Ulcerative colitis, unspecified, without complications; G30.9 Alzheimer's disease, unspecified; E87.6 Hypokalemia; B96.20 Unspecified Escherichia coli [E. coli] as the cause of diseases classified elsewhere; B35.4 Tinea corporis; N18.30 Chronic kidney disease, stage 3 unspecified; F32.A Depression, unspecified; K21.9 Gastro-esophageal reflux disease without esophagitis; F02.80 Dementia in other diseases classified elsewhere, unspecified severity, without behavioral disturbance, psychotic disturbance, mood disturbance, and anxiety; M48.062 Spinal stenosis, lumbar region with neurogenic claudication; M80.08XD Age-related osteoporosis with current pathological fracture, vertebra(e), subsequent encounter for fracture with routine healing; Z79.51 Long term (current) use of inhaled steroids; Z79.899 Other long term (current) drug therapy; G47.00 Insomnia, unspecified; R29.6 Repeated falls; G89.29 Other chronic pain
CPT/HCPCS: 36415; 72100; 73030; 73521; 80048; 85025; 92523; 97110; 97116; 97162; 97166; 97530; 97535

== ENCOUNTER → 2024-07-26 | Outpatient (CLI) | payer MEDICARE, SELFPAY ==
--- NOTE | 2024-07-26 12:57 | MRI_ITS ---
PROCEDURE: Noncontrast MRI of the lumbar spine. 07/26/2024 REASON FOR EXAM: T12 compression fracture TECHNIQUE: Multiplanar, multisequence MRI images of the lumbar spine were obtained without IV contrast. COMPARISON: Lumbar spine radiographs 07/25/2024. Lumbar spine MRI 02/18/2018. FINDINGS: The study assumes a presence of 5 lumbar type, [id number]-klb-[id number] vertebral bodies. There is new moderate superior endplate compression deformity of T12, with mild associated increased STIR signal/edema. There is mild chronic appearing height loss of T11 and moderate chronic height loss of T8. The lumbar vertebral bodies are normal in height and marrow signal. Grade 1 anterolisthesis of L4 relative to L5 and L5 relative to S1. No definite pars defects are demonstrated. The conus terminates at the L1-2 disc space. The included spinal cord is unremarkable. Mild multilevel degenerative disc disease in the included lower thoracic spine, without large focal disc herniation or significant central spinal canal narrowing. There are decreased areas of T1 signal involving both sides of the sacrum, greatest on the right, concerning for sacral insufficiency fractures. Simple appearing exophytic 3.1 cm cyst posterior left kidney. The common duct measures 1 cm, without definite choledocholithiasis. There appears to be a tiny hiatal hernia. T11-12: Mild disc bulge flattens the ventral thecal sac. Mild posterior cortical retropulsion of T12 causes a mild degree of central spinal canal narrowing. No focal disc herniation. Moderate bilateral neural foraminal narrowing. T12-L1: Mild asymmetric left disc bulge, without focal disc herniation or significant central spinal canal narrowing. There is a left lateral disc osteophyte complex. Jmwm-bz-qpxlwbnl bilateral neural foraminal narrowing and mild degenerative facet changes. L1-2: Mild disc bulge flattens the ventral thecal sac, without focal disc herniation or significant central spinal canal narrowing. Mild left and moderate right neural foraminal narrowing. Moderate degenerative facet changes. L2-3: Mild disc bulge flattens the ventral thecal sac and causes mild central spinal canal narrowing. No focal disc herniation. Moderate left and severe right neural foraminal narrowing. Moderate degenerative facet changes. L3-4: Mild di asymmetric left sc bulge flattens the ventral thecal sac and causes mild left central spinal canal narrowing. No focal disc herniation. Fvpcqkce-pz-cprvtm bilateral neural foraminal narrowing, greatest on the right. Moderate degenerative facet changes. L4-5: Of L4 relative to L5. Grade 1 anterolisthesis lobulated posterior disc osteophyte complex causes jwsbhgle-cf-rwphgn central spinal canal narrowing. Severe bilateral neural foraminal narrowing, greatest on the left. Moderate degenerative facet changes. L5-S1: Grade 1 anterolisthesis of L5 relative to S1, along with diffuse disc bulge and ligamentum flavum hypertrophy, resulting in severe central spinal canal stenosis. Severe bilateral neural foraminal narrowing and moderate degenerative facet changes. MRI/Spine Lumbar (Routine) IMPRESSION: Acute/subacute moderate superior endplate compression fracture of T12. Chronic appearing compression deformities of T8 and T11. No acute lumbar vertebral body fracture or abnormal marrow replacement process. Findings most compatible with bilateral sacral insufficiency fractures, greates t on the right. Multilevel degenerative disc and facet disease in the lumbar spine as described level by level above. Areas of severe central spinal canal stenosis at L4-5 and L5-S1 levels as described above. Significant multilevel neural foraminal narrowing as described level by level a hola, to a severe degree bilaterally at L4-5 and L5-S1. There is 1 cm dilation of the common duct, which may be due to post cholecystec yon change. Suggest correlation with liver function tests. Simple appearing exophytic cyst posterior left kidney. No dedicated imaging fo llow-up recommended. Reading Location: [facility]
== END | disposition home or self-care (01) ==
LOC: MRI 12:55
PROVIDERS: PCP Family Medicine; Visit Provider Anesthesiology
DX: S22.080A Wedge compression fracture of T11-T12 vertebra, initial encounter for closed fracture (principal)
CPT/HCPCS: 72148

== ENCOUNTER 2024-08-16 09:57 | Day surgery (SDC) | payer MEDICARE, SELFPAY ==
--- NOTE | 2024-08-15 11:52 | PAT.ANESEVAL ---
Pre-Assessment Diagnosis/Proposed Procedure Planned Operative Procedure(s): KYPHOPLASTY T12 Anesthesia History Anesthesia History - social work program coordinator: Anesthesia History - social work program coordinator Hx Hospitalization Yes: 07/2024 TCU 08/15/24 11:22 Any Problems With Anesthesia No 08/15/24 11:22 Cholinesterase deficiency No 08/15/24 11:22 You/Your Family Experience No 08/15/24 11:22 fever (hyperthermia) with Relationship Recent Exposure to Contagious No 12/08/19 07:16 Disease Does patient have nerve No 08/15/24 11:22 stimulator Patient instructed to have device shut off --Does patient have Pacemaker or ICD? When Was Last Pacemaker Check QUESTION #4 FULL TEXT: You/Your Family Experience fever (hyperthermia) with Anesthesia Last Oral Intake Last Oral intake: Last Oral Intake NPO since Meds taken in AM with sips of water? Meds patient instructed to take am of surgery PONV PONV - social work program coordinator: PONV - social work program coordinator Female Yes 08/15/24 11:22 HX of Motion Sickness Yes 08/15/24 11:22 HX of N/V After Surgery No 08/15/24 11:22 Non-Smoker Yes 08/15/24 11:22 Duration of Surgery greater Yes 08/15/24 11:22 than 60 minutes Number of Risk Factors 4 08/15/24 11:22 PONV Score Severe Risk 08/15/24 11:22 Height & Weight Height & Weight: Anesthesia: Height & Weight Height 5 ft 08/10/24 15:05 Respiratory Assessment Respiratory Assessment - social work program coordinator: Respiratory Tract Infection Hx - social work program coordinator Hx Respiratory Tract Infection No 08/15/24 11:22 STOP Sleep Apnea STOP Sleep Apnea - social work program coordinator: STOP Sleep Apnea - social work program coordinator Hx Hypertension Yes: ON MED 08/15/24 11:22 Hx Sleep Apnea No 08/15/24 11:22 CPAP No 08/15/24 11:22 BIPAP No 08/15/24 11:22 Do you snore loudly (louder No 08/15/24 11:22 than talking or can be heard Do you often feel tired/ Yes 08/15/24 11:22 fatigued/ sleepy during daytime? Has anyone observed you stop No 08/15/24 11:22 breathing during sleep? STOP Results Positive 08/15/24 11:22 QUESTION #5 FULL TEXT : Do you snore loudly (louder than talking or can be heard through closed doors)? Tobacco Use History Tobacco Use History - social work program coordinator: Tobacco Use History - social work program coordinator Tobacco Use Smoking Status Never smoker 08/15/24 11:22 Hx Tobacco Use No 08/15/24 11:22 Years Smoking Packs Smoked per Day Smoking Cessation Date was within the last 15 years Hx Smoking Cessation Date Hx Smoking Cessation Counseling Hematologic Medial History Hematologic Hx - social work program coordinator: Hematologic Medical Hx - audit manager Hx of Blood Transfusion No 08/15/24 11:22 Hx of Transfusion in last 3 No 08/15/24 11:22 Months Date of Last Transfusion (if within last 3 months) Ever experience any problems No 08/15/24 11:22 with transfusion(s)? Specify any problems Hx of Preganancy in last 3 No 08/15/24 11:22 Months Nurse Filling Out Transfusion DSCHRIBER 08/15/24 11:22 & Questions: Date: 08/15/24 08/15/24 11:22 Time: 11:23 08/15/24 11:22 Patient unable to answer at this time (ie. confused, unrespo /Reproduction History /Reproductive History - social work program coordinator: /Reproductive Hx- social work program coordinator Hx Now Gestational Age (in weeks): EDC: Hx Hx Para Hx Section SAB [facility] Medical History (Updated 08/15/24 @ 11:41 by Jossy Salmeron) Living in assisted living Wears glasses Wears dentures Back pain Injury of head and neck Gastric reflux History of echocardiogram History of stress test Hypertension Colitis Hx of falling Weakness Depression Non-smoker DVT (deep venous thrombosis) Bilateral lower extremity edema Ulcer of right lower extremity with fat layer exposed Abrasion, knee Laceration of foot excluding toes Leg edema, left Left leg swelling Postphlebitic syndrome with inflammation Traumatic open wound of left lower leg Lumbar disc disease Dementia Risk for falls Choudhary esophagus History of CVA (cerebrovascular accident) Chronic kidney disease, stage III (moderate) Generalized weakness Home Medications ?Medication ?Instructions ?Recorded ?Last Taken ?Type duloxetine 60 mg capsule,delayed 60 mg PO DAILY depression 08/16/13 07/22/24 08:50 History release budesonide 3 mg 3 mg PO TID colitis 10/21/18 11/28/19 History capsule,delayed,extended release omeprazole 40 mg capsule,delayed 40 mg PO DAILY GERD 10/21/18 07/22/24 08:50 History release furosemide 20 mg tablet 40 mg PO DAILY Edema 05/07/21 07/22/24 08:50 History mirtazapine 7.5 mg tablet 7.5 mg PO QHS Mood 07/20/24 07/21/24 20:30 History potassium chloride 20 mEq 20 meq PO DAILY Supplement 07/20/24 07/22/24 08:50 History tablet,extended release(part/cryst) (Klor-Con M) tramadol 50 mg tablet 50 mg PO BID Pain 07/20/24 07/22/24 10:10 History cefdinir 300 mg capsule 300 mg PO BID Antibiotic #10 caps 07/22/24 Unknown Rx Allergy/AdvReac Type Severity Reaction Status Date / Time No Known Allergies Allergy Verified 08/15/24 11:21 Family History Mother Temporal arteritis Other Arthritis Emphysema of lung Surgical History (Updated 08/15/24 @ 11:41 by Jossy Salmeron) Hx of hysterectomy History of cardiac catheterization Hx of shoulder surgery History of elbow surgery S/P ORIF (open reduction internal fixation) fracture Social History (Updated 07/22/24 @ 17:[address] Elmer Walters MD) household members: none and other details: members of [place] community. housing: assisted living facility Smoking Status: Never smoker alcohol intake: never substance use type: does not use Audit: Pertinent Findings Pertinent Findings EKG Perinent findings: 07/20/2024. Sinus tachycardia at 107 bpm. Premature atrial complexes. Echo (EF%) pertinent findings: 07/20/2024. EF 70% Additional pertinent findings: Chest x-ray 07/20/2024. Cardiomegaly with mild congestion. Recommendation Anesthesia Recommendation Anesthesia recommendation: OPTIMIZED for anesthesia
[2024-08-16] VITALS (9 sets, daily range): BP systolic 127–165; BP diastolic 59–116; PULSE 61–87; RESP 14–18; TEMP 36.1–36.4; O2SAT 91–99; BMI 24.0
--- NOTE | 2024-08-16 10:39 | PCM.PRE.AN2 ---
ASA Classification* ASA Classification ASA Classification: 4 Assessment & Plan Anesthesia* Anesthesia Assessment Anesthesia Assessment: Discussed sedation and/or anesthesia options, risks, benefits, and alternatives with patient/parents/legal guardian/POA. Questions invited. The patient/parents/legal guardian/POA seems to understand and agrees to proceed with anesthesia plan. Reviewed the physical assessment, medical history, allergy history and patient home medications list prior to surgery/procedure/anesthetic and documented any changes. Performed airway and anesthesia risk assessments. Anesthesia Type Anesthesia Type: MAC (General backup) History Source History Obtained from:: Patient, Chart and Parent/ Guardian Anesthesia Focused Assessment* Temperature: 97.5 F Pulse Rate: 61 Blood Pressure: 138/59 Respiratory Rate: 16 Pulse Ox: 99 Oxygen Delivery Method: Room Air Airway Assessment Mouth opens: >3 cm Mallampati Score: III Teeth Condition: Dentures (Full Upper) Neck Range of motion (ROM): Full ROM Focused Labs Anesthesia Preop lab: CBC WBC 8.1 K/mm3 (4.4-11.0) 08/12/24 05:43 08/12/24 RBC 4.01 M/mm3 (4.2-5.4) L 08/12/24 05:43 08/12/24 Hgb 12.2 g/dL (12.0-15.0) 08/12/24 05:43 08/12/24 Hct 38.1 % (37-47) 08/12/24 05:43 08/12/24 Plt Count 241 K/mm3 (150-450) 08/12/24 05:43 08/12/24 CHEMISTRY Potassium 3.6 mmol/L (3.3-5.1) 08/12/24 05:43 08/12/24 Sodium 138 mmol/L (133-145) 08/12/24 05:43 08/12/24 Magnesium 2.3 mg/dL (1.5-2.2) H 07/21/24 06:13 07/21/24 Phosphorus 3.9 mg/dL (2.7-4.5) 07/21/24 06:13 07/21/24 BUN 35 mg/dL (4-19) H 08/12/24 05:43 08/12/24 Creatinine 1.16 mg/dL (0.70-1.20) 08/12/24 05:43 08/12/24 Glucose 117 mg/dL (70-99) H 08/12/24 05:43 08/12/24 POC Glucose 124 mg/dL (70-110) H 10/22/18 01:43 10/22/18 TSH 0.20 uIU/mL (0.358-3.74) L 04/06/19 05:10 04/06/19 COAG PT 12.6 SECONDS (11.7-14.9) 10/21/18 22:55 10/21/18 Pre-Assessment Diagnosis/Proposed Procedure Planned Operative Procedure(s): KYPHOPLASTY T12 Anesthesia History 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 When Was Last Pacemaker Check QUESTION #4 FULL TEXT: You/Your Family Experience fever (hyperthermia) with Anesthesia Last Oral Intake Last Oral intake: Last Oral Intake NPO since 00:00 08/16/24 10:07 Meds taken in AM with sips of Yes 08/16/24 10:07 water? 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 Female Yes 08/15/24 11:22 HX of Motion Sickness Yes 08/15/24 11:22 HX of N/V After Surgery No 08/15/24 11:22 Non-Smoker Yes 08/15/24 11:22 Duration of Surgery greater Yes 08/15/24 11:22 than 60 minutes Number of Risk Factors 4 08/15/24 11:22 PONV Score Severe Risk 08/15/24 11:22 Height & Weight Height & Weight: Anesthesia: Height & Weight Height 5 ft 08/16/24 10:07 Weight: 56 kg 08/16/24 10:07 Body Mass Index (BMI) 24.0 08/16/24 10:07 Respiratory Assessment Respiratory Assessment - hotel maintenance worker: Respiratory Tract Infection Hx - hotel 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 Has anyone observed you stop No 08/15/24 11:22 breathing during sleep? STOP Results Positive 08/15/24 11:22 QUESTION #5 FULL TEXT : Do you snore loudly (louder than talking or can be heard through closed doors)? 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 Specify any problems Hx of Preganancy in last 3 No 08/15/24 11:22 Months Nurse Filling Out Transfusion DSCHRIBER 08/15/24 11:22 & Questions: Date: 08/15/24 08/15/24 11:22 Time: 11:23 08/15/24 11:22 Patient unable to answer at this time (ie. 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 worker Hx Now Gestational Age (in weeks): EDC: Hx Hx Para Hx Section SAB Active Medications Active Medications: Current Medications Generic Name Dose Route Start Last Admin Trade Name Freq PRN Reason Stop Dose Admin Sodium Chloride 1,000 mls @ 15 mls/hr 08/16/24 10:00 IV .Q48H MACRINA PFSH Medical History (Updated 08/15/24 @ 11:41 by Jossy Salmeron) Living in assisted living Wears glasses Wears dentures Back pain Injury of head and neck Gastric reflux History of echocardiogram History of stress test Hypertension Colitis Hx of falling Weakness Depression Non-smoker DVT (deep venous thrombosis) Bilateral lower extremity edema Ulcer of right lower extremity with fat layer exposed Abrasion, knee Laceration of foot excluding toes Leg edema, left Left leg swelling Postphlebitic syndrome with inflammation Traumatic open wound of left lower leg Lumbar disc disease Dementia Risk for falls Choudhary esophagus History of CVA (cerebrovascular accident) Chronic kidney disease, stage III (moderate) Generalized weakness Home Medications ?Medication ?Instructions ?Recorded ?Last Taken ?Type duloxetine 60 mg capsule,delayed 60 mg PO DAILY depression 08/16/13 08/16/24 History release budesonide 3 mg 3 mg PO TID colitis 10/21/18 08/16/24 History capsule,delayed,extended release omeprazole 40 mg capsule,delayed 40 mg PO DAILY GERD 10/21/18 08/16/24 History release furosemide 20 mg tablet 40 mg PO DAILY Edema 05/07/21 07/22/24 08:50 History mirtazapine 7.5 mg tablet 7.5 mg PO QHS Mood 07/20/24 07/21/24 20:30 History potassium chloride 20 mEq 20 meq PO DAILY Supplement 07/20/24 07/22/24 08:50 History tablet,extended release(part/cryst) (Klor-Con M) tramadol 50 mg tablet 50 mg PO BID Pain 07/20/24 07/22/24 10:10 History Allergy/AdvReac Type Severity Reaction Status Date / Time No Known Allergies Allergy Verified 08/16/24 10:05 Family History Mother Temporal arteritis Other Arthritis Emphysema of lung Surgical History (Updated 08/15/24 @ 11:41 by Jossy Salmeron) Hx of hysterectomy History of cardiac catheterization Hx of shoulder surgery History of elbow surgery S/P ORIF (open reduction internal fixation) fracture Social History (Updated 07/22/24 @ 17:[address] Elmer Walters MD) household members: none and other details: members of [place] community. housing: assisted living facility Smoking Status: Never smoker alcohol intake: never substance use type: does not use Review of Systems (Anesthesia) ROS Narrative System reviewed and no additional complaints, except as documented.
[2024-08-16] MEDS: 0.9% Normal Saline (1000mL) 1,000 ML 15 ML IV (10:43)
[2024-08-16] MEDS: Cefazolin 2 GM in Syringe IV (10:58)
--- NOTE | 2024-08-16 11:00 | RAD_ITS ---
PROCEDURE: SPINE 1 VIEW ANY LEVEL 08/16/2024 REASON FOR EXAM: FX T12 TECHNIQUE: Intraoperative cross-table PA and lateral views of the thoracic spine. COMPARISON: Shoulder radiograph 07/26/2024. FINDINGS: Limited intra procedural fluoroscopic imaging obtained. Cement augmentation of the reported T12 vertebral body using a right pedicular approach. RAD/Spine 1 View Any Level IMPRESSION: Intra procedural cement augmentation. Reading Location: [id number]
[2024-08-16] MEDS: Lidocaine 0.5% (50 ml) 50 ML Vial (11:24)
[2024-08-16] MEDS: Bupivacaine Mpf 0.5% 30 ML VIAL (11:24)
--- NOTE | 2024-08-16 12:06 | PCM.POST.ANE ---
Anesthesia: Postop Eval I Current Vital Signs Temperature: 97.1 F Pulse Rate: 85 Blood Pressure: 148/96 Respiratory Rate: 18 Pulse Ox: 94 Assessment Airway patent: Yes Spontaneous unlabored respirations: Yes nausea: No Vomiting: No Anesthesia Complication: No Fluid Hydration Crystalloid volume administer (ml): 600 Total IV fluid infused: 600 Progress Note Anesthesia document: Postop Eval 1 completed: Yes
--- NOTE | 2024-08-16 12:36 | OP.PCM_ITS ---
Problems Associated Problem List Diagnoses (1) Age-related osteoporosis with current pathological fracture, unspecified site, initial encounter for fracture: (2) Compression fracture of body of thoracic vertebra: Operative Report (Standard) Operative Information Date of Procedure: 08/16/24 Pre-Operative Diagnosis: T12 compression fracture Post-Operative Diagnosis: Same Surgery/Procedure Performed: T12 kyphoplasty pan devulcanizer helper: No Type of Anesthesia: MAC and Topical Anesth RN Documented Start/Stop Times: Operation Date: 08/16/24 11:00 Case Time Into Pre-Op 08/16/24 09:56 Out of Pre-Op 08/16/24 10:54 Anesthesia Start 08/16/24 10:58 Into Room 08/16/24 10:58 Procedure Start 08/16/24 11:18 Procedure End 08/16/24 11:53 Anesthesia End 08/16/24 12:01 Out of Room 08/16/24 12:01 Into Recovery 08/16/24 12:03 Procedure Start Time: 11:18 Procedure Stop Time: 11:53 Select all DRAINS/GRAFTS/IMPLANTS that apply: None Estimated Blood Loss: nil Specimen collected: No Description of surgery: Informed consent was obtained prior to the procedure. The risks, benefits, and alternatives were discussed in detail, and the patient expressed understanding and agreed to proceed. The patient was positioned in the prone position on the fluoroscopy table. Standard monitors were applied. Vitals were closely monitored throughout the procedure to ensure patient safety and stability. MAC sedation was used to maintain comfort. The skin overlying the T12 vertebra and surrounding area was sterilized with duraprep draped in a sterile fashion. Topical anesthesia was administered with a mixture of bupivacaine and lidocaine that was injected at the procedural site to ensure local numbness and comfort. A unilateral right sided pedicular approach was used to access the T12 vertebra. Under fluoroscopic guidance, a 10-gauge trochar was introduced through the right pedicle and advanced into the vertebral body. AP, lateral and oblique fluoroscopy was used as needed. A curved introducer was then advanced across the midline of the vertebral body using fluoroscopic guidance. A balloon was then inserted through the trochar and inflated gradually to a maximum pressure of 225 PSI, allowing for partial sikhism of vertebral height without compromising vertebral wall integrity. After optimal inflation was achieved, the balloons were deflated and removed, creating a cavity for cement injection. Cement was prepared and injected under fluoroscopic guidance, with 2.5 cc of c ement was injected. Cement viscosity and flow were monitored closely, and real- time fluoroscopy confirmed even cement distribution within the vertebral body without extravasation. The trochar was removed without evidence of cement tracking. Hemostasis was achieved. The access site was bandaged and sterile dressings were applied. No complications were encountered during the procedure. Surgical Findings: N/A Complications Complications: No
--- NOTE | 2024-08-16 19:18 | POSTOPAN2_ITS ---
Anesthesia Postop Eval I Sum Postop Eval Completion status Anesthesia document: Postop Eval 1 completed: Yes Anesthesia Postop Eval I Summary Anesthesia Postop Eval I Summary: Anesthesia Postop Eval I: Assessment Summary Airway patent Yes 08/16/24 12:06 PROCUREMENT FORESTER.TNES Spontaneous unlabored Yes 08/16/24 12:06 PROCUREMENT FORESTER.TNES respirations Mental status nausea No 08/16/24 12:06 PROCUREMENT FORESTER.TNES Vomiting No 08/16/24 12:06 PROCUREMENT FORESTER.TNES Anesthesia Postop Eval I: Fluid Summary Crystalloid volume administer 600 08/16/24 12:06 PROCUREMENT FORESTER.TNES (ml) Colloids volume administered ( ml) Blood Product volume administered (ml) Total IV fluid infused 600 08/16/24 12:06 PROCUREMENT [email or web address].TNES Anesthesia Postop Eval I: Summary Notes Anesthesia Complication No 08/16/24 12:06 PROCUREMENT FORESTER.TNES Anesthesia Complication Comment: Post-operative progress note Anesthesia: Postop Eval II Evaluation Mental status: Awake and Calm Pain Level: 1 nausea: No Vomiting: No Complications Anesthesia Complication: No
--- NOTE | 2024-08-16 19:18 | PCM.POSTANE2 ---
Anesthesia Postop Eval I Sum Postop Eval Completion status Anesthesia document: Postop Eval 1 completed: Yes Anesthesia Postop Eval I Summary Anesthesia Postop Eval I Summary: Anesthesia Postop Eval I: Assessment Summary Airway patent Yes 08/16/24 12:06 PROGRAM MANAGER [email or web address] Spontaneous unlabored Yes 08/16/24 12:06 PROGRAM MANAGER [email or web address] respirations Mental status nausea No 08/16/24 12:06 PROGRAM MANAGER [email or web address] Vomiting No 08/16/24 12:06 PROGRAM MANAGER [email or web address] Anesthesia Postop Eval I: Fluid Summary Crystalloid volume administer 600 08/16/24 12:06 PROGRAM MANAGER [email or web address] (ml) Colloids volume administered ( ml) Blood Product volume administered (ml) Total IV fluid infused 600 08/16/24 12:06 PROGRAM MANAGER [email or web address] Anesthesia Postop Eval I: Summary Notes Anesthesia Complication No 08/16/24 12:06 PROGRAM MANAGER [email or web address] Anesthesia Complication Comment: Post-operative progress note Anesthesia: Postop Eval II Evaluation Mental status: Awake and Calm Pain Level: 1 nausea: No Vomiting: No Complications Anesthesia Complication: No
== END 2024-08-16 12:54 | disposition home or self-care (01) ==
LOC: SDC 09:58 → AC 09:59
PROVIDERS: PCP Family Medicine; Referring Provider Anesthesiology; Visit Provider Anesthesiology
PROC: (CPT 22513; principal; 2024-08-16 10:45)
DX: M80.08XA Age-related osteoporosis with current pathological fracture, vertebra(e), initial encounter for fracture (principal); N18.30 Chronic kidney disease, stage 3 unspecified; I12.9 Hypertensive chronic kidney disease with stage 1 through stage 4 chronic kidney disease, or unspecified chronic kidney disease; F32.A Depression, unspecified; Z79.899 Other long term (current) drug therapy; Z86.718 Personal history of other venous thrombosis and embolism; Z86.73 Personal history of transient ischemic attack (TIA), and cerebral infarction without residual deficits
CPT/HCPCS: 22513; 01941; 72020; 76000; C1713